=== PATIENT | female | born 1975 | race Caucasian/White ===

== ENCOUNTER 2022-09-13 05:02 | Emergency (ER) | payer OTHER ==
--- OUTSIDE RECORDS SUMMARY | 2022-09-13 05:09 | XMS REPORT | Continuity of Care Document ---
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 [facility] 2017-01-16 2017-01-17 Emergency [facility], [facility] [id number] [place] 00:00:00 00:00:00 [place] [address] 2016-07-02 2016-07-02 Emergency [place] [id number] [place] 00:00:00 00:00:[address] 2015-12-23 2015-12-23 Emergency [place] [id number] [place] 00:00:00 00:00:[address] 2015-12-22 2015-12-22 Emergency [place] [id number] [place] 00:00:00 00:00:[address] 2015-12-18 2015-12-19 Emergency [facility], [place] [id number] [place] 00:00:00 00:00:00 CAMARAN [address] Results Test Description Test Time Test Comments Results Result Comments Source GLUBED 2022-05-16 20:53:00 Test Item Value Reference Range Interpretation Comme nts GLUBED (test code = GLUBED) 163 mg/dL 70-105 H Intravenous administration of N-acetylcystein e which resultsin blood concentrations >5 mg/dL will cause overestimationo f blood glucose results. Do not use duri ng intravenousinfusion of N'acetylcyst eine. Lipid 1996 panel - Serum or [id number] 09:06:00 Test Item Value Reference Range Interpretation Comments cholesterol, total 180 mg/dL <200 (test code = cholesterol, total) HDL cholesterol (test 90 mg/dL See_Comment [Auto mated code = HDL message] The sy stem cholesterol) which generated this result transmitted reference range : > or = 50. The reference range was not used to interpret this result as normal/abnormal . triglycerides (test 63 mg/dL <150 code = triglycerides) Cholesterol in LDL 76 mg/dL [Mass/volume] in Serum (calc) or Plasma (test code = 2089-1) chol/HDLC ratio (test 2.0 (calc) <5.0 code = chol/HDLC ratio) non HDL cholesterol 90 mg/dL <130 (test code = non HDL (calc) cholesterol) [facility] - [facility] or Plasma 2021-08-01 09:06:00 Test Item Value Reference Range Interpretation Comments glucose (test code 108 mg/dL 65-99 H = glucose) urea nitrogen (BUN) 12 mg/dL 7-25 (test code = urea nitrogen (BUN)) creatinine (test 0.65 mg/dL 0.50-1.10 code = creatinine) eGFR non-afr. 106 mL/min/1.73m2 See_Comment [Automat ed dutch (test code message] The = eGFR non-afr. system which dutch) generated this result transmit to reference range : > or = 60. The reference range was not used to interpret this result as normal/abnormal . eGFR 123 mL/min/1.73m2 See_Comment [Automate d dutch (test code message] The = eGFR system which dutch) generated this result transmit to reference range : > or = 60. The reference range was not used to interpret this result as normal/abnormal . BUN/creatinine not applicable 6-22 ratio (test code = BUN/creatinine ratio) sodium (test code = 137 mmol/L 135-146 sodium) potassium (test 4.2 mmol/L 3.5-5.3 code = potassium) chloride (test code 104 mmol/L 98-110 = chloride) carbon dioxide 20 mmol/L 20-32 (test code = carbon dioxide) calcium (test code 9.8 mg/dL 8.6-10.2 = calcium) protein, total 7.3 g/dL 6.1-8.1 (test code = protein, total) albumin (test code 4.5 g/dL 3.6-5.1 = albumin) globulin (test code 2.8 g/dL (calc) 1.9-3.7 = globulin) albumin/globulin 1.6 (calc) 1.0-2.5 ratio (test code = albumin/globulin ratio) bilirubin, total 0.3 mg/dL 0.2-1.2 (test code = bilirubin, total) alkaline 78 U/L 31-125 phosphatase (test code = alkaline phosphatase) AST (test code = 13 U/L 10-35 AST) ALT (test code = 12 U/L 6-29 ALT) [facility] - [id number] 09:06:00 Test Item Value Reference Range Interpretation Comments hemoglobin (test code = 13.5 g/dL 11.7-15.5 hemoglobin) hematocrit (test code = 40.5 % 35.0-45.0 hematocrit) MCV (test code = MCV) 93.3 fL 80.0-100.0 MCH (test code = MCH) 31.1 pg 27.0-33.0 MCHC (test code = MCHC) 33.3 g/dL 32.0-36.0 RDW (test code = RDW) 11.9 % 11.0-15.0 platelet count (test code = 303 thousand/uL 140-400 platelet count) MPV (test code = MPV) 10.3 fL 7.5-12.5 absolute neutrophils (test 02501 cells/uL 6142-7332 H code = absolute neutrophils) absolute lymphocytes (test 735 cells/uL 850-3900 L code = absolute lymphocytes) absolute monocytes (test 1294 cells/uL 200-950 H code = absolute monocytes) absolute eosinophils (test 0 cells/uL 15-500 L code = absolute eosinophils) absolute basophils (test 59 cells/uL 0-200 code = absolute basophils) neutrophils (test code = 92.9 % neutrophils) lymphocytes (test code = 2.5 % lymphocytes) monocytes (test code = 4.4 % monocytes) eosinophils (test code = 0.0 % eosinophils) basophils (test code = 0.2 % basophils) white blood cell count (test 29.4 thousand/uL 3.8-10.8 H code = white blood cell count) red blood cell count (test 4.34 million/uL 3.80-5.10 code = red blood cell count) [facility]Un[facility]/volume] in Serum or [id number] 09:06:00 Test Item Value Reference Range Interpretation Comments TSH (test code = TSH) 0.93 mIU/L [facility] Hospital[facility]xgenzmd95-Asluswduaalwfn D3+25-Hydroxyvitamin D2 [Mass/volume] in Serum or [id number] 09:06:00 Test Item Value Reference Range Interpretation Comments vitamin D,25-oh,total,ia (test code 105 NG/mL 30-100 H = vitamin D,25-oh,total,ia) comment (test code = comment) [facility]/Hemoglobin.total in [id number] 09:06:00 Test Item Value Reference Range Interpretation Comments Hemoglobin 5.2 % of total HGB <5.7 A1c/Hemoglobin.total in Blood (test code = 4548-4) [facility] [id number] 10:03:00 Test Item Value Reference Range Interpretation Comments SURGICAL SPECIMENS (test code = SURG) RUN DATE: 09/16/20 [facility] *LIVE* PAGE 1 RUN TIME: 1003 Specimen Inquiry RUN USER: INTERFACE PATIENT: [address]LE[address] STRE[address] LOC: NC.SRG U #: [id number] AGE/SX: 44/F ROOM: RE09/15/20[facility] DR: Sudha Acosta MD : [id number] BED: DIS: STATUS: MAXIMO CONNOR TLOC: SPEC #: [id number] RECD: 09/15/20-478 STATUS: CHUCK FRANKLIN #: [id number] ALEN: 09/15/20-[address]: Sudha Acosta MD ENTERED: 09/15/20-1141 SP TYPE: SURG OTHR DR: DOES_NOT KNOW No Primary Care PhysicianORDERED: PATHGM4/3 TISSUES: A. COLON, NOS - ASCENDING COLON POLYP CS B. COLON, NOS - ASCENDING COLON POLYP BX C. COLON, NOS - SIGMOID COLON POLYP CS FINAL MICROSCOPIC DIAGNOSIS A. COLON, ASCENDING, COLD SNARE: - TUBULAR ADENOMA (1) B. COLON, ASCENDING, BIOPSY: - TUBULAR ADENOMA (1) C. COLON, SIGMOID, COLD SNARE: - TUBULAR ADENOMA (1) CPT: 36833 x3 GROSS DESCRIPTION Clinical history: Diverticulitis Three specimens are received in formalin each labeled with the patient's name, Jad, and medical record number. A. Specimen labeled "ascending colon polyp cold snare" and consists of a 0.1 cm in greatest dimension olsen-white mucosal biopsy fragment which is filtered in a histobag and entirely submitted in cassette A. B. Specimen labeled "ascending colon polyp biopsy" and consists of two olsen-pink mucosal biopsy fragments measuring 0.2 and 0.3 cm in greatest dimension. The specimen is filtered in a histobag and entirely submitted in cassette B. C. Specimen labeled "sigmoid colon polyp cold snare" and consists of a 0.4 cm in greatest dimension olsen mucosal biopsy fragment which is filtered in a histobag and entirely submitted in cassette C. Signed SIGNATURE ON FILE Fritz Silveira 09/16/20 1003 END OF REPORT DRUGS OF ABUSE SCREEN [id number] 08:52:00 Test Item Value Reference Range Interpretation Comments UR COCAINE (test code = COCAU) POSITIVE NEGATIVE A UR METHAMPHETAMINE (test code = NEGATIVE NEGATIVE METHAMPHU) UR CANABINOIDS (test code = CANU) POSITIVE NEGATIVE A UR AMPHETAMINE (test code = AMPHU) NEGATIVE NEGATIVE UR BARBITURATE (test code = BARBQLU) NEGATIVE NEGATIVE UR BENZODIAZEPINE (test code = NEGATIVE NEGATIVE BENZU) UR OPIATES QUAL (test code = Negative NEGATIVE OPIAQLU) UR TRICYCLICS (test code = TRICYCU) Negative NEGATIVE UR PHENCYCLIDINE (PCP) (test code = Negative NEGATIVE PHENCU) UR HCG [id number] 07:00:00 Test Item Value Reference Range Interpretation Comments UR HCG QUAL (test code = HCGQLU) NEGATIVE NEGATIVE Novel Coronavirus 14:51:00 Test Item Value Reference Range Interpretation Comments Novel Coronavirus Not Detected Not Detected Negative r esults do not 2019 nCoV (test preclude 201 9-nCoV code = COVID19) infection an dshould not be used as the sole basis for treat ment or otherpatient ma nagement decisions. Nega tive results must be combined with clinical observations, p atient history, andepidemiologi miguel information.Ashley ting was performed using the Aptima SARS-CoV -2 assay.This nucl eic acid amplification t est was developed and itsperformance characteristics determined by [facility]. Nucleic acid amplification t ests include PCRand TMA. This test has not be en FDA cleared or appr geena.This test has been a uthorized by FDA under an Emergency UseAuthorizatio n (EUA). This test is on ly authorized fort he duration of maryanne e the declaration candelaria t circumstancesex ist justifying the authorization o f the emergency use o fin vitro diagnostic test s for detection of SA RS-CoV-2 virusand/or bravo gnosis of COVID-19 infect ion under futmroh583(b)(1 ) of the Act, 21 U.S.C. 360bbb-3(b) (1) , unless theauthorizatio n is terminated or r evoked sooner.When bravo gnostic testing is nega tive, the possibility of afalse negative result should be considered i n the contextof a pat ient's recent exposure s and the presence ofclin ical signs and sympt oms consistent with COVID-19. Anind ividual without symptom s of COVID-19 and wh o is notshedding JACKY S-CoV-2 virus would exp ect to have a negative (not detected) resul t in this assay.Performed At: [facility] [place] [address] [place], [place] [id number] alexys Escobar MD Ph:[phone] Novel Coronavirus [id number] 13:11:00 Test Item Value Reference Range Interpretation Comments Novel Coronavirus Not Detected Not Detected Negative r esults do not 2019 nCoV (test preclude 201 9-nCoV code = COVID19) infection an dshould not be used as the sole basis for treat ment or otherpatient ma nagement decisions. Nega tive results must be combined with clinical observations, p atient history, andepidemiologi miguel information.Ashley ting was performed using the Aptima SARS-CoV -2 assay.This nucl eic acid amplification t est was developed and itsperformance characteristics determined by [facility]. Nucleic acid amplification t ests include PCRand TMA. This test has not be en FDA cleared or appr geena.This test has been a uthorized by FDA under an Emergency UseAuthorizatio n (EUA). This test is on ly authorized fort he duration of maryanen e the declaration candelaria t circumstancesex ist justifying the authorization o f the emergency use o fin vitro diagnostic test s for detection of SA RS-CoV-2 virusand/or bravo gnosis of COVID-19 infect ion under pweppvc954(b)(1 ) of the Act, 21 U.S.C. 360bbb-3(b) (1) , unless theauthorizatio n is terminated or r evoked sooner.When bravo gnostic testing is nega tive, the possibility of afalse negative result should be considered i n the contextof a pat ient's recent exposure s and the presence ofclin ical signs and sympt oms consistent with COVID-19. Anind ividual without symptom s of COVID-19 and wh o is notshedding JACKY S-CoV-2 virus would exp ect to have a negative (not detected) resul t in this assay.Performed At: [facility] [place] [address] [place], [place] [id number] alexys Escobar MD Ph:[phone] BASIC METABOLIC [id number] 19:56:00 Test Item Value Reference Range Interpretation Comments SODIUM (test code 138 mmol/L 135-145 N = NA) POTASSIUM (test 3.7 mmol/L 3.5-5.1 N code = K) CHLORIDE (test 102 mmol/L 98-107 N code = CL) CARBON DIOXIDE 30 mmol/L 21-32 N (test code = CO2) ANION GAP (test 9.7 2.0-16.0 N code = GAP) GLUCOSE (test code 139 mg/dL 65-99 H = GLU) BLOOD UREA 10 mg/dL 4-23 N NITROGEN (test code = BUN) GLOMERULAR >=60 max >60 The estimated FILTRATION RATE estimate ml/min glomerula r (test code = GFR) filtration rate is computed usingpatient ra ce, age (>18), sex, and serum creatinin e. If anyof the neede d data elements a re missing the Laboratory rohan ot compute an estimation of t he glomerular filtration rate . CREATININE (test 0.7 mg/dL 0.6-1.5 N code = CREAT) BUN/CREATININE 14.3 12.0-20.0 N RATIO (test code = BUN/CREA) CALCIUM (test code 9.1 mg/dL 8.5-10.1 N = CA) CBC W/AUTO [id number] 19:39:00 Test Item Value Reference Range Interpretation Comments WHITE BLOOD CELL (test code = 10.9 10 3/uL 4.5-11.0 N WBC) RED BLOOD CELL (test code = 4.69 10 6/uL 3.50-5.50 N RBC) HEMOGLOBIN (test code = HGB) 13.2 g/dL 12.0-16.0 N HEMATOCRIT (test code = HCT) 42.7 % 37.0-55.0 N MEAN CELL VOLUME (test code = 91 fL 81-102 N MCV) MEAN CELL HGB (test code = 28.1 pg 26.0-34.0 N MCH) MEAN CELL HGB CONCENTRATION 30.9 g/dL 31.0-37.0 L (test code = MCHC) RED CELL DISTRIBUTION WIDTH 12.1 % 11.6-14.4 N (test code = RDW) PLATELET COUNT (test code = 554 10 3/uL 150-400 H PLT) MEAN PLATELET VOLUME (test 9.2 fL 9.0-12.6 N code = MPV) NEUTROPHIL % (test code = NT%) 73.2 % 33.0-76.0 N IMMATURE GRANULOCYTE % (test 1.0 % 0.0-1.0 N code = IG%) LYMPHOCYTE % (test code = LY%) 19.6 % 14.0-56.4 N MONOCYTE % (test code = MO%) 4.3 % 0.0-12.9 N EOSINOPHIL % (test code = EO%) 1.4 % 0.0-7.0 N BASOPHIL % (test code = BA%) 0.5 % 0-2.0 N NUCLEATED RBC % (test code = 0.0 % 0-0.2 N NRBC%) NEUTROPHIL # (test code = NT#) 7.99 10 3/uL 1.5-7.0 H IMMATURE GRANULOCYTE # (test 0.110 x10 3/uL 0.000-0.100 H code = IG#) LYMPHOCYTE # (test code = LY#) 2.14 10 3/uL 1.50-4.00 N MONOCYTE # (test code = MO#) 0.47 10 3/uL 0.20-0.80 N EOSINOPHIL # (test code = EO#) 0.15 10 3/uL 0.0-0.5 N BASOPHIL # (test code = BA#) 0.06 10 3/uL 0.0-0.1 N COMPREHENSIVE METABOLIC [id number] 07:37:00 Test Item Value Reference Range Interpretation Comments SODIUM (test code 138 mmol/L 135-145 N = NA) POTASSIUM (test 4.5 mmol/L 3.5-5.1 N code = K) CHLORIDE (test 108 mmol/L 98-107 H code = CL) CARBON DIOXIDE 23 mmol/L 21-32 N (test code = CO2) ANION GAP (test 11.5 2.0-16.0 N code = GAP) GLUCOSE (test 99 mg/dL 65-99 N code = GLU) BLOOD UREA 15 mg/dL 4-23 NITROGEN (test code = BUN) GLOMERULAR >=60 max >60 The estimated g lomerular FILTRATION RATE estimate filtration r ate is (test code = GFR) ml/min computed u singpatient race, age (>18) , sex, and serum creat inine. If anyof the neede d data elements are mi ssing the Laboratory rohan ot compute an roxanne mation of the glomerular filtration rate . CREATININE (test 0.8 mg/dL 0.6-1.5 N code = CREAT) BUN/CREATININE 18.8 12.0-20.0 N RATIO (test code = BUN/CREA) TOTAL PROTEIN 6.4 g/dL 6.4-8.2 N (test code = PROT) ALBUMIN (test 2.7 g/dL 3.4-5.0 L code = ALB) CALCIUM (test 8.5 mg/dL 8.5-10.1 N code = CA) BILIRUBIN TOTAL 0.3 mg/dL 0.2-1.2 N Use of this assay is not (test code = recommended for patients BILT) undergoingtreat ment with Eltrombopag due to the potential for falselyelevated results. SGOT/AST (test 8 U/L 15-37 L code = AST) SGPT/ALT (test 11 U/L 6-50 N code = ALT) ALKALINE 76 U/L 45-117 N PHOSPHATASE (test code = ALKP) CBC W/AUTO [id number] 06:29:00 Test Item Value Reference Range Interpretation Comments WHITE BLOOD CELL (test code = 9.6 10 3/uL 4.5-11.0 N WBC) RED BLOOD CELL (test code = 3.67 10 6/uL 3.50-5.50 N RBC) HEMOGLOBIN (test code = HGB) 11.0 g/dL 12.0-16.0 L HEMATOCRIT (test code = HCT) 35.6 % 37.0-55.0 L MEAN CELL VOLUME (test code = 97 fL 81-102 N MCV) MEAN CELL HGB (test code = 30.0 pg 26.0-34.0 N MCH) MEAN CELL HGB CONCENTRATION 30.9 g/dL 31.0-37.0 L (test code = MCHC) RED CELL DISTRIBUTION WIDTH 12.0 % 11.6-14.4 N (test code = RDW) PLATELET COUNT (test code = 406 10 3/uL 150-400 H PLT) MEAN PLATELET VOLUME (test 9.8 fL 9.0-12.6 N code = MPV) NEUTROPHIL % (test code = NT%) 65.8 % 33.0-76.0 N IMMATURE GRANULOCYTE % (test 0.5 % 0.0-1.0 N code = IG%) LYMPHOCYTE % (test code = LY%) 24.1 % 14.0-56.4 N MONOCYTE % (test code = MO%) 5.7 % 0.0-12.9 N EOSINOPHIL % (test code = EO%) 3.5 % 0.0-7.0 N BASOPHIL % (test code = BA%) 0.4 % 0-2.0 N NUCLEATED RBC % (test code = 0.0 % 0-0.2 N NRBC%) NEUTROPHIL # (test code = NT#) 6.29 10 3/uL 1.5-7.0 N IMMATURE GRANULOCYTE # (test 0.050 x10 3/uL 0.000-0.100 N code = IG#) LYMPHOCYTE # (test code = LY#) 2.31 10 3/uL 1.50-4.00 N MONOCYTE # (test code = MO#) 0.55 10 3/uL 0.20-0.80 N EOSINOPHIL # (test code = EO#) 0.34 10 3/uL 0.0-0.5 N BASOPHIL # (test code = BA#) 0.04 10 3/uL 0.0-0.1 N - CT ABD PELVIS W WO [id number] 08:30:00Patient Name: ALETHEA STREET Unit No: [id number] EXAMS: CPT CODE: [id number] CT ABD PELVIS W [place] CONT [address]609 CLINICAL HISTORY: DIVERTICULOSIS TECHNIQUE: Axial images of the abdomen and pelvis were obtained from diaphragm to the pubic symphysis without and with intravenous contrast. No oral contrast is administered. Approximately 100 mL of intravenous contrast was administered. Sagittal and coronal images were obtained. Location: A1 CT DLP dose: 751 mGy-cm. Iterative dose reduction technique was utilized. Comparison study: Comparison is made with prior study of 06/13/2020 FINDINGS: The images of thelung bases demonstrate no masses, effusions or infiltrates. Heart size is normal. There is no pericardial effusion. The liver is homogeneous, free of focal masses and dilated intrahepatic ducts. The gallbladder is unremarkable. The spleen is normal in size and contour. The pancreas is morphologically normal. No mass, pancreatic duct dilatation or peripancreatic edema is visible. The adrenal glands are normal in size and contour. Both kidneys are normal in size. No hydronephrosis or enhancing renal mass. No urothelial thickening is seen, calyceal system appears sharp. Neither cystic nor solid renal masses are visible. No hydronephrosis is seen. No renal calculi or perinephric stranding. The urinary bladder is unremarkable. Stomach and duodenum appear unremarkable. The visualized small bowel is unremarkable without evidence of bowel thickening or obstruction. The The appendix is unremarkable. There is no pericecal inflammation. There is significant interval improvement of the inflammatory processalong the sigmoid. Previously described small intramural abscess in the left lower quadrant now measures 2.1 x 2.5 cm image 63, previously measured 4.7 x 2.9 cm. An adjacent tiny interloop abscess (image 59) within the mesentery previously measured 1.5 cm in diameter now measures 9 to 10 mm in diameter. The uterus is unremarkable. Small left ovarian cyst measuring 1.3 cm is unchanged. No retroperitoneal lymphadenopathy is present. The aorta is of normal caliber. The IVC is patent. The portal vein is Name: ALETHE[address] STREET [facility] Phys: Carol Welch [id number] : 1975 Age: 44 Sex: [place] [id number] Loc: NC.6307 1 Exam Date: 06/20/2020 Status: ADM IN PH: FAX: PAGE 1 Signed Report (CONTINUED) Patient Name: ALETHEA STREET Unit No: [id number] EXAMS: CPT CODE: [id number] CT ABD PELVIS W WO CONT [id number] (Continued) patent. No evidence of ascites. Abdominal wall is intact. No significant bone lesions. IMPRESSION: 1. Interval improvement in the complicated sigmoid diverticulitis noted. Overall inflammatory process around the sigmoid is diminished. The intramural abscess now measures 2.5 x 2.1 cm, previously measured 4.7 x 2.9 cm. Tiny interloop/mesenteric abscess now measures 9 to 10 mm in diameter, previously measured 15 mm in diameter. 2. No new abscess or fluid collections have developed. at 0830 Reported and signed by: Antoni Escobar M.D. CC: Self Referred; Carol Aguilar MD; Josiah Ervin MD Technologist: Ana Laura Tess CTDI: 8.44 DLP: 750.8 Trscr Dt/Tm: 06/20/2020 (829) by:[email or web address] Electronic Signature Date/Time: 06/20/2020 (829)Orig Print D/T: S: 06/20/2020 (832) [facility] [address] : 1975 Age: 44 [place]: [place] [address] Loc: NC.6307 1 Exam Date: 06/20/2020 Status: ADM IN PH: FAX: PAGE 2 Signed ReportBASIC METABOLIC [id number] 06:07:00 Test Item Value Reference Range Interpretation Comments SODIUM (test code 142 mmol/L 135-145 N = NA) POTASSIUM (test 4.8 mmol/L 3.5-5.1 N code = K) CHLORIDE (test 110 mmol/L 98-107 H code = CL) CARBON DIOXIDE 28 mmol/L 21-32 N (test code = CO2) ANION GAP (test 8.8 2.0-16.0 N code = GAP) GLUCOSE (test code 86 mg/dL 65-99 N = GLU) BLOOD UREA 6 mg/dL 4-23 N NITROGEN (test code = BUN) GLOMERULAR >=60 max >60 The estimated FILTRATION RATE estimate ml/min glomerula r (test code = GFR) filtration rate is computed usingpatient ra ce, age (>18), sex, and serum creatinin e. If anyof the neede d data elements a re missing the Laboratory rohan ot compute an estimation of t he glomerular filtration rate . CREATININE (test 0.7 mg/dL 0.6-1.5 N code = CREAT) BUN/CREATININE 8.6 12.0-20.0 L RATIO (test code = BUN/CREA) CALCIUM (test code 8.5 mg/dL 8.5-10.1 N = CA) CBC W/AUTO [id number] 05:33:00 Test Item Value Reference Range Interpretation Comments WHITE BLOOD CELL (test code = 16.6 10 3/uL 4.5-11.0 H WBC) RED BLOOD CELL (test code = 3.36 10 6/uL 3.50-5.50 L RBC) HEMOGLOBIN (test code = HGB) 10.6 g/dL 12.0-16.0 L HEMATOCRIT (test code = HCT) 32.2 % 37.0-55.0 L MEAN CELL VOLUME (test code = 96 fL 81-102 N MCV) MEAN CELL HGB (test code = 31.5 pg 26.0-34.0 N MCH) MEAN CELL HGB CONCENTRATION 32.9 g/dL 31.0-37.0 N (test code = MCHC) RED CELL DISTRIBUTION WIDTH 12.3 % 11.6-14.4 N (test code = RDW) PLATELET COUNT (test code = 350 10 3/uL 150-400 N PLT) MEAN PLATELET VOLUME (test 9.8 fL 9.0-12.6 N code = MPV) NEUTROPHIL % (test code = NT%) 75.9 % 33.0-76.0 N IMMATURE GRANULOCYTE % (test 0.5 % 0.0-1.0 N code = IG%) LYMPHOCYTE % (test code = LY%) 17.0 % 14.0-56.4 N MONOCYTE % (test code = MO%) 4.4 % 0.0-12.9 N EOSINOPHIL % (test code = EO%) 2.0 % 0.0-7.0 N BASOPHIL % (test code = BA%) 0.2 % 0-2.0 N NUCLEATED RBC % (test code = 0.0 % 0-0.2 N NRBC%) NEUTROPHIL # (test code = NT#) 12.61 10 3/uL 1.5-7.0 H IMMATURE GRANULOCYTE # (test 0.080 x10 3/uL 0.000-0.100 N code = IG#) LYMPHOCYTE # (test code = LY#) 2.82 10 3/uL 1.50-4.00 N MONOCYTE # (test code = MO#) 0.73 10 3/uL 0.20-0.80 N EOSINOPHIL # (test code = EO#) 0.33 10 3/uL 0.0-0.5 N BASOPHIL # (test code = BA#) 0.03 10 3/uL 0.0-0.1 N [id number] 13:19:00 Test Item Value Reference Range Interpretation Comments GLUBED (test 78 mg/dL 65-99 N Intravenous adm inistration of code = GLUBED) N-acetylcyste ine which resultsin blood concentrations >5 mg/dL will cause overestim ationof blood glucose results . Do not use during intraven ousinfusion of N'acetylcystein e. [id number] 08:10:00 Test Item Value Reference Range Interpretation Comments GLUBED (test 84 mg/dL 65-99 N Intravenous adm inistration of code = GLUBED) N-acetylcyste ine which resultsin blood concentrations >5 mg/dL will cause overestim ationof blood glucose results . Do not use during intraven ousinfusion of N'acetylcystein e. HGBA1C - GLYCOSYLATED [id number] 05:46:00 Test Item Value Reference Range Interpretation Comments GLYCOSYLATED HEMOGLOBIN (HA1C) (test 5.6 4.5-5.9 N code = GLYHGB) COMPREHENSIVE METABOLIC [id number] 05:01:00 Test Item Value Reference Range Interpretation Comments SODIUM (test code 141 mmol/L 135-145 N = NA) POTASSIUM (test 4.0 mmol/L 3.5-5.1 N code = K) CHLORIDE (test 107 mmol/L 98-107 N code = CL) CARBON DIOXIDE 30 mmol/L 21-32 N (test code = CO2) ANION GAP (test 8.0 2.0-16.0 code = GAP) GLUCOSE (test 85 mg/dL 65-99 N code = GLU) BLOOD UREA 12 mg/dL 4-23 N NITROGEN (test code = BUN) GLOMERULAR >=60 max >60 The estimated g lomerular FILTRATION RATE estimate filtration r ate is (test code = GFR) ml/min computed u singpatient race, age (>18) , sex, and serum creat inine. If anyof the neede d data elements are mi ssing the Laboratory rohan ot compute an roxanne mation of the glomerular filtration rate . CREATININE (test 0.8 mg/dL 0.6-1.5 N code = CREAT) BUN/CREATININE 15.0 12.0-20.0 N RATIO (test code = BUN/CREA) TOTAL PROTEIN 6.2 g/dL 6.4-8.2 L (test code = PROT) ALBUMIN (test 2.7 g/dL 3.4-5.0 L code = ALB) CALCIUM (test 8.5 mg/dL 8.5-10.1 N code = CA) BILIRUBIN TOTAL 0.5 mg/dL 0.2-1.2 N Use of this assay is not (test code = recommended for patients BILT) undergoingtreat ment with Eltrombopag due to the potential for falselyelevated results. SGOT/AST (test 9 U/L 15-37 L code = AST) SGPT/ALT (test 13 U/L 6-50 N code = ALT) ALKALINE 80 U/L 45-117 N PHOSPHATASE (test code = ALKP) [id number] 05:01:00 Test Item Value Reference Range Interpretation Comments MAGNESIUM (test code = MAG) 2.2 mg/dL 1.8-2.4 N CBC W/AUTO [id number] 04:53:00 Test Item Value Reference Range Interpretation Comments WHITE BLOOD CELL (test code = 11.6 10 3/uL 4.5-11.0 H WBC) RED BLOOD CELL (test code = 3.39 10 6/uL 3.50-5.50 L RBC) HEMOGLOBIN (test code = HGB) 10.4 g/dL 12.0-16.0 L HEMATOCRIT (test code = HCT) 32.0 % 37.0-55.0 L MEAN CELL VOLUME (test code = 94 fL 81-102 N MCV) MEAN CELL HGB (test code = 30.7 pg 26.0-34.0 N MCH) MEAN CELL HGB CONCENTRATION 32.5 g/dL 31.0-37.0 N (test code = MCHC) RED CELL DISTRIBUTION WIDTH 12.0 % 11.6-14.4 N (test code = RDW) PLATELET COUNT (test code = 372 10 3/uL 150-400 N PLT) MEAN PLATELET VOLUME (test 10.1 fL 9.0-12.6 N code = MPV) NEUTROPHIL % (test code = NT%) 61.3 % 33.0-76.0 N IMMATURE GRANULOCYTE % (test 0.4 % 0.0-1.0 N code = IG%) LYMPHOCYTE % (test code = LY%) 28.0 % 14.0-56.4 N MONOCYTE % (test code = MO%) 5.3 % 0.0-12.9 N EOSINOPHIL % (test code = EO%) 4.6 % 0.0-7.0 N BASOPHIL % (test code = BA%) 0.4 % 0-2.0 N NUCLEATED RBC % (test code = 0.0 % 0-0.2 N NRBC%) NEUTROPHIL # (test code = NT#) 7.11 10 3/uL 1.5-7.0 H IMMATURE GRANULOCYTE # (test 0.050 x10 3/uL 0.000-0.100 N code = IG#) LYMPHOCYTE # (test code = LY#) 3.25 10 3/uL 1.50-4.00 N MONOCYTE # (test code = MO#) 0.62 10 3/uL 0.20-0.80 N EOSINOPHIL # (test code = EO#) 0.54 10 3/uL 0.0-0.5 H BASOPHIL # (test code = BA#) 0.05 10 3/uL 0.0-0.1 N Coronavirus 2018 nCoV [id number] 17:57:00 Test Item Value Reference Range Interpretation Comments Coronavirus 2018 Negative Negative This test h ad not been nCoV Bedside (test FDA clear ed or approved; code = [id number]) This te sthas been authorized by F DA under an EUA for use byauthorized la boratories only for the de tection of nucleicacid fro m SARS-CoV-2, not for any other viruses orpathogens; an d this test is only au thorized for the duratio nof the declaration candelaria t circumstances e xist justifying theauthorizatio n of emergency use o f in-vitro diagnostic test sfor detection and/o r diagnosis of CO VID-19 under Rluznen53 4(b)(1) of the Act, 21 U.S .C. 360bbb-3(b)(1), unless theauthorizatio n is terminated or r evoked sooner. Is patient requiring admission or transfer? YIndication for rapid COVID-9 testing: Mod Clinical SuspicionLIPID PROFILE (CORONARY RISK)2020-06-18 17:04:00 Test Item Value Reference Range Interpretation Comments TRIGLYCERIDES (test code = TRIG) 227 mg/dL 0-149 H CHOLESTEROL (test code = CHOL) 165 mg/dL 0-200 N CHOLESTEROL/HDL RATIO (test code = 4 1-6 N CHOLHDL) HDL CHOLESTEROL (test code = HDL) 38 mg/dL 40-60 L LIPOPROTEIN LDL (test code = LDLC) 95 mg/dL 0-100 N LACTIC [id number] 16:27:00 Test Item Value Reference Range Interpretation Comments LACTIC ACID (test code = LACT) 1.3 mmol/L 0.4-2.0 N PROTHROMBIN [id number] 16:24:00 Test Item Value Reference Range Interpretation Comments PROTHROMBIN TIME 11.7 SECONDS 9.4-12.5 N PATIENT (test code = PTP) INTERNATIONAL 1.1 RATIO 0.8-1.1 N THE INR IS USE FUL ONLY NORMAL RATIO (test FOR MONIT ORING code = INR) ANTICOAGULANT THERAPY.IT MAY BE UNRELIABLE IN T HE INITIAL PHASE O F ANTICOAGULATION AND IN UNSTABLE PATIEN TS. 2.0-3.0 is the recommended INR for the following:Preve ntion of venous thrombol ism in high-risk patients;treatm ent of venous thrombos is and pulmonary embol ism aftera course o f heparin; preven tion of systemic emboli sm in avariety of con dition, including atria l fibrillation andprosthetic t issue heart valves.2. 5-3.5 is the recommended INR for the following:Prost hetic mechanical hear t values and/or recurren t systemicemboliz ation. THROMBOPLASTIN TIME [id number] 16:24:00 Test Item Value Reference Range Interpretation Comments THROMBOPLASTIN TIME PARTIAL 29.5 SECONDS 25.1-36.5 N (test code = PTT) BASIC METABOLIC [id number] 15:37:00 Test Item Value Reference Range Interpretation Comments SODIUM (test code 138 mmol/L 135-145 N = NA) POTASSIUM (test 4.1 mmol/L 3.5-5.1 N code = K) CHLORIDE (test 105 mmol/L 98-107 N code = CL) CARBON DIOXIDE 26 mmol/L 21-32 N (test code = CO2) ANION GAP (test 11.1 2.0-16.0 N code = GAP) GLUCOSE (test code 89 mg/dL 65-99 N = GLU) BLOOD UREA 14 mg/dL 4-23 N NITROGEN (test code = BUN) GLOMERULAR >=60 max >60 The estimated FILTRATION RATE estimate ml/min glomerula r (test code = GFR) filtration rate is computed usingpatient ra ce, age (>18), sex, and serum creatinin e. If anyof the neede d data elements a re missing the Laboratory rohan ot compute an estimation of t he glomerular filtration rate . CREATININE (test 0.7 mg/dL 0.6-1.5 N code = CREAT) BUN/CREATININE 20.0 12.0-20.0 N RATIO (test code = BUN/CREA) CALCIUM (test code 8.9 mg/dL 8.5-10.1 N = CA) DATE OF LAST MENSTRUAL PERIOD: 05/29/20LIVER FUNCTION [id number] 15:37:00 Test Item Value Reference Range Interpretation Comments TOTAL PROTEIN 7.9 g/dL 6.4-8.2 N (test code = PROT) ALBUMIN (test code 3.2 g/dL 3.4-5.0 L = ALB) GLOBULIN (test 4.7 g/dL 2.3-3.5 H code = GLOB) BILIRUBIN TOTAL 0.2 mg/dL 0.2-1.2 N Use of this assay is not (test code = BILT) recommend ed for patients undergoingtreat ment with Eltrombopag due to the potential for falselyelevated results. BILIRUBIN DIRECT < 0.1 mg/dL 0.0-0.3 N (test code = BILD) BILIRUBIN INDIRECT 0.1 mg/dL 0.0-0.8 N (test code = BILIND) SGOT/AST (test 11 U/L 15-37 L code = AST) SGPT/ALT (test 16 U/L 6-50 N code = ALT) ALKALINE 96 U/L 45-117 N PHOSPHATASE (test code = ALKP) DATE OF LAST MENSTRUAL PERIOD: 05/29/[id number] 15:37:00 Test Item Value Reference Range Interpretation Comments LIPASE (test code = LIP) 127 U/L 73-393 N DATE OF LAST MENSTRUAL PERIOD: 05/29/20HCG SERUM [id number] 15:37:00 Test Item Value Reference Range Interpretation Comments HCG SERUM QUAL (test code = HCGQL) NEGATIVE NEGATIVE DATE OF LAST MENSTRUAL PERIOD: 05/29/20BASIC METABOLIC [id number] 15:31:00 Test Item Value Reference Range Interpretation Comments SODIUM (test code = NA) mmol/L 135-145 POTASSIUM (test code = K) mmol/L 3.5-5.1 CHLORIDE (test code = CL) mmol/L 98-107 CARBON DIOXIDE (test code = CO2) mmol/L 21-32 ANION GAP (test code = GAP) 2.0-16.0 GLUCOSE (test code = GLU) mg/dL 65-99 BLOOD UREA NITROGEN (test code = BUN) mg/dL 4-23 GLOMERULAR FILTRATION RATE (test code ml/min >60 = GFR) CREATININE (test code = CREAT) mg/dL 0.6-1.5 BUN/CREATININE RATIO (test code = 12.0-20.0 BUN/CREA) CALCIUM (test code = CA) mg/dL 8.5-10.1 DATE OF LAST MENSTRUAL PERIOD: 05/29/20LIVER FUNCTION [id number] 15:31:00 Test Item Value Reference Range Interpretation Comments TOTAL PROTEIN (test code = PROT) g/dL 6.4-8.2 ALBUMIN (test code = ALB) g/dL 3.4-5.0 GLOBULIN (test code = GLOB) g/dL 2.3-3.5 BILIRUBIN TOTAL (test code = BILT) mg/dL 0.2-1.2 BILIRUBIN DIRECT (test code = BILD) mg/dL 0.0-0.3 BILIRUBIN INDIRECT (test code = mg/dL 0.0-0.8 BILIND) SGOT/AST (test code = AST) U/L 15-37 SGPT/ALT (test code = ALT) U/L 6-50 ALKALINE PHOSPHATASE (test code = U/L 45-117 ALKP) DATE OF LAST MENSTRUAL PERIOD: 05/29/[id number] 15:31:00 Test Item Value Reference Range Interpretation Comments LIPASE (test code = LIP) U/L 73-393 DATE OF LAST MENSTRUAL PERIOD: 05/29/20HCG SERUM [id number] 15:31:00 Test Item Value Reference Range Interpretation Comments HCG SERUM QUAL (test code = HCGQL) NEGATIVE NEGATIVE DATE OF LAST MENSTRUAL PERIOD: 05/29/20UA RFLX MICR CULT IF [id number] 15:25:00 Test Item Value Reference Range Interpretation Comments UA COLOR (test code = COLU) STRAW YELLOW UA APPEARANCE (test code = CLEAR CLEAR APPU) UA GLUCOSE DIPSTICK (test NEGATIVE NEGATIVE code = DGLUU) UA BILIRUBIN DIPSTICK (test NEGATIVE NEGATIVE code = BILU) UA KETONE DIPSTICK (test code NEGATIVE NEGATIVE = KETU) UA SPECIFIC GRAVITY (test 1.003 1.005-1.025 L code = SGU) UA BLOOD DIPSTICK (test code NEGATIVE NEGATIVE = NESHA) UA PH DIPSTICK (test code = 6.0 5.0-8.0 CHRISTINE) UA PROTEIN DIPSTICK (test NEGATIVE NEGATIVE code = PROU) UA UROBILINOGEN DIPSTICK NEGATIVE EU/dL 0.1-0.2 (test code = URO) UA NITRITE DIPSTICK (test NEGATIVE NEGATIVE code = JOSE) UA LEUKOCYTE ESTERASE NEGATIVE NEGATIVE DIPSTICK (test code = LEUU) UA MICROSCOPIC NEEDED? (test NO NO code = UAMICRO) UA WBC (test code = WBCU) 3-5 /hpf 0-3 A UA RBC (test code = RBCU) 0-2 /hpf 0-3 UA BACTERIA (test code = RARE /HPF NEGATIVE BACU) UA SQUAMOUS CELLS (test code RARE /HPF FEW = SQU) UA MUCUS (test code = MUCU) OCCASIONAL /lpf Indication for culture: Suprapubic PainCBC W/AUTO [id number] 15:19:00 Test Item Value Reference Range Interpretation Comments WHITE BLOOD CELL (test code = 12.9 10 3/uL 4.5-11.0 H WBC) RED BLOOD CELL (test code = 3.59 10 6/uL 3.50-5.50 N RBC) HEMOGLOBIN (test code = HGB) 10.9 g/dL 12.0-16.0 L HEMATOCRIT (test code = HCT) 33.5 % 37.0-55.0 L MEAN CELL VOLUME (test code = 93 fL 81-102 N MCV) MEAN CELL HGB (test code = 30.4 pg 26.0-34.0 N MCH) MEAN CELL HGB CONCENTRATION 32.5 g/dL 31.0-37.0 N (test code = MCHC) RED CELL DISTRIBUTION WIDTH 11.9 % 11.6-14.4 N (test code = RDW) PLATELET COUNT (test code = 415 10 3/uL 150-400 H PLT) MEAN PLATELET VOLUME (test 10.2 fL 9.0-12.6 N code = MPV) NEUTROPHIL % (test code = NT%) 69.2 % 33.0-76.0 N IMMATURE GRANULOCYTE % (test 0.4 % 0.0-1.0 N code = IG%) LYMPHOCYTE % (test code = LY%) 23.0 % 14.0-56.4 N MONOCYTE % (test code = MO%) 4.0 % 0.0-12.9 N EOSINOPHIL % (test code = EO%) 2.9 % 0.0-7.0 N BASOPHIL % (test code = BA%) 0.5 % 0-2.0 N NUCLEATED RBC % (test code = 0.0 % 0-0.2 N NRBC%) NEUTROPHIL # (test code = NT#) 8.94 10 3/uL 1.5-7.0 H IMMATURE GRANULOCYTE # (test 0.050 x10 3/uL 0.000-0.100 N code = IG#) LYMPHOCYTE # (test code = LY#) 2.97 10 3/uL 1.50-4.00 N MONOCYTE # (test code = MO#) 0.51 10 3/uL 0.20-0.80 N EOSINOPHIL # (test code = EO#) 0.37 10 3/uL 0.0-0.5 N BASOPHIL # (test code = BA#) 0.06 10 3/uL 0.0-0.1 N - CT ABD PELVIS [id number] 10:25:00Patient Name: ALETHEA STREET Unit No: [id number] EXAMS: CPT CODE: [id number] CT ABD PELVIS W/CONT [id number] EXAM: CT ABDOMEN AND PELVIS WITH CONTRAST INDICATION: DIVERTICULITIS LOCATION: A1 COMPARISON: CT abdomen and pelvis dated 05/10/2020 TECHNIQUE: CT of the abdomen and pelvis was performed with 90 mLIsovue-300 intravenous contrast. Patient's GFR is greater than 60 with a creatinine of 0.8. All CT scans are performed using radiation dose reduction technique. Technical factors are evaluated and adjusted to insure appropriate moderation of exposure. Automated dose management technology is applied toadjust the radiation dose to minimize exposure while achieving a diagnostic quality image. FINDINGS:Thoracic: Included images of the lower chest demonstrate no abnormalities. Hepatobiliary: The liver is enlarged with the right hepatic lobe measuring 19.4 cm in craniocaudal dimension. There is diffusehypoattenuation of the hepatic parenchyma indicative of hepatic steatosis. No focal hepatic lesion is seen. No intrahepatic or extrahepatic biliary dilatation is seen. The main portal vein is patent. Gallbladder: The gallbladder is normal. Pancreas: Unremarkable. Spleen: Unremarkable. Adrenals: Unremarkable. Kidneys/ureters: There is no evidence of renal calculus. There is urothelial enhancement andmild dilatation of both ureters. No overt hydronephrosis is seen at the kidneys. No solid renal lesion is identified. Bladder/Reproductive system: Urinary bladder is decompressed limiting evaluation, however there appears to be mild urothelial enhancement and wall thickening noted of the urinary bladder. The left ovary is adjacent to the inflamed segment of sigmoid colon, abutting one of the pericolonic fluid collections.. There is a cystic area at the left ovary which may represent a dominant follicle measuring 1.3 cm. Gastrointestinal: There is acute diverticulitis noted of the sigmoid colon. There is a large irregularly-shaped pericolonic fluid collection containing air noted measuring approximately 4.7 x 2.9 x 4.6 cm (series 3, image 61 and series 4, image 56). There is a Name: ALETHEA STREETH [facility] Phys: [place] [address] : 1975 Age: 44 [place]: [place] [id number] Loc: AL.CTSII Exam Date: 06/13/2020 Status: REG CLI PH: FAX: PAGE 1 Signed Report (CONTINUED) Patient Name: ALETHEA STREET Unit No: [id number] EXAMS: CPT CODE: [id number] CT ABD PELVIS W/CONT [id number] (Continued) another fluid collection which may be contiguous with the larger collection measuring approximately 3.9 x 1.2 x 1.5 cm (series 4, image 43 and series 3, image 57) which extends into the central mesentery. The appendix is normal. No bowel obstruction is seen. Vascular: Atherosclerotic calcifications are seen within the aorta and branch vessels. Lymphatics: No enlarged lymph nodes by CT size criteria. Bones/Soft Tissues: No acute osseous findings. No ventral hernias. Peritoneum/Other: Pericolonic fluid collections are noted at the inflamed loop of sigmoid colon as described above. Minimal amount of free fluid is seen in the pelvis. IMPRESSION: 1. Acute sigmoid diverticulitis with pericolonic fluid collections concerning for abscesses measuringup to 4.7 cm. 2. Urothelial enhancement of the ureters and urinary bladder with mild dilatation of both ureters. This may reflect urinary tract infection. Recommend correlation with urinalysis. 3. Hepatomegaly with fatty infiltration. at 1025 Reported and signed by: Melody Cooper M.D. CC: Sudha Acosta MD Technologist: Richelle Han CTDI: 10.12 DLP: 480 Trscr Dt/Tm: 06/13/2020 (1025) by:[email or web address] Electronic Signature Date/Time: 06/13/2020 (1025)Orig Print D/T: S: 06/13/2020 (1028) [facility] [place] [address] : 1975 Age: 44 [place]: [place] [id number] Loc: AL.CTSII Exam Date: 06/13/2020 Status: REG CLI PH: FAX: PAGE 2 Signed ReportAB HEPATITIS A [id number] 20:14:00 Test Item Value Reference Range Interpretation Comments AB HEPATITIS A IGM (test code = Non-Reactive NONREACTIVE HAVMAB) AG HEPATITIS B [id number] 20:14:00 Test Item Value Reference Range Interpretation Comments AG HEPATITIS B SURFACE (test Non-Reactive NONREACTIVE code = HBSAG) AB HEPATITIS B CORE [id number] 20:14:00 Test Item Value Reference Range Interpretation Comments AB HEPATITIS B CORE IGM (test Non-Reactive NONREACTIVE code = HBCMAB) AB HEPATITIS [id number] 20:14:00 Test Item Value Reference Range Interpretation Comments AB HEPATITIS C (test code = Non-Reactive NONREACTIVE HCVAB) HIV 1 2 COMBO AG/AB [id number] 20:14:00 Test Item Value Reference Range Interpretation Comments HIV 1 2 COMBO Non-Reactive NONREACTIVE [facility] HIV Ag/Ab AG/AB SCREEN Combo (CHIV) as say is (test code = anin-vitro diag nostic [id number]) immunoassay for the simultaneousqua litative detection of hu man immunodeficienc y virus [id number] and antibodies to human immunodef iciency virusestype 1 ( including group "O") and type 2. COMPREHENSIVE METABOLIC [id number] 19:23:00 Test Item Value Reference Range Interpretation Comments SODIUM (test code 139 mmol/L 135-145 N = NA) POTASSIUM (test 4.1 mmol/L 3.5-5.1 code = K) CHLORIDE (test 101 mmol/L 98-107 N code = CL) CARBON DIOXIDE 34 mmol/L 21-32 H (test code = CO2) ANION GAP (test 8.1 2.0-16.0 N code = GAP) GLUCOSE (test 77 mg/dL 65-99 N code = GLU) BLOOD UREA 15 mg/dL 4-23 NITROGEN (test code = BUN) GLOMERULAR >=60 max >60 The estimated g lomerular FILTRATION RATE estimate filtration r ate is (test code = GFR) ml/min computed u singpatient race, age (>18) , sex, and serum creat inine. If anyof the neede d data elements are mi ssing the Laboratory rohan ot compute an roxanne mation of the glomerular filtration rate . CREATININE (test 0.8 mg/dL 0.6-1.5 N code = CREAT) BUN/CREATININE 18.8 12.0-20.0 N RATIO (test code = BUN/CREA) TOTAL PROTEIN 7.5 g/dL 6.4-8.2 N (test code = PROT) ALBUMIN (test 3.5 g/dL 3.4-5.0 N code = ALB) CALCIUM (test 9.6 mg/dL 8.5-10.1 N code = CA) BILIRUBIN TOTAL 0.3 mg/dL 0.2-1.2 N Use of this assay is not (test code = recommended for patients BILT) undergoingtreat ment with Eltrombopag due to the potential for falselyelevated results. SGOT/AST (test 20 U/L 15-37 N code = AST) SGPT/ALT (test 21 U/L 6-50 N code = ALT) ALKALINE 91 U/L 45-117 N PHOSPHATASE (test code = ALKP) PROTHROMBIN [id number] 19:12:00 Test Item Value Reference Range Interpretation Comments PROTHROMBIN TIME 11.7 SECONDS 9.4-12.5 N PATIENT (test code = PTP) INTERNATIONAL 1.1 RATIO 0.8-1.1 N THE INR IS USE FUL ONLY NORMAL RATIO (test FOR MONIT ORING code = INR) ANTICOAGULANT THERAPY.IT MAY BE UNRELIABLE IN T HE INITIAL PHASE O F ANTICOAGULATION AND IN UNSTABLE PATIEN TS. 2.0-3.0 is the recommended INR for the following:Preve ntion of venous thrombol ism in high-risk patients;treatm ent of venous thrombos is and pulmonary embol ism aftera course o f heparin; preven tion of systemic emboli sm in avariety of con dition, including atria l fibrillation andprosthetic t issue heart valves.2. 5-3.5 is the recommended INR for the following:Prost hetic mechanical hear t values and/or recurren t systemicemboliz ation. THROMBOPLASTIN TIME [id number] 19:12:00 Test Item Value Reference Range Interpretation Comments THROMBOPLASTIN TIME PARTIAL 33.4 SECONDS 25.1-36.5 N (test code = PTT) CBC W/AUTO [id number] 19:00:00 Test Item Value Reference Range Interpretation Comments WHITE BLOOD CELL (test code = 13.2 10 3/uL 4.5-11.0 H WBC) RED BLOOD CELL (test code = 3.90 10 6/uL 3.50-5.50 N RBC) HEMOGLOBIN (test code = HGB) 12.1 g/dL 12.0-16.0 N HEMATOCRIT (test code = HCT) 38.5 % 37.0-55.0 N MEAN CELL VOLUME (test code = 99 fL 81-102 N MCV) MEAN CELL HGB (test code = 31.0 pg 26.0-34.0 N MCH) MEAN CELL HGB CONCENTRATION 31.4 g/dL 31.0-37.0 N (test code = MCHC) RED CELL DISTRIBUTION WIDTH 12.0 % 11.5-14.5 N (test code = RDW) PLATELET COUNT (test code = 476 10 3/uL 150-400 H PLT) MEAN PLATELET VOLUME (test 10.3 fL 9.0-12.6 N code = MPV) NEUTROPHIL % (test code = NT%) 71.9 % 33.0-76.0 N IMMATURE GRANULOCYTE % (test 0.5 % 0.0-1.0 N code = IG%) LYMPHOCYTE % (test code = LY%) 17.8 % 14.0-56.4 N MONOCYTE % (test code = MO%) 7.3 % 0.0-12.9 N EOSINOPHIL % (test code = EO%) 2.3 % 0.0-7.0 N BASOPHIL % (test code = BA%) 0.2 % 0-2.0 N NUCLEATED RBC % (test code = 0.0 % 0-0.2 N NRBC%) NEUTROPHIL # (test code = NT#) 9.46 10 3/uL 1.5-7.0 H IMMATURE GRANULOCYTE # (test 0.070 x10 3/uL 0.000-0.100 N code = IG#) LYMPHOCYTE # (test code = LY#) 2.34 10 3/uL 1.50-4.00 N MONOCYTE # (test code = MO#) 0.96 10 3/uL 0.20-0.80 H EOSINOPHIL # (test code = EO#) 0.30 10 3/uL 0.0-0.5 N BASOPHIL # (test code = BA#) 0.03 10 3/uL 0.0-0.1 N [id number] 12:11:00 Test Item Value Reference Range Interpretation Comments GLUBED (test code = GLUBED) 87 mg/dL 65-99 N [id number] 08:28:00 Test Item Value Reference Range Interpretation Comments GLUBED (test code = GLUBED) 173 mg/dL 65-99 H BASIC METABOLIC [id number] 07:21:00 Test Item Value Reference Range Interpretation Comments SODIUM (test code 139 mmol/L 135-145 N = NA) POTASSIUM (test 3.2 mmol/L 3.5-5.1 L code = K) CHLORIDE (test 107 mmol/L 98-107 N code = CL) CARBON DIOXIDE 21 mmol/L 21-32 N (test code = CO2) ANION GAP (test 14.2 2.0-16.0 N code = GAP) GLUCOSE (test code 164 mg/dL 65-99 H = GLU) BLOOD UREA 8 mg/dL 4-23 N NITROGEN (test code = BUN) GLOMERULAR >=60 max >60 The estimated FILTRATION RATE estimate ml/min glomerula r (test code = GFR) filtration rate is computed usingpatient ra ce, age (>18), sex, and serum creatinin e. If anyof the neede d data elements a re missing the Laboratory rohan ot compute an estimation of t he glomerular filtration rate . CREATININE (test 0.6 mg/dL 0.6-1.5 N code = CREAT) BUN/CREATININE 13.3 12.0-20.0 N RATIO (test code = BUN/CREA) CALCIUM (test code 8.3 mg/dL 8.5-10.1 L = CA) CBC W/O [id number] 07:19:00 Test Item Value Reference Range Interpretation Comments WHITE BLOOD CELL (test code = 10.8 10 3/uL 4.5-11.0 N WBC) RED BLOOD CELL (test code = RBC) 3.58 10 6/uL 3.50-5.50 N HEMOGLOBIN (test code = HGB) 11.4 g/dL 12.0-16.0 L HEMATOCRIT (test code = HCT) 34.1 % 37.0-55.0 L MEAN CELL VOLUME (test code = 95 fL 81-102 MCV) MEAN CELL HGB (test code = MCH) 31.8 pg 26.0-34.0 N MEAN CELL HGB CONCENTRATION 33.4 g/dL 31.0-37.0 N (test code = MCHC) RED CELL DISTRIBUTION WIDTH 11.6 % 11.5-14.5 N (test code = RDW) PLATELET COUNT (test code = PLT) 241 10 3/uL 150-400 N [id number] 21:12:00 Test Item Value Reference Range Interpretation Comments GLUBED (test code = GLUBED) 111 mg/dL 65-99 H [id number] 16:51:00 Test Item Value Reference Range Interpretation Comments GLUBED (test code = GLUBED) 112 mg/dL 65-99 H [id number] 12:32:00 Test Item Value Reference Range Interpretation Comments GLUBED (test code = GLUBED) 130 mg/dL 65-99 H CBC W/O [id number] 06:36:00 Test Item Value Reference Range Interpretation Comments WHITE BLOOD CELL (test code = 12.5 10 3/uL 4.5-11.0 H WBC) RED BLOOD CELL (test code = RBC) 3.91 10 6/uL 3.50-5.50 N HEMOGLOBIN (test code = HGB) 13.2 g/dL 12.0-16.0 N HEMATOCRIT (test code = HCT) 38.2 % 37.0-55.0 N MEAN CELL VOLUME (test code = 98 fL 81-102 N MCV) MEAN CELL HGB (test code = MCH) 33.8 pg 26.0-34.0 N MEAN CELL HGB CONCENTRATION 34.6 g/dL 31.0-37.0 N (test code = MCHC) RED CELL DISTRIBUTION WIDTH 12.0 % 11.5-14.5 N (test code = RDW) PLATELET COUNT (test code = PLT) 182 10 3/uL 150-400 N BASIC METABOLIC [id number] 06:10:00 Test Item Value Reference Range Interpretation Comments SODIUM (test code 139 mmol/L 135-145 N = NA) POTASSIUM (test 3.5 mmol/L 3.5-5.1 N code = K) CHLORIDE (test 109 mmol/L 98-107 H code = CL) CARBON DIOXIDE 20 mmol/L 21-32 L (test code = CO2) ANION GAP (test 13.5 2.0-16.0 N code = GAP) GLUCOSE (test code 124 mg/dL 65-99 H = GLU) BLOOD UREA 13 mg/dL 4-23 N NITROGEN (test code = BUN) GLOMERULAR >=60 max >60 The estimated FILTRATION RATE estimate ml/min glomerula r (test code = GFR) filtration rate is computed usingpatient ra ce, age (>18), sex, and serum creatinin e. If anyof the neede d data elements a re missing the Laboratory rohan ot compute an estimation of t he glomerular filtration rate . CREATININE (test 0.8 mg/dL 0.6-1.5 N code = CREAT) BUN/CREATININE 16.3 12.0-20.0 N RATIO (test code = BUN/CREA) CALCIUM (test code 8.5 mg/dL 8.5-10.1 N = CA) [id number] 05:25:00 Test Item Value Reference Range Interpretation Comments GLUBED (test code = GLUBED) 130 mg/dL 65-99 H [id number] 23:38:00 Test Item Value Reference Range Interpretation Comments GLUBED (test code = GLUBED) 125 mg/dL 65-99 H CBC W/AUTO [id number] 19:13:00 Test Item Value Reference Range Interpretation Comments WHITE BLOOD CELL (test code = 15.1 10 3/uL 4.5-11.0 H WBC) RED BLOOD CELL (test code = 3.98 10 6/uL 3.50-5.50 N RBC) HEMOGLOBIN (test code = HGB) 12.7 g/dL 12.0-16.0 N HEMATOCRIT (test code = HCT) 39.3 % 37.0-55.0 N MEAN CELL VOLUME (test code = 99 fL 81-102 MCV) MEAN CELL HGB (test code = 31.9 pg 26.0-34.0 N MCH) MEAN CELL HGB CONCENTRATION 32.3 g/dL 31.0-37.0 N (test code = MCHC) RED CELL DISTRIBUTION WIDTH 11.4 % 11.5-14.5 L (test code = RDW) PLATELET COUNT (test code = 174 10 3/uL 150-400 N PLT) MEAN PLATELET VOLUME (test 10.2 fL 9.0-12.6 N code = MPV) NEUTROPHIL % (test code = NT%) 86.8 % 33.0-76.0 H IMMATURE GRANULOCYTE % (test 0.6 % 0.0-1.0 N code = IG%) LYMPHOCYTE % (test code = LY%) 3.3 % 14.0-56.4 L MONOCYTE % (test code = MO%) 7.3 % 0.0-12.9 N EOSINOPHIL % (test code = EO%) 1.7 % 0.0-7.0 N BASOPHIL % (test code = BA%) 0.3 % 0-2.0 N NUCLEATED RBC % (test code = 0.0 % 0-0.2 N NRBC%) NEUTROPHIL # (test code = NT#) 13.07 10 3/uL 1.5-7.0 H IMMATURE GRANULOCYTE # (test 0.090 x10 3/uL 0.000-0.100 N code = IG#) LYMPHOCYTE # (test code = LY#) 0.50 10 3/uL 1.50-4.00 L MONOCYTE # (test code = MO#) 1.10 10 3/uL 0.20-0.80 H EOSINOPHIL # (test code = EO#) 0.26 10 3/uL 0.0-0.5 N BASOPHIL # (test code = BA#) 0.05 10 3/uL 0.0-0.1 N [id number] 17:45:00 Test Item Value Reference Range Interpretation Comments GLUBED (test code = GLUBED) 112 mg/dL 65-99 H PROTHROMBIN [id number] 15:06:00 Test Item Value Reference Range Interpretation Comments PROTHROMBIN TIME 12.5 SECONDS 9.4-12.5 N PATIENT (test code = PTP) INTERNATIONAL 1.1 RATIO 0.8-1.1 N THE INR IS USE FUL ONLY NORMAL RATIO (test FOR MONIT ORING code = INR) ANTICOAGULANT THERAPY.IT MAY BE UNRELIABLE IN T HE INITIAL PHASE O F ANTICOAGULATION AND IN UNSTABLE PATIEN TS. 2.0-3.0 is the recommended INR for the following:Preve ntion of venous thrombol ism in high-risk patients;treatm ent of venous thrombos is and pulmonary embol ism aftera course o f heparin; preven tion of systemic emboli sm in avariety of con dition, including atria l fibrillation andprosthetic t issue heart valves.2. 5-3.5 is the recommended INR for the following:Prost hetic mechanical hear t values and/or recurren t systemicemboliz ation. THROMBOPLASTIN TIME [id number] 15:06:00 Test Item Value Reference Range Interpretation Comments THROMBOPLASTIN TIME PARTIAL 29.8 SECONDS 25.1-36.5 N (test code = PTT) [id number] 11:28:00 Test Item Value Reference Range Interpretation Comments GLUBED (test code = GLUBED) 143 mg/dL 65-99 H LACTIC [id number] 09:32:00 Test Item Value Reference Range Interpretation Comments LACTIC ACID (test code = LACT) 0.9 mmol/L 0.4-2.0 N BASIC METABOLIC [id number] 06:08:00 Test Item Value Reference Range Interpretation Comments SODIUM (test code = 138 mmol/L 135-145 N NA) POTASSIUM (test code 3.3 mmol/L 3.5-5.1 L = K) CHLORIDE (test code = 109 mmol/L 98-107 H CL) CARBON DIOXIDE (test 20 mmol/L 21-32 L code = CO2) ANION GAP (test code 12.3 2.0-16.0 N = GAP) GLUCOSE (test code = 156 mg/dL 65-99 H GLU) BLOOD UREA NITROGEN 20 mg/dL 4-23 N (test code = BUN) GLOMERULAR FILTRATION 57 ml/min >60 L The es timated RATE (test code = glomerular filtration GFR) rate is compute d usingpatient ra ce, age (>18), sex, and serum creatinine. If anyof the needed data elements are mi ssing the Laboratory cannot compute an roxanne mation of the glomerul ar filtration rate . CREATININE (test code 1.1 mg/dL 0.6-1.5 N = CREAT) BUN/CREATININE RATIO 18.2 12.0-20.0 N (test code = BUN/CREA) CALCIUM (test code = 8.0 mg/dL 8.5-10.1 L CA) [id number] 05:53:00 Test Item Value Reference Range Interpretation Comments GLUBED (test code = GLUBED) 148 mg/dL 65-99 H CBC W/O [id number] 05:26:00 Test Item Value Reference Range Interpretation Comments WHITE BLOOD CELL (test code = 16.0 10 3/uL 4.5-11.0 H WBC) RED BLOOD CELL (test code = RBC) 4.08 10 6/uL 3.50-5.50 N HEMOGLOBIN (test code = HGB) 13.1 g/dL 12.0-16.0 N HEMATOCRIT (test code = HCT) 39.0 % 37.0-55.0 N MEAN CELL VOLUME (test code = 96 fL 81-102 N MCV) MEAN CELL HGB (test code = MCH) 32.1 pg 26.0-34.0 N MEAN CELL HGB CONCENTRATION 33.6 g/dL 31.0-37.0 N (test code = MCHC) RED CELL DISTRIBUTION WIDTH 11.5 % 11.5-14.5 N (test code = RDW) PLATELET COUNT (test code = PLT) 163 10 3/uL 150-400 N [id number] 23:51:00 Test Item Value Reference Range Interpretation Comments GLUBED (test code = GLUBED) 127 mg/dL 65-99 H [id number] 18:23:00 Test Item Value Reference Range Interpretation Comments GLUBED (test code = GLUBED) 166 mg/dL 65-99 H - CT ABD PELVIS W WO [id number] 15:37:00Patient Name: ALETHEA STREET Unit No: [id number] EXAMS: CPT CODE: [id number] CT ABD PELVIS W WO CONT [id number] EXAM: - CT ABD PELVIS W WO CONT LOCATION: H57 HISTORY: 44 years-year old Female with Diverticulitis TECHNIQUE: Noncontrast CT of the abdomen and pelvis was performed. Then IV contrast was given, oral contrast was given. Portal venous phase - abdomen. No delayed phase images were obtained.. Reconstructions - coronal and sagittal planes. Automated exposure reduction (Auto mA/Smart mA) was utilized in compliance with ACR [employer]. COMPARISON: 05/08/2020 FINDINGS: Hepatobiliary: The liver is normal without focal lesion. The gallbladder is normal. No biliary dilation. Pancreas: Normal. Spleen: Normal. Adrenals: Normal. Genitourinary: The kidneys are normal. No hydronephrosis. The bladder is i ncompletely distended, limiting evaluation. The uterus is unremarkable. No adnexal lesions are seen.Gastrointestinal: There is redemonstration of perforated sigmoid diverticulitis. A large amount of free air tracks abnormally into the retroperitoneum. A few foci of intraperitoneal free air or no obscured, suggesting along the anterior inferior margin of the liver (series 4, image 29). There is development of diffuse small bowel dilatation with no transition point seen. There appears to be organization of a few small air-fluid collections in the bilateral pelvis, concerning for abscess formation, largest measuring 3.2 x 1.9 cm. The appendix is normal. Lymphatics: No enlarged lymph nodes by CT sizecriteria. Vascular: The aorta is normal in appearance. No evidence of aneurysm or dissection. Bones/Soft Tissues: No acute osseous findings. No ventral hernias. Peritoneum/Other: No free air. No free fluid. Thoracic: Included images of the lower chest demonstrate no abnormalities. Remote right rib fractures. [facility] [address] [address] [facility] : 1975 Age: 44 Sex: [place] [phone] Loc: NC.4302 1 Exam Date: 05/10/2020 Status: ADM IN PH: FAX: PAGE 1 Signed Report (CONTINUED) Patient Name: ALETHEA STREET Unit No: [id number] EXAMS: CPT CODE: [id number] CT ABD PELVIS W WO CONT [id number] (Continued) IMPRESSION: 1. Redemonstration of perforated sigmoid diverticulitis with abnormal development of severe pneu moretroperitoneum. There is interval development of a few foci of intraperitoneal free air. 2. Organization of a few small fluid collections in the bilateral pelvis suggestive of developing abscesses, largest measuring 3.2 x 1.9 cm.. 3. Development of diffuse small bowel dilatation with no transition p oint, likely representing reactive ileus with obstruction remains in the differential. at 1537 Reported and signed by: Fritz Paiz MD CC: Self Referred; Carol Aguilar MD; Balta Bey Jr, MD Technologist: Andrés Wolfe CTDI: 8.81 DLP: 881.9 Trscr Dt/Tm: 05/10/2020 (1537) by:[email or web address] Electronic Signature Date/Time:05/10/2020 (1537)Orig Print D/T: S: 05/10/2020 (1540) [facility] [address] [address] [facility] : 1975 Age: 44 Sex: [place] [phone] Loc: NC.4302 1 Exam Date: 05/10/2020 Status: ADM IN PH: FAX: PAGE 2 Signed [id number] 11:35:00 Test Item Value Reference Range Interpretation Comments GLUBED (test code = GLUBED) 180 mg/dL 65-99 H BASIC METABOLIC [id number] 08:33:00 Test Item Value Reference Range Interpretation Comments SODIUM (test code 138 mmol/L 135-145 N = NA) POTASSIUM (test 2.9 mmol/L 3.5-5.1 LL Critical [place] ue code = K) reported toFirs t Name:FRANCI Escobar ast Name:RIKA ISBELL BACK [employer] EVE Emma NCLAB.JG, on 05/10/20, @ 083 2. CHLORIDE (test 103 mmol/L 98-107 N code = CL) CARBON DIOXIDE 23 mmol/L 21-32 N (test code = CO2) ANION GAP (test 14.9 2.0-16.0 N code = GAP) GLUCOSE (test code 143 mg/dL 65-99 H = GLU) BLOOD UREA 15 mg/dL 4-23 N NITROGEN (test code = BUN) GLOMERULAR >=60 max >60 The estimated FILTRATION RATE estimate ml/min glomerula r (test code = GFR) filtration rate is computed usingpatient ra ce, age (>18), sex, and serum creatinin e. If anyof the neede d data elements a re missing the Laboratory rohan ot compute an estimation of t he glomerular filtration rate . CREATININE (test 0.9 mg/dL 0.6-1.5 N code = CREAT) BUN/CREATININE 16.7 12.0-20.0 N RATIO (test code = BUN/CREA) CALCIUM (test code 8.1 mg/dL 8.5-10.1 L = CA) CBC W/O [id number] 07:37:00 Test Item Value Reference Range Interpretation Comments WHITE BLOOD CELL (test code = 17.6 10 3/uL 4.5-11.0 H WBC) RED BLOOD CELL (test code = RBC) 4.40 10 6/uL 3.50-5.50 N HEMOGLOBIN (test code = HGB) 14.4 g/dL 12.0-16.0 N HEMATOCRIT (test code = HCT) 42.4 % 37.0-55.0 N MEAN CELL VOLUME (test code = 96 fL 81-102 N MCV) MEAN CELL HGB (test code = MCH) 32.7 pg 26.0-34.0 N MEAN CELL HGB CONCENTRATION 34.0 g/dL 31.0-37.0 N (test code = MCHC) RED CELL DISTRIBUTION WIDTH 11.5 % 11.5-14.5 N (test code = RDW) PLATELET COUNT (test code = PLT) 174 10 3/uL 150-400 N [id number] 06:37:00 Test Item Value Reference Range Interpretation Comments GLUBED (test code = GLUBED) 158 mg/dL 65-99 H [id number] 00:18:00 Test Item Value Reference Range Interpretation Comments GLUBED (test code = GLUBED) 157 mg/dL 65-99 H [id number] 20:49:00 Test Item Value Reference Range Interpretation Comments GLUBED (test code = GLUBED) 121 mg/dL 65-99 H [id number] 18:02:00 Test Item Value Reference Range Interpretation Comments GLUBED (test code = GLUBED) 125 mg/dL 65-99 H [id number] 12:01:00 Test Item Value Reference Range Interpretation Comments GLUBED (test code = GLUBED) 146 mg/dL 65-99 H [id number] 08:06:00 Test Item Value Reference Range Interpretation Comments GLUBED (test code = GLUBED) 188 mg/dL 65-99 H [id number] 06:18:00 Test Item Value Reference Range Interpretation Comments GLUBED (test code = GLUBED) 166 mg/dL 65-99 H COMPREHENSIVE METABOLIC [id number] 06:13:00 Test Item Value Reference Range Interpretation Comments SODIUM (test code 140 mmol/L 135-145 N = NA) POTASSIUM (test 3.3 mmol/L 3.5-5.1 L code = K) CHLORIDE (test 102 mmol/L 98-107 N code = CL) CARBON DIOXIDE 26 mmol/L 21-32 N (test code = CO2) ANION GAP (test 15.3 2.0-16.0 code = GAP) GLUCOSE (test 132 mg/dL 65-99 H code = GLU) BLOOD UREA 12 mg/dL 4-23 N NITROGEN (test code = BUN) GLOMERULAR >=60 max >60 The estimated g lomerular FILTRATION RATE estimate filtration r ate is (test code = GFR) ml/min computed u singpatient race, age (>18) , sex, and serum creat inine. If anyof the neede d data elements are mi ssing the Laboratory rohan ot compute an roxanne mation of the glomerular filtration rate . CREATININE (test 1.0 mg/dL 0.6-1.5 N code = CREAT) BUN/CREATININE 12.0 12.0-20.0 N RATIO (test code = BUN/CREA) TOTAL PROTEIN 6.5 g/dL 6.4-8.2 N (test code = PROT) ALBUMIN (test 3.3 g/dL 3.4-5.0 L code = ALB) CALCIUM (test 8.1 mg/dL 8.5-10.1 L code = CA) BILIRUBIN TOTAL 1.2 mg/dL 0.2-1.2 N Use of this assay is not (test code = recommended for patients BILT) undergoingtreat ment with Eltrombopag due to the potential for falselyelevated results. SGOT/AST (test 45 U/L 15-37 H code = AST) SGPT/ALT (test 71 U/L 6-50 H code = ALT) ALKALINE 100 U/L 45-117 N PHOSPHATASE (test code = ALKP) [id number] 06:13:00 Test Item Value Reference Range Interpretation Comments MAGNESIUM (test code = MAG) 1.0 mg/dL 1.8-2.4 L HGBA1C - GLYCOSYLATED [id number] 06:08:00 Test Item Value Reference Range Interpretation Comments GLYCOSYLATED HEMOGLOBIN (HA1C) (test 5.4 4.5-5.9 N code = GLYHGB) CBC W/AUTO [id number] 05:56:00 Test Item Value Reference Range Interpretation Comments WHITE BLOOD CELL (test code = 14.6 10 3/uL 4.5-11.0 H WBC) RED BLOOD CELL (test code = 4.32 10 6/uL 3.50-5.50 N RBC) HEMOGLOBIN (test code = HGB) 14.2 g/dL 12.0-16.0 N HEMATOCRIT (test code = HCT) 42.1 % 37.0-55.0 N MEAN CELL VOLUME (test code = 98 fL 81-102 N MCV) MEAN CELL HGB (test code = 32.9 pg 26.0-34.0 N MCH) MEAN CELL HGB CONCENTRATION 33.7 g/dL 31.0-37.0 N (test code = MCHC) RED CELL DISTRIBUTION WIDTH 11.5 % 11.5-14.5 N (test code = RDW) PLATELET COUNT (test code = 193 10 3/uL 150-400 N PLT) MEAN PLATELET VOLUME (test 9.5 fL 9.0-12.6 N code = MPV) NEUTROPHIL % (test code = NT%) 90.2 % 33.0-76.0 H IMMATURE GRANULOCYTE % (test 0.5 % 0.0-1.0 N code = IG%) LYMPHOCYTE % (test code = LY%) 4.3 % 14.0-56.4 L MONOCYTE % (test code = MO%) 4.3 % 0.0-12.9 N EOSINOPHIL % (test code = EO%) 0.4 % 0.0-7.0 N BASOPHIL % (test code = BA%) 0.3 % 0-2.0 N NUCLEATED RBC % (test code = 0.0 % 0-0.2 N NRBC%) NEUTROPHIL # (test code = NT#) 13.18 10 3/uL 1.5-7.0 H IMMATURE GRANULOCYTE # (test 0.070 x10 3/uL 0.000-0.100 N code = IG#) LYMPHOCYTE # (test code = LY#) 0.63 10 3/uL 1.50-4.00 L MONOCYTE # (test code = MO#) 0.63 10 3/uL 0.20-0.80 N EOSINOPHIL # (test code = EO#) 0.06 10 3/uL 0.0-0.5 N BASOPHIL # (test code = BA#) 0.04 10 3/uL 0.0-0.1 N [id number] 23:58:00 Test Item Value Reference Range Interpretation Comments GLUBED (test code = GLUBED) 249 mg/dL 65-99 H [id number] 20:11:00 Test Item Value Reference Range Interpretation Comments GLUBED (test code = GLUBED) 134 mg/dL 65-99 H [id number] 17:53:00 Test Item Value Reference Range Interpretation Comments GLUBED (test code = GLUBED) 181 mg/dL 65-99 H LIPID PROFILE (CORONARY RISK)2020-05-08 14:10:00 Test Item Value Reference Range Interpretation Comments TRIGLYCERIDES (test code = TRIG) 39 mg/dL 0-149 N CHOLESTEROL (test code = CHOL) 111 mg/dL 0-200 N CHOLESTEROL/HDL RATIO (test code = 2 1-6 N CHOLHDL) HDL CHOLESTEROL (test code = HDL) 51 mg/dL 40-60 N LIPOPROTEIN LDL (test code = LDLC) 52 mg/dL 0-100 N LACTIC [id number] 13:51:00 Test Item Value Reference Range Interpretation Comments LACTIC ACID (test code = LACT) 1.9 mmol/L 0.4-2.0 N Coronavirus 2019 nCoV [id number] 13:43:00 Test Item Value Reference Range Interpretation Comments Coronavirus 2019 Negative Negative This test h ad not been nCoV Bedside (test FDA clear ed or approved; code = [id number]) This te sthas been authorized by F SUSANA under an EUA for use byauthorized la boratories only for the de tection of nucleicacid fro m SARS-CoV-2, not for any other viruses orpathogens; an d this test is only au thorized for the duratio nof the declaration candelaria t circumstances e xist justifying theauthorizatio n of emergency use o f in-vitro diagnostic test sfor detection and/o r diagnosis of CO VID-19 under [id number] 4(b)(1) of the Act, 21 U.S .C. 360bbb-3(b)(1), unless theauthorizatio n is terminated or r evoked sooner. Is patient requiring admission or transfer? YIndication for rapid COVID-9 testing: Mod Clinical SuspicionUA RFLX MICR CULT IF [id number] 12:47:00 Test Item Value Reference Range Interpretation Comments UA COLOR (test code = COLU) STRAW YELLOW UA APPEARANCE (test code = CLEAR CLEAR APPU) UA GLUCOSE DIPSTICK (test NEGATIVE NEGATIVE code = DGLUU) UA BILIRUBIN DIPSTICK (test NEGATIVE NEGATIVE code = BILU) UA KETONE DIPSTICK (test code NEGATIVE NEGATIVE = KETU) UA SPECIFIC GRAVITY (test 1.025 1.005-1.025 N code = SGU) UA BLOOD DIPSTICK (test code NEGATIVE NEGATIVE = NESHA) UA PH DIPSTICK (test code = 6.0 5.0-8.0 CHRISTINE) UA PROTEIN DIPSTICK (test NEGATIVE NEGATIVE code = PROU) UA UROBILINOGEN DIPSTICK NEGATIVE EU/dL 0.1-0.2 (test code = URO) UA NITRITE DIPSTICK (test NEGATIVE NEGATIVE code = JOSE) UA LEUKOCYTE ESTERASE NEGATIVE NEGATIVE DIPSTICK (test code = LEUU) UA MICROSCOPIC NEEDED? (test NO NO code = UAMICRO) UA WBC (test code = WBCU) 0-2 /hpf 0-3 UA RBC (test code = RBCU) NONE SEEN /hpf 0-3 UA BACTERIA (test code = RARE /HPF NEGATIVE BACU) UA SQUAMOUS CELLS (test code RARE /HPF FEW = SQU) UA HYALINE CAST (test code = 2-5 /lpf NONE SEEN HYALU) UA MUCUS (test code = MUCU) OCCASIONAL /lpf Indication for culture: Dysuria/Frequency- CT ABD PELVIS [id number] 12:46:00Patient Name: ALETHEA STREET Unit No: [id number] EXAMS: CPT CODE: [id number] CT ABD PELVIS [id number] EXAM: - CT ABD PELVIS W/CONT Location: A1 INDICATION: abd pain COMPARISON: None Technique: Axial images of the abdomen, and pelvis were obtained after the administration of 95 mL Isovue 300 intrav enous contrast. Coronal and sagittal reformatted images were created. One or more of the following dose reduction techniques were used: Automated exposure control, adjustment of the mA and/or kV according to patient size, and/or utilization of iterative reconstruction technique. GFR: Greater than 60 , Creatinine: 0.6 mg/dL DLP: 488 mGy-cm. FINDINGS: Abdomen Lower thorax: No visualized abnormality.. Hepatobiliary: Mild fatty infiltration of liver. No discrete intrahepatic lesions. Small perihepatic ascites is noted.. No biliary ductal dilatation. Gallbladder: No visualized abnormality.. Spleen: No v isualized abnormality.. Pancreas: No visualized abnormality.. Adrenals: No visualized abnormality.. Kidneys: No visualized abnormality.. Bowel: Diverticula are present within the descending and sigmoidcolon with abnormal mural thickening of the sigmoid colon suggesting acute diverticulitis. There islarge amount of free air within the sigmoid mesocolon and further air dissecting into the retroperitoneum which is atypical. There is no bowel obstruction. Normal caliber appendix is seen in the right lower quadrant. Small bowel loops are normal in caliber. The stomach and gastroesophageal junction are within normal limits Vessels: Minimal calcified plaque within the abdominal aorta. No aneurysmal dilatation.. Lymph nodes: No lymphadenopathy. Peritoneum/retroperitoneum: As mentioned above, there is air within Name: ALETHEA STREET [facility] [place] Phys: [place] [address] : 1975 Age: 44 Sex: [place] [phone] Loc: AL.ERS Exam Date: 05/08/2020 Status: REG ER PH: FAX: PAGE 1 Signed Report (CONTINUED) Patient Name: ALETHEA STREET No: [id number] EXAMS: CPT CODE: [id number] CT ABD PELVIS W/CONT 95065 (Continued) the sigmoid mesocolon as well as tracking into the retroperitoneum adjacent to the aorta, right posterior pararenalfascia and superiorly to the mediastinum. There is further small free fluid within the left paracolic gutter and tracking into the pelvis. No abscess is seen. FINDINGS: Pelvis Pelvic organs/bladder: The uterus and adnexa are within normal limits. There is small layering free pelvic fluid. Urinary bladder distends normally. There is no bladder wall thickening. Lymph nodes: No pelvic or inguinal adenopathy. Bones/soft tissues: No acute fracture or dislocation. No osteolytic or osteosclerotic lesions.IMPRESSION: 1. Findings suggesting acute sigmoid colon diverticulitis with abnormal mural thickening and surrounding infiltration. There is further air within the sigmoid mesocolon and tracking into the retroperitoneum which is atypical. There is small fluid in the left paracolic gutter and tracking into the pelvis. No organized abscess is otherwise seen. 2. Fatty infiltration of the liver. 3. Small perihepatic ascites. at 1246 Reported and signed by: Ivan Jose MD CC: Scarlet Yancey NP Technologist: Ana Laura Pulido CTDI: 8.64 DLP: 488.5Trscr Dt/Tm: 05/08/2020 (1246) by:[email or web address] Electronic Signature Date/Time: 05/08/2020 (3214)Orig Print D/T: S: 05/08/2020 (3200) Name: ALETHEA STREET [facility] [place] Phys: Scarlet Bernal [employer] [address] : 1975 Age: 44 Sex: [place] [id number] Loc: [place] Exam Date: 05/08/2020 Status: REG ER PH: FAX: PAGE 2 Signed ReportBASIC METABOLIC [id number] 11:08:00 Test Item Value Reference Range Interpretation Comments SODIUM (test code 142 mmol/L 135-145 N = NA) POTASSIUM (test 3.4 mmol/L 3.5-5.1 L code = K) CHLORIDE (test 110 mmol/L 98-107 H code = CL) CARBON DIOXIDE 27 mmol/L 21-32 N (test code = CO2) ANION GAP (test 8.4 2.0-16.0 N code = GAP) GLUCOSE (test code 144 mg/dL 65-99 H = GLU) BLOOD UREA 12 mg/dL 4-23 N NITROGEN (test code = BUN) GLOMERULAR >=60 max >60 The estimated FILTRATION RATE estimate ml/min glomerula r (test code = GFR) filtration rate is computed usingpatient ra ce, age (>18), sex, and serum creatinin e. If anyof the neede d data elements a re missing the Laboratory rohan ot compute an estimation of t he glomerular filtration rate . CREATININE (test 0.6 mg/dL 0.6-1.5 N code = CREAT) BUN/CREATININE 20.0 12.0-20.0 N RATIO (test code = BUN/CREA) CALCIUM (test code 8.7 mg/dL 8.5-10.1 N = CA) DATE OF LAST MENSTRUAL PERIOD: 05/07/20LIVER FUNCTION [id number] 11:08:00 Test Item Value Reference Range Interpretation Comments TOTAL PROTEIN 6.9 g/dL 6.4-8.2 N (test code = PROT) ALBUMIN (test code 3.6 g/dL 3.4-5.0 N = ALB) GLOBULIN (test 3.3 g/dL 2.3-3.5 N code = GLOB) BILIRUBIN TOTAL 0.3 mg/dL 0.2-1.2 N Use of this assay is not (test code = BILT) recommend ed for patients undergoingtreat ment with Eltrombopag due to the potential for falselyelevated results. BILIRUBIN DIRECT 0.1 mg/dL 0.0-0.3 N (test code = BILD) BILIRUBIN INDIRECT 0.2 mg/dL 0.0-0.8 N (test code = BILIND) SGOT/AST (test 81 U/L 15-37 H code = AST) SGPT/ALT (test 94 U/L 6-50 H code = ALT) ALKALINE 111 U/L 45-117 N PHOSPHATASE (test code = ALKP) DATE OF LAST MENSTRUAL PERIOD: 05/07/[id number] 11:08:00 Test Item Value Reference Range Interpretation Comments LIPASE (test code = LIP) 122 U/L 73-393 N DATE OF LAST MENSTRUAL PERIOD: 05/07/20HCG SERUM [id number] 11:08:00 Test Item Value Reference Range Interpretation Comments HCG SERUM QUAL (test code = HCGQL) NEGATIVE NEGATIVE DATE OF LAST MENSTRUAL PERIOD: 05/07/20BASIC METABOLIC [id number] 10:58:00 Test Item Value Reference Range Interpretation Comments SODIUM (test code = NA) mmol/L 135-145 POTASSIUM (test code = K) mmol/L 3.5-5.1 CHLORIDE (test code = CL) mmol/L 98-107 CARBON DIOXIDE (test code = CO2) mmol/L 21-32 ANION GAP (test code = GAP) 2.0-16.0 GLUCOSE (test code = GLU) mg/dL 65-99 BLOOD UREA NITROGEN (test code = BUN) mg/dL 4-23 GLOMERULAR FILTRATION RATE (test code ml/min >60 = GFR) CREATININE (test code = CREAT) mg/dL 0.6-1.5 BUN/CREATININE RATIO (test code = 12.0-20.0 BUN/CREA) CALCIUM (test code = CA) mg/dL 8.5-10.1 DATE OF LAST MENSTRUAL PERIOD: 05/07/20LIVER FUNCTION [id number] 10:58:00 Test Item Value Reference Range Interpretation Comments TOTAL PROTEIN (test code = PROT) g/dL 6.4-8.2 ALBUMIN (test code = ALB) g/dL 3.4-5.0 GLOBULIN (test code = GLOB) g/dL 2.3-3.5 BILIRUBIN TOTAL (test code = BILT) mg/dL 0.2-1.2 BILIRUBIN DIRECT (test code = BILD) mg/dL 0.0-0.3 BILIRUBIN INDIRECT (test code = mg/dL 0.0-0.8 BILIND) SGOT/AST (test code = AST) U/L 15-37 SGPT/ALT (test code = ALT) U/L 6-50 ALKALINE PHOSPHATASE (test code = U/L 45-117 ALKP) DATE OF LAST MENSTRUAL PERIOD: 05/07/[id number] 10:58:00 Test Item Value Reference Range Interpretation Comments LIPASE (test code = LIP) U/L 73-393 DATE OF LAST MENSTRUAL PERIOD: 05/07/20HCG SERUM [id number] 10:58:00 Test Item Value Reference Range Interpretation Comments HCG SERUM QUAL (test code = HCGQL) NEGATIVE NEGATIVE DATE OF LAST MENSTRUAL PERIOD: 05/07/20CBC W/AUTO [id number] 10:50:00 Test Item Value Reference Range Interpretation Comments WHITE BLOOD CELL (test code = 14.0 10 3/uL 4.5-11.0 H WBC) RED BLOOD CELL (test code = 4.32 10 6/uL 3.50-5.50 N RBC) HEMOGLOBIN (test code = HGB) 14.1 g/dL 12.0-16.0 N HEMATOCRIT (test code = HCT) 41.7 % 37.0-55.0 N MEAN CELL VOLUME (test code = 97 fL 81-102 N MCV) MEAN CELL HGB (test code = 32.6 pg 26.0-34.0 N MCH) MEAN CELL HGB CONCENTRATION 33.8 g/dL 31.0-37.0 N (test code = MCHC) RED CELL DISTRIBUTION WIDTH 11.6 % 11.5-14.5 N (test code = RDW) PLATELET COUNT (test code = 231 10 3/uL 150-400 N PLT) MEAN PLATELET VOLUME (test 9.1 fL 9.0-12.6 N code = MPV) NEUTROPHIL % (test code = NT%) 89.9 % 33.0-76.0 H IMMATURE GRANULOCYTE % (test 0.6 % 0.0-1.0 N code = IG%) LYMPHOCYTE % (test code = LY%) 4.6 % 14.0-56.4 L MONOCYTE % (test code = MO%) 4.1 % 0.0-12.9 N EOSINOPHIL % (test code = EO%) 0.5 % 0.0-7.0 N BASOPHIL % (test code = BA%) 0.3 % 0-2.0 N NUCLEATED RBC % (test code = 0.0 % 0-0.2 N NRBC%) NEUTROPHIL # (test code = NT#) 12.60 10 3/uL 1.5-7.0 H IMMATURE GRANULOCYTE # (test 0.090 x10 3/uL 0.000-0.100 N code = IG#) LYMPHOCYTE # (test code = LY#) 0.65 10 3/uL 1.50-4.00 L MONOCYTE # (test code = MO#) 0.58 10 3/uL 0.20-0.80 N EOSINOPHIL # (test code = EO#) 0.07 10 3/uL 0.0-0.5 N BASOPHIL # (test code = BA#) 0.04 10 3/uL 0.0-0.1 N HCG [id number] 23:03:00 Test Item Value Reference Range Interpretation Comments HCG SERUM (test < 1 mIU/mL 0-3 N Gestational Age hCG code = HCG) (mIU/mL)0-1 wee ks 5-501-2 weeks 5 0-5002-3 weeks 100-5,000 3-4 weeks 500-10,0004-5 w eeks 1,000-50,0005-6 weeks 10,000-100,0006 -8 weeks 15,000-200,0002 -3 months 10,000-100,000 WHEN BORDERLINE RESU LTS ARE ENCOUNTERED, SEEMA KELLY SAMPLESSHOULD B E REDRAWN 48 HOURS LATER. DATE OF LAST MENSTRUAL PERIOD: 09/21/18BASIC METABOLIC [id number] 22:51:00 Test Item Value Reference Range Interpretation Comments SODIUM (test code 140 mmol/L 135-145 N = NA) POTASSIUM (test 3.6 mmol/L 3.5-5.1 N code = K) CHLORIDE (test 107 mmol/L 98-107 N code = CL) CARBON DIOXIDE 31 mmol/L 21-32 N (test code = CO2) ANION GAP (test 5.6 2.0-16.0 N code = GAP) GLUCOSE (test code 113 mg/dL 65-99 H = GLU) BLOOD UREA 11 mg/dL 4-23 N NITROGEN (test code = BUN) GLOMERULAR >=60 max 60-115 N The estimated FILTRATION RATE estimate ml/min glomerula r (test code = GFR) filtration rate is computed usingpatient ra ce, age (>18), sex, and serum creatinin e. If anyof the neede d data elements a re missing the Laboratory rohan ot compute an estimation of t he glomerular filtration rate . CREATININE (test 0.7 mg/dL 0.6-1.5 N code = CREAT) BUN/CREATININE 15.7 12.0-20.0 N RATIO (test code = BUN/CREA) CALCIUM (test code 8.9 mg/dL 8.5-10.1 N = CA) CBC W/AUTO [id number] 22:26:00 Test Item Value Reference Range Interpretation Comments WHITE BLOOD CELL (test code = 7.9 10 3/uL 4.5-11.0 N WBC) RED BLOOD CELL (test code = 4.34 10 6/uL 3.50-5.50 N RBC) HEMOGLOBIN (test code = HGB) 14.2 g/dL 12.0-16.0 N HEMATOCRIT (test code = HCT) 41.4 % 37.0-55.0 N MEAN CELL VOLUME (test code = 95 fL 81-102 N MCV) MEAN CELL HGB (test code = 32.7 pg 26.0-34.0 N MCH) MEAN CELL HGB CONCENTRATION 34.3 % 31.0-37.0 N (test code = MCHC) RED CELL DISTRIBUTION WIDTH 11.2 % 11.5-14.5 L (test code = RDW) PLATELET COUNT (test code = 283 10 3/uL 150-400 N PLT) MEAN PLATELET VOLUME (test 9.3 fl 9.0-12.6 N code = MPV) NEUTROPHIL % (test code = NT%) 70.4 % 33.0-76.0 N IMMATURE GRANULOCYTE % (test 0.6 % 0.0-1.0 N code = IG%) LYMPHOCYTE % (test code = LY%) 18.6 % 14.0-56.4 N MONOCYTE % (test code = MO%) 6.1 % 0.0-12.9 N EOSINOPHIL % (test code = EO%) 3.8 % 0.0-7.0 N BASOPHIL % (test code = BA%) 0.5 % 0-2.0 N NUCLEATED RBC % (test code = 0.0 % 0-0.2 N NRBC%) NEUTROPHIL # (test code = NT#) 5.58 10 3/uL 1.5-7.0 N IMMATURE GRANULOCYTE # (test 0.050 x10 3/uL 0.000-0.100 N code = IG#) LYMPHOCYTE # (test code = LY#) 1.47 10 3/uL 1.50-4.00 L MONOCYTE # (test code = MO#) 0.48 10 3/uL 0.20-0.80 N EOSINOPHIL # (test code = EO#) 0.30 10 3/uL 0.0-0.5 N BASOPHIL # (test code = BA#) 0.04 10 3/uL 0.0-0.1 N - US TRANSVAGINAL NON [id number] 20:10:00 [facility] 1975 Sex: FPatient Name: ALETHEA STREET Unit No: [id number] EXAMS: CPT: [id number] [place] [id number] Pelvic sonogram, 01/22/2019. Clinical: Pain. Comment: The uterus measures 7.5 x 4.7 x 5.6 cm. The endometrium measures 0.8 cm in thickness. The right ovary measures 2.3 x 1.3 x 2.7 cm. There is a probable hemorrhagic cyst measuring 1.6 x 1.3 x 1.8 cm. The left ovary measures 2.8 x 1.6 x 2.0 cm. There are multiple cysts, the largest measuring 1.1 x 1.0 x 0.9 cm. There is no evidence to suggest torsion. IMPRESSION: Bilateral ovarian cystic masses. at 2009 Reported and signed by: Jr Chin MD CC: Artie Oneill Jr, MD Technologist: TUAN PATEL Probe: [id number] Trscr Dt/Tm: 01/22/2019 (2009) by:[email or web address] Orig Print D/T: S: 01/22/2019 (2012) BATCH NO: N/A Name: ALE[address] [facility] Emergency Dept Phys: [place] [id number] [facility] 1975 Age: 43 Sex: [place] [address] Loc: UNK Exam Date: 01/22/2019 Status: [facility] PH: [phone] FAX: PAGE 1 Signed Report- US PELVIC COMPLETE 2019-01-22 20:10:00 [facility] [address] : 1975 Sex: FPatient Name: ALETHEA STREET Unit No: [id number] EXAMS: CPT: [id number] US PELVIC COMPLETE [id number] Pelvic sonogram, 01/22/2019. Clinical: Pain. Comment: The uterus measures 7.5 x 4.7 x 5.6 cm. The endometrium measures 0.8 cm in thickness. The right ovary measures 2.3 x 1.3 x 2.7 cm. There is a probable hemorrhagic cyst measuring 1.6 x 1.3 x 1.8 cm. The left ovary measures 2.8 x 1.6 x 2.0 cm. There are multiple cysts, the largest measuring 1.1 x 1.0 x 0.9 cm. There is no evidence to suggest torsion. IMPRESSION: Bilateral ovarian cystic masses. at 2009 Reported and signed by: Jr Chin MD CC: Geraldo Renae Technologist: TUAN PATEL Probe: Trscr Dt/Tm: 01/22/2019 (2009) by:[email or web address] Orig Print D/T: S: 01/22/2019 (2012) BATCH NO: N/A Name: [address] [facility] Emergency Dept Phys: Geraldo Hester PA-C [id number] [facility] : 1975 Age: 43 Sex: [place] [address] Loc: [facility] Exam Date: 01/22/2019 Status: [facility] PH: [phone] FAX: PAGE 1 Signed Report- CT ABD PELVIS [id number] 18:31:00[facility] [address] : 1975 Sex: FPatient Name: ALETHEA STREET Unit No: [id number] EXAMS: CPT: [id number] CT ABD PELVIS W/CONT [address]1597 CT ABDOMEN WITH CONTRAST: CT PELVIS WITH CONTRAST: HISTORY: Abdominal pain COMPARISON: None available. CONTRAST: Isovue-300, 100mL, IV.; No gastrointestinal contrast. FINDINGS: The liver, spleen, pancreas, adrenal glands and kidneys appear normal. The gallbladder is normal in appearance and there is no evidence ofbiliary dilatation. No lymphadenopathy, mass or fluid collection is seen. The SMV, portal vein and splenic veins are widely patent. The SMA, celiac axis and JASBIR are also widely patent. The abdominal aorta is normal in caliber. No bowel dilatation or wall thickening is present. No inflammatory process is noted in the abdomen or pelvis. The appendix is normal in appearance. No free intraperitoneal air is seen. The lung bases are clear. No hernias are noted. The urinary bladder, uterus and adnexa appear normal. The uterus is retroverted. IMPRESSION: Normal CT of the abdomen and pelvis. DLP: 368.58 mGy*cm CT radiation dose optimization is achieved for this examination by the use of a CT protocol in accordance with ACR practice guidelines and adherence to meat molder's recommendations. at 1831 Reported and signed by: Westley Hernandez MD CC:Geraldo Renae Technologist: DARREN GARCIA CTDI: 6.96 DLP: 368.58 Trscr Dt/Tm: 01/22/2019 (183) by:[email or web address] Orig Print D/T: S: 01/22/2019 (1833) BATCH NO: N/A Name: [facility] Emergency Dept Phys: Geraldo Hester PA-C [id number] [facility] : 1975 Age: 43 Sex: [place] [address] Loc: [facility] Exam Date: 01/22/2019 Status: [facility] PH: [phone] FAX: PAGE1 Signed ReportCT, [id number] 23:06:00Reason for exam:->ABDOMINAL PAINIs the patient ?->NoWhat is the patient's sedation requirement?- >No SedationFINAL REPORT CT OF THE ABDOMEN AND PELVIS CLINICAL HISTORY: Abdominal pain TECHNIQUE: CT of the abdomen and pelvis is performed with intravenous contrast administration. This exam was performed according to our departmental dose-optimization program which includes automated exposure control, adjustment of the mA and/or kV according to patient size and/or use of iterative reconstruction technique. COMPARISON FILM: CT of the abdomen and pelvis from 05/14/2013 DISCUSSION: LOWER THORAX: Unremarkable. HEPATOBILIARY: Diffuse hepatic steatosis. Main portal vein is patent. Gallbladder is unremarkable. No definite focal liver lesion. The liver is enlarged.PANCREAS: No pancreatic ductal dilation. No pancreatic lesion. SPLEEN: No splenomegaly. ADRENALS: No nodule. KIDNEYS/URETERS: No hydronephrosis or hydroureter. No solid lesion.PELVIC ORGANS/BLADDER: Unremarkable. GI TRACT: No bowel wall thickening or distention. Normal appendix. PERITONEUM/RETROPERITONEUM: No free fluid or free air.LYMPH NODES: No upper abdominal, retroperitoneal, mesenteric, or pelvic lymphadenopathy.VESSELS: Abdom inal aorta normal in caliber. BONES AND SOFT TISSUES: No destructive osseous lesion. Healed right-sided rib fractures. IMPRESSION: Diffuse hepatic steatosis and hepatomegaly. No acute CT findings in the abdomen or pelvis. Signed: Dominick Whitehead Spaseebo Verified Date/Time: 07/21/2017 23:06:24 Reading Location: [address] Consult Reading Room U/S, ABDOMINAL, [id number] 21:33:00Abdomen limited area? Add comment if clarification is needed.->Gall BladderReason for exam:->ABDOMINAL PAINFINAL REPORT History: Acute abdominal pain Abdominal ultrasound dated 07/21/2017 Comparison: None Comment: Real-time transabdominal ultrasound of the right upper quadrant abdomen was performed. Liver: 20.8 cm , enlarged. Elevated echogenicity. No focal lesions. Gallbladder: No gallstones. No gallbladder wall thickening. No perocholecystic fluid.. No sonographic Cohen's sign. Biliary tree: No intrahepatic ductal dilatation. CBD: 5 mm. MPV: 8 mm Pancreas: Partially obscured by bowel gas but unremarkable where visualized. Right kidney: 10.3 x 5.1 x 6.3 cm. Normal echogenicity. Noascites is present in the abdomen. The IVC and hepatic veins, as well as the aorta are not well seen. Impression: Hepatomegaly with elevated hepatic parenchymal echogenicity suggesting underlying steatosis. Signed: Joe Driscoll WestcreteepGoombal Verified Date/Time: 07/21/2017 21:33:04 Reading Location: [address] Reading Room COMPREHENSIVE METABOLIC [id number] 18:41:00 Test Item Value Reference Range Interpretation Comments TOTAL PROTEIN 8.6 gm/dL 6.0-8.5 H (BEAKER) (test code = 770) ALBUMIN (BEAKER) 4.7 g/dL 3.5-5.0 (test code = 1145) ALKALINE PHOSPHATASE 122 U/L 30-115 H (BEAKER) (test code = 346) BILIRUBIN TOTAL 0.7 mg/dL 0.1-1.2 (BEAKER) (test code = 377) SODIUM (BEAKER) (test 140 meq/L 135-148 code = 381) POTASSIUM (BEAKER) 3.5 meq/L 3.6-5.5 L (test code = 379) CHLORIDE (BEAKER) 100 meq/L 98-106 (test code = 382) CO2 (BEAKER) (test 27 meq/L 20-29 code = 355) BLOOD UREA NITROGEN 10 mg/dL 10-26 (BEAKER) (test code = 354) CREATININE (BEAKER) 0.76 mg/dL 0.50-1.20 (test code = 358) GLUCOSE RANDOM 126 mg/dL 70-110 H (BEAKER) (test code = 652) CALCIUM (BEAKER) 10.2 mg/dL 8.5-10.5 (test code = 697) AST (SGOT) (BEAKER) 148 U/L 5-40 H (test code = 353) ALT (SGPT) (BEAKER) 95 U/L 5-50 H (test code = 347) EGFR (BEAKER) (test 83 mL/min/1.73 ESTIMA TO GFR IS code = 1092) sq m NOT ACCURATE CREATININE CLEARANCE IN PREDICTING GLOMERULAR FILTRATION RATE . ESTIMATED GFR I S NOT APPLICABLE FOR DIALYSIS PATIEN TS. [id number] 18:39:00 Test Item Value Reference Range Interpretation Comments LIPASE (BEAKER) (test code = 749) 42 U/L 6-51 URINALYSIS W/ [id number] 18:29:00 Test Item Value Reference Range Interpretation Comments COLOR (BEAKER) (test code = 470) Yellow CLARITY (BEAKER) (test code = 469) Clear SPECIFIC GRAVITY UA (BEAKER) (test 1.015 1.001-1.035 code = 468) PH UA (BEAKER) (test code = 467) 6.0 5.0-8.0 PROTEIN UA (BEAKER) (test code = Negative Negative 464) GLUCOSE UA (BEAKER) (test code = Negative Negative 365) KETONES UA (BEAKER) (test code = Trace Negative A 371) BILIRUBIN UA (BEAKER) (test code = Negative Negative 462) BLOOD UA (BEAKER) (test code = 461) Negative Negative NITRITE UA (BEAKER) (test code = Negative Negative 465) LEUKOCYTE ESTERASE UA (BEAKER) Negative Negative (test code = 466) UROBILINOGEN UA (BEAKER) (test code 1.0 mg/dL 0.2-1.0 = 463) BACTERIA (BEAKER) (test code = 517) None Seen RBC UA-MANUAL (BEAKER) (test code = <5 /HPF 1659) WBC UA-MANUAL (BEAKER) (test code = <5 /HPF 1661) SQUAMOUS EPITHELIAL MANUAL (BEAKER) <5 /HPF (test code = 1663) SOURCE(BEAKER) (test code = 2795) CBC W/PLT COUNT & AUTO [id number] 18:21:00 Test Item Value Reference Range Interpretation Comments WHITE BLOOD CELL COUNT (BEAKER) 10.9 K/ L 4.0-10.0 H (test code = 775) RED BLOOD CELL COUNT (BEAKER) 4.59 M/ L 4.00-5.00 (test code = 761) HEMOGLOBIN (BEAKER) (test code = 16.4 GM/DL 12.0-15.0 H 410) HEMATOCRIT (BEAKER) (test code = 44.5 % 36.0-45.0 411) MEAN CORPUSCULAR VOLUME (BEAKER) 96.9 fL 82.0-99.0 (test code = 753) MEAN CORPUSCULAR HEMOGLOBIN 35.7 pg 27.0-33.0 H (BEAKER) (test code = 751) MEAN CORPUSCULAR HEMOGLOBIN CONC 36.9 GM/DL 32.0-36.0 H (BEAKER) (test code = 752) RED CELL DISTRIBUTION WIDTH 12.3 % 10.3-14.2 (BEAKER) (test code = 412) PLATELET COUNT (BEAKER) (test 265 K/CU MM 150-430 code = 756) MEAN PLATELET VOLUME (BEAKER) 9.1 fL 6.5-10.5 (test code = 754) NUCLEATED RED BLOOD CELLS 0 /100 WBC 0-0 (BEAKER) (test code = 413) NEUTROPHILS RELATIVE PERCENT 67 % (BEAKER) (test code = 429) LYMPHOCYTES RELATIVE PERCENT 22 % (BEAKER) (test code = 430) MONOCYTES RELATIVE PERCENT 7 % (BEAKER) (test code = 431) EOSINOPHILS RELATIVE PERCENT 3 % (BEAKER) (test code = 432) BASOPHILS RELATIVE PERCENT 1 % (BEAKER) (test code = 437) NEUTROPHILS ABSOLUTE COUNT 7.37 K/ L 1.80-8.00 (BEAKER) (test code = 670) LYMPHOCYTES ABSOLUTE COUNT 2.43 K/ L 1.48-4.50 (BEAKER) (test code = 414) MONOCYTES ABSOLUTE COUNT (BEAKER) 0.75 K/ L 0.00-1.30 (test code = 415) EOSINOPHILS ABSOLUTE COUNT 0.28 K/ L 0.00-0.50 (BEAKER) (test code = 416) BASOPHILS ABSOLUTE COUNT (BEAKER) 0.09 K/ L 0.00-0.20 (test code = 417) SCREEN, [id number] 18:18:00 Test Item Value Reference Range Interpretation Comments TEST URINE (BEAKER) (test Negative code = 583)
[2022-09-13] MEDS ORDERED: MORPHINE 4 MG/ML SYR ONE ×2 (05:33→08:49)
[2022-09-13] MEDS ORDERED: ONDANSETRON 4 MG/2 ML VIAL ONE (05:33)
[2022-09-13] MEDS ORDERED: NA CHLORIDE 0.9% 500 ML ONE (05:34)
[2022-09-13 05:49] LABS: Absolute Lymphocytes (CBC) 1.4 K/uL (0.7-4.9); Hematocrit 35.8 % (36.0-45.0); Lymphocytes % 8.5 % (15.3-44.8); MCV 92.7 fL (80-100); MPV 7.3 fL (7.6-11.3); RBC Red Blood Cell Count 3.86 M/uL (3.86-4.86)
[2022-09-13 05:54] LABS: Protime INR 0.98
[2022-09-13 06:00] LABS: Potassium 3.4 mmol/L (3.5-5.1)
--- NOTE | 2022-09-13 07:09 | EDPHYS ---
Physician Documentation [facility] Name: Monse Comer Age: 46 yrs Sex: Female : 1975 Arrival Date: 09/13/2022 Time: 05:08 Bed 4 Private MD: ED Physician Prosper Hsieh HPI: 09/13 06:49 This 46 yrs old Female presents to ER via Ambulatory with complaints of Fever, Leg Pain.rn 06:50 The patient reports fever, not measured (subjective). Onset: The symptoms/episode rn began/occurred at an unknown time. Modifying factors: there are no obvious modifying factors. Associated signs and symptoms: Pertinent negatives: headache, hemoptysis, skin rash, shortness of breath. Severity of symptoms: At their worst the symptoms were moderate in the emergency department the symptoms are unchanged. The patient has experienced a previous episode. The patient has been recently seen by a physician:. Pt reports had lower back surgery 2-3 weeks ago at [facility]. Had complication of pseudomeningocele, now comes in tonight for increased pain and swelling at lower back, subjective fever, and difficulty urinating unless standing. Also reports tingling to both legs. No weakness. . Historical: - Allergies: 05:22 BuSpar; kl - Home Meds: 05:22 Norvasc 5 mg Oral tab 1 tab once daily [Active]; Lyrica Oral [Active]; kl - PMHx: 05:22 Hypertensive disorder; NEUROPATHY; kl - PSHx: 05:22 BACK SURGERY X 2; kl - Immunization history:: Adult Immunizations not up to date. - Social history:: Smoking status: Patient reports the use of cigarette tobacco products, smokes one pack cigarettes per day. - Family history:: not pertinent. - Hospitalizations: : Patient was recently seen at. 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 Exam: 06:50 Constitutional: This is a well developed, well nourished patient who is awake, alert, rn appears uncomfortable, ambulatory but cannot put pressure on low back Head/Face: Normocephalic, atraumatic. Cardiovascular: Regular rate and rhythm. No pulse deficits. Respiratory: No increased work of breathing, no retractions or nasal flaring. Abdomen/GI: soft, non-tender Back: No spinal tenderness. No costovertebral tenderness. Full range of motion. Skin: Warm, dry. + lower back at midline with focal irregular swelling, red/warm/blanching and tender. MS/ Extremity: Pulses equal, no cyanosis. Neurovascular intact. Full, normal range of motion. Equal circumference. Neuro: Awake and alert, GCS 15, oriented to person, place, time, and situation. Cranial nerves II-XII grossly intact. Motor strength 5/5 in all extremities. Sensory grossly intact. Cerebellar exam normal. Normal gait. Vital Signs: 05:20 BP 152 / 109; Pulse 93; Resp 20; Temp 98.5(O); Pulse Ox 99% on R/A; Weight 49.9 kg (R); kl Height 5 ft. 4 in. (162.56 cm); Pain 10/10; 05:26 BP 124 / 84; Pulse 89; Resp 17; Pulse Ox 99% on R/A; kd3 06:20 BP 157 / 97; Pulse 84; Resp 18; Temp 98; Pulse Ox 96% ; Pain 7/10; pf1 08:00 BP 128 / 76; Pulse 87; Resp 18; Pulse Ox 100% on R/A; ph 09:30 BP 154 / 92; Pulse 93; Resp 18; Temp 97.8; Pulse Ox 100% on R/A; ph 11:00 BP 134 / 89; Pulse 81; Resp 18; Temp 98.0; Pulse Ox 99% on R/A; ph 05:20 Body Mass Index 18.88 (49.90 kg, 162.56 cm) kl MDM: 05:09 Patient medically screened. rn 06:56 ED course: Just discussed findings of CT with patient, possible pseudomeningocele vs rn infected seroma or infected pseudomeningocele. 17k WBC with increased pain. Blood cultures obtained. Will cover with IV abx and attempt transfer. Pt states her surgeon is a Dr. Hernandez at [facility]. . 07:06 Differential diagnosis: bacterial infection, infected pseudomeningocele, abscess. Data rn reviewed: vital signs, nurses notes, lab test result(s), radiologic studies, CT scan, and as a result, I will admit patient. Counseling: I had a detailed discussion with the patient and/or guardian regarding: the historical points, exam findings, and any diagnostic results supporting the discharge/admit diagnosis, lab results, radiology results, the need to transfer to another facility. Response to treatment: the patient's symptoms have mildly improved after treatment, and as a result, I will admit patient. Admission orders: after a detailed discussion of the patient's condition and case, the admit orders are written by me. 09/13 05:20 Order name: CBC with Diff; Complete Time: 06:50 rn 09/13 05:20 Order name: Basic Metabolic Panel; Complete Time: 06:50 rn 09/13 05:20 Order name: Protime (+inr); Complete Time: 06:50 rn 09/13 05:20 Order name: Ptt, Activated; Complete Time: 06:50 rn 09/13 06:03 Order name: CREATININE WHOLE BLOOD; Complete Time: 06:50 EDMS 09/13 06:50 Order name: Blood Culture Adult (2) rn 09/13 05:20 Order name: CT Abd/Pelvis - IV Contrast Only rn 09/13 05:20 Order name: Extrem Venous W Compression Matthew US rn 09/13 05:20 Order name: IV Start; Complete Time: 05:27 rn Administered Medications: 05:40 Drug: morphine 4 mg Route: IVP; Infused Over: 4 mins; Site: right antecubital; pf1 06:20 Follow up: Response: Pain is decreased; RASS: Alert and Calm (0) pf1 05:40 Drug: Zofran (Ondansetron) 4 mg Route: IVP; Site: right antecubital; pf1 06:16 Follow up: Response: No adverse reaction; Marked relief of symptoms pf1 05:40 Drug: NS 0.9% 500 ml Route: IV; Rate: bolus; Site: right antecubital; pf1 06:16 Follow up: IV Status: Completed infusion; IV Intake: 500ml pf1 08:16 Drug: Cefepime 1 grams Route: IVPB; Rate: 200 ml/hr; Infused Over: 30 mins; Site: right ph antecubital; 08:50 Follow up: Response: No adverse reaction; IV Status: Completed infusion ph 08:54 Follow up: IV Status: Completed infusion ap3 08:54 Drug: morphine 4 mg Route: IVP; Infused Over: 4 mins; Site: right antecubital; ap3 09:15 Follow up: Response: No adverse reaction; Pain is unchanged, physician notified; RASS: ph Restless (+1) 09:23 Drug: vancoMYCIN 1 grams Route: IVPB; Infused Over: 2 hrs; Site: right antecubital; ph 10:00 Follow up: Response: No adverse reaction; IV Status: Infusion continued upon transfer ph 09:44 Drug: Dilaudid (HYDROmorphone) 0.5 mg Route: IVP; Site: right antecubital; ph 09:59 Follow up: Response: No adverse reaction; Pain is decreased; RASS: Drowsy (-1) ph Disposition Summary: 09/13/22 07:08 Transfer Ordered Transfer Location: Other Acute Care Facility rn Reason: Higher level of care rn Condition: Stable rn Problem: new rn Symptoms: have worsened rn Accepting Physician: Dr. Hernandez(09/13/22 11:23) ph Diagnosis - Infected Pseudomeningocele rn Forms: - Medication Reconciliation Form rn - SBAR form rn Signatures: Dispatcher [employer] Marisabel Buitrago RN RN Prosper Post MD MD rn Hall, Patricia, RN RN ph Maricel Frost RN RN ap3 Emiliano Gibson DO DO 3 Mariah smith RN RN pf1 Corrections: (The following items were deleted from the chart) 11:23 07:08 Dr. Hernandez rn ph
--- NOTE | 2022-09-13 07:09 | ER ---
Nurse's Notes [facility] Name: Monse Comer Age: 46 yrs Sex: Female : 1975 Arrival Date: 09/13/2022 Time: 05:08 Bed 4 Private MD: Diagnosis: Infected Pseudomeningocele Presentation: 09/13 05:20 Chief complaint: Patient states: BACK PAIN BILATERAL LEG PAIN AND NUMBNESS CONSTIPATION kl S/P BACK SURGERY. Coronavirus screen: Vaccine status: Patient reports receiving the 2nd dose of the covid vaccine. Ebola Screen: Patient negative for fever greater than or equal to 101.5 degrees Fahrenheit, and additional compatible Ebola Virus Disease symptoms. Initial Sepsis Screen: Does the patient have a suspected source of infection? No. Patient's initial sepsis screen is negative. Risk Assessment: Do you want to hurt yourself or someone else? Patient reports no desire to harm self or others. 05:20 Method Of Arrival: Ambulatory 05:20 Acuity: JERRY 3 kl 05:27 Initial Sepsis Screen: Does the patient meet any 2 criteria? No. Patient's initial kd3 sepsis screen is negative. Onset of symptoms was 2021. Triage Assessment: 05:24 General: Appears distressed, uncomfortable, well groomed, well developed, Behavior is kl anxious. Pain: Complains of pain in lumbar area and left leg and right leg and buttocks and back and left low back. EENT: No deficits noted. Neuro: No deficits noted. Cardiovascular: No deficits noted. Respiratory: No deficits noted. GI: No deficits noted. : No deficits noted. Derm: SWELLING AND INCISION TO LUMBAR AREA. Historical: - Allergies: 05:22 BuSpar; kl - Home Meds: 05:22 Norvasc 5 mg Oral tab 1 tab once daily [Active]; Lyrica Oral [Active]; kl - PMHx: 05:22 Hypertensive disorder; NEUROPATHY; kl - PSHx: 05:22 BACK SURGERY X 2; kl - Immunization history:: Adult Immunizations not up to date. - Social history:: Smoking status: Patient reports the use of cigarette tobacco products, smokes one pack cigarettes per day. - Family history:: not pertinent. - Hospitalizations: : Patient was recently seen at. Screenin:23 [facility] ED Fall Risk Assessment (Adult) History of falling in the last 3 months, kd3 including since admission No falls in past 3 months (0 pts) Confusion or Disorientation No (0 pts) Intoxicated or Sedated No (0 pts) Impaired Gait No (0 pts) Mobility Assist Device Used No (0 pt) Altered Elimination No (0 pt) Score/Fall Risk Level 0 - 2 = Low Risk. Humpty Dumpty Scale Fall Assessment Tool (age< 18yrs) Age 13 years and above (1 pt) Gender Female (1 pt) Diagnosis Neurological diagnosis (4 pts) Cognitive Impairments Oriented to own ability (1 pt) Environmental Factors Patient placed in bed (2 pts) Response to Surgery/Sedation/Anesthesia More than 48 hours/None (1 pt) Medication Usage Other medications/ None (1 pt) Fall Risk Score/ Level High Fall Risk: >/= 12 points [place] to surroundings. Abuse screen: Denies threats or abuse. Denies injuries from another. Nutritional screening: No deficits noted. Tuberculosis screening: No symptoms or risk factors identified. Fall Risk No fall in past 12 months (0 pts). No secondary diagnosis (0 pts). IV access (20 points). Ambulatory Aid- None/Bed Rest/Nurse Assist (0 pts). Gait- Normal/Bed Rest/Wheelchair (0 pts) Mental Status- Oriented to own ability (0 pts). Total Spangler Fall Scale indicates No Risk (0-24 pts). Assessment: 05:22 General: Appears uncomfortable, Behavior is calm, cooperative. Pain: Complains of pain kd3 in low back area, left low back, buttocks, right leg and left leg. Neuro: Level of Consciousness is awake, alert, obeys commands, Oriented to person, place, time, situation. Cardiovascular: Patient's skin is warm and dry. Respiratory: Airway is patent Trachea midline Respiratory effort is even, unlabored, Respiratory pattern is regular, symmetrical. Musculoskeletal: Swelling present in lumbar area surgical site. 09:30 Reassessment: Pt up at bedside pacing, noted to be crying, states, " That last morphine ph did not help at all." Assisted pt to restroom, pt rates pain 10/10, ERP notified of pain level, see MAR for orders. 09:58 Reassessment: report called to BOBBY Harrison at surgical center in [facility], awaiting EMS ph for transport, transfer form signed by pt, states that her pain has improved, resting comfortably in bed at this time. 11:21 Reassessment: Patient appears in no apparent distress at this time. Patient and/or ph family updated on plan of care and expected duration. Pain level reassessed. Patient is alert, oriented x 3, equal unlabored respirations, skin warm/dry/pink. EMS at bedside, report given to EMT, pt transferred to [facility]. Vital Signs: 05:20 BP 152 / 109; Pulse 93; Resp 20; Temp 98.5(O); Pulse Ox 99% on R/A; Weight 49.9 kg (R); kl Height 5 ft. 4 in. (162.56 cm); Pain 10/10; 05:26 BP 124 / 84; Pulse 89; Resp 17; Pulse Ox 99% on R/A; kd3 06:20 BP 157 / 97; Pulse 84; Resp 18; Temp 98; Pulse Ox 96% ; Pain 7/10; pf1 08:00 BP 128 / 76; Pulse 87; Resp 18; Pulse Ox 100% on R/A; ph 09:30 BP 154 / 92; Pulse 93; Resp 18; Temp 97.8; Pulse Ox 100% on R/A; ph 11:00 BP 134 / 89; Pulse 81; Resp 18; Temp 98.0; Pulse Ox 99% on R/A; ph 05:20 Body Mass Index 18.88 (49.90 kg, 162.56 cm) ED Course: 05:08 Patient arrived in ED. bp1 05:09 Prosper Hsieh MD is Attending Physician. rn 05:22 Carly Brink RN is Primary Nurse. kd3 05:22 Triage completed. kl 05:23 Patient has correct armband on for positive identification. Placed in gown. Bed in low kd3 position. Warm blanket given. 05:23 Inserted saline lock: 20 gauge in right antecubital area, using aseptic technique. kd3 Blood collected. 05:27 Arm band placed on right wrist. kd3 06:00 Extrem Venous W Compression Matthew US In Process Unspecified. EDMS 06:22 CT Abd/Pelvis - IV Contrast Only In Process Unspecified. EDMS 07:09 Blood Culture Adult (2) Sent. pf1 07:34 initiated transfer to [facility] in [place]. bd 09:58 No provider procedures requiring assistance completed. Patient transferred, IV remains ph in place. Administered Medications: 05:40 Drug: morphine 4 mg Route: IVP; Infused Over: 4 mins; Site: right antecubital; pf1 06:20 Follow up: Response: Pain is decreased; RASS: Alert and Calm (0) pf1 05:40 Drug: Zofran (Ondansetron) 4 mg Route: IVP; Site: right antecubital; pf1 06:16 Follow up: Response: No adverse reaction; Marked relief of symptoms pf1 05:40 Drug: NS 0.9% 500 ml Route: IV; Rate: bolus; Site: right antecubital; pf1 06:16 Follow up: IV Status: Completed infusion; IV Intake: 500ml pf1 08:16 Drug: Cefepime 1 grams Route: IVPB; Rate: 200 ml/hr; Infused Over: 30 mins; Site: right ph antecubital; 08:50 Follow up: Response: No adverse reaction; IV Status: Completed infusion ph 08:54 Follow up: IV Status: Completed infusion ap3 08:54 Drug: morphine 4 mg Route: IVP; Infused Over: 4 mins; Site: right antecubital; ap3 09:15 Follow up: Response: No adverse reaction; Pain is unchanged, physician notified; RASS: ph Restless (+1) 09:23 Drug: vancoMYCIN 1 grams Route: IVPB; Infused Over: 2 hrs; Site: right antecubital; ph 10:00 Follow up: Response: No adverse reaction; IV Status: Infusion continued upon transfer ph 09:44 Drug: Dilaudid (HYDROmorphone) 0.5 mg Route: IVP; Site: right antecubital; ph 09:59 Follow up: Response: No adverse reaction; Pain is decreased; RASS: Drowsy (-1) ph Medication: 05:26 VIS not applicable for this client. kd3 Intake: 06:16 IV: 500ml; Total: 500ml. pf1 Outcome: 07:08 ER care complete, transfer ordered by rn 11:22 [facility] to other acute care facility: Surgical center. Transfer ph form completed. X-rays sent w/ patient. 11:22 Condition: good 11:22 Instructed on the need for transfer. 11:23 Patient left the ED. ph Signatures: Dispatcher [employer] EDKatherine Otero bd Kennedy, Marisabel, RN RN Prosper Post MD MD rn Hall, Patricia, RN RN ph Prokisch, Amanda, BOBBY RN ap3 Daisy Andersen Kyli RN RN kd3 Mariah smith RN RN pf1 Corrections: (The following items were deleted from the chart) 09:59 09:58 Reassessment: report called to BOBBY Harrison at surgical center in [facility], awaiting ph EMS for transport ph
[2022-09-13] MEDS ORDERED: VANCOMYCIN 1 GM/VIAL ONE (07:50)
[2022-09-13] MEDS ORDERED: CEFEPIME 1 GM/VIAL ONE (07:50)
[2022-09-13] MEDS ORDERED: NA CHLORIDE 0.9% 250 ML ONE (07:50)
[2022-09-13] MEDS ORDERED: NA CHLORIDE 0.9% 100 ML IV ONE (07:50)
[2022-09-13] MEDS ORDERED: HYDROMORPHONE HCL 0.5 MG/0.5 ML INJ ONE (09:40)
[2022-09-13 11:38] VITALS: BP 134/89; TEMP 98; O2SAT 99
--- NOTE | 2022-09-13 14:55 | RAD REPORT ---
EXAM DESCRIPTION: CT - Abdomen Pelvis W Contrast - 09/13/2022 6:56 am CLINICAL HISTORY: 46 years Female abd pain, back pain, recent lumbar/sacral surgery with swelling po sterior TECHNIQUE: Axial CT imaging of the abdomen and pelvis was performed following the administration of intravenous contrast.. Oral contrast was not administered. Sagittal and coronal reconstructed image s were then performed. The CT study is performed according to ALARA (as low as reasonably achievabl e) or ALARA/IMAGE GENTLY, with automatic adjustment of mA and/or kV according to patient size. Performed on: 09/13/2022 at 6:19 AM. COMPARISON: No prior studies were available for comparison. FINDINGS: Lung bases: The lung bases are clear. Liver: The liver is enlarged and measures 20.5 cm in craniocaudal dimension. No focal hepatic abnorma lities are identified. Liver attenuation is within normal limits. The hepatic and portal veins are pa tent. Spleen: The spleen is normal in size, configuration and attenuation. Gallbladder and bile duct: The gallbladder is well distended and unremarkable. There is no biliary ductal dilatation. Pancreas: The pancreas is grossly normal in size and configuration. Adrenal Glands: The adrenal glands are normal in size and configuration. Kidneys: The kidneys are normal in size and configuration. There is no evidence of hydronephrosis. Th ere is no evidence of nephrolithiasis. No definite solid or cystic renal mass lesions are identified. Stomach: The stomach is grossly normal. There is no definite hiatal hernia. Bowel: The bowel gas pattern is non specific and non obstructive. Appendix: The appendix is normal. Free air: There is no evidence of free air. Free fluid: There is no evidence of free fluid. Vasculature: The aorta is normal in caliber and contour. The inferior vena cava is grossly unremarkab le. Lymphadenopathy: No pathologic lymphadenopathy is identified. Bladder: The bladder is well distended and smooth in contour. Reproductive: The uterus is grossly within normal limits. Bones: There are postsurgical changes of the lumbar spine at the L4-L5 and L5-S1 level consistent wit h a laminectomy defect. There is a sharply marginated homogeneous thin-walled fluid collection within the paraspinal soft tissues posterior to the lower lumbar spine at the L4-L5 level which measures ap proximately 4.2 x 4.9 cm in cross-sectional diameter by approximately 6.9 cm in cranial caudal dimens ion. This communicates with the spinal canal. Additionally there is a sharply marginated thin-walled fluid collection within the dorsal subcutaneous soft tissues along the lower back extending from L3 t hrough S1 measuring approximately 2.4 x 5.4 cm in cross-sectional diameter by approximately 7.5 cm in craniocaudal dimension. This communicates with the paraspinal fluid collection. No definite air is i dentified within these fluid collections. These fluid collections measure approximately 7-8 Hounsfiel d units and may represent a pseudomeningocele. A postoperative seroma or potentially abscess cannot b e entirely excluded. There is mass effect on the dorsal aspect of the thecal sac at the L4-L5 and L5- S1 level. There is mild infiltration of the subcutaneous fat surrounding the superficial subcutaneous fluid collection. Soft tissues: See above. IMPRESSION: 1. There are postsurgical changes of the lumbar spine at L4-L5 and L5-S1 consistent wi th a laminectomy defect. 2. There is a sharply marginated homogeneous thin-walled fluid collection within the paraspinal sof t tissues posterior to the lower lumbar spine at the L4-L5 level which communicates with the spinal c anal. Additionally, there is a sharply marginated thin-walled fluid collection within the dorsal subc utaneous soft tissues along the lower back extending from L3 through S1. These fluid collections comm unicate and measure approximately 7-8 Hounsfield units and may represent a pseudomeningocele. A posto perative seroma or potentially abscess cannot be entirely excluded. There is mass effect on the dorsa l aspect of the thecal sac at the L4-L5 and L5-S1 levels. No prior studies were available for compari son. 3. Hepatomegaly. 4. No evidence of acute intra-abdominal or intrapelvic pathology. These critical findings were discussed with Dr. Prosper Hsieh on 09/13/2022 at 6:40 AM central time. Electronically signed by: Keiko Vogt DO 09/13/2022 6:50 AM BANKING SERVICES ADVISOR Due to temporary technical issues with the PACS/Fluency reporting system, reports are being signed by the in house radiologists without review as a courtesy to insure prompt reporting. The interpreting radiologist is fully responsible for the content of the report.
--- NOTE | 2022-09-13 15:07 | RAD REPORT ---
EXAM DESCRIPTION: US - Extrem Venous W Compress Matthew - 09/13/2022 5:58 am CLINICAL HISTORY: 46 years Female PAIN COMPARISON: None TECHNIQUE: Spectral analysis and color/grayscale sonographic images of both legs were obtained utili zing a high-frequency linear array transducer supplemented with color Doppler, compression and augmen tation techniques. FINDINGS: Right leg veins: Common femoral: normal Greater saphenous: normal Superficial femoral: normal Popliteal: normal Calf Veins: normal Left leg veins: Common femoral: normal Greater saphenous: normal Superficial femoral: normal Popliteal: normal Calf Veins: normal IMPRESSION: 1. No sonographic evidence for lower extremity deep venous thrombosis in either leg. Electronically signed by: Usman Hernandez MD 09/13/2022 6:16 AM WASTE WATER OPERATOR Due to temporary technical issues with the PACS/Fluency reporting system, reports are being signed by the in house radiologists without review as a courtesy to insure prompt reporting. The interpreting radiologist is fully responsible for the content of the report.
== END 2022-09-13 11:23 ==
LOC: ER 05:02
DX: G96.198 Other disorders of meninges, not elsewhere classified (principal); I10 Essential (primary) hypertension; F17.210 Nicotine dependence, cigarettes, uncomplicated
CPT/HCPCS: 87040 ×2; 85025; 80048; 36415; 85610; 82565; 85730; 74177; 93970; Q9967; J3370; J1170; J7050; J7040; J2405; J0692; 96361; 96365; 96367; 96375; 99285

== ENCOUNTER 2023-01-29 16:31 | Emergency (ER) | payer OTHER ==
--- OUTSIDE RECORDS SUMMARY | 2023-01-29 16:37 | XMS REPORT | Continuity of Care Document ---
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 11:59:28 [facility] 2019-01-15 2019-01-15 Outpatient [facility] [id number] [place] 00:00:00 00:00:00 [facility] 2019-01-02 2019-01-02 Outpatient [facility] [id number] [place] 00:00:00 00:00:00 [facility] 2019-01-01 2019-01-01 Outpatient [facility] [id number] [place] 00:00:00 00:00:00 [facility] 2018-12-26 2018-12-26 Outpatient [facility] [id number] [place] 10:45:23 10:45:23 [facility] 2018-12-26 2018-12-26 Outpatient [facility] [id number] [place] 09:00:45 09:00:45 [facility] 2018-12-18 2018-12-18 Outpatient [facility] [id number] [place] 00:00:00 00:00:00 [facility] 2018-12-11 2018-12-11 Outpatient [facility] [id number] [place] 00:00:00 00:00:00 [facility] 2018-12-06 2018-12-06 Outpatient [facility] [id number] [place] 00:00:00 00:00:00 [facility] 2018-12-06 2018-12-06 Outpatient [facility] [id number] [place] 00:00:00 00:00:00 [facility] 2018-12-01 2018-12-01 Outpatient [facility] [id number] [place] 07:17:28 07:17:28 [facility] 2018-11-24 2018-11-24 Outpatient [facility] [id number] [place] 09:47:34 09:47:34 Health 2018-11-24 2018-11-24 Outpatient [facility] [id number] [place] 00:00:00 00:00:00 [facility] 2018-11-22 2018-11-22 Outpatient [facility] [id number] [place] 00:00:00 00:00:00 [facility] 2018-11-21 2018-11-21 Outpatient [facility] [id number] [place] 00:00:00 00:00:00 [facility] 2018-11-13 2018-11-13 Outpatient [facility] [id number] [place] 08:56:41 08:56:41 [facility] 2018-11-13 2018-11-13 Outpatient [facility] [id number] [place] 00:00:00 00:00:00 [facility] 2018-11-06 2018-11-06 Outpatient [facility] [id number] [place] 00:00:00 00:00:00 [facility] 2018-10-20 2018-10-20 Outpatient [facility] [id number] [place] 08:20:41 08:20:41 [facility] 2018-10-16 2018-10-16 Outpatient [facility] [id number] [place] 11:24:41 11:24:41 [facility] 2018-09-12 2018-09-12 Outpatient [facility] [id number] [place] 09:18:36 09:18:36 [facility] 2018-09-05 2018-09-05 Outpatient [facility] [id number] [place] 00:00:00 00:00:00 [facility] 2018-09-04 2018-09-04 Outpatient [facility] [id number] [place] 00:00:00 00:00:00 [facility] 2018-08-30 2018-08-30 Outpatient [facility] [id number] [place] 16:37:11 16:37:11 [facility] 2018-08-30 2018-08-30 Outpatient [facility] [id number] [place] 15:31:56 15:31:56 [facility] 2018-08-02 2018-08-02 Outpatient [facility] [id number] [place] 00:00:00 00:00:00 [facility] 2018-08-01 2018-08-01 Outpatient [facility] [id number] [place] 14:11:01 14:11:01 [facility] 2018-07-31 2018-07-31 Outpatient [facility] [id number] [place] 13:49:01 13:49:01 [facility] 2018-07-31 2018-07-31 Outpatient [facility] [id number] [place] 11:05:47 11:05:47 [facility] 2018-07-18 2018-07-18 Outpatient [facility] [id number] [place] 00:00:00 00:00:00 [facility] 2018-07-13 2018-07-13 Outpatient [facility] [id number] [place] 00:00:00 00:00:00 [facility] 2018-07-12 2018-07-12 Outpatient [facility] [id number] [place] 10:34:47 10:34:47 [facility] 2018-07-07 2018-07-07 Outpatient [facility] [id number] [place] 00:00:00 00:00:00 [facility] 2018-07-04 2018-07-04 Outpatient [facility] [id number] [place] 08:47:36 08:47:36 [facility] 2018-06-30 2018-06-30 Outpatient [facility] [id number] [place] 00:00:00 00:00:00 [facility] 2018-06-30 2018-06-30 Outpatient [facility] [id number] [place] 00:00:00 00:00:00 [facility] 2018-06-30 2018-06-30 Outpatient [facility] [id number] [place] 00:00:00 00:00:00 [facility] 2018-06-29 2018-06-29 Outpatient [facility] [id number] [place] 00:00:00 00:00:00 [facility] 2018-06-27 2018-06-27 Outpatient [facility] [id number] [place] 00:00:00 00:00:00 [facility] 2018-06-26 2018-06-26 Outpatient [facility] [id number] [place] 00:00:00 00:00:00 [facility] 2018-06-22 2018-06-22 Outpatient [facility] [id number] [place] 00:00:00 00:00:00 [facility] 2018-06-20 2018-06-20 Outpatient [facility] [id number] [place] 00:00:00 00:00:00 [facility] 2018-06-20 2018-06-20 Outpatient [facility] [id number] [place] 00:00:00 00:00:00 [facility] 2018-06-14 2018-06-14 Outpatient [facility] [id number] [place] 09:51:58 09:51:58 [facility] 2018-06-14 2018-06-14 Outpatient [facility] [id number] [place] 09:12:21 09:12:21 [facility] 2018-06-02 2018-06-02 Outpatient [facility] [id number] [place] 00:00:00 00:00:00 [facility] 2018-05-31 2018-05-31 Outpatient [facility] [id number] [place] 10:22:37 10:22:37 [facility] 2018-05-30 2018-05-30 Outpatient [facility] [id number] [place] 00:00:00 00:00:00 [facility] 2018-05-25 2018-05-25 Outpatient [facility] [id number] [place] 08:51:23 08:51:23 [facility] 2018-05-19 2018-05-19 Outpatient [facility] [id number] [place] 00:00:00 00:00:00 [facility] 2018-05-16 2018-05-16 Outpatient [facility] [id number] [place] 00:00:00 00:00:00 [facility] 2018-05-11 2018-05-11 Outpatient [facility] [id number] [place] 09:47:57 09:47:57 [facility] 2017-01-16 2017-01-17 Emergency CEDRICK, [place] [id number] [place] 00:00:00 00:00:00 EDWARD [address] 2016-07-02 2016-07-02 Emergency [place] [id number] [place] 00:00:00 00:00:[address] 2015-12-23 2015-12-23 Emergency [place] [address] [id number] [place] 00:00:00 00:00:[address] 2015-12-22 2015-12-22 Emergency [place] [address] [id number] [place] 00:00:00 00:00:[address] 2015-12-18 2015-12-19 Emergency AMERICO, [place] [address] [id number] [place] 00:00:00 00:00:00 CAMARAN [address] Results Test Description Test Time Test Comments Results Result Comments Source CBC W/AUTO DIFF 2023-01-01 09:04:00 Test Item Value Reference Range Interpretation Comme nts WHITE BLOOD CELL (test code = 9.2 x10 3/u 4.8-10.8 N WBC) RED BLOOD CELL (test code = 4.87 x10 6/uL 4.20-5.40 N RBC) HEMOGLOBIN (test code = HGB) 15.5 g/dL 12.0-16.0 N HEMATOCRIT (test code = HCT) 44.6 % 34.0-47.0 N MEAN CELL VOLUME (test code = 92 fL 80-99 N MCV) MEAN CELL HGB (test code = 31.8 pg 27.0-31.0 H MCH) MEAN CELL HGB CONCENTRATION 34.8 g/dL 33.0-37.0 N (test code = MCHC) RED CELL DISTRIBUTION WIDTH 11.9 % 11.5-14.5 N (test code = RDW) PLATELET COUNT (test code = 285 x10 3/uL 130-400 N PLT) MEAN PLATELET VOLUME (test 10.4 fL 9.4-12.4 N code = MPV) NEUTROPHIL % (test code = NT%) 55.4 % 37.0-80.0 N LYMPHOCYTE % (test code = LY%) 29.5 % 10.0-50.0 N MIXED % (test code = MX%) 15.1 % 0.0-11.0 H Th e Mixed Cell percent and Mixed Cell abso lute numberinclude m onocytes, eosinophils and basophils. NEUTROPHIL # (test code = NT#) 5.1 x10 3/uL 2.0-6.9 N LYMPHOCYTE # (test code = LY#) 2.7 x10 3/uL 0.9-4.1 N MIXED # (test code = MX#) 1.4 10e3/mm3 0.2-1.1 H URINALYSIS DIPSTICK [id number] 19:26:00 Test Item Value Reference Range Interpretation Comments UA COLOR (test code Yellow YELLOW = COLU) UA APPEARANCE (test Clear CLEAR code = APPU) UA GLUCOSE DIPSTICK NEGATIVE MG/AL NEGATIVE (test code = DGLUU) UA BILIRUBIN NEGATIVE NEGATIVE DIPSTICK (test code = BILU) UA KETONE DIPSTICK NEGATIVE MG/DL NEGATIVE (test code = KETU) UA SPECIFIC GRAVITY <=1.005 1.000-1.030 (test code = SGU) UA BLOOD DIPSTICK Trace-intact NEGATIVE (test code = NESHA) UA PH DIPSTICK (test 5.0 4.5-8.5 code = CHRISTINE) UA PROTEIN DIPSTICK NEGATIVE NEGATIVE (test code = PROU) UA UROBILINOGEN 0.2 EU/dL See_Comment [Automated DIPSTICK (test code message] The system = URO) which generated this result transmitted reference range : <=1.0. The reference range was not used to interpret this result as normal/abnormal . UA NITRITE DIPSTICK NEGATIVE NEGATIVE (test code = JOSE) UA LEUKOCYTE NEGATIVE NEGATIVE ESTERASE DIPSTICK (test code = LEUU) UA MICROSCOPIC YES NEEDED? (test code = UAMICRO) UA [id number] 19:26:00 Test Item Value Reference Range Interpretation Comments UA WBC (test code = WBCU) 0-3 /HPF 0-3 UA RBC (test code = RBCU) 0-3 /HPF 0-3 UA BACTERIA (test code = BACU) NONE SEEN /HPF NONE SEEN UA SQUAMOUS CELLS (test code = RARE /HPF NONE-FEW SQU) UA MUCUS (test code = MUCU) RARE /LPF NONE-FEW DRUGS OF ABUSE SCREEN [id number] 18:32:00 Test Item Value Reference Range Interpretation Comments UR COCAINE (test code = COCAU) Neg NEGATIVE UR METHAMPHETAMINE (test code = Neg NEGATIVE METHAMPHU) UR CANABINOIDS (test code = CANU) Pos NEGATIVE UR AMPHETAMINE (test code = AMPHU) Neg NEGATIVE UR BARBITURATE (test code = BARBQLU) Neg NEGATIVE UR BENZODIAZEPINE (test code = BENZU) Neg NEGATIVE METHADONE (test code = METHDU) Neg NEGATIVE UR OPIATES QUAL (test code = OPIAQLU) Neg NEGATIVE UR TRICYCLICS (test code = TRICYCU) Neg NEGATIVE COMPREHENSIVE METABOLIC [id number] 18:31:00 Test Item Value Reference Range Interpretation Comments SODIUM POC (test 139 mmol/L 138-146 N code = NAP) POTASSIUM POC (test 3.6 mmol/L 3.5-4.9 N code = KP) CHLORIDE POC (test 105 mmol/L 98-109 N code = CLP) CO2 POC (test code = 27 mmol/L 24-29 N CO2P) GLUCOSE POC (test 111 MG/DL 74-106 H code = GLUP) BUN POC (test code = 15 mg/dL 8-26 N BUNP) CREATININE POC (test 0.7 mg/dL 0.6-1.3 N code = CREATP) GLOMERULAR 107 >60 The Glomerular FILTRATION RATE POC Filtrati on Rate is a (test code = GFRP) calculate d parameterbased on serum Creatinine, pat ient age and sex. GFR va luesless than 60 mL/min/ 1.73 square meters a re indicative ofCh ronic Kidney Disease. Values less than 15 mL/min/1.73squa re meters indicate Kidney failure. The calculation for GFR is based on the CK D-EPI (2020) calculat ion. This formulais race indifferent and is the recommended for rin for GFRby the Natio nal Kidney Foundati on for Adults.The GFR will not calculate if th e sex is unknown or if thepatient's ag e is <18 years. TOTAL PROTEIN (test 7.6 g/dL 6.4-8.1 N code = PROT) ALBUMIN (test code = 3.8 g/dL 3.3-5.5 N ALB) CALCIUM (test code = 9.7 mg/dL 8.8-10.5 N CA) BILIRUBIN TOTAL 0.6 mg/dL 0.2-1.6 N (test code = BILT) SGOT/AST (test code 69 IU/L 11-38 H = AST) SGPT/ALT (test code 56 IU/L 10-47 H = ALT) ALKALINE PHOSPHATASE 123 IU/L 42-141 N (test code = ALKP) HCG [id number] 18:06:00 Test Item Value Reference Range Interpretation Comments HCG POC (test NEGATIVE IU/L code = HCGPOC) Re sults of 5.0-25.0 IU/L a re indeterminate a nd do not ruleout pregnan cy. Because HCG daniel ues double approxim ately every48 hours i n a normal pregnanc y, patients with l ow levels ofHCG should be resampled and r etested after 48 hours toconfirm . PAP TEST, THINPREP, [id number] 08:51:56 Test Item Value Reference Range Interpretation Comments SOURCE: (test code = Cervical/End 800) ocervical SLIDES: (test code = 1 8011) LMP: (test code = 11/15/2021 8021) SPECIMEN ADEQUACY: (NOTE) Satisfac tory for (test code = 50466) evaluati on. Endocervical cells/transform ation zone component present. INTERPRETATION: (test ASCUS/EPITH. A ------ code = 06632) ABNORMALITY; -------- SEE BELOW ------- ---- EPITHE LIAL CELL ABNORMALIT Y Atypical squamo us cells of undete rmined significance (ASC-US)------- ------- ------- ------- SAFETY COUNCIL DIRECTOR: Vicente (test code = 8101) CANDE Tinajero(A [facility]) IAC PATHOLOGIST James Paiz INTERPRETATION BY: (test code = 8122) LOCATION: (test code (NOTE) Specime ns processed at = [address]) [facility], [address] [place] [address], Phone: , CLIA: [id number] interpreted at [facility], [address] [place],Pathology Department Low r [facility] [place] Set on [facility] [[email or web address]], [place] [address], Phone: , CLIA: [id number] CPT: (test code = (NOTE) 93776, 881 41 UNLESS 8140) OTHERWISE INDIC ATED, COMPUTER AIDED AND CYTOTECHNOLOGIS T SCREENING PERFO RMED. The Pap test is a screening test with an inherent, but l ow probability of error. Your patient sh ould be reminded to con sult you immediately if she experiences any suspicious sign s or symptoms, regar dless of her Pap test result. An alte rnate report format containing imag es or consolidated pr ior Pap history is avai labjohn as applicable. HPV HIGH RISK WITH GENOTYPE, [id number] 19:58:58 Test Item Value Reference Range Interpretation Comments HPV HIGH RISK INTERP POSITIVE NEGATIVE A (test code = 85652) HPV 16 (test code = NEGATIVE 71100) HPV 18 (test code = NEGATIVE 71826) HPV, HR, OTHER POSITIVE A Testing meth odology is GENOTYPES (test code real-ti me PCR utilizing = 05818) hydrolysis prob es with the Doc[employer] 4800 system. The subhash t individually de tects genotypes 16 an d 18, as well as the ot er 12 high risk types (31,33,35,39,45 ,51,52,56 ,58,59,66,68). The expected result is negative. A neg ative result does not rule out the presence of HPV not included in the genotype set, a low leve l of infection or sp ecimen sampling error. [facility] has important p athology staff changes e ffective 12/01/2022. New pathology staff will provide uninter rupted, excellent patie nt care and clinical consultation. S ee URL: [email or web address]. UNLESS OTHERWISE INDICATED, ALL TESTING PERFORMED AT [facility] PATHOLOGY [employer]. [address] [place] [address] CLIA : [id number], CAP : [id number] SJOGREN'S SS-A AND SS-B [id number] 06:14:16 Test Item Value Reference Range Interpretation Comments SJOGREN'S SS-A ANTIBODY (test code = 0.5 AI <1.0 67046) SJOGREN'S SS-B ANTIBODY (test code = <0.2 AI <1.0 08177) BECERRIL (Sm) [id number] 06:14:16 Test Item Value Reference Range Interpretation Comments BECERRIL (Sm) ANTIBODY (test code = <0.2 AI <1.0 54638) DNA DS ANTIBODY REFLEX [id number] 06:14:16 Test Item Value Reference Range Interpretation Comments dsDNA ANTIBODY (test <1.0 SEE BELOW NEGATI VE . . . . . . . . code = 41621) . . . . . . IU /ML <=4.9 INDETERMINATE. . . . . . . . . . . . IU/ML 5.0-9.0 POSITIVE . . . . . . . . . . . . . . IU/ML >=10.0 dsDNA ANTIBODY REFLEX (NOTE) NEGATIVE NOTE: REFLEX CRITERIA NOT (test code = 61479) MET FOR DNA DOUBLE STRANDED ANTIBO DY BY LUCITA METHOD. UNLESS OTHERWISE INDICATED, ALL TESTING PERFORMED [facility] PATHOLOGY [employer]. [address] [place] [address] VANESSA TREJO DIRECTOR: GIOVANNI HALEY M.D. CLIA NUMBER [id number] CAP ACCREDITATION N O. [id number] 20:53:00 Test Item Value Reference Range Interpretation Comments GLUBED (test 163 mg/dL 70-105 H Intravenous adm inistration code = GLUBED) of N-acetylcy steine which resultsin blood concentrations >5 mg/dL will cause overestim ationof blood glucose results . Do not use during intraven ousinfusion of N'acetylcyst eine. Lipid 1995 panel - Serum or [id number] 09:06:00 Test Item Value Reference Range Interpretation [...] (test code = non HDL (calc) cholesterol) [facility] - Serum or Plasma 2021-08-01 09:06:00 Test Item Value Reference Range Interpretation Comments glucose (test code 108 mg/dL 65-99 H = glucose) urea nitrogen (BUN) 12 mg/dL 7-25 (test code = urea nitrogen (BUN)) creatinine (test 0.65 mg/dL 0.50-1.10 code = creatinine) eGFR non-afr. 106 mL/min/1.73m2 See_Comment [Automat ed ugandan (test code message] The = eGFR non-afr. system which ugandan) generated this result transmit to reference range : > or = 60. The reference range was not used to interpret this result as normal/abnormal . eGFR 123 mL/min/1.73m2 See_Comment [Automate d ugandan (test code message] The = eGFR system which ugandan) generated this result transmit to reference range [...] (test code = 12 U/L 6-29 ALT) [facility] Auto Differential panel - [id number] 09:06:00 Test Item Value Reference Range Interpretation [...] MPV) 10.3 fL 7.5-12.5 absolute neutrophils (test 19171 cells/uL 8266-1749 H code = absolute neutrophils) absolute lymphocytes [...] 3.80-5.10 code = red blood cell count) [facility] [Units/volume] in Serum or [id number] 09:06:00 Test Item Value Reference Range Interpretation Comments TSH (test code = TSH) 0.93 mIU/L [facility] Center[facility]psielb47-Xcrniqemzfrrgj D3+25-Hydroxyvitamin D2 [Mass/volume] in Serum or [id number] 09:06:00 Test Item Value Reference Range Interpretation Comments vitamin D,25-oh,total,ia (test code 105 NG/mL 30-100 H = vitamin D,25-oh,total,ia) comment (test code = comment) [facility]/Hemoglobin.total in [id number] 09:06:00 Test Item Value Reference Range Interpretation Comments Hemoglobin 5.2 % of total HGB <5.7 A1c/Hemoglobin.total in Blood (test code = 4548-4) [facility] [id number] 10:03:00 Test Item Value Reference Range Interpretation Comments SURGICAL SPECIMENS (test code = SURG) RUN DATE: 09/16/20 [facility] *LIVE* PAGE 1 RUN TIME: 1003 Specimen Inquiry RUN USER: INTERFACE PATIENT: [address] LOC: [facility] [place] U #: [id number] AGE/SX: 44/F ROOM: RE09/15/20REG DR: Sudha Acosta MD : [id number] BED: DIS: STATUS: [facility] TLOC: SPEC #: [id number] RECD: 09/15/20 STATUS: CHUCK REQ #: [id number] ALEN: 09/15/20-[address]: Sudha Acosta MD ENTERED: 09/15/20 SP TYPE: SURG OTHR DR: DOES_NOT KNOW [...] COLD SNARE: - TUBULAR ADENOMA (1) CPT: 95890 x3 GROSS DESCRIPTION Clinical history: Diverticulitis Three specimens are received in formalin each labeled with the patient's name, Souleymane, and medical record number. A. Specimen labeled [...] in cassette C. Signed SIGNATURE ON FILE JordanaFritz 09/16/20 1003 END OF REPORT DRUGS OF ABUSE SCREEN [id number] 08:52:00 Test Item Value Reference Range Interpretation [...] code = Negative NEGATIVE PHENCU) UR HCG [id number] 07:00:00 Test Item Value Reference Range Interpretation [...] clinical observations, p atient history, andepidemiologi miguel information.Subhash ting was performed using the Aptima SARS-CoV -2 assay.This nucl eic acid amplification t est was developed and itsperformance characteristics determined by [facility]. Nucleic acid amplification t ests include PCRand TMA. This test has not be en FDA cleared or appr geena.This test has been a uthorized by FDA under an Emergency UseAuthorizatio n (EUA). This test is on ly authorized he duration of maryanne e the declaration candelaria t circumstancesex ist justifying the authorization o f the emergency use o fin vitro diagnostic test s for detection of SA RS-CoV-2 virusand/or bravo gnosis of COVID-19 infect ion under jpusqqz403(b)(1 ) of the Act, 21 U.S.C. 360bbb-3(b) [...] resul t in this assay.Performed At: [facility] [address] [id number] alexys Escobar MD Ph:[phone] Novel Coronavirus [id number] 13:11:00 Test Item Value Reference Range Interpretation Comments Novel Coronavirus Not Detected Not Detected Negative r esults do not 2019 nCoV (test preclude 201 9-nCoV code = COVID19) infection an dshould not be used as the sole basis for treat ment or otherpatient ma nagement decisions. Nega tive results must be combined with clinical observations, p atient history, andepidemiologi miguel information.Subhash ting was performed using the Aptima SARS-CoV -2 assay.This nucl eic acid amplification t est was developed and itsperformance characteristics determined by [facility]. Nucleic acid amplification t ests include [...] bravo gnosis of COVID-19 infect ion under bciudzk493(b)(1 ) of the Act, 21 U.S.C. 360bbb-3(b) [...] resul t in this assay.Performed At: [facility] [address] [id number] alexys Escobar MD Ph:[phone] BASIC METABOLIC [id number] 19:56:00 Test Item Value Reference Range Interpretation [...] mg/dL 8.5-10.1 N = CA) CBC W/AUTO [id number] 19:39:00 Test Item Value Reference Range Interpretation [...] 0.06 10 3/uL 0.0-0.1 N COMPREHENSIVE METABOLIC [id number] 07:37:00 Test Item Value Reference Range Interpretation [...] PHOSPHATASE (test code = ALKP) CBC W/AUTO [id number] 06:29:00 Test Item Value Reference Range Interpretation [...] N - CT ABD PELVIS W WO [id number] 08:30:00Patient Name: ALETHEA STREET Unit No: [id number] EXAMS: CPT CODE: [id number] CT ABD PELVIS W WO CONT 48705 CLINICAL HISTORY: DIVERTICULOSIS TECHNIQUE: Axial images of [...] in size and contour. The pancreas is morphologicallynormal. No mass, pancreatic duct dilatation or peripancreatic edema is visible. The adrenal glands are normal in size and contour. Both kidneys are normal in size. No hydronephrosis or enhancing renal mass. No urothelial thickening is seen, calyceal system appears sharp. Neither cystic nor solid renalmasses are visible. No hydronephrosis is seen. No renal calculi or perinephric stranding. The urinary bladder is unremarkable. Stomach and duodenum appear unremarkable. The visualized small bowel is unremarkable without evidence of bowel thickening or obstruction. The The appendix is unremarkable. There is no pericecal inflammation. There is significant interval improvement of the inflammatory process along the sigmoid. Previously described small intramural abscess [...] caliber. The IVC is patent. The portal veinis Name: ALETHEA STREET [facility] Phys: Carol Welch [address] : 1975 Age: 44 Sex: [place] [address] Loc: NC.6307 1 Exam Date: 06/20/2020 Status: ADM IN PH: FAX: PAGE 1 Signed Report (CONTINUED) Patient Name: ALETHEA STREET Unit No: [id number] EXAMS: CPT CODE: [id number] CT ABD PELVIS W WO CONT 78723 (Continued) patent. No evidence of ascites. Abdominal [...] MD; Josiah Ervin MD Technologist: Ana Laura Pulido CTDI: 8.44 DLP: 750.8 Trscr Dt/Tm: 06/20/2020 (829) by:[email or web address] Electronic Signature Date/Time: 06/20/2020 (829)Orig Print D/T: S: 06/20/2020 (832) Name: ALETHEA STRE[address] [facility] Phys: Carol Welch [address] : 1975 Age: 44 Sex: [place] [address] Loc: NC.6307 1 Exam Date: 06/20/2020 Status: ADM IN PH: FAX: PAGE 2 Signed ReportBASIC METABOLIC [id number] 06:07:00 Test Item Value Reference Range Interpretation [...] mg/dL 8.5-10.1 N = CA) CBC W/AUTO [id number] 05:33:00 Test Item Value Reference Range Interpretation [...] = BA#) 0.03 10 3/uL 0.0-0.1 N [id number] 13:19:00 Test Item Value Reference Range Interpretation Comments GLUBED (test 78 mg/dL 65-99 N Intravenous adm inistration of code = GLUBED) N-acetylcyste ine which resultsin blood concentrations >5 mg/dL will cause overestim ationof blood glucose results . Do not use during intraven ousinfusion of N'acetylcystein e. [id number] 08:10:00 Test Item Value Reference Range Interpretation Comments GLUBED (test 84 mg/dL 65-99 N Intravenous adm inistration of code = GLUBED) N-acetylcyste ine which resultsin blood concentrations >5 mg/dL will cause overestim ationof blood glucose results . Do not use during intraven ousinfusion of N'acetylcystein e. HGBA1C - GLYCOSYLATED [id number] 05:46:00 Test Item Value Reference Range Interpretation Comments GLYCOSYLATED HEMOGLOBIN (HA1C) (test 5.6 4.5-5.9 N code = GLYHGB) COMPREHENSIVE METABOLIC [id number] 05:01:00 Test Item Value Reference Range Interpretation [...] 45-117 N PHOSPHATASE (test code = ALKP) [id number] 05:01:00 Test Item Value Reference Range Interpretation Comments MAGNESIUM (test code = MAG) 2.2 mg/dL 1.8-2.4 N CBC W/AUTO [id number] 04:53:00 Test Item Value Reference Range Interpretation [...] BA#) 0.05 10 3/uL 0.0-0.1 N Coronavirus 2019 nCoV [id number] 17:57:00 Test Item Value Reference Range Interpretation Comments Coronavirus 2019 Negative Negative This test h ad not been nCoV Bedside (test FDA clear ed or approved; code = [id number]) This te sthas been authorized by F [...] and/o r diagnosis of CO VID-19 under Gnwptgz64 4(b)(1) of the Act, 21 U.S .C. [...] = LDLC) 95 mg/dL 0-100 N LACTIC [id number] 16:27:00 Test Item Value Reference Range Interpretation Comments LACTIC ACID (test code = LACT) 1.3 mmol/L 0.4-2.0 N PROTHROMBIN [id number] 16:24:00 Test Item Value Reference Range Interpretation [...] and/or recurren t systemicemboliz ation. THROMBOPLASTIN TIME [id number] 16:24:00 Test Item Value Reference Range Interpretation Comments THROMBOPLASTIN TIME PARTIAL 29.5 SECONDS 25.1-36.5 N (test code = PTT) BASIC METABOLIC [id number] 15:37:00 Test Item Value Reference Range Interpretation [...] DATE OF LAST MENSTRUAL PERIOD: 05/29/20LIVER FUNCTION [id number] 15:37:00 Test Item Value Reference Range Interpretation [...] = ALKP) DATE OF LAST MENSTRUAL PERIOD: 05/29/[id number] 15:37:00 Test Item Value Reference Range Interpretation Comments LIPASE (test code = LIP) 127 U/L 73-393 N DATE OF LAST MENSTRUAL PERIOD: 05/29/20HCG SERUM [id number] 15:37:00 Test Item Value Reference Range Interpretation Comments HCG SERUM QUAL (test code = HCGQL) NEGATIVE NEGATIVE DATE OF LAST MENSTRUAL PERIOD: 05/29/20BASIC METABOLIC [id number] 15:31:00 Test Item Value Reference Range Interpretation [...] DATE OF LAST MENSTRUAL PERIOD: 05/29/20LIVER FUNCTION [id number] 15:31:00 Test Item Value Reference Range Interpretation [...] 45-117 ALKP) DATE OF LAST MENSTRUAL PERIOD: 05/29/[id number] 15:31:00 Test Item Value Reference Range Interpretation Comments LIPASE (test code = LIP) U/L 73-393 DATE OF LAST MENSTRUAL PERIOD: 05/29/20HCG SERUM [id number] 15:31:00 Test Item Value Reference Range Interpretation Comments HCG SERUM QUAL (test code = HCGQL) NEGATIVE NEGATIVE DATE OF LAST MENSTRUAL PERIOD: 05/29/20UA RFLX MICR CULT IF [id number] 15:25:00 Test Item Value Reference Range Interpretation [...] /lpf Indication for culture: Suprapubic PainCBC W/AUTO [id number] 15:19:00 Test Item Value Reference Range Interpretation [...] 3/uL 0.0-0.1 N - CT ABD PELVIS [id number] 10:25:00Patient Name: ALETHEA STREET Unit No: [id number] EXAMS: CPT CODE: [id number] CT ABD PELVIS W/CONT 85098 EXAM: CT ABDOMEN AND PELVIS WITH CONTRAST INDICATION: DIVERTICULITIS LOCATION: A1 COMPARISON: CT abdomen and pelvis dated 05/10/2020 TECHNIQUE: CT of the abdomen and pelvis was performed with 90 mL Isovue-300 intravenous contrast. Patient's GFR is greater than 60 with a creatinine of 0.8. All CT scans are performed using radiation dose reduction technique. Technical factors are evaluated and adjusted to insure appropriate moderation of exposure. Automated dose management technology is applied to adjust the radiation dose to minimize exposure while achieving a diagnostic quality image. FINDINGS:Thoracic: Included images of the lower chest demonstrate no abnormalities. Hepatobiliary: The liver is enlarged with the right hepatic lobe measuring 19.4 cm in craniocaudal dimension. There is diffuse hypoattenuation of the hepatic parenchyma indicative of hepatic steatosis. No focal hepatic lesion is seen. No intrahepatic or extrahepatic biliary dilatation is seen. The main portal vein is patent. Gallbladder: The gallbladder is normal. Pancreas: Unremarkable. Spleen: Unremarkable. Adrenals: Unremarkable. Kidneys/ureters: There is no evidence of renal calculus. There is urothelial enhancement and mild dilatation of both ureters. No overt hydronephrosis [...] 4, image 56). There is a Name: [address] [facility] [place]: [place] [address] : 1975 Age: 44 Sex: [place] [address] [facility]: 06/13/2020 Status: REG CLI PH:FAX: PAGE 1 Signed Report (CONTINUED) Patient Name: ALETHEA STREET Unit No: [id number] EXAMS: CPTCODE: [id number] CT ABD PELVIS W/CONT 17098 (Continued) another fluid collection which may be [...] free fluid is seen in the pelvis. IMPRESSION:1. Acute sigmoid diverticulitis with pericolonic fluid collections concerning for abscesses measuring up to 4.7 cm. 2. Urothelial enhancement of the ureters and urinary bladder with mild dilatation of both ureters. This may reflect urinary tract infection. Recommend correlation with urinalysis. 3. Hepa tomegaly with fatty infiltration. at 1025 Reported and signed by: Melody Cooper M.D. CC: Sudha Acosta MD Technologist: Richelle Han CTDI: 10.12 DLP: 480 Trscr Dt/Tm: 06/13/2020 (1025) by:[email or web address] Electronic Signature Date/Time: 06/13/2020 (1025)Orig Print D/T: S: 06/13/2020 (1028) Name: ALETHEA ST[address] [facility] [place]: [place] [address] : 1975 Age: 44 Sex: [place] [address] [facility] Ex[facility] Date: 06/13/2020 Status: REG CLI PH: FAX: PAGE 2 Signed ReportAB HEPATITIS A [id number] 20:14:00 Test Item Value Reference Range Interpretation Comments AB HEPATITIS A IGM (test code = Non-Reactive NONREACTIVE HAVMAB) AG HEPATITIS B [id number] 20:14:00 Test Item Value Reference Range Interpretation Comments AG HEPATITIS B SURFACE (test Non-Reactive NONREACTIVE code = HBSAG) AB HEPATITIS B CORE [id number] 20:14:00 Test Item Value Reference Range Interpretation Comments AB HEPATITIS B CORE IGM (test Non-Reactive NONREACTIVE code = HBCMAB) AB HEPATITIS [id number] 20:14:00 Test Item Value Reference Range Interpretation Comments AB HEPATITIS C (test code = Non-Reactive NONREACTIVE HCVAB) HIV 1 2 COMBO AG/AB [id number] 20:14:00 Test Item Value Reference Range Interpretation Comments HIV 1 2 COMBO Non-Reactive NONREACTIVE [facility] HIV Ag/Ab AG/AB SCREEN Combo (CHIV) as say is (test code = anin-vitro diag nostic [id number]) immunoassay for the simultaneousqua litative detection of hu man immunodeficienc y virus r60smhnkzy and antibodies to human immunodef iciency virusestype 1 ( including group "O") and type 2. COMPREHENSIVE METABOLIC [id number] 19:23:00 Test Item Value Reference Range Interpretation [...] N PHOSPHATASE (test code = ALKP) PROTHROMBIN [id number] 19:12:00 Test Item Value Reference Range Interpretation [...] and/or recurren t systemicemboliz ation. THROMBOPLASTIN TIME [id number] 19:12:00 Test Item Value Reference Range Interpretation Comments THROMBOPLASTIN TIME PARTIAL 33.4 SECONDS 25.1-36.5 N (test code = PTT) CBC W/AUTO [id number] 19:00:00 Test Item Value Reference Range Interpretation [...] = BA#) 0.03 10 3/uL 0.0-0.1 N [id number] 12:11:00 Test Item Value Reference Range Interpretation Comments GLUBED (test code = GLUBED) 87 mg/dL 65-99 N [id number] 08:28:00 Test Item Value Reference Range Interpretation Comments GLUBED (test code = GLUBED) 173 mg/dL 65-99 H BASIC METABOLIC [id number] 07:21:00 Test Item Value Reference Range Interpretation [...] mg/dL 8.5-10.1 L = CA) CBC W/O [id number] 07:19:00 Test Item Value Reference Range Interpretation [...] = PLT) 241 10 3/uL 150-400 N [id number] 21:12:00 Test Item Value Reference Range Interpretation Comments GLUBED (test code = GLUBED) 111 mg/dL 65-99 H [id number] 16:51:00 Test Item Value Reference Range Interpretation Comments GLUBED (test code = GLUBED) 112 mg/dL 65-99 H [id number] 12:32:00 Test Item Value Reference Range Interpretation Comments GLUBED (test code = GLUBED) 130 mg/dL 65-99 H CBC W/O [id number] 06:36:00 Test Item Value Reference Range Interpretation [...] 182 10 3/uL 150-400 N BASIC METABOLIC [id number] 06:10:00 Test Item Value Reference Range Interpretation [...] code 8.5 mg/dL 8.5-10.1 N = CA) [id number] 05:25:00 Test Item Value Reference Range Interpretation Comments GLUBED (test code = GLUBED) 130 mg/dL 65-99 H [id number] 23:38:00 Test Item Value Reference Range Interpretation Comments GLUBED (test code = GLUBED) 125 mg/dL 65-99 H CBC W/AUTO [id number] 19:13:00 Test Item Value Reference Range Interpretation [...] = BA#) 0.05 10 3/uL 0.0-0.1 N [id number] 17:45:00 Test Item Value Reference Range Interpretation Comments GLUBED (test code = GLUBED) 112 mg/dL 65-99 H PROTHROMBIN [id number] 15:06:00 Test Item Value Reference Range Interpretation [...] and/or recurren t systemicemboliz ation. THROMBOPLASTIN TIME [id number] 15:06:00 Test Item Value Reference Range Interpretation Comments THROMBOPLASTIN TIME PARTIAL 29.8 SECONDS 25.1-36.5 N (test code = PTT) [id number] 11:28:00 Test Item Value Reference Range Interpretation Comments GLUBED (test code = GLUBED) 143 mg/dL 65-99 H LACTIC [id number] 09:32:00 Test Item Value Reference Range Interpretation Comments LACTIC ACID (test code = LACT) 0.9 mmol/L 0.4-2.0 N BASIC METABOLIC [id number] 06:08:00 Test Item Value Reference Range Interpretation [...] code = 8.0 mg/dL 8.5-10.1 L CA) [id number] 05:53:00 Test Item Value Reference Range Interpretation Comments GLUBED (test code = GLUBED) 148 mg/dL 65-99 H CBC W/O [id number] 05:26:00 Test Item Value Reference Range Interpretation [...] = PLT) 163 10 3/uL 150-400 N [id number] 23:51:00 Test Item Value Reference Range Interpretation Comments GLUBED (test code = GLUBED) 127 mg/dL 65-99 H [id number] 18:23:00 Test Item Value Reference Range Interpretation Comments GLUBED (test code = GLUBED) 166 mg/dL 65-99 H - CT ABD PELVIS W WO [id number] 15:37:00Patient Name: ALETHEA STREET Unit No: [id number] EXAMS: CPT CODE: [id number] CT ABD PELVIS W WO CONT 55758 EXAM: - CT ABD PELVIS W WO [...] are normal. No hydronephrosis. The bladder is incompletely distended, limiting evaluation. The uterus is unremarkable. No adnexal lesions are seen. Gastrointestinal: There is redemonstration of perforated sigmoid diverticulitis. [...] enlarged lymph nodes by CT size criteria. Vascular: The aorta is normal in appearance. No evidence of aneurysm or dissection. Bones/Soft Tissues: No acute osseous findings. No ventral hernias. Peritoneum/Other: No free air. No freefluid. Thoracic: Included images of the lower chest demonstrate no abnormalities. Remote right rib fractures. Name: ALETHEA ST[address]ET [facility] Phys: TAMMY Aguilar,Carol [facility] [address] : 1975 Age: 44 Sex: [place] [address] Loc: NC.4302 1 Exam Date: 05/10/2020 Status: ADM IN PH: FAX: PAGE 1 Signed Report (CONTINUED) Patient Name: ALETHEA STREET Unit No: [id number] EXAMS: CPT CODE: [id number] CT ABD PELVIS W WO CONT 83140 (Continued) IMPRESSION: 1. Redemonstration of perforated sigmoid diverticulitis with abnormal development of severe pneumoretroperitoneum. There is interval development of a few foci of intraperitoneal free air. 2. Org anization of a few small fluid collections in the bilateral pelvis suggestive of developing abscesses, largest measuring 3.2 x 1.9 cm.. 3. Development of diffuse small bowel dilatation with no transition point, likely representing reactive ileus with obstruction remains in the differential. at 1537 Reported and signed by: Fritz Paiz MD CC: Self Referred; Carol Aguilar MD; Balta Bey Jr, MD Technologist: Eugenie Pena; Andrés Bradley CTDI: 8.81 DLP: 881.9 Trscr Dt/Tm: 05/10/2020 (1537) by:[email or web address] Electronic Signature Date/Time: 05/10/2020 (153)Orig Print D/T: S: 05/10/2020 (8695) Name: ALETHEA ST[address]ET [facility] Phys: Carol Welch [address] : 1975 Age: 44 Sex: [place] [address] Loc: NC.4302 1 Exam Date: 05/10/2020 Status: ADM IN PH: FAX: PAGE 2 Signed [id number] 11:35:00 Test Item Value Reference Range Interpretation Comments GLUBED (test code = GLUBED) 180 mg/dL 65-99 H BASIC METABOLIC [id number] 08:33:00 Test Item Value Reference Range Interpretation Comments SODIUM (test code 138 mmol/L 135-145 N = NA) POTASSIUM (test 2.9 mmol/L 3.5-5.1 LL Critical Daniel ue code = K) reported toFirs t Name:FRANCI crwaley Name:RIKA ISBELL BACK AND EVE Carter NCLAB.TaliG, on 05/10/20, @ 083 2. CHLORIDE (test [...] mg/dL 8.5-10.1 L = CA) CBC W/O [id number] 07:37:00 Test Item Value Reference Range Interpretation [...] = PLT) 174 10 3/uL 150-400 N [id number] 06:37:00 Test Item Value Reference Range Interpretation Comments GLUBED (test code = GLUBED) 158 mg/dL 65-99 H [id number] 00:18:00 Test Item Value Reference Range Interpretation Comments GLUBED (test code = GLUBED) 157 mg/dL 65-99 H [id number] 20:49:00 Test Item Value Reference Range Interpretation Comments GLUBED (test code = GLUBED) 121 mg/dL 65-99 H [id number] 18:02:00 Test Item Value Reference Range Interpretation Comments GLUBED (test code = GLUBED) 125 mg/dL 65-99 H [id number] 12:01:00 Test Item Value Reference Range Interpretation Comments GLUBED (test code = GLUBED) 146 mg/dL 65-99 H [id number] 08:06:00 Test Item Value Reference Range Interpretation Comments GLUBED (test code = GLUBED) 188 mg/dL 65-99 H [id number] 06:18:00 Test Item Value Reference Range Interpretation Comments GLUBED (test code = GLUBED) 166 mg/dL 65-99 H COMPREHENSIVE METABOLIC [id number] 06:13:00 Test Item Value Reference Range Interpretation [...] 45-117 N PHOSPHATASE (test code = ALKP) [id number] 06:13:00 Test Item Value Reference Range Interpretation Comments MAGNESIUM (test code = MAG) 1.0 mg/dL 1.8-2.4 L HGBA1C - GLYCOSYLATED [id number] 06:08:00 Test Item Value Reference Range Interpretation Comments GLYCOSYLATED HEMOGLOBIN (HA1C) (test 5.4 4.5-5.9 N code = GLYHGB) CBC W/AUTO [id number] 05:56:00 Test Item Value Reference Range Interpretation [...] = BA#) 0.04 10 3/uL 0.0-0.1 N [id number] 23:58:00 Test Item Value Reference Range Interpretation Comments GLUBED (test code = GLUBED) 249 mg/dL 65-99 H [id number] 20:11:00 Test Item Value Reference Range Interpretation Comments GLUBED (test code = GLUBED) 134 mg/dL 65-99 H [id number] 17:53:00 Test Item Value Reference Range Interpretation [...] = LDLC) 52 mg/dL 0-100 N LACTIC [id number] 13:51:00 Test Item Value Reference Range Interpretation Comments LACTIC ACID (test code = LACT) 1.9 mmol/L 0.4-2.0 N Coronavirus 2018 nCoV [id number] 13:43:00 Test Item Value Reference Range Interpretation Comments Coronavirus 2019 Negative Negative This test h ad not been nCoV Bedside (test FDA clear ed or approved; code = [id number]) This te sthas been authorized by Amadeo MEZA under an EUA for use byauthorized la boratories only for the de tection of nucleicacid fro m SARS-CoV-2, not for any other viruses orpathogens; an d this test is only au thorized for the [facility] no[facility] the declaration candelaria t circumstances e xist justifying theauthorizatio n of emergency use o f in-vitro diagnostic test sfor detection and/o r diagnosis of CO VID-19 under Dwcjtgu70 4(b)(1) of the Act, 21 U.S .C. 360bbb-3(b)(1), unless theauthorizatio n is terminated or r evoked sooner. Is patient requiring admission or transfer? YIndication for rapid COVID-9 testing: Mod Clinical SuspicionUA RFLX MICR CULT IF [id number] 12:47:00 Test Item Value Reference Range Interpretation [...] Indication for culture: Dysuria/Frequency- CT ABD PELVIS [id number] 12:46:00Patient Name: ALETHEA STREET Unit No: [id number] EXAMS: CPT CODE: [id number] CT ABD PELVIS W/CONT 75186 EXAM: - CT ABD PELVIS W/CONT Location: A1 INDICATION: abd pain COMPARISON: None Technique: Axial images of the abdomen, and pelvis were obtained after the administration of 95 mL Isovue 300 intrave nous contrast. Coronal and sagittal reformatted images were created. One or more of the following dose reduction techniques were used: Automated exposure control, adjustment of the mA and/or kV according to patient size, and/or utilization of iterative reconstruction technique. GFR: Greater than 60 , C reatinine: 0.6 mg/dL DLP: 488 mGy-cm. FINDINGS: Abdomen Lower thorax: No visualized abnormality.. Hepatobiliary: Mild fatty infiltration of liver. No discrete intrahepatic lesions. Small perihepatic ascites is noted.. No biliary ductal dilatation. Gallbladder: No visualized abnormality.. Spleen: No vi sualized abnormality.. Pancreas: No visualized abnormality.. Adrenals: No [...] there is air within Name: ALETHEA ST[address] [facility] [place] Phys: Scarlet Bernal [employer] [address] : 1975 Age: 44 Sex: [place] [address] Loc: PR[facility] Exam Date: 05/08/2020 Status: REG ER PH: FAX: PAGE 1 Signed Report (CONTINUED) Patient Name: ALETHEA STREET No: [id number] EXAMS: CPT CODE: [id number] CT ABD PELVIS W/CONT 67827 (Continued) the sigmoid mesocolon as well as [...] fracture or dislocation. No osteolytic or osteosclerotic lesions. IMPRESSION: 1. Findings suggesting acute sigmoid colon diverticulitis with abnormal mural thickeningand surrounding infiltration. There is further air within [...] Technologist: Ana Laura Pulido CTDI: 8.64 DLP: 488.5 Trscr Dt/Tm: 05/08/2020 (1246) by:Jose [email or web address].[email or web address] Electronic Signature Date/Time: 05/08/2020 (1246)Orig Print D/T: S: 05/08/2020 (7711) [facility] [place]: [place] [address] : 1975 Age: 44 Sex: [place] [address] Loc: [facility] Exam Date: 05/08/2020 Status: REG ER PH: FAX: PAGE 2 Signed ReportBASIC METABOLIC PANEL 2020-05-08 11:08:00 Test Item Value Reference Range Interpretation [...] DATE OF LAST MENSTRUAL PERIOD: 05/07/20LIVER FUNCTION [id number] 11:08:00 Test Item Value Reference Range Interpretation [...] = ALKP) DATE OF LAST MENSTRUAL PERIOD: 05/07/[id number] 11:08:00 Test Item Value Reference Range Interpretation Comments LIPASE (test code = LIP) 122 U/L 73-393 N DATE OF LAST MENSTRUAL PERIOD: 05/07/20HCG SERUM [id number] 11:08:00 Test Item Value Reference Range Interpretation Comments HCG SERUM QUAL (test code = HCGQL) NEGATIVE NEGATIVE DATE OF LAST MENSTRUAL PERIOD: 05/07/20BASIC METABOLIC [id number] 10:58:00 Test Item Value Reference Range Interpretation [...] DATE OF LAST MENSTRUAL PERIOD: 05/07/20LIVER FUNCTION [id number] 10:58:00 Test Item Value Reference Range Interpretation [...] 45-117 ALKP) DATE OF LAST MENSTRUAL PERIOD: 05/07/[id number] 10:58:00 Test Item Value Reference Range Interpretation Comments LIPASE (test code = LIP) U/L 73-393 DATE OF LAST MENSTRUAL PERIOD: 05/07/20HCG SERUM [id number] 10:58:00 Test Item Value Reference Range Interpretation Comments HCG SERUM QUAL (test code = HCGQL) NEGATIVE NEGATIVE DATE OF LAST MENSTRUAL PERIOD: 05/07/20CBC W/AUTO [id number] 10:50:00 Test Item Value Reference Range Interpretation [...] BA#) 0.04 10 3/uL 0.0-0.1 N HCG [id number] 23:03:00 Test Item Value Reference Range Interpretation Comments HCG SERUM (test < 1 mIU/mL 0-3 N Gestational Age hCG code = HCG) (mIU/mL)0-1 wee ks 5-501-2 weeks 50-5002-3 weeks 100-5,0003-4 we eks 500-10,0004-5 weeks 1,000-50,0005-6 weeks 10,000-100,0006 -8 weeks 15,000-200,0002 -3 months 10,000-100,000 WHEN BORDERLINE RESU LTS ARE ENCOUNTERED, SEEMA KELLY SAMPLESSHOULD B E REDRAWN 48 HOURS LATER. DATE OF LAST MENSTRUAL PERIOD: 09/21/18BASIC METABOLIC [id number] 22:51:00 Test Item Value Reference Range Interpretation [...] mg/dL 8.5-10.1 N = CA) CBC W/AUTO [id number] 22:26:00 Test Item Value Reference Range Interpretation [...] 3/uL 0.0-0.1 N - US TRANSVAGINAL NON [id number] 20:10:00 [facility] 1975 Sex: FPatient Name: ALETHEA STREET Unit No: [id number] EXAMS: CPT: [id number] [place] [id number] Pelvic sonogram, 01/22/2019. Clinical: Pain. Comment: The [...] There is no evidence to suggest torsion. IMPRESSION:Bilateral ovarian cystic masses. at 2009 Reported and signed by: Jr Chin MD CC: Artie Oneill Jr, MD Technologist: TUAN PATEL Probe: [id number] Trscr Dt/Tm: 01/22/2019 (2009) by:[email or web address] Orig Print D/T: S: 01/22/2019 (2012) BATCH NO:N/A Name: ALETHEA ST[address] [facility] Emergency Dept Phys: [place] [id number] [facility] : 1975 Age: 43 Sex: [place] [id number] Loc: UNK Exam Date: 01/22/2019 Status: UNK PH: [phone] FAX: PAGE 1 Signed Report- US PELVIC [id number] 20:10:00[facility] : 1975 Sex: FPatient Name: ALETHEA STREET Unit No: [id number] EXAMS: CPT: [id number] US PELVIC COMPLETE [address]208 Pelvic sonogram,01/22/2019. Clinical: Pain. Comment: The uterus measures 7.5 x 4.7 x 5.6 cm. The endometrium measures0.8 cm in thickness. The right ovary measures [...] (2012) BATCH NO: N/A Name: ALE[address] [facility] Emergency Dept Phys: Geraldo Hester PA-C [id number] [facility] : 1975 Age: 43 Sex: [place] [id number] Loc: JESSICA Exam Date: 01/22/2019 Status: JESSICA PH: [phone] FAX: PAGE 1 Signed Report- CT ABD PELVIS [id number] 18:31:00[facility] : 1975 Sex: FPatient Name: ALETHEA STREET Unit No: [id number] EXAMS: CPT: [id number] CT ABD PELVIS W/CONT [address]63 CT ABDOMEN WITH CONTRAST: CT PELVIS WITH CONTRAST: HISTORY: Abdominal pain COMPARISON: None available. CONTRAST: Isovue-300, 100mL, IV.; No gastrointestinal contrast. FINDINGS: The liver, spleen, pancreas, adrenal glands and kidneys appear normal. The gallbladder is normal in appearance and there is no evidence of biliary dilatation. No lymphadenopathy, mass or fluid collection is seen. The SMV, portal vein and splenic veins are widely patent. The SMA, celiac axis and JASBIR are also widely patent. The abdominal aorta is normal in caliber. No bowel dilatation or wall thickening is present. No inflammatory process isnoted in the abdomen or pelvis. The appendix is normal in appearance. No free intraperitoneal air isseen. The lung bases are clear. No hernias are noted. The urinary bladder, uterus and adnexa appearnormal. The uterus is retroverted. IMPRESSION: Normal CT of the abdomen and pelvis. DLP: 368.58 mGy* cm CT radiation dose optimization is achieved for this examination by the use of a CT protocol in accordance with ACR practice guidelines and adherence to life science technician's recommendations. at 1831 Reported and signed by: Westley Hernandez MD CC:Geraldo Renae Technologist: DARREN GARCIA CTDI: 6.96 DLP: 368.58 Trscr Dt/Tm: 01/22/2019 (1830) by:[email or web address] Orig Print D/T: S: 01/22/2019 (183) BATCH NO: N/A Name: ALETHEA [address] EmergencyDept Phys: Geraldo Hester PA-C [id number] [facility] : 1975 Age: 43 Sex: F [facility],[id number] Loc: UNK Exam Date: 01/22/2019 Status: UNK PH: [phone] FAX: PAGE 1 Signed ReportCT, [id number] 23:06:00Reason for exam:->ABDOMINAL PAINIs the patient ?->NoWhat [...] in the abdomen or pelvis. Signed: Dominick Hernandezeport Verified Date/Time: 07/21/2017 23:06:24 Reading Location: [facility] B1 C013W Consult Reading Room U/S, ABDOMINAL, [id number] 21:33:00Abdomen limited area? Add comment if clarification [...] echogenicity suggesting underlying steatosis. Signed: Joe Driscoll MDReport Verified Date/Time: 07/21/2017 21:33:04 Reading Location: [address] Reading Room COMPREHENSIVE METABOLIC [id number] 18:41:00 Test Item Value Reference Range Interpretation [...] S NOT APPLICABLE FOR DIALYSIS PATIEN TS. [id number] 18:39:00 Test Item Value Reference Range Interpretation Comments LIPASE (BEAKER) (test code = 749) 42 U/L 6-51 URINALYSIS W/ [id number] 18:29:00 Test Item Value Reference Range Interpretation [...] code = 1663) SOURCE(BEAKER) (test code = 7575) CBC W/PLT COUNT & AUTO [id number] 18:21:00 Test Item Value Reference Range Interpretation [...] L 0.00-0.20 (test code = 417) SCREEN, [id number] 18:18:00 Test Item Value Reference Range Interpretation Comments TEST URINE (BEAKER) (test Negative code = 583)
[2023-01-29] MEDS ORDERED: BUPIVACAINE 0.5% PF 10 ML VIAL ONE (17:22)
[2023-01-29] MEDS ORDERED: HYDROCODONE/APAP 7.5/325 MG TAB ONE (17:22)
[2023-01-29] MEDS ORDERED: TETANUS & DIPHTHERIA TOX,ADULT 0.5 ML VIAL ONE (17:22)
[2023-01-29] MEDS ORDERED: LIDOCAINE 1% MPF 5 ML VIAL ONE (17:22)
--- NOTE | 2023-01-29 18:03 | ER ---
Nurse's Notes [facility] Name: Monse Comer Age: 47 yrs Sex: Female : 1975 Arrival Date: 01/29/2023 Time: 16:31 Bed Treatment Private MD: Diagnosis: Fish hook left hand Presentation: 01/29 16:35 Chief complaint: Fish hook in left ring finger x 1 hour. Coronavirus screen: At this hb time, the client does not indicate any symptoms associated with coronavirus-19. Ebola Screen: No symptoms or risks identified at this time. Initial Sepsis Screen: Does the patient meet any 2 criteria? No. Patient's initial sepsis screen is negative. Does the patient have a suspected source of infection? No. Patient's initial sepsis screen is negative. Risk Assessment: Do you want to hurt yourself or someone else? Patient reports no desire to harm self or others. Onset of symptoms was January 29, 2023. 16:35 Method Of Arrival: Ambulatory hb 16:35 Acuity: JERRY 4 hb Historical: - Allergies: 16:36 BuSpar; hb - Home Meds: 16:36 Lyrica Oral [Active]; Norvasc 5 mg Oral tab 1 tab once daily [Active]; hb - PMHx: 16:36 diabetes mellitus; Hypertensive disorder; neuropathy; hb - PSHx: 16:36 back surgery x 2; hb - Immunization history:: Last tetanus immunization: unknown. - Social history:: Smoking status: Patient reports the use of cigarette tobacco products, smokes one-half pack cigarettes per day. Screenin:20 [facility] ED Fall Risk Assessment (Adult) History of falling in the last 3 months, nj1 including since admission No falls in past 3 months (0 pts) Confusion or Disorientation No (0 pts) Intoxicated or Sedated No (0 pts) Impaired Gait No (0 pts) Mobility Assist Device Used No (0 pt) Altered Elimination No (0 pt) Score/Fall Risk Level 0 - 2 = Low Risk Oriented to surroundings, Maintained a safe environment, Hourly rounding (assess needs \T\ fall precautionary measures) done. 17:20 Abuse screen: Denies threats or abuse. Denies injuries from another. Nutritional nj1 screening: No deficits noted. Tuberculosis screening: No symptoms or risk factors identified. Assessment: 17:20 General: Appears in no apparent distress. uncomfortable, Behavior is calm, cooperative, nj1 appropriate for age. Pain: Complains of pain in left 4th digit, distal phalange Pain currently is 9 out of 10 on a pain scale. 17:20 Neuro: Level of Consciousness is awake, alert, obeys commands, Oriented to person, nj1 place, time, situation. Cardiovascular: Patient's skin is warm and dry. Respiratory: Airway is patent Respiratory effort is even, unlabored. Injury Description: Foreign body is located 4th digit, dital phalange. 18:20 Reassessment: Patient appears in no apparent distress at this time. Patient and/or nj1 family updated on plan of care and expected duration. Pain level reassessed. Patient is alert, oriented x 3, equal unlabored respirations, skin warm/dry/pink. Patient denies pain at this time. Patient states feeling better. Patient states symptoms have improved. Vital Signs: 16:35 BP 124 / 95; Pulse 104; Resp 18; Temp 98.5; Pulse Ox 100% on R/A; Weight 53.52 kg; hb Height 5 ft. 4 in. ; Pain 9/10; 16:35 Body Mass Index 20.25 (53.52 kg, 162.56 cm) hb 16:35 Pain Scale: Adult hb ED Course: 16:32 Patient arrived in ED. am2 16:36 Triage completed. hb 16:37 Arm band placed on. hb 16:38 Cami Aguirre, BOBBY is Primary Nurse. nj1 16:43 Emiliano Gibson DO is Attending Physician. ms3 16:50 Lauri Méndez PA is PHCP. cp 17:20 Patient has correct armband on for positive identification. Placed in gown. Bed in low nj1 position. Call light in reach. Adult w/ patient. 18:10 Irrigation of laceration on left 4th digit, distal phalange irrigated with normal nj1 saline Patient tolerated well. 18:10 Wound care: located on left 4th digit, distal phalange was dressed with Kerlix, Non nj1 adherent pad.. 18:20 No provider procedures requiring assistance completed. nj1 18:20 Patient did not have IV access during this emergency room visit. 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 Exp: nj1 03/12/2024. Lot #: [id number]. } Route: IM; Site: left deltoid; 18:20 Follow up: Response: (VIS) Vaccine information sheet provided today. Questions and/or nj1 concerns addressed. VIS edition date: May 08, 2021.; No adverse reaction 18:15 Drug: Amoxicillin-Clavulanate PO 875 mg Route: PO; nj1 18:20 Follow up: Response: No adverse reaction nj1 Medication: 17:55 Vaccine Information Statement (VIS) provided today. Questions and/or concerns nj1 addressed. VIS edition date: May 08, 2021. Outcome: 18:03 Discharge ordered by . ms3 18:20 Discharged to home ambulatory, with family. nj1 18:20 Condition: stable 18:20 Discharge instructions given to patient, Instructed on discharge instructions, follow up and referral plans. medication usage, wound care, Demonstrated understanding of instructions, follow-up care, medications, wound care, Prescriptions given X 1. 18:32 Patient left the ED. nj1 Signatures: Lauri Méndez PA PA cp Baxter, Heather, RN RN Maricel Scott amEmiliano Castellon DO DO ms3 Cami Aguirre RN RN nj1
--- NOTE | 2023-01-29 18:03 | EDPHYS ---
Physician Documentation [facility] Name: Monse Comer Age: 47 yrs Sex: Female : 1975 Arrival Date: 01/29/2023 Time: 16:31 Bed Treatment Private MD: ED Physician Emiliano Gibson HPI: 01/29 17:59 This 47 yrs old Female presents to ER via Ambulatory with complaints of Hand Injury. ms3 17:59 47-year-old female with past medical history of diabetes, hypertension, neuropathy ms3 presents for fishhook in left hand that occurred 45 minutes prior to arrival. Patient states he is having 8/10 pain. Patient denies alleviating or inciting factors. Historical: - Allergies: 16:36 BuSpar; hb - Home Meds: 16:36 Lyrica Oral [Active]; Norvasc 5 mg Oral tab 1 tab once daily [Active]; hb - PMHx: 16:36 diabetes mellitus; Hypertensive disorder; neuropathy; hb - PSHx: 16:36 back surgery x 2; hb - Immunization history:: Last tetanus immunization: unknown. - Social history:: Smoking status: Patient reports the use of cigarette tobacco products, smokes one-half pack cigarettes per day. ROS: 17:59 Constitutional: Negative for fever, and chills. Neck: Negative for injury, pain, and ms3 swelling, Cardiovascular: Negative for chest pain, and palpitations. Respiratory: Negative for shortness of breath, cough, wheezing, and pleuritic chest pain, Abdomen/GI: Negative for abdominal pain, nausea, vomiting, diarrhea, and constipation. 17:59 MS/extremity: Positive for pain, Fish hook in hand. Exam: 17:59 Constitutional: This is a well developed, well nourished patient who is awake, alert, ms3 and in no acute distress. Head/Face: Normocephalic, atraumatic. Neck: Trachea midline, no cervical lymphadenopathy. Supple, full range of motion without nuchal rigidity, or vertebral point tenderness. No Meningismus. Chest/axilla: Normal chest wall appearance and motion. Nontender with no deformity. Cardiovascular: Regular rate and rhythm with a normal S1 and S2. No gallops, murmurs, or rubs. Normal PMI, no JVD. No pulse deficits. Respiratory: Lungs have equal breath sounds bilaterally, clear to auscultation and percussion. No rales, rhonchi or wheezes noted. No increased work of breathing, no retractions or nasal flaring. Abdomen/GI: Soft, non-tender, with normal bowel sounds. No distension or tympany. No guarding or rebound. No evidence of tenderness throughout. 17:59 Musculoskeletal/extremity: Fish hook in left 4th finger. Vital Signs: 16:35 BP 124 / 95; Pulse 104; Resp 18; Temp 98.5; Pulse Ox 100% on R/A; Weight 53.52 kg; hb Height 5 ft. 4 in. ; Pain 9/10; 16:35 Body Mass Index 20.25 (53.52 kg, 162.56 cm) hb 16:35 Pain Scale: Adult hb Procedures: 18:05 Foreign Body Removal: a fishhook, from the distal phalanx left fourth finger, by needle, Dressinx4s were used to dress the wound, wound cleaned and irrigated by nursing staff, The patient tolerated the removal well, digital block performed with 5 cc mixture 1% lidocaine w/o epi and 0.5% marcaine. MDM: 16:50 Patient medically screened. ms3 17:00 Differential diagnosis: open fracture, puncture wound, cellulitis. 18:00 Data reviewed: vital signs, nurses notes, and as a result, I will discharge patient. 18:00 I considered the following discharge prescriptions or medication management in the emergency department Medications were administered in the Emergency Department. See MAR. Counseling: I had a detailed discussion with the patient and/or guardian regarding: the historical points, exam findings, and any diagnostic results supporting the discharge/admit diagnosis, to return to the emergency department if symptoms worsen or persist or if there are any questions or concerns that arise at home. Response to treatment: the patient's symptoms have markedly improved after treatment. Special discussion: I discussed in detail with the patient the higher chance of wound infection based on his presenting history. 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 Exp: nj1 03/12/2024. Lot #: [id number]. } Route: IM; Site: left deltoid; 18:20 Follow up: Response: (VIS) Vaccine information sheet provided today. Questions and/or nj1 concerns addressed. VIS edition date: May 08, 2021.; No adverse reaction 18:15 Drug: Amoxicillin-Clavulanate PO 875 mg Route: PO; nj1 18:20 Follow up: Response: No adverse reaction nj1 Disposition Summary: 01/29/23 18:03 Discharge Ordered Location: Home ms3 Condition: Stable ms3 Diagnosis - Fish hook left hand ms3 Followup: ms3 - With: Private Physician - When: 2 - 3 days - Reason: Recheck today's complaints Discharge Instructions: - Puncture Wound cp - Discharge Summary Sheet ms3 - Hand or Foot Foreign Body, Adult ms3 Forms: - Medication Reconciliation Form ms3 - Thank You Letter ms3 - Antibiotic Education ms3 - Prescription Opioid Use ms3 Prescriptions: - Augmentin 875-125 mg Oral Tablet - take 1 tablet by ORAL route every 12 hours for 7 days; 14 tablet; Refills: 0, cp Product Selection Permitted Addendum: 01/31/2023 21:46 Co-signature as Attending Physician, Emiliano Gibson DO I was immediately available on-site m s3 in the Emergency Department for consultation in the care of the patient. . Signatures: Lauri Méndez PA PA cp Baxter, Heather, RN RN Emiliano Alvarez DO DO ms3 Cami Aguirre RN RN nj1 Corrections: (The following items were deleted from the chart) 01/29 18:02 17:59 47-year-old female with past medical history of diabetes, hypertension, ms3 neuropathy presents for fishhook in right hand that occurred 45 minutes prior to arrival. Patient states he is having 8/10 pain. Patient denies alleviating or inciting factors. ms3
[2023-01-29] MEDS ORDERED: AMOX/K CLAV 875 MG TAB ONE (18:18)
[2023-01-29 18:39] VITALS: BP 124/95; TEMP 98.5; O2SAT 100
== END 2023-01-29 18:32 | disposition home or self-care (01) ==
LOC: ER 16:31
DX: S61.245A Puncture wound with foreign body of left ring finger without damage to nail, initial encounter (principal); Z23 Encounter for immunization
CPT/HCPCS: 90714; J2001; 90471; 99284

== ENCOUNTER 2023-05-16 21:11 | Emergency (ER) | payer OTHER ==
--- OUTSIDE RECORDS SUMMARY | 2023-05-16 21:19 | XMS REPORT | Continuity of Care Document ---
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 [id number] [place] 00:00:00 00:00:00 [facility] 2018-12-06 2018-12-06 Outpatient [facility] [id number] [place] 00:00:00 00:00:00 [facility] 2018-12-06 2018-12-06 Outpatient [facility] [id number] [place] 00:00:00 00:00:00 [facility] 2018-12-01 2018-12-01 Outpatient [facility] [id number] [place] 07:17:28 07:17:28 Health 2018-11-24 2018-11-24 Outpatient [facility] [id number] [place] 09:47:34 09:47:34 [facility] 2018-11-24 2018-11-24 Outpatient [facility] [id number] [place] 00:00:00 00:00:00 [facility] 2018-11-22 2018-11-22 Outpatient [facility] [id number] [place] 00:00:00 00:00:00 [facility] 2018-11-21 2018-11-21 Outpatient [facility] [id number] [place] 00:00:00 00:00:00 [facility] 2018-11-13 2018-11-13 Outpatient [facility] [id number] [place] 08:56:41 08:56:41 Health 2018-11-13 2018-11-13 Outpatient [facility] [id number] [place] 00:00:00 00:00:00 [facility] 2018-11-06 2018-11-06 Outpatient [facility] [id number] [place] 00:00:00 00:00:00 [facility] 2018-10-20 2018-10-20 Outpatient [facility] [id number] [place] 08:20:41 08:20:41 [facility] 2018-10-16 2018-10-16 Outpatient [facility] [id number] [place] 11:24:41 11:24:41 [facility] 2018-09-12 2018-09-12 Outpatient [facility] [id number] [place] 09:18:36 09:18:36 [facility] 2018-09-05 2018-09-05 Outpatient [facility] [id number] [place] 00:00:00 00:00:00 [facility] 2018-09-04 2018-09-04 Outpatient [facility] [id number] [place] 00:00:00 00:00:00 [facility] 2018-08-30 2018-08-30 Outpatient [facility] [id number] [place] 16:37:11 16:37:11 [facility] 2018-08-30 2018-08-30 Outpatient [facility] [id number] [place] 15:31:56 15:31:56 [facility] 2018-08-02 2018-08-02 Outpatient [facility] [id number] [place] 00:00:00 00:00:00 [facility] 2018-08-01 2018-08-01 Outpatient [facility] [id number] [place] 14:11:01 14:11:01 [facility] 2018-07-31 2018-07-31 Outpatient [facility] [id number] [place] 13:49:01 13:49:01 [facility] 2018-07-31 2018-07-31 Outpatient [facility] [id number] [place] 11:05:47 11:05:47 [facility] 2018-07-18 2018-07-18 Outpatient [facility] [id number] [place] 00:00:00 00:00:00 [facility] 2018-07-13 2018-07-13 Outpatient [facility] [id number] [place] 00:00:00 00:00:00 [facility] 2018-07-12 2018-07-12 Outpatient [facility] [id number] [place] 10:34:47 10:34:47 [facility] 2018-07-07 2018-07-07 Outpatient [facility] [id number] [place] 00:00:00 00:00:00 [facility] 2018-07-04 2018-07-04 Outpatient [facility] [id number] [place] 08:47:36 08:47:36 [facility] 2018-06-30 2018-06-30 Outpatient [facility] [id number] [place] 00:00:00 00:00:00 [facility] 2018-06-30 2018-06-30 Outpatient [facility] [id number] [place] 00:00:00 00:00:00 [facility] 2018-06-30 2018-06-30 Outpatient [facility] [id number] [place] 00:00:00 00:00:00 [facility] 2018-06-29 2018-06-29 Outpatient [facility] [id number] [place] 00:00:00 00:00:00 [facility] 2018-06-27 2018-06-27 Outpatient [facility] [id number] [place] 00:00:00 00:00:00 [facility] 2018-06-26 2018-06-26 Outpatient [facility] [id number] [place] 00:00:00 00:00:00 [facility] 2018-06-22 2018-06-22 Outpatient [facility] [id number] [place] 00:00:00 00:00:00 [facility] 2018-06-20 2018-06-20 Outpatient [facility] [id number] [place] 00:00:00 00:00:00 [facility] 2018-06-20 2018-06-20 Outpatient [facility] [id number] [place] 00:00:00 00:00:00 [facility] 2018-06-14 2018-06-14 Outpatient [facility] [id number] [place] 09:51:58 09:51:58 [facility] 2018-06-14 2018-06-14 Outpatient [facility] [id number] [place] 09:12:21 09:12:21 [facility] 2018-06-02 2018-06-02 Outpatient [facility] [id number] [place] 00:00:00 00:00:00 [facility] 2018-05-31 2018-05-31 Outpatient [facility] [id number] [place] 10:22:37 10:22:37 [facility] 2018-05-30 2018-05-30 Outpatient [facility] [id number] [place] 00:00:00 00:00:00 [facility] 2018-05-25 2018-05-25 Outpatient [facility] [id number] [place] 08:51:23 08:51:23 [facility] 2018-05-19 2018-05-19 Outpatient [facility] [id number] [place] 00:00:00 00:00:00 [facility] 2018-05-16 2018-05-16 Outpatient [facility] [id number] [place] 00:00:00 00:00:00 Health 2018-05-11 2018-05-11 Outpatient [facility] [id number] [place] 09:47:57 09:47:57 [facility] 2017-01-16 2017-01-17 Emergency CEDRICK, [facility] 104 [id number] [place] 00:00:00 00:00:00 EDWARD [address] 2016-07-02 2016-07-02 Emergency [facility] [id number] [place] 00:00:00 00:00:[address] 2015-12-23 2015-12-23 Emergency [facility] [id number] [place] 00:00:00 00:00:[address] 2015-12-22 2015-12-22 Emergency [place] [id number] [place] 00:00:00 00:00:[address] 2015-12-18 2015-12-19 Emergency AMERICO, [facility] [id number] [place] 00:00:00 00:00:00 CAMARAN [address] Results Test Description Test Time Test Comments Results Result Comments Source OCCULT BLD,FECAL,IMMUNOASSAY DIAG 2023-03-15 12:58:12 Test Item Value Reference Range Interpretation Comme nts OCCULT BLD, FECAL (test code NEGATIVE NEGATIVE UNLESS OTHERWISE INDICATED, ALL = 16218) TESTING PERFORM ED AT CLINICAL PATHOLOGY [facility], [facility]. [address] [place] [address] CHECK OUT CASHIER: LILIA RAO M.D. CLIA NUMBER [id number] [facility] ACCREDITATION N O. [id number] NOTE:2023-03-04 06:01:48 Test Item Value Reference Range Interpretation Comments NOTE: (test code = (NOTE) IN ACCOR DANCE WITH FEDERAL 998) GUIDELINES REQU IRING ALL VERBAL REQUESTS FOR LABORATORY TEST S TO BE ACCOMPANIED BY WRITTEN AUTHORIZATION W ITHIN 30 DAYS OF THIS REQUEST , PLEASE SIGN BELOW AND RETUR N A COPY OF THIS REPORT BY FAX TO THE LABORATORY SCAN [facility] DEPARTMENT AT . PHYSICIAN'S SIG NATURE DATE UNLESS OTHERWISE INDIC ATED, ALL TESTING PERFORM ED AT CLINICAL PATHOL [place]. [address] [place], [place] [address] LABORATORY DIRE CTOR: FELY PINEDA M.D. CLIA NUMBER [id number] CAP ACCREDITATION N O. [id number] FOLLICLE STIM [id number] 03:46:48 Test Item Value Reference Range Interpretation Comments FOLLICLE STIM 42.4 IU/L SEE BELOW EXPEC OT VALUES HORMONE (test code FOR FSH F OR FEMALES >17 = 2700) YEARS F OLLICULAR 3.5-12.5 IU/L M ID-CYCLE PEAK 4.7-21.5 I U/L LUTEAL PHASE 1.7-7.7 I U/L POSTMENOPAUSAL 25.8-134.8 IU/L FOLIC [id number] 06:09:14 Test Item Value Reference Range Interpretation Comments FOLIC ACID (test >20.0 UG/L SEE BELOW INTE RPRETIVE code = 2695) RANGES DE FICIENCY . . . . . . . . . . . . . . . UG/L <4.0 PO SSIBLE DEFICIENCY. . . . . . . . . . . UG/L 4.0- 5.9 SUFFICIENT . . . . . . . . . . . . . . . UG/L >=6.0 VITAMIN D, 25 [id number] 06:08:52 Test Item Value Reference Range Interpretation Comments VITAMIN D, 25 67 NG/ML SEE BELOW EFFECTIVE 10/11/2022, [place] (test code PLEASE NOTE NE W METHODOLOGY = 4958) IS ELECTROCH EMILUMINESCENCE BINDING ASSAY. NOTE: 25-HYDROXYVITAM IN D ASSAY INCLUDES 25-HYD ROXYVITAMIN D2 AND D3. I NTERPRETIVE RANGES PED IATRIC (<17 YEARS) . . . . . . . . . . . NG/ML 20-100ADU LT: INSUFFICIENT . . . . . . . . . . . . . . NG/ML <20 SUBOP TIMAL . . . . . . . . . . . . . . . NG/ML 20-29 OPTIMAL . . . . . . . . . . . . . . . . . NG/ML 30-100 UNLESS OTHERWISE INDIC ATED, ALL TESTING PERFORM ED AT CLINICAL PATHOLOGY [facility] [address] [place] [address] LABORATORY DIRE CTOR: Donnie RIVAS ROM NUMBER [id number] [facility] [place]. [id number] COMPREHENSIVE METABOLIC [id number] 04:51:39 Test Item Value Reference Range Interpretation Comments GLUCOSE (test code = 128 MG/DL 70-99 H 2216) BUN (test code = 9 MG/DL 6-20 2207) CREATININE (test 0.77 MG/DL 0.60-1.30 code = 2214) eGFR (2020 CKD-EPI) 95 ML/MIN/1.73 >60 (test code = 93703) CALC BUN/CREAT (test 12 RATIO 6-28 code = 2235) SODIUM (test code = 141 MEQ/L 361-416 8606) POTASSIUM (test code 4.4 MEQ/L 3.5-5.4 = 2227) CHLORIDE (test code 104 MEQ/L 95-107 = 2214) CARBON DIOXIDE (test 25 MEQ/L 19-31 code = 220) CALCIUM (test code = 9.8 MG/DL 8.5-10.5 2208) PROTEIN, TOTAL (test 6.7 G/DL 6.1-8.3 code = 222) ALBUMIN (test code = 4.2 G/DL 3.5-5.2 2200) CALC GLOBULIN (test 2.5 G/DL 1.9-3.7 code = 2240) CALC A/G RATIO (test 1.7 RATIO 1.0-2.6 code = 2234) BILIRUBIN, TOTAL 0.4 MG/DL See_Comment [Automated message] (test code = 2207) The syste m which generated this result transmit to reference range : <=1.2. The refe rence range was not u sed to interpret th is result as normal/abnormal . ALKALINE PHOSPHATASE 159 U/L 40-123 H (test code = 2204) AST (test code = 18 U/L 9-40 2217) ALT (test code = 13 U/L 5-40 2218) LIPID [id number] 04:51:39 Test Item Value Reference Range Interpretation Comments CHOLESTEROL (test 197 MG/DL <200 code = 2210) TRIGLYCERIDES (test 397 MG/DL <150 H code = 2232) HDL CHOLESTEROL (test 54 MG/DL >39 code = 2220) CALC LDL CHOL (test 90 MG/DL <100 NOTE: C ALCULATED LDL code = 2237) IS BASED ON JUDI-DESHPANDE METHOD WHICHINCLUDES ADJUSTABLE TRIGLYCERIDE:VL DL CHOLESTEROL RAT IO.THIS FACTOR VARIES B Y MEASURED TRIGLY CERIDE AND NON-HDLCHOL ESTEROL CONCENTRATIONS WITH INCREASED CALCU LATED LDL SEENIN HIGH ER TRIGLYCERIDE OR LOWER NON-HDL SPECIME NS. FOR MOREINFORMATION , SEE CLIENT ANNOUNCE MENT AT [email or web address] RISK RATIO LDL/HDL 1.67 RATIO <3.22 (test code = 2238) HEMOGLOBIN [id number] 03:31:24 Test Item Value Reference Range Interpretation Comments HEMOGLOBIN A1c (test 6.2 % 4.2-5.6 H AMERIC AN DIABETES code = 43634) ASSOCIATION IDELINES FOR HGB A1C: PREDIABETES/INC REASED RISK . . . . . . . 5.7 -6.4% DIAGNOSIS OF DI ABETES . . . . . . . . . >=6 .5% WITH CONFIRMATION OR APPROPRIATE SYMPTOMS NOTE: ASSAY MAY BE AFFECTED BY HEMOGLOBINOPATH IES (SICKLE CELL ANEMIA, S- C DISEASE, OTHERS) OR NILDA FICIALLY LOWERED BY DECR EASED RED CELL SURVIVAL ( HEMOLYTIC ANEMIAS, BLOOD LOSS, ETC.). CONSIDER ALTERN ATE TESTING OR LABORATORY C ONSULTATION. CBC W/AUTO [id number] 09:04:00 Test Item Value Reference Range Interpretation Comments WHITE BLOOD CELL 9.2 x10 3/u 4.8-10.8 N (test code = WBC) RED BLOOD CELL (test 4.87 x10 6/uL 4.20-5.40 N code = RBC) HEMOGLOBIN (test code 15.5 g/dL 12.0-16.0 N = HGB) HEMATOCRIT (test code 44.6 % 34.0-47.0 N = HCT) MEAN CELL VOLUME 92 fL 80-99 N (test code = MCV) MEAN CELL HGB (test 31.8 pg 27.0-31.0 H code = MCH) MEAN CELL HGB 34.8 g/dL 33.0-37.0 N CONCENTRATION (test code = MCHC) RED CELL DISTRIBUTION 11.9 % 11.5-14.5 N WIDTH (test code = RDW) PLATELET COUNT (test 285 x10 3/uL 130-400 N code = PLT) MEAN PLATELET VOLUME 10.4 fL 9.4-12.4 N (test code = MPV) NEUTROPHIL % (test 55.4 % 37.0-80.0 N code = NT%) LYMPHOCYTE % (test 29.5 % 10.0-50.0 N code = LY%) MIXED % (test code = 15.1 % 0.0-11.0 H The Mix ed Cell MX%) percent and Mix ed Cell absolute numberinclude monocytes, eosinophils and basophils. NEUTROPHIL # (test 5.1 x10 3/uL 2.0-6.9 N code = NT#) LYMPHOCYTE # (test 2.7 x10 3/uL 0.9-4.1 N code = LY#) MIXED # (test code = 1.4 10e3/mm3 0.2-1.1 H MX#) URINALYSIS DIPSTICK [id number] 19:26:00 Test Item Value Reference Range Interpretation [...] YES NEEDED? (test code = UAMICRO) UA [id number] 19:26:00 Test Item Value Reference Range Interpretation Comments UA WBC (test code = WBCU) 0-3 /HPF 0-3 UA RBC (test code = RBCU) 0-3 /HPF 0-3 UA BACTERIA (test code = BACU) NONE SEEN /HPF NONE SEEN UA SQUAMOUS CELLS (test code = RARE /HPF NONE-FEW SQU) UA MUCUS (test code = MUCU) RARE /LPF NONE-FEW DRUGS OF ABUSE SCREEN [id number] 18:32:00 Test Item Value Reference Range Interpretation [...] code = TRICYCU) Neg NEGATIVE COMPREHENSIVE METABOLIC [id number] 18:31:00 Test Item Value Reference Range Interpretation [...] 42-141 N (test code = ALKP) HCG [id number] 18:06:00 Test Item Value Reference Range Interpretation [...] 48 hours toconfirm . PAP TEST, THINPREP, [id number] 08:51:56 Test Item Value Reference Range Interpretation Comments SOURCE: (test code = Cervical/End 800) ocervical SLIDES: (test code = 1 402) LMP: (test code = 11/15/2021 8077) SPECIMEN ADEQUACY: (NOTE) Satisfac tory for (test code = 77175) evaluati on. Endocervical cells/transform ation zone component present. INTERPRETATION: (test ASCUS/EPITH. A ------ code = 62360) ABNORMALITY; -------- SEE BELOW ------- ---- EPITHE LIAL CELL ABNORMALIT Y Atypical squamo us cells of undete rmined significance (ASC-US)------- ------- ------- ------- DELIVERY TRUCK DRIVER: Vicente (test code = 8101) CANDE Tinajero(A [facility]) IAC PATHOLOGIST James Paiz INTERPRETATION BY: (test code = 8122) LOCATION: (test code (NOTE) Specime ns processed at = [address]5556) [facility] [employer], [address] [facility] [place] [address], Phone: , CLIA: [id number] interpreted at [facility], [address] [place],Pathology Department [facility], [place] Set on [facility], [place] [address], Phone: , CLIA: [id number] CPT: (test code = (NOTE) 16892, 881 41 UNLESS 8140) OTHERWISE INDIC ATED, [...] as applicable. HPV HIGH RISK WITH GENOTYPE, [id number] 19:58:58 Test Item Value Reference Range Interpretation Comments HPV HIGH RISK INTERP POSITIVE NEGATIVE A (test code = 02031) HPV 16 (test code = NEGATIVE 39626) HPV 18 (test code = NEGATIVE 94039) HPV, HR, OTHER POSITIVE A Testing meth odology is GENOTYPES (test code real-ti me PCR utilizing = 32994) hydrolysis prob es with the Omer Diana 4800 system. The subhash t individually de tects genotypes 16 an d 18, as well as the oth er 12 high risk types (31,33,35,39,45 ,51,52,56 ,58,59,66,68). The expected result is negative. A neg ative result does not rule out the presence of HPV not included in the genotype set, a low leve l of infection or sp ecimen sampling error. [facility] has important p athology staff changes e ffective 12/01/2022. New pathology staff will provide uninter rupted, excellent patie nt care and clinical consultation. S ee URL: [email or web address] UNLESS OTHERWISE INDICATED, ALL TESTING PERFORMED AT [facility] [employer], [facility]. [address] [place] [address] CLIA : [id number], CAP : [id number] SJOGREN'S SS-A AND SS-B [id number] 06:14:16 Test Item Value Reference Range Interpretation Comments SJOGREN'S SS-A ANTIBODY (test code = 0.5 AI <1.0 33580) SJOGREN'S SS-B ANTIBODY (test code = <0.2 AI <1.0 21329) BECERRIL (Sm) [id number] 06:14:16 Test Item Value Reference Range Interpretation Comments BECERRIL (Sm) ANTIBODY (test code = <0.2 AI <1.0 56314) DNA DS ANTIBODY REFLEX [id number] 06:14:16 Test Item Value Reference Range Interpretation Comments dsDNA ANTIBODY (test <1.0 SEE BELOW NEGATI VE . . . . . . . . code = 96270) . . . . . . IU /ML <=4.9 INDETERMINATE. . . . . . . . . . . . IU/ML 5.0-9.0 POSITIVE . . . . . . . . . . . . . . IU/ML >=10.0 dsDNA ANTIBODY REFLEX (NOTE) NEGATIVE NOTE : REFLEX CRITERIA (test code = 84680) NOT MET FOR DNA DOUBLE STRANDED ANTIBO DY BY LUCITA METHOD. UNLESS OTHERWISE INDICATED, ALL TESTING PER[facility] [employer] [address] [place] [address] [facility] DIRECTOR: GIOVANNI HALEY M.D. KRAIGIA NUMBER [id number] CAP ACCREDITATION N O. [id number] 20:53:00 Test Item Value Reference Range Interpretation Comments GLUBED (test 163 mg/dL 70-105 H Intravenous adm inistration code = GLUBED) of N-acetylcy steine which resultsin blood concentrations >5 mg/dL will cause overestim ationof blood glucose results . Do not use during intraven ousinfusion of N'acetylcyst eine. Lipid 1995 panel - Serum or [id number] 09:06:00 Test Item Value Reference Range Interpretation [...] (test code = non HDL (calc) cholesterol) [facility] - [facility] or Plasma 2021-08-01 09:06:00 Test Item Value Reference Range Interpretation Comments glucose (test code 108 mg/dL 65-99 H = glucose) urea nitrogen (BUN) 12 mg/dL 7-25 (test code = urea nitrogen (BUN)) creatinine (test 0.65 mg/dL 0.50-1.10 code = creatinine) eGFR non-afr. 106 mL/min/1.73m2 See_Comment [Automat ed emirati (test code message] The = eGFR non-afr. system which emirati) generated this result transmit to reference range : > or = 60. The reference range was not used to interpret this result as normal/abnormal . eGFR 123 mL/min/1.73m2 See_Comment [Automate d emirati (test code message] The = eGFR system which emirati) generated this result transmit to reference range [...] (test code = 12 U/L 6-29 ALT) [facility] W Auto Differential panel - [id number] 09:06:00 Test Item Value Reference Range Interpretation [...] MPV) 10.3 fL 7.5-12.5 absolute neutrophils (test 35049 cells/uL [id number] H code = absolute neutrophils) absolute lymphocytes [...] 3.80-5.10 code = red blood cell count) [facility]] in Serum or [id number] 09:06:00 Test Item Value Reference Range Interpretation Comments TSH (test code = TSH) 0.93 mIU/L [facility] Center[facility]zov86-Mdywbdqhflujre D3+25-Hydroxyvitamin D2 [Mass/volume] in Serum or [id number] 09:06:00 Test Item Value Reference Range Interpretation Comments vitamin D,25-oh,total,ia (test code 105 NG/mL 30-100 H = vitamin D,25-oh,total,ia) comment (test code = comment) [facility]Hemoglobin.total in [id number] 09:06:00 Test Item Value Reference Range Interpretation Comments Hemoglobin 5.2 % of total HGB <5.7 A1c/Hemoglobin.total in Blood (test code = 4548-4) [facility] [id number] 10:03:00 Test Item Value Reference Range Interpretation Comments SURGICAL SPECIMENS (test code = SURG) RUN DATE: 09/16/20 [place] [facility] *LIVE* PAGE 1 RUN TIME: 1003 Specimen Inquiry RUN USER: INTERFACE PATIENT: ALETHEA STREET LOC: [place] U #: [id number] AGE/SX: 44/F ROOM: RE09/15/20REG DR: Sudha Acosta MD : 73 BED: DIS: STATUS: [facility] [place] TLOC: SPEC #: [id number] RECD: 09/15/20 STATUS: CHUCK RIGOBERTO #: [id number] ALEN: 09/15/20-[address]: Sudha Acosta MD ENTERED: 09/15/20 [...] COLD SNARE: - TUBULAR ADENOMA (1) CPT: 34716 x3 GROSS DESCRIPTION Clinical history: Diverticulitis Three [...] END OF REPORT DRUGS OF ABUSE SCREEN [id number] 08:52:00 Test Item Value Reference Range Interpretation [...] code = Negative NEGATIVE PHENCU) UR HCG [id number] 07:00:00 Test Item Value Reference Range Interpretation Comments UR HCG QUAL (test code = HCGQLU) NEGATIVE NEGATIVE Novel Coronavirus [id number] 14:51:00 Test Item Value Reference Range Interpretation [...] on ly authorized fort he duration of mayranne e the declaration candelaria t circumstancesex ist justifying the authorization o f the emergency use o fin vitro diagnostic test s for detection of SA RS-CoV-2 virusand/or bravo gnosis of COVID-19 infect ion under hqqnwiv930(b)(1 ) of the Act, 21 U.S.C. 360bbb-3(b) [...] resul t in this assay.Performed At: [facility] [address] [id number] alexys Escobar MD Ph:[phone] Novel Coronavirus 13:11:00 Test Item Value Reference Range Interpretation [...] was developed and itsperformance characteristics determined by [facility]. Nucleic acid amplification t ests include [...] bravo gnosis of COVID-19 infect ion under (b)(1 ) of the Act, 21 U.S.C. 360bbb-3(b) [...] resul t in this assay.Performed At: [facility] [address] [id number] alexys Escobar MD Ph:[phone] BASIC METABOLIC [id number] 19:56:00 Test Item Value Reference Range Interpretation [...] mg/dL 8.5-10.1 N = CA) CBC W/AUTO [id number] 19:39:00 Test Item Value Reference Range Interpretation [...] 0.06 10 3/uL 0.0-0.1 N COMPREHENSIVE METABOLIC [id number] 07:37:00 Test Item Value Reference Range Interpretation [...] PHOSPHATASE (test code = ALKP) CBC W/AUTO [id number] 06:29:00 Test Item Value Reference Range Interpretation [...] N - CT ABD PELVIS W WO [id number] 08:30:00Patient Name: ALETHEA STREET Unit No: [id number] EXAMS: CPT CODE: [id number] CT ABD PELVIS W WO CONT 57824 CLINICAL HISTORY: DIVERTICULOSIS TECHNIQUE: Axial images of the abdomen and pelvis were obtained from diaphragm to the pubic symphysis without and with intravenous contrast. No oral contrast isadministered. Approximately 100 mL of intravenous contrast was administered. Sagittal and coronal images were obtained. Location: A1 CT DLP dose: 751 mGy-cm. Iterative dose reduction technique was utilized. Comparison study: Comparison is made with prior study of 06/13/2020 FINDINGS: The images of the lung bases demonstrate no masses, effusions or infiltrates. [...] The portal vein is Name: ALETHEA ST[address] [facility] Phys: Carol Welch [address] : 1975 Age: 44 Sex: [place] [address] Loc: NC.6307 1 Exam Date: 06/20/2020 Status: ADM IN PH: FAX: PAGE 1 Signed Report (CONTINUED) Patient Name: ALETHEA STREET Unit No: [id number] EXAMS: CPT CODE: [id number] CT ABD PELVIS W WO CONT 33584 (Continued) patent. No evidence of ascites. Abdominal wall is intact. No significant bone lesions. IMPRESSION: 1. Interval imp rovement in the complicated sigmoid diverticulitis noted. Overall [...] Antoni Escobar M.D. CC: Self Referred; Carol Pena MD; Josiah Ervin MD Technologist: Ana Laura Pulido CTDI: 8.44 DLP: 750.8 Tr scr Dt/Tm: 06/20/2020 (829) by:[email or web address] Electronic Signature Date/Time: 06/20/2020 (829)Orig Print D/T: S: 06/20/2020 (832) Name: ALETHEA ST[address] [facility] Phys: AYCarol Son [address] : 1975 Age: 44 Sex: [place] [address] : NC.6307 1 Exam Date: 06/20/2020 Status: ADM IN PH: FAX: PAGE 2 Signed Report BASIC METABOLIC [id number] 06:07:00 Test Item Value Reference Range Interpretation [...] mg/dL 8.5-10.1 N = CA) CBC W/AUTO [id number] 05:33:00 Test Item Value Reference Range Interpretation [...] = BA#) 0.03 10 3/uL 0.0-0.1 N [id number] 13:19:00 Test Item Value Reference Range Interpretation Comments GLUBED (test 78 mg/dL 65-99 N Intravenous adm inistration of code = GLUBED) N-acetylcyste ine which resultsin blood concentrations >5 mg/dL will cause overestim ationof blood glucose results . Do not use during intraven ousinfusion of N'acetylcystein e. [id number] 08:10:00 Test Item Value Reference Range Interpretation Comments GLUBED (test 84 mg/dL 65-99 N Intravenous adm inistration of code = GLUBED) N-acetylcyste ine which resultsin blood concentrations >5 mg/dL will cause overestim ationof blood glucose results . Do not use during intraven ousinfusion of N'acetylcystein e. HGBA1C - GLYCOSYLATED [id number] 05:46:00 Test Item Value Reference Range Interpretation Comments GLYCOSYLATED HEMOGLOBIN (HA1C) (test 5.6 4.5-5.9 N code = GLYHGB) COMPREHENSIVE METABOLIC [id number] 05:01:00 Test Item Value Reference Range Interpretation [...] 45-117 N PHOSPHATASE (test code = ALKP) [id number] 05:01:00 Test Item Value Reference Range Interpretation Comments MAGNESIUM (test code = MAG) 2.2 mg/dL 1.8-2.4 N CBC W/AUTO [id number] 04:53:00 Test Item Value Reference Range Interpretation [...] 10 3/uL 0.0-0.1 N Coronavirus 2019 nCoV [id number] 17:57:00 Test Item Value Reference Range Interpretation Comments Coronavirus 2019 Negative Negative This test h ad not been nCoV Bedside (test FDA clear ed or approved; code = [id number]) This te sthas been authorized by F [...] and/o r diagnosis of CO VID-19 under Rlwbyah80 4(b)(1) of the Act, 21 U.S .C. [...] = LDLC) 95 mg/dL 0-100 N LACTIC [id number] 16:27:00 Test Item Value Reference Range Interpretation Comments LACTIC ACID (test code = LACT) 1.3 mmol/L 0.4-2.0 N PROTHROMBIN [id number] 16:24:00 Test Item Value Reference Range Interpretation [...] and/or recurren t systemicemboliz ation. THROMBOPLASTIN TIME [id number] 16:24:00 Test Item Value Reference Range Interpretation Comments THROMBOPLASTIN TIME PARTIAL 29.5 SECONDS 25.1-36.5 N (test code = PTT) BASIC METABOLIC [id number] 15:37:00 Test Item Value Reference Range Interpretation [...] DATE OF LAST MENSTRUAL PERIOD: 05/29/20LIVER FUNCTION [id number] 15:37:00 Test Item Value Reference Range Interpretation [...] = ALKP) DATE OF LAST MENSTRUAL PERIOD: 05/29/[id number] 15:37:00 Test Item Value Reference Range Interpretation Comments LIPASE (test code = LIP) 127 U/L 73-393 N DATE OF LAST MENSTRUAL PERIOD: 05/29/20HCG SERUM [id number] 15:37:00 Test Item Value Reference Range Interpretation Comments HCG SERUM QUAL (test code = HCGQL) NEGATIVE NEGATIVE DATE OF LAST MENSTRUAL PERIOD: 05/29/20BASIC METABOLIC [id number] 15:31:00 Test Item Value Reference Range Interpretation [...] DATE OF LAST MENSTRUAL PERIOD: 05/29/20LIVER FUNCTION [id number] 15:31:00 Test Item Value Reference Range Interpretation [...] 45-117 ALKP) DATE OF LAST MENSTRUAL PERIOD: 05/29/[id number] 15:31:00 Test Item Value Reference Range Interpretation Comments LIPASE (test code = LIP) U/L 73-393 DATE OF LAST MENSTRUAL PERIOD: 05/29/20HCG SERUM [id number] 15:31:00 Test Item Value Reference Range Interpretation Comments HCG SERUM QUAL (test code = HCGQL) NEGATIVE NEGATIVE DATE OF LAST MENSTRUAL PERIOD: 05/29/20UA RFLX MICR CULT IF [id number] 15:25:00 Test Item Value Reference Range Interpretation [...] /lpf Indication for culture: Suprapubic PainCBC W/AUTO [id number] 15:19:00 Test Item Value Reference Range Interpretation [...] 3/uL 0.0-0.1 N - CT ABD PELVIS [id number] 10:25:00Patient Name: ALETHEA STREET Unit No: [id number] EXAMS: CPT CODE: [id number] CT ABD PELVIS W/CONT 05078 EXAM: CT ABDOMEN AND PELVIS WITH CONTRAST [...] exposure while achieving a diagnostic quality image. FINDINGS: Thoracic: Included images of the lower chest demonstrate no abnormalities. Hepatobiliary: The liveris enlarged with the right hepatic lobe measuring [...] 4, image 56). There is a Name[facility] [address] [facility] [place] [address] : 1975 Age: 44 [place]: [place] [address] [facility] Ex[facility] Date: 06/13/2020 Status: REG CLI PH:FAX: PAGE 1 Signed Report (CONTINUED) Patient Name: ALETHEA STRE[address] Unit No: [id number] EXAMS: CPT CODE: [id number] CT ABD PELVIS W/CONT 88933 (Continued) another fluid collection which may be [...] fluid collections are noted at the inflamed loopof sigmoid colon as described above. Minimal amount [...] Sudha Acosta MD Technologist: Richelle Han CTDI: . DLP: 480 Trscr Dt/Tm: 06/13/2020 (1025) by:[email or web address] Electronic Signature Date/Time: 06/13/2020 (1025)Orig Print D/T: S: 06/13/2020 (1028) Name: JADALETHEA TRAVIS [facility] [place]: [place] [address] : 1975 Age: 44 [place]: [place] [address] Loc: [place].CTSII Exam Date: 06/13/2020 Status: REG CLI PH: FAX: PAGE 2 Signed ReportAB HEPATITIS A [id number] 20:14:00 Test Item Value Reference Range Interpretation Comments AB HEPATITIS A IGM (test code = Non-Reactive NONREACTIVE HAVMAB) AG HEPATITIS B [id number] 20:14:00 Test Item Value Reference Range Interpretation Comments AG HEPATITIS B SURFACE (test Non-Reactive NONREACTIVE code = HBSAG) AB HEPATITIS B CORE [id number] 20:14:00 Test Item Value Reference Range Interpretation Comments AB HEPATITIS B CORE IGM (test Non-Reactive NONREACTIVE code = HBCMAB) AB HEPATITIS [id number] 20:14:00 Test Item Value Reference Range Interpretation Comments AB HEPATITIS C (test code = Non-Reactive NONREACTIVE HCVAB) HIV 1 2 COMBO AG/AB [id number] 20:14:00 Test Item Value Reference Range Interpretation Comments HIV 1 2 COMBO Non-Reactive NONREACTIVE [facility] HIV Ag/Ab AG/AB SCREEN Combo (CHIV) as say is (test code = anin-vitro diag nostic [id number]) immunoassay for the simultaneousqua litative detection of hu man immunodeficienc y virus w07gvlqwfx and antibodies to human immunodef iciency virusestype 1 ( including group "O") and type 2. COMPREHENSIVE METABOLIC [id number] 19:23:00 Test Item Value Reference Range Interpretation [...] N PHOSPHATASE (test code = ALKP) PROTHROMBIN [id number] 19:12:00 Test Item Value Reference Range Interpretation [...] and/or recurren t systemicemboliz ation. THROMBOPLASTIN TIME [id number] 19:12:00 Test Item Value Reference Range Interpretation Comments THROMBOPLASTIN TIME PARTIAL 33.4 SECONDS 25.1-36.5 N (test code = PTT) CBC W/AUTO [id number] 19:00:00 Test Item Value Reference Range Interpretation [...] = BA#) 0.03 10 3/uL 0.0-0.1 N [id number] 12:11:00 Test Item Value Reference Range Interpretation Comments GLUBED (test code = GLUBED) 87 mg/dL 65-99 N [id number] 08:28:00 Test Item Value Reference Range Interpretation Comments GLUBED (test code = GLUBED) 173 mg/dL 65-99 H BASIC METABOLIC [id number] 07:21:00 Test Item Value Reference Range Interpretation [...] mg/dL 8.5-10.1 L = CA) CBC W/O [id number] 07:19:00 Test Item Value Reference Range Interpretation [...] = PLT) 241 10 3/uL 150-400 N [id number] 21:12:00 Test Item Value Reference Range Interpretation Comments GLUBED (test code = GLUBED) 111 mg/dL 65-99 H [id number] 16:51:00 Test Item Value Reference Range Interpretation Comments GLUBED (test code = GLUBED) 112 mg/dL 65-99 H [id number] 12:32:00 Test Item Value Reference Range Interpretation Comments GLUBED (test code = GLUBED) 130 mg/dL 65-99 H CBC W/O [id number] 06:36:00 Test Item Value Reference Range Interpretation [...] 182 10 3/uL 150-400 N BASIC METABOLIC [id number] 06:10:00 Test Item Value Reference Range Interpretation [...] code 8.5 mg/dL 8.5-10.1 N = CA) [id number] 05:25:00 Test Item Value Reference Range Interpretation Comments GLUBED (test code = GLUBED) 130 mg/dL 65-99 H [id number] 23:38:00 Test Item Value Reference Range Interpretation Comments GLUBED (test code = GLUBED) 125 mg/dL 65-99 H CBC W/AUTO [id number] 19:13:00 Test Item Value Reference Range Interpretation [...] = BA#) 0.05 10 3/uL 0.0-0.1 N [id number] 17:45:00 Test Item Value Reference Range Interpretation Comments GLUBED (test code = GLUBED) 112 mg/dL 65-99 H PROTHROMBIN [id number] 15:06:00 Test Item Value Reference Range Interpretation [...] and/or recurren t systemicemboliz ation. THROMBOPLASTIN TIME [id number] 15:06:00 Test Item Value Reference Range Interpretation Comments THROMBOPLASTIN TIME PARTIAL 29.8 SECONDS 25.1-36.5 N (test code = PTT) [id number] 11:28:00 Test Item Value Reference Range Interpretation Comments GLUBED (test code = GLUBED) 143 mg/dL 65-99 H LACTIC [id number] 09:32:00 Test Item Value Reference Range Interpretation Comments LACTIC ACID (test code = LACT) 0.9 mmol/L 0.4-2.0 N BASIC METABOLIC [id number] 06:08:00 Test Item Value Reference Range Interpretation [...] code = 8.0 mg/dL 8.5-10.1 L CA) [id number] 05:53:00 Test Item Value Reference Range Interpretation Comments GLUBED (test code = GLUBED) 148 mg/dL 65-99 H CBC W/O [id number] 05:26:00 Test Item Value Reference Range Interpretation [...] = PLT) 163 10 3/uL 150-400 N [id number] 23:51:00 Test Item Value Reference Range Interpretation Comments GLUBED (test code = GLUBED) 127 mg/dL 65-99 H [id number] 18:23:00 Test Item Value Reference Range Interpretation Comments GLUBED (test code = GLUBED) 166 mg/dL 65-99 H - CT ABD PELVIS W WO [id number] 15:37:00Patient Name: ALETHEA STREET Unit No: [id number] EXAMS: CPT CODE: [id number] CT ABD PELVIS W WO CONT 02591 EXAM: - CT ABD PELVIS W WO [...] Remote right rib fractures. [facility]: [facility] [facility] [facility] Phys: TAMMY Pena,Carol Walton [address] : 1975 Age: 44 Sex: [place] [address] Loc: NC.4302 1 Exam Date: 05/10/2020 Status: ADM IN PH: FAX: PAGE 1 Signed Report (CONTINUED) Patient Name: AMAIRANI ST[address] Unit No: [id number] EXAMS: CPT CODE: [id number] CT ABD PELVIS W WO CONT 42364 (Continued) IMPRESSION: 1. Redemonstration of perforated sigmoid diverticulitis with abnormal development of severe pneumoretroperitoneum. There is interval development of a few foci of intraperitoneal free air. 2. Organi zation of a few small fluid collections in the bilateral pelvis suggestive of developing abscesses, largest measuring 3.2 x 1.9 cm.. 3. Development of diffuse small bowel dilatation with no transition point, likely representing reactive ileus with obstruction remains in the differential. at 1537 Reported and signed by: Fritz Paiz MD CC:Self Referred; Carol Pena MD; Balta Bey Jr, MD Technologist: Eugenie Pena; Andrés Bradley CTDI: 8.81 DLP: 881.9 Trscr Dt/Tm: 05/10/2020 (1537) by:[email or web address] Electronic Signature Date/Time: 05/10/2020 (1537)Orig Print D/T: S: 05/10/2020 (1540) Name: [address]LE[address] [facility] Phys: Carol Welch [address] : 1975 Age: 44 Sex: [place] [address] Loc: NC.4302 1 Exam Date: 05/10/2020 Status: ADM IN PH: FAX: PAGE 2 [id number] 11:35:00 Test Item Value Reference Range Interpretation Comments GLUBED (test code = GLUBED) 180 mg/dL 65-99 H BASIC METABOLIC [id number] 08:33:00 Test Item Value Reference Range Interpretation Comments SODIUM (test code 138 mmol/L 135-145 N = NA) POTASSIUM (test 2.9 mmol/L 3.5-5.1 LL Critical Daniel ue code = K) reported toFirs t Name:FRANCI crawley Name:RIKA PAULA AND EVE Carter NCLAB.TaliG, on 05/10/20, @ [...] mg/dL 8.5-10.1 L = CA) CBC W/O [id number] 07:37:00 Test Item Value Reference Range Interpretation [...] = PLT) 174 10 3/uL 150-400 N [id number] 06:37:00 Test Item Value Reference Range Interpretation Comments GLUBED (test code = GLUBED) 158 mg/dL 65-99 H [id number] 00:18:00 Test Item Value Reference Range Interpretation Comments GLUBED (test code = GLUBED) 157 mg/dL 65-99 H [id number] 20:49:00 Test Item Value Reference Range Interpretation Comments GLUBED (test code = GLUBED) 121 mg/dL 65-99 H [id number] 18:02:00 Test Item Value Reference Range Interpretation Comments GLUBED (test code = GLUBED) 125 mg/dL 65-99 H [id number] 12:01:00 Test Item Value Reference Range Interpretation Comments GLUBED (test code = GLUBED) 146 mg/dL 65-99 H [id number] 08:06:00 Test Item Value Reference Range Interpretation Comments GLUBED (test code = GLUBED) 188 mg/dL 65-99 H [id number] 06:18:00 Test Item Value Reference Range Interpretation Comments GLUBED (test code = GLUBED) 166 mg/dL 65-99 H COMPREHENSIVE METABOLIC [id number] 06:13:00 Test Item Value Reference Range Interpretation [...] 45-117 N PHOSPHATASE (test code = ALKP) [id number] 06:13:00 Test Item Value Reference Range Interpretation Comments MAGNESIUM (test code = MAG) 1.0 mg/dL 1.8-2.4 L HGBA1C - GLYCOSYLATED [id number] 06:08:00 Test Item Value Reference Range Interpretation Comments GLYCOSYLATED HEMOGLOBIN (HA1C) (test 5.4 4.5-5.9 N code = GLYHGB) CBC W/AUTO [id number] 05:56:00 Test Item Value Reference Range Interpretation [...] = BA#) 0.04 10 3/uL 0.0-0.1 N [id number] 23:58:00 Test Item Value Reference Range Interpretation Comments GLUBED (test code = GLUBED) 249 mg/dL 65-99 H [id number] 20:11:00 Test Item Value Reference Range Interpretation Comments GLUBED (test code = GLUBED) 134 mg/dL 65-99 H [id number] 17:53:00 Test Item Value Reference Range Interpretation [...] = LDLC) 52 mg/dL 0-100 N LACTIC [id number] 13:51:00 Test Item Value Reference Range Interpretation Comments LACTIC ACID (test code = LACT) 1.9 mmol/L 0.4-2.0 N Coronavirus 2019 nCoV [id number] 13:43:00 Test Item Value Reference Range Interpretation Comments Coronavirus 2018 Negative Negative This test h ad not been nCoV Bedside (test FDA clear ed or approved; code = [id number]) This te sthas been authorized by Amadeo [...] and/o r diagnosis of CO VID-19 under Qnqrrgt90 4(b)(1) of the Act, 21 U.S .C. 360bbb-3(b)(1), unless theauthorizatio n is terminated or r evoked sooner. Is patient requiring admission or transfer? YIndication for rapid COVID-9 testing: Mod Clinical SuspicionUA RFLX MICR CULT IF [id number] 12:47:00 Test Item Value Reference Range Interpretation [...] Indication for culture: Dysuria/Frequency- CT ABD PELVIS [id number] 12:46:00Patient Name: ALETHEA STREET Unit No: [id number] EXAMS: CPT CODE: [id number] CT ABD PELVIS W/CONT 53517 EXAM: - CT ABD PELVIS W/CONT Location: [...] Diverticula are present within the descending and sigmoid colon with abnormal mural thickening of the sigmoid colon suggesting acute diverticulitis. There is large amount of free air within the sigmoid [...] there is air within Name: ALETHEA STREET [facility] [place] Phys: Scarlet Bernal [employer] [address] : 1975 Age: 44 [place]: [place] [address] Loc: [place].ERS Exam Date: 05/08/2020 Status: REG ER PH: FAX: PAGE 1 Signed Report (CONTINUED) Patient Name: ALETHEA STREET Unit No: [id number] EXAMS: CPT CODE: [id number] CT ABD PELVIS W/CONT 00266 (Continued) the sigmoid mesocolon as well as tracking into the retroperitoneum adjacent to the aorta, right posterior pararenal fascia and superiorly to the mediastinum. There is further small free fluid within the left paracolicgutter and tracking into the pelvis. No abscess is seen. FINDINGS: Pelvis Pelvic organs/bladder: Theuterus and adnexa are within normal limits. There [...] within the sigmoid mesocolon and tracking into theretroperitoneum which is atypical. There is small fluid in the left paracolic gutter and tracking into the pelvis. No organized abscess is otherwise seen. 2. Fatty infiltration of the liver. 3. Small perihepatic ascites. at 1246 Reported and signed by: Ivan Jose MD CC: Scarlet aYncey NP Technologist: Ana Laura Pulido CTDI: 8.64 DLP: 488.5 Trscr Dt/Tm: 05/08/2020 (1246) by:[email or web address] Electronic Signature Date/Time: 05/08/2020 (1246)Orig Print D/T: S: 05/08/2020 (1249) Name: ALETHE[address] ST[address]ET [facility] [place] Phys: [place] [address] : 1975 Age: 44 Sex: [place] [address] Loc: [place].[facility] Exam Date: 05/08/2020 Status: REG ER PH: FAX: PAGE 2 Signed ReportBASIC METABOLIC [id number] 11:08:00 Test Item Value Reference Range Interpretation [...] DATE OF LAST MENSTRUAL PERIOD: 05/07/20LIVER FUNCTION [id number] 11:08:00 Test Item Value Reference Range Interpretation [...] = ALKP) DATE OF LAST MENSTRUAL PERIOD: 05/07/[id number] 11:08:00 Test Item Value Reference Range Interpretation Comments LIPASE (test code = LIP) 122 U/L 73-393 N DATE OF LAST MENSTRUAL PERIOD: 05/07/20HCG SERUM [id number] 11:08:00 Test Item Value Reference Range Interpretation Comments HCG SERUM QUAL (test code = HCGQL) NEGATIVE NEGATIVE DATE OF LAST MENSTRUAL PERIOD: 05/07/20BASIC METABOLIC [id number] 10:58:00 Test Item Value Reference Range Interpretation [...] DATE OF LAST MENSTRUAL PERIOD: 05/07/20LIVER FUNCTION [id number] 10:58:00 Test Item Value Reference Range Interpretation [...] 45-117 ALKP) DATE OF LAST MENSTRUAL PERIOD: 05/07/[id number] 10:58:00 Test Item Value Reference Range Interpretation Comments LIPASE (test code = LIP) U/L 73-393 DATE OF LAST MENSTRUAL PERIOD: 05/07/20HCG SERUM [id number] 10:58:00 Test Item Value Reference Range Interpretation Comments HCG SERUM QUAL (test code = HCGQL) NEGATIVE NEGATIVE DATE OF LAST MENSTRUAL PERIOD: 05/07/20CBC W/AUTO [id number] 10:50:00 Test Item Value Reference Range Interpretation [...] BA#) 0.04 10 3/uL 0.0-0.1 N HCG [id number] 23:03:00 Test Item Value Reference Range Interpretation Comments HCG SERUM (test < 1 mIU/mL 0-3 N Gestational Age hCG code = HCG) (mIU/mL)0-1 wee ks 5-501-2 weeks 50-5002-3 weeks 100-5,0003-4 we eks 500-10,0004-5 w eeks 1,000-50,0005-6 weeks 10,000-100,0006 -8 weeks 15,000-200,0002 -3 months 10,000-100,000 WHEN BORDERLINE RESU LTS ARE ENCOUNTERED, SEEMA KELLY SAMPLESSHOULD B E REDRAWN 48 HOURS LATER. DATE OF LAST MENSTRUAL PERIOD: 09/21/18BASIC METABOLIC [id number] 22:51:00 Test Item Value Reference Range Interpretation [...] mg/dL 8.5-10.1 N = CA) CBC W/AUTO [id number] 22:26:00 Test Item Value Reference Range Interpretation [...] 3/uL 0.0-0.1 N - US TRANSVAGINAL NON [id number] 20:10:00 [facility] 1975 Sex: FPatient Name: ALETHEA STREET Unit No: [id number] EXAMS: CPT: [id number] [place] [address] Pelvic sonogram, 01/22/2019. Clinical: Pain. Comment: The [...] Oneill Jr, MD Technologist: TUAN PATEL Probe: [id number] Trscr Dt/Tm: 01/22/2019 (2009) by:[email or web address] Orig Print D/T: S: 01/22/2019 (2012) BATCH NO:N/A Name: ALE[address] ST[address]ET [facility] Emergency Dept Phys: [place] [address] [facility] : 1975 Age: 43 Sex: [place] [address] Loc: UNK Exam Date: 01/22/2019 Status: UNK PH: [phone] FAX: PAGE 1 Signed Report- US PELVIC [id number] 20:10:00[facility] 1975 Sex: FPatient Name: ALETHEA STREET Unit No: [id number] EXAMS: CPT: [id number] US PELVIC COMPLETE 11257 Pelvic sonogram, 01/22/2019. Clinical: Pain. Comment: The [...] (2012) BATCH NO: N/A Name: [address]LE[address] [facility] Emergency Dept Phys: Geraldo Hester PA-C [address] [facility] : 1975 Age: 43 Sex: [place] [address] Loc: JESSICA Exam Date: 01/22/2019 Status: JESSICA PH: [phone] FAX: PAGE 1 Signed Report- CT ABD PELVIS W/[id number] 18:31:00[facility] : 1975 Sex: FPatient Name: ALETHEA STREET Unit No: [id number] EXAMS: CPT: [id number] CT ABD PELVIS W/CONT 19787 CT ABDOMEN WITH CONTRAST: CT PELVIS WITH [...] with ACR practice guidelines and adherence to nurse office's recommendations. at 1831 Reported and signed by: Westley Hernandez MD CC: Geraldo Renae Technologist: DARREN GARCIA CTDI: 6.96 DLP: 368.58 Trscr Dt/Tm: 01/22/2019 (183) by:[email or web address] Orig Print D/T: S: 01/22/2019 (183) BATCH NO: N/A Name: ALETHEA STREET Emergency Dept Phys: Geraldo Hester PA-C [id number] [facility] : 1975 Age: 43 Sex: F [place], [place] [address] [id number] Loc: [facility] Exam Date: 01/22/2019 Status: [facility] PH: [phone] FAX: PAGE 1 Signed ReportCT, [id number] 23:06:00Reason for exam:->ABDOMINAL PAINIs the patient ?->NoWhat [...] in the abdomen or pelvis. Signed: Dominick Hernandez MDReport Verified Date/Time: 07/21/2017 23:06:24 Reading Location: [place] [id number] Reading Room U/S, ABDOMINAL, [id number] 21:33:00Abdomen limited area? Add comment if clarification [...] MDReport Verified Date/Time: 07/21/2017 21:33:04 Reading Location: [address] Reading Room COMPREHENSIVE METABOLIC [id number] 18:41:00 Test Item Value Reference Range Interpretation [...] S NOT APPLICABLE FOR DIALYSIS PATIEN TS. [id number] 18:39:00 Test Item Value Reference Range Interpretation Comments LIPASE (BEAKER) (test code = 749) 42 U/L 6-51 URINALYSIS W/ [id number] 18:29:00 Test Item Value Reference Range Interpretation [...] = 2795) CBC W/PLT COUNT & AUTO [id number] 18:21:00 Test Item Value Reference Range Interpretation [...] L 0.00-0.20 (test code = 417) SCREEN, [id number] 18:18:00 Test Item Value Reference Range Interpretation Comments TEST URINE (BEAKER) (test Negative code = 583) Notes Date/Time Note Provider Source 2022-12-31 18:12:00-00:[address] [facility] ([facility] EMERGENCY PROVIDER REPORT REPORT#:[id number] REPORT STATUS: Signed DATE:12/31/22 TIME: 1811 PATIENT: ALETHEA STREET UNIT #: [id number] ROOM: BED: AGE: 47 SEX: F PCP PHYS: Sudha Acosta MD SERVICE AUTHOR: Kelsey Ponce MD * ALL edits or amendments must be made on the [employer] document * HPI-General Illness General Initial Greet Date/Time 12/31/221804 Presentation Chief Complaint __ Hx Obtained From Patient Onset Occurred Today, Chronic Symptom Duration Since onset Location Back Quality Painful Severity: Current Pain level 6 out of 10 Associated with Reports: Dizziness, Weakness . Denies: Abdominal pain, Anorexia, Aura, Bleeding, Bruising, Chest pain, Congestion, Cough, Diaphor esis, Difficulty breathing, Difficulty swallowing, Discharge, Fever, Headach e, Inability to bear weight, Itching, Joint pain, Loss of consciousness, Loss of taste, Loss of smell, Nasal discharge, Nausea, Neck pain, Numb extremities, Off balance, Pain, Pain on walking, Rash, Shortness of breath, Speech abnor mal, Syncope, Vision change, Vomiting, Weak extremity. Associated Other Pt denies other symptoms Free Text HPI Notes Free Text HPI Notes Patient with h/o back surgery presents complaini ng of feeling dizzy and weak. States she was bringing her son here to drop him off. She is unsure if the heat is causing her to feel sick. Patient states she lives is [place] and doesn 't want to go on the road because the traffic is bad Review of Systems ROS Statements All systems rev neg except as marked. Past Medical History - Adult Stated Complaint BACK PAIN Allergies Coded Allergies: buspirone (From BUSPAR) (Severe, ANXIETY 08/26/ 0) Home Medications Reported Medications Pregabalin (Lyrica) 200 MG PO BID Amlodipine (Norvasc) 0.5 TAB PO QPM PRN HTN Multivitamin (Multiple Vitamin) 1 EACH PO DAILY [VITAMIN B-COMPLEX] 1 EACH PO DAILY [BIOTIN] 1 EACH PO DAILY Folic Acid 3 EACH PO DAILY Ergocalciferol (Vitamin D2) (Vitamin D2) 50,000 INTL.UNITS PO Q7D Past Medical History: Reports: Hypertension, (vaginal bleeding). Additional Medical History anxiety, ovarian cysts Past Surgical History: Reports: (culposcopy). Alcohol Use Alcohol use (15 or more drinks per w [place]) Drug Use Denies recreational drugs Smoking status for patients 13 years old or olde r: Former Smoker Physical Exam Vital Signs Vital Signs First Documented: Result Date Time Pulse Ox 99 12/31 1748 B/P 122/96 12/31 174 B/P Mean 104 01/01 1748 Temp 37.0 01/01 1748 Pulse 99 12/31 1748 Resp 17 01/01 1748 Last Documented: Result Date Time Pulse Ox 99 12/31 1748 B/P 122/96 12/31 174 B/P Mean 104 01/01 1748 Temp 37.0 01/01 1748 Pulse 99 12/31 1748 Resp 17 01/01 1748 Review of Vital Signs Reviewed Physical Exam General/Const General/Const Awake, Alert, Well appearing MS Head Head Normocephalic Ears/Nose/Throat Ears/Nose/Throat Airway patent, Mucous membrane s moist, Pharynx NL Resp/Chest Respiratory/Chest Breath sounds NL, Breath soun ds = bilat, No respiratory distress, No rales, No rhonchi, No wheezing Cardiovascular Cardiovascular Heart rate NL, Regular r hythm, Heart sounds NL, Cap refill not delayed, Peripheral circulation NL Abdomen/GI Abdomen/GI Soft, Non-tender, No guarding, No re bound Skin Skin Color NL, Warm, Dry, Turgor NL Neurologic Neurologic Oriented X3, Speech NL, No motor def icits, No sensory deficits Psychiatric Psychiatric Affect NL, Mood NL, Thought content NL Interpretation Diagnostics Lab Results Interpretation Results Laboratory Tests: 12/31 12/31 12/31 12/31 1803 1808 1823 1831 Chemistry POC Sodium (138 - 146 mmol/L) 139 POC Potassium (3.5 - 4.9 mmol/L) 3.6 POC Chloride (98 - 109 mmol/L) 105 POC Total CO2 (24 - 29 mmol/L) 27 POC BUN (8 - 26 mg/dL) 15 POC Creatinine (0.6 - 1.3 mg/dL) 0.7 Estimated GFR (MDRD) (>60) 107 POC Glucose (74 - 106 MG/DL) 111 H Calcium (8.8 - 10.5 mg/dL) 9.7 Total Bilirubin (0.2 - 1.6 mg/dL) 0.6 AST (11 - 38 IU/L) 69 H ALT (10 - 47 IU/L) 56 H Total Alk Phosphatase (42 - 141 IU/L) 123 Total Protein (6.4 - 8.1 g/dL) 7.6 Albumin (3.3 - 5.5 g/dL) 3.8 Toxicology Urine Opiates Screen (NEGATIVE) Neg Ur Methadone (NEGATIVE) Neg Ur Barbiturates, Qual (NEGATIVE) Neg Ur Tricyclics Screen (NEGATIVE) Neg Ur Amphetamines Screen (NEGATIVE) Neg Urine Methamphetamines (NEGATIVE) Neg U Benzodiazepines Scrn (NEGATIVE) Neg Urine Cocaine Screen (NEGATIVE) Neg Urine Cannabinoids (NEGATIVE) Pos Urines Urine Color (YELLOW) Yellow Urine Appearance (CLEAR) Clear Urine pH (4.5 - 8.5) 5.0 Ur Specific [place] (1.000 - 1.030) <=1.005 Urine Protein (NEGATIVE) NEGATIVE Urine Glucose (UA) (NEGATIVE MG/AL) NEGATIVE Urine Ketones (NEGATIVE MG/DL) NEGATIVE Urine Blood (NEGATIVE) Trace-intact Urine Nitrite (NEGATIVE) NEGATIVE Urine Bilirubin (NEGATIVE) NEGATIVE Urine Urobilinogen (<=1.0 EU/dL) 0.2 Ur Leukocyte Esterase (NEGATIVE) NEGATIVE Urine RBC (0 - 3 /HPF) 0-3 Urine WBC (0 - 3 /HPF) 0-3 Ur Squamous Epith Cells (NONE - FEW RARE /HPF) Urine Bacteria (NONE SEEN /HPF) NONE SEEN Urine Mucus (NONE - FEW /LPF) RARE POC Urine HCG (IU/L) NEGATIVE Lab Statement Laboratory studies reviewed and considered in th e medical decision-making. Point of Care Testing Pulse Oximetry Pulse Ox % 99 On: Room air Interpretation Interpreted by me Time 1747 Re-Evaluation MDM Re-Evaluation/Progress #1 Text/Dict Note Discussed results with patient. Advised to follo w up with PCP Time of Re-Eval 1907 Re-Eval Status Improved ED Course Medication(s) Ordered Medication(s) Ordered: Electrolytic, Caloric, And Richard Sig/Charlotte Start time Last Medication Dose Route Stop Time Status Admin Sodium Chloride 1,000 ML X1ED STA 12/31 1822 DC 12/31 IV 12/31 Differential Diagnosis Differential Diagnosis Abdominal pain, A bscess, COPD exacerbation, Depression, Diabetes mellitus, Fracture, Mood disorder, Urin kayla tract infection Patient Discharge Departure Vital Signs/Condition Vital Signs First Documented: Result Date Time Pulse Ox 99 12/31 1748 B/P 122/96 12/31 1748 B/P Mean 104 12/31 1748 Temp 37.0 12/31 174 Pulse 99 12/31 1748 Resp 17 01/01 1748 Last Documented: Result Date Time Pulse Ox 99 12/31 1748 B/P 122/96 12/31 1748 B/P Mean 104 12/31 1748 Temp 37.0 01/01 1748 Pulse 99 12/31 1748 Resp 17 01/01 1748 All vital signs available at the time of this en try have been reviewed. Condition Stable Clinical Impression Clinical Impression Primary Impression: Generalized weakness Disposition Decision Discharge )( Discharged to Home Yes )( Time 1908 )( Date 12/31/22 Discharge/Care Plan Counseled Regarding Diagnosis, Lab resul ts, Need for follow-up, When to return to ED Patient Instructions ED Weakness (Uncertain Caus e) Additional Instructions Patient advised to follow up with primary care d octor in 2-3 days Departure Forms WORK/SCHOOL EXCUSE VARIABLE Any Restrictions Off work/school 3 days Discharge Note I have spoken with the patie nt and/or caregivers. I have explained the patient's condition, diagnoses and carmen atment plan based on the information available to me at this time. I have answered the patient's and/ or caregiver's questions and addressed any concerns. The patient and/or careg malri have as good an understanding of the patient 's diagnosis, condition and treatment plan as can be expected at this point. The vital signs have bee n stable. The patient's condition is stable and appr opriate for discharge from the emergency department. The patient will pursue further outpatient evalu ation with the primary care physician or other designated or consulting phys rubén as outlined in the discharge instructions. The patient and/or caregivers are agreeable to this plan of care and follow-up instructions have been exp lained in detail. The patient and/or caregivers have received these instructio ns in written format and have expressed an understanding of the discharge inst ructions. The patient and/or caregivers are aware that any significant change in condition or worsening of symptoms should prompt an immediate return to [facility] or the closest emergency department or a call to 911. Electronically Signed by Kelsey Ponce MD on 01/01 at 0034 RPT #:[id number] END OF REPORT 2022-05-16 21:13:00-00:00 [facility] ([facility] EMERGENCY PROVIDER REPORT REPORT#:[id number] REPORT STATUS: Signed DATE:05/16/22 TIME: 2112 PATIENT: ALETHEA STREET UNIT #: [id number] ROOM: BED: AGE: 46 SEX: F PCP PHYS: Sudha Acosta MD SERVICE AUTHOR: Mag Can APR CONSUMER LOAN MANAGER * ALL edits or amendments must be made on the [employer]/computer document * Mag Can 05/16/222112: HPI-General Illness General Initial Greet Date/Time 05/16/222039 Presentation Chief Complaint Weakness Free Text HPI Notes Free Text HPI Notes 46-year-old female presents to the ED complainin g of weakness, shakiness, feeling cold, headache and t ingly all over x1.5 hours. Patient states EMS came to her house and said her blood sugar was over 4 00 and she became concerned about her blood sugar. Patient denies chest pain , nausea, vomiting, diarrhea, and shortness of breath. PMH: HTN Review of Systems ROS Statements All systems rev neg except as marked. Past Medical History - Adult Stated Complaint HIGH BLOOD SUGAR CONCERNS Allergies Coded Allergies: buspirone (From BUSPAR) (Severe, ANXIETY 0) Home Medications Reported Medications Pregabalin (Lyrica) 200 MG PO BID Amlodipine (Norvasc) 0.5 TAB PO QPM PRN HTN Multivitamin (Multiple Vitamin) 1 EACH PO DAILY [VITAMIN B-COMPLEX] 1 EACH PO DAILY [BIOTIN] 1 EACH PO DAILY Folic Acid 3 EACH PO DAILY Ergocalciferol (Vitamin D2) (Vitamin D2) 50,000 INTL.UNITS PO Q7D Past Medical History: Reports: Hypertension, (vaginal bleeding). Additional Medical History anxiety, ovarian cysts Past Surgical History: Reports: (culposcopy). Alcohol Use Alcohol use (15 or more drinks per w [place]) Drug Use Denies recreational drugs Smoking status for patients 13 years old or olde r: Current every day smoker Physical Exam Vital Signs Vital Signs First Documented: Result Date Time Pulse Ox 100 05/16 2038 B/P 201/102 05/16 2038 B/P Mean 135 05/16 2038 O2 Delivery Room air 05/16 2038 Temp 36.9 05/16 2038 Pulse 97 05/16 2038 Resp 16 05/16 2038 Last Documented: Result Date Time Pulse Ox 100 05/16 2038 B/P 201/102 05/16 2038 B/P Mean 135 05/16 2038 O2 Delivery Room air 05/16 2038 Temp 36.9 05/16 2038 Pulse 97 05/16 2038 Resp 16 05/16 2038 Review of Vital Signs Reviewed, BP retaken 179/9 8 Free Text PE Notes Free Text PE Notes GENERAL: Small build. No acute distress, non-tox ic appearance. HEAD: Normal with no signs of head trauma. EYES: conjunctiva normal, no discharge. ENT: Hearing grossly intact. Nose normal. Moist mucous membranes NECK: No tenderness, normal range of motion, sup ple CHEST: Clear breath sounds bilaterally. No wheez es, rales, or rhonchi. CARDIAC: Regular rate and rhythm. No murmurs not ed ABDOMEN: Normal and soft with no tenderness GENITOURINARY: Normal, no tenderness BACK: Normal range of motion, no signs of trauma , no CVA tenderness MUSCULOSKELETAL: Good range of motion of all major joints. Extremities without edema, peripheral pulses normal NEUROLOGICAL: Alert and oriented, gross movemen t normal PSYCHIATRIC: Normal Affect, judgement and mood. SKIN: Well healing sores noted on RT lower leg. Interpretation Diagnostics Lab Results Interpretation Results Laboratory Tests: 05/16 2043 Chemistry POC Glucose (70 - 105 mg/dL) 163 H Re-Evaluation MDM Free Text MDM Notes Free Text MDM Notes Pt states she did not want to come but S .O. wanted her to come for evaluation. He is going to go home to check on his son and s he does not want to stay here without him. She is deciding if she wants to stay for treatment. Orders placed. Differential Diagnosis Differential Diagnosis Acute coronary syndrome, dizziness, [place], hyperglycemia, HTN crisis Patient Discharge Departure Vital Signs/Condition Vital Signs First Documented: Result Date Time Pulse Ox 100 05/16 2038 B/P 201/102 05/16 2038 B/P Mean 135 05/16 2038 O2 Delivery Room air 05/16 2038 Temp 36.9 05/16 2038 Pulse 97 05/16 2038 Resp 16 05/16 2038 Last Documented: Result Date Time Pulse Ox 100 05/16 2038 B/P 201/102 05/16 2038 B/P Mean 135 05/16 2038 O2 Delivery Room air 05/16 2038 Temp 36.9 05/16 2038 Pulse 97 05/16 2038 Resp 16 05/16 2038 All vital signs available at the time of this en try have been reviewed. Condition Stable Clinical Impression Clinical Impression Primary Impression: Weakness Secondary Impressions: HTN (hypertension) Time of Impression 2155 Disposition Decision Other )( Time 2156 )( Date 05/16/22 Against Medical Advice Yes Elopement Note Elopement Note This patient has left the emergency department o r waiting room with no communication to myself, nursing or administrati ve staff. There was no opportunity to discuss the patient's dec ision to leave, provide medical advice or discuss alternatives to leaving. The staff jaimes s made efforts to locate the patient without success. Alejandra Carter 05/17/22 0908: Patient Discharge Departure Supervising Physician Note MidLv Saw Pt Alone I have reviewed the PA/TIE BUYER's note and plan of car e. I was available for consultation as needed at al l times during the patient's visit in the emergency department. I agree with the clinical impression , plan and disposition. at 2159 Electronically Signed by Alejandra Carter MD on at 0908 [facility] #:[id number] END OF REPORT 2020-09-15 06:49:00-00:00 [id number] [facility] [address] [facility] [id number] PATIENT NAME: ALETHEA STREET ADMIT DATE: 09/15/20 ACCOUNT NO: [id number] ROOM NO: AGE: 44 REPORT TYPE: ENDOSCOPY REPORT SEX: F ADMITTING PHYSICIAN: ATTENDING PHYSICIAN:Sudha Acosta MD Patient Name: Jad Alethea Attending MD: Sudha Acosta , Procedure Date: 09/15/2020 6:49 AM 73 Date of : 09/03 Admit Type: Outpatient Age: 44 Procedure: Colonoscopy Indications: Evaluation on imaging study of clin ically significant abnormality Providers: Franchesca Paredes RN (Todd luke), Paulo Beth, Tax Consultant (Tax Consultant), Stevie SERRATO (Anesthesiologist) Medicines: Monitored Anesthesia Care Procedure: Pre-Anesthesia Assessment: - Prior to the procedure, a History and Physica l was performed, and patient medications and allergie s were reviewed. The patient is competent. The risks a nd benefits of the procedure and the sedation opti ons and risks were discussed with the patient. All ques tions were answered and informed consent was obtained . Patient identification and proposed procedure w ere verified by the physician in the pre-procedure area. Mental Status Examination: alert and oriented. Airway Examination: normal oropharyngeal airway and ne ck mobility. Respiratory Examination: clear to auscultation. CV Examination: normal. Prophylac tic Antibiotics: The patient does not require proph ylactic antibiotics. Prior Anticoagulants: The patient has taken no previous anticoagulant or antiplatelet agents. ASA Grade Assessment: III - A patient with taye re systemic disease. After reviewing the risks and benefits, the patient was deemed in satisfactor y condition to undergo the procedure. The anesth esia plan was to use monitored anesthesia care (MAC). Imm ediately prior to administration of medications, the pat ient was re-assessed for adequacy to receive sedatives. The heart rate, respiratory rate, oxygen saturation s, blood pressure, adequacy of pulmonary ventilation, a nd response to care were monitored throughout the procedure. The physical status of the patient w as PATIENT NAME: ALETHEA STREET 70 re-assessed after the procedure. The benefits, risks, and alternatives to the pr ocedure were discussed and informed consent was obtaine d from the patient. I've assesed the patient on this d ate and reviewed the medical history, drug history, and previous anesthesia experience. After obtaining informed consent, the scope was passed under di rect vision. Throughout the procedure, the patient's blood pressure, pulse, and oxygen saturations were mo nitored continuously. The Colonoscope was introduced th rough the anus and advanced to the cecum, identified by appendiceal orifice and ileocecal valve. The colonoscopy was performed without difficulty. T he patient tolerated the procedure well. The quali ty of the bowel preparation was adequate. The ileocec al valve, appendiceal orifice, and rectum were photographed. Findings: The perianal and digital rectal exami nations were normal. A 4 mm polyp was found in the ascending colon. The polyp was sessile. The polyp was removed with a jumbo cold forceps. Resection and retrieval were comp lete. Verification of patient identification for the specimen was done. Estimated blood loss was minimal. Two sessile polyps were found in the sigmoid co glo and ascending colon. The polyps were 5 to 7 mm in s ize. These polyps were removed with a cold snare. Re section and retrieval were complete. Verification of pa tient identification for the specimen was done. Estim ated blood loss was minimal. Multiple small-mouthed diverticula were found i n the sigmoid colon. Purulent discharge was seen in association with the diverticular opening, cons istent with diverticulitis. Complications: No immediate complications. Estimated Blood Loss: Estimated blood loss: none . Impressions: - One 4 mm polyp in the ascending c olon, removed with a jumbo cold forceps. Resected and retrieved. - Two 5 to 7 mm polyps in the sigmoid colon and in the ascending colon, removed with a cold snare. Res ected and retrieved. - Moderate diverticulosis in the sigmoid colon. Purulent discharge was seen in association with the diverticular opening, indicative of diverticuli tis. Recommendation: - Patient has a contact number a vailable for emergencies. The signs and symptoms of potenti al delayed complications were discussed with the p atient. Return to normal activities tomorrow. Written d ischarge instructions were provided to the patient. - Patient has a contact number available for emergencies. The signs and symptoms of potentia l delayed complications were discussed with the p atient. Return to normal activities tomorrow. Written d ischarge instructions were provided to the patient. PATIENT NAME: ALETHEA STREET 70 - Resume previous diet. - Continue present medications. - Await pathology results. - Repeat colonoscopy in 3 years for surveillanc e. - Return to my office in 3 weeks. Sudha Acosta MD Sudha Acosta, 09/15/2020 7:20:24 AM This report has been signed electronically. Number of Addenda: 0 Note Initiated On: 09/15/2020 6:49 AM Procedure Code(s): --- Professional --- 43222, Colonoscopy, flexible; with removal of t umor(s), polyp(s), or other lesion(s) by snare technique 91558, 59, Colonoscopy, flexible; with biopsy, single or multiple Diagnosis Code(s): --- Professional --- D12.2, Benign neoplasm of ascending colon D12.5, Benign neoplasm of sigmoid colon K57.32, Diverticulitis of large intestine with out perforation or abscess without bleeding R93.3, Abnormal findings on diagnostic imaging of other parts of digestive tract CPT copyright 2018 [employer]. All rights reserved. The codes documented in this report are prelimin kayla and upon surgical coder review may be revised to meet current compliance requiremen ts. Patient Profile: Last Colonoscopy: none. The pat ient's first colonoscopy is today. Scope Withdrawal Time 0 hours 8 minutes 20 secon ds Provation {[id number]}.pdf ProVation FT PDF Electronically Signed by Sudha Acosta MD on at [address] NAME: [address] 70 2020-06-21 13:28:00-00:00 [id number] [facility] [address] [facility] [id number] PATIENT NAME: ALETHEA STREET ADMIT DATE: 06/03 03/22 ACCOUNT NO: [id number] ROOM NO: [id number] AGE: 44 REPORT TYPE: PROGRESS NOTE SEX: F ADMITTING PHYSICIAN:Josiah Ervin MD ATTENDING PHYSICIAN:Josiah Ervin MD DATE: 06/21/2020 PATIENT LOCATION: Room #[facility]. SUBJECTIVE: As the EMR is do wn, dictated note was done and unable to access the PK system at this point. PK system was accessed earlier in the morning and charts were reviewed. On exam, comfortable, no a cute distress, thin built. No chills or fever. Tolerating diet well. Toleratin g antibiotic very well. No abdominal distention or pain. No nausea or vomit ing. No diarrhea. No urinary discomfort. The patient currently on Levaquin an d Flagyl and tolerating well OBJECTIVE: GENERAL: Thin built. NECK: Supple. HEENT: Sclerae pale. LUNGS: Sounds are good air entry. HEART: Sounds normal S1 and S2. ABDOMEN: Soft. No suprapubic tenderness. No rebo und, no rigidity. EXTREMITIES: No cyanosis or clubbing. Peripheral IV okay. SPINAL: No focal tenderness. LYMPH NODES: Not palpable. CENTRAL NERVOUS SYSTEM: No acute changes. LABORATORY DATA: Reviewed. Blood culture came ba ck positive for the coag-negative staph, likely contaminated. Repeat blood culture drawn is pending. The patient's white count has been norm alized today. ASSESSMENT AND PLAN: 1. The patient with diverticular abscess, stable . The patient has been stable on current antibiotic, change it to Levaquin and Flagyl. The patient can be discharged on oral antibiotic for about 3 weeks and monitor the trend. 2. Coagulase-negative Staphylococcus bacteremia, likely contaminated. 3. Malnutrition and debilitation. Continue nutri tional support as per other mainframe consultant. Answered multiple questions. Discuss ed with the staff. Follow the discharge arrangement. Dictated By: Rivas Thompson WT: PN:FEDERICO/ALEX/VIKTORIYA Conf#: [id number]/DID#: [id number] PATIENT NAME: ALETHEA STREET [id number] Authenticated by Rivas Thompson MD On 2019 08:00:56 PM Electronically Signed by Rivas Thompson MD o n 06/26/20 at 2000 PATIENT NAME: ALETHEA STREET [id number] [id number] 13:13:00-00:00 [id number] [facility] [address] [facility] [address] PATIENT NAME: ALETHEA STREET ADMIT DATE: 06/03 03/22 ACCOUNT NO: [id number] ROOM NO: [id number] AGE: 44 REPORT TYPE: PROGRESS NOTE SEX: F ADMITTING PHYSICIAN:Josiah Ervin MD ATTENDING PHYSICIAN:Josiah Ervin MD DATE: 06/21/2020 REFERRING PHYSICIAN: Dr. Josiah Ervin and Dr. Wilma lima SUBJECTIVE: The patient is a 44-year-old female , who was admitted because of diverticulitis and diverticular abscesses. She d enies any nausea or vomiting. No heartburn. No dysphagia. No chest pain. No ab dominal pain, no diarrhea, no constipation. No melena. No hematochezia. No fev er, chills, or rigors. REVIEW OF SYSTEMS: A 14-point review of systems, denies any cardiopulmonary, genitourinary, musculoskeletal, or neurological complaints. MEDICATIONS: Reviewed. OBJECTIVE: VITAL SIGNS: Her pulse is 68 per minute, blood p ressure of 128/60, afebrile, respiratory rate of 16. SKIN: Within normal limits. HEENT: Revealed normal EOMI. Normal PERRLA. No e levated JVD. Carotids 2+. NECK: Supple. No lymphadenopathy. CHEST: Clear to auscultation. CARDIOVASCULAR: Normal S1 and S2. No S3. Regular rate and rhythm. No murmurs or rubs appreciated. ABDOMEN: Soft, nondistended with mild tenderness . No hepatosplenomegaly appreciated. No rebound. No guarding. Normoactiv e bowel sounds. EXTREMITIES: Reveal no clubbing, cyanosis, or ed reshma. NEUROLOGICAL: Grossly intact. LABORATORY DATA: Reviewed. IMPRESSION: Acute diverticulitis with diverticul ar abscesses, improving. PLAN: Would be to continue antibiotics. Advance diet. If tolerated, can discharge home on antibiotics. Follow up in 3 to 4 weeks' time for colonoscopy as outpatient. Discussed the plan with the patie nt and surgery is following. Dictated By: Sudha Acosta MD WT: PN:DELMAR.JOSE E/DICK/VIKTORIYA Conf#: [id number]/DID#: [id number] PATIENT NAME: GEOVANI STREETMaribel ROBLES [id number] Authenticated by Sudha Acosta MD On 06/22/2020 01:09:14 PM Electronically Signed by Sudha Acosta MD on at 1309 [address]IENT NAME: [address] [id number] 12:12:00-00:00 [id number] [facility] [address] [facility] [address] PATIENT NAME: ALETHEA STREET ADMIT DATE: 06/03 03/22 ACCOUNT NO: [id number] ROOM NO: [id number] AGE: 44 REPORT TYPE: PROGRESS NOTE SEX: F ADMITTING PHYSICIAN:Josiah Ervin MD ATTENDING PHYSICIAN:Josiah Ervin MD DATE: 06/21/2020 SUBJECTIVE: The patient feels better, jaimes s no pain and is ready to go home. She has had bowel movement and has been tolerating h er diet. OBJECTIVE: VITAL SIGNS: Afebrile, vital signs stable. ABDOMEN: Soft, nontender. LABORATORY DATA: White blood cell count normal. ASSESSMENT AND PLAN: Diverticulitis with an absc ess formation. Doing better. The patient to be discharged to go home with instructions to follow up with Dr. Pena in 1 week and with GI i n 2 weeks to schedule colonoscopy followed by elective resection of th e colon. Counseled to stop smoking and doing drugs. Clear ed for discharge on our standpoint. Dictated By: Arnold Lopez MD WT: PN:FEDERICO/NORA/VIKTORIYA Conf#: [id number]/DID#: [id number] Authenticated by Arnold Lopez MD On 06/22/2020 09:43:24 AM at 0943 PATIENT NAME: ALETHEA ST[address] [id number] 08:36:00-00:00 [id number] [facility] [address] [facility] [id number] PATIENT NAME: ALETHEA STREET ADMIT DATE: 06/03 03/22 ACCOUNT NO: [id number] ROOM NO: [id number] AGE: 44 REPORT TYPE: CONSULATION SEX: F ADMITTING PHYSICIAN:Josiah Ervin MD ATTENDING PHYSICIAN:Josiah Ervin MD CONSULTATION DATE: 06/20/2020 CONSULTING PHYSICIAN: Sudha Acosta MD REFERRING PHYSICIAN: Carol Pena MD REASON FOR CONSULTATION: Abdominal pain. HISTORY OF PRESENT ILLNESS: The patient is a 44- year-old female, who was referred to me by Dr. Pena in the office for colonoscopy prior to her segmental colectomy. I saw her and she was still having pa in. Ordered a CT abdomen and pelvis, which showed an abscess of 4.7 cm, refer red her to the ER. She denies any nausea or vomiting. No heartburn. No dysphag ia. No chest pain. Has mild lower abdominal pain. Does have diarrhea. No chantell don. No hematochezia. No fever, chills, or rigors. REVIEW OF SYSTEMS: A 14-point review of systems, denies any cardiopulmonary, genitourinary, musculoskeletal, or neurological complaints. ALLERGIES: BUSPIRONE. PAST MEDICAL HISTORY: Divert iculitis with perforation and diverticular abscess, hypertension, diabetes mellitus, ovarian cyst, l eft side, bilateral wrist surgery, left elbow surgery for nerve entrapment . FAMILY HISTORY: Hypertension and lung cancer. SOCIAL HISTORY: Has history of alcohol use, smok ing, marijuana use. No IV drugs at present time. Does have tattoos. CURRENT MEDICATIONS: Include Tylenol, IV fluids, fluconazole, folic acid, glucagon, morphine, Zofran, Zosyn, Lyrica. PHYSICAL EXAMINATION: VITAL SIGNS: Her pulse is 68 per minute, blood p ressure 120/73, afebrile, respiratory rate of 18. SKIN: Within normal limits. HEENT: Revealed normal EOMI. Normal PERRLA. No e levated JVD. Carotids 2+. NECK: Supple. No lymphadenopathy. CHEST: Clear to auscultation. CARDIOVASCULAR: Normal S1 and S2. No S3. Regular rate and rhythm. No murmurs or rubs appreciated. PATIENT NAME: ALETHEA STREET [id number] ABDOMEN: Soft, nondistended with mild tenderness . No hepatosplenomegaly appreciated. No rebound. No guarding. Normoactiv e bowel sounds. EXTREMITIES: Reveal no clubbing, cyanosis, or ed reshma. NEUROLOGIC: Grossly intact. LABORATORY DATA: Reviewed. IMAGING STUDIES: Reviewed. IMPRESSION: Diverticulitis with diverticular abs cess. IR unable to drain it. PLAN: Would be to continue IV antibiotics, IV fl uids, and surgery as per Dr. Pena. Dr. Pena and Dr. Ervin, thank you very much for allowing me to participate in the care of your patient. I will keep you up-to- date as to her progress. Dictated By: Sudha Acosta MD WT: CON:NC.JOSE E/DICK/NTS Conf#: [id number]/DID#: [id number] Authenticated by Sudha Acosta MD On 06/21/2020 12:22:13 PM Electronically Signed by Sudha Acosta MD on at 1222 PATIENT NAME: [address] [id number] 1921-09-[birth year] 21:01:00-00:00 [id number] [facility] [address] [facility] [address] PATIENT NAME: ALETHEA STREET ADMIT DATE: 06/03 03/22 ACCOUNT NO: [id number] ROOM NO: [id number] AGE: 44 REPORT TYPE: CONSULATION SEX: F ADMITTING PHYSICIAN:Josiah Ervin MD ATTENDING PHYSICIAN:Josiah Ervin MD CONSULTATION DATE: 06/19/2020 CONSULTING PHYSICIAN: Rivas Thompson PATIENT LOCATION: Room #6307. REASON FOR CONSULTATION: Antibiotic management. HISTORY OF PRESENT ILLNESS: This is a 44-year-old female, apparently appears to have ongoing problem with the diverticulitis and abscess. The patient was treated at home with the ora l antibiotics. The patient finished antibiotics and started having some abdominal pain as well as fe neftali. Repeat CAT scan showed abscess in the pelvic area, for which she had be en recommended to be admitted through the Emergency Room. The patient has been started on antibiotics. Further surgical input is awaited and planned to follow. PAST MEDICAL HISTORY: Significant for diverticul itis, alcohol, hypertension, and recent diabetes. PAST SURGICAL HISTORY: Reported to be ovarian cy st from the left, bilateral wrist surgery, left elbow surgery. FAMILY HISTORY: Significant for hypertension as well as lung cancer. ALLERGIES: BUSPIRONE. SOCIAL HISTORY: Significant for alcohol and smok ing. VACCINATION HISTORY: Not up-to-date for the flu and pneumonia vaccine. REVIEW OF SYSTEMS: Remained with abdomin al pain and discomfort. No headache or photophobia. No blood in the stool or urine. Poo r appetite, occasional cough. Does not have any swelling o f the leg. The patient has been having undocumented weight loss. The patient has known history of DV T, PE. No history of multidrug-resistant pathogen infection. I do not have any details of the previous admission, and her diverticular ____. R eports were reviewed from the May admission. There were some blood cultures drawn, those were negative. The patient had a secure CT, unable to drain candelaria t abscess. The patient was treated with antibiotic and was discharged on or al antibiotics. CURRENT ANTIBIOTICS: Include Zosyn, and the theodore ent has been tolerating well. PATIENT NAME: ALETHEA STREET [id number] PHYSICAL EXAMINATION: GENERAL: The patient is thin built, comfortable. On my arrival, the patient was quite sleepy, did not wake up. I then discus sed with the staff, and they came in to shook her to wake her up. The patient then has been able to provide information. VITAL SIGNS: The patient's temperature is 36.8 s amber admission, pulse is 63, respiration rate is 18, bloo d pressure is 115/73, and saturation is 98%. Weight is 46 kg and BMI is 18.7. HEENT: Head is atraumatic, normocephalic. No jau ndice. No thrush. NECK: Supple. LUNGS: Sounds are shallow breath, bilaterally eq ual. HEART: Sounds normal. ABDOMEN: Soft. Suprapubic tenderness noted. Alva l sounds sluggish. No rebound, no rigidity. EXTREMITIES: No cyanosis or clubbing. Atrophy no to. 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 Peripheral IV site looks o celso. LYMPH: No lymph nodes. SKIN: Clear, weeping is evident. LABORATORY DATA: Sodium is 141, potassium is 4, BUN is 12, creatinine is 0.8, albumin 2.7. LFTs unremarkable. Hemoglobin A1c i s 5.6. White count done today is 11.6, it was 12.9 yesterday, hemoglobin 10, p latelet count of 372,000. Our comment is these reports reviewed. COVID-19 has been negative. Lactic acid level is 1.3. test done yesterday nega tive. Lipase is 127. Urinalysis revealed wbc's 3- 5. HIV done on the previous admission was negative. Hepatitis screen also was negative. Blood cultu res drawn on the are pending. DIAGNOSTIC DATA: CT scan of the abdomen and pelv is was done on 06/13/2020. Report reviewed. I do not jaimes ve the CAT scan report from the outpatient facility available at this point, which she reports was d one yesterday. ASSESSMENT: 1. The patient with ongoing diverticular abscess and infection. The patient has been treated with various antibiotics, now a gain with the increased pain, abnormal CAT scan, obviously polymicrobi al infection suspected, improving with Zosyn and continue the same. We will follow. 2. The patient with history of hypertension. 3. History of alcohol use with fatty infiltratio n of the liver noted on CAT scan. Follow the further workup. Counseled to av oid alcohol. 4. Recent diagnosis of diabetes has been reporte d, but hemoglobin A1c is normal. 5. Abnormal CAT scan finding from 06/13/2020, re vealing bilateral hydro with abnormalities of the bladder. Consider Urology e valuation. 6. Malnutrition and cachexia. 7. Workup is negative for HIV and hepatitis on t he last admission. PLAN: 1. In this patient, given above reason and diffe rential, I would agree with broad-spectrum antibiotic with Zosyn. Continue m onitoring the levels and monitor the surgical plan and intervention. Foll ow the response to the treatment. Monitor the white count. Adjust the a ntibiotic coverage accordingly. 2. Workup so far appears to be negative for UTI, hydration. Symptomatic PATIENT NAME: ALETHEA STREET [id number] treatment for pain. 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 4. Case discussed with nursing staff at length. Dr. Ervin, I appreciate for the interesting cons ult and allowing me to participate in the patient's care. Dictated By: Rivas Thompson WT: CON:FEDERICO/ALEX/VIKTORIYA Conf#: [id number]/DID#: [id number] cc: Josiah Ervin MD Authenticated by Rivas Thompson MD On 2019 08:00:53 PM Electronically Signed by MD nicolette Sherman n 06/26/20 at 2001 PATIENT NAME: [address] [id number] 14:58:00-00:00 [facility] ([facility]) EMERGENCY PROVIDER REPORT REPORT#:[id number] REPORT STATUS: Signed DATE:06/18/20 TIME: 1457 PATIENT: ALETHEA STREET UNIT #: [id number] ROOM: [id number]: 1 AGE: 44 SEX: F PCP PHYS: Undefined Provider SERVICE AUTHOR: Reggie Coreas * ALL edits or amendments must be made on the [employer] document * HPI-Abd Pain F 40 and Over General Initial Greet Date/Time 06/18/20 1433 Presentation Chief Complaint Abdominal pain Sudden in Onset? No Free Text HPI Notes Free Text HPI Notes 44-year-old female sent in by Dr. Acosta, GI, f or further work-up and management after she were found to have divertic ular disease with abscess formation. Complains of mini mal abdominal pain and no other symptoms currently. Risk-Abd Pain F 40 and Over )( Abdominal Aortic Aneurysm Risk factors review ed Review of Systems ROS Statements All systems rev neg except as marked. Focused Review of Systems GI Reports: Abdominal pain. Past Medical History - Adult Stated Complaint DIVERTICULITIS Allergies Coded Allergies: buspirone (From BUSPAR) (Severe, HIVES/RASH 09/03 ) Home Medications Discontinued Scripts Ciprofloxacin (Cipro) 500 MG BID X 10 DAYS Ciprofloxacin (Cipro) 500 MG BID X 10 DAYS #20 TAB Prov: 05/13/20 DC: 06/18/202019 DC prior to admit Metronidazole (Flagyl) 500 MG PO Q8H Metronidazole (Flagyl) 500 MG PO Q8H #30 TAB Prov: 05/13/20 DC: 06/18/202019 DC prior to admit Tramadol (Ultram) 50 MG PO Q4H Tramadol (Ultram) 50 MG PO Q4H #20 TAB Prov: 05/13/20 DC: 06/18/202019 DC prior to admit Reported Medications Folic Acid 1 MG PO DAILY Pregabalin (Lyrica) 200 MG PO BID Fluconazole (Diflucan) 100 MG PO DAILY Levofloxacin (Levaquin) 500 MG PO DAILY Metronidazole (Flagyl) 500 MG PO TID Discontinued Reported Medications [Tri Lo Sprintee] [vitamin d2] Past Medical History: Reports: Hypertension, (vaginal bleeding). Past Surgical History: Reports: (culposcopy). Alcohol Use Alcohol use (15 or more drinks per w gila river) Drug Use Denies recreational drugs Smoking status for patients 13 years old or olde r: Former Smoker Physical Exam Vital Signs Vital Signs First Documented: Result Date Time Pulse Ox 96 06/18 1431 B/P 139/78 06/18 1431 B/P Mean 98 06/18 1431 O2 Delivery Room air 06/18 1431 Temp 36.7 06/18 1431 Pulse 98 06/18 1431 Resp 18 06/18 1431 Last Documented: Result Date Time Pulse Ox 96 06/18 1431 B/P 139/78 06/18 1431 B/P Mean 98 06/18 1431 O2 Delivery Room air 06/18 1431 Temp 36.7 06/18 1431 Pulse 98 06/18 1431 Resp 18 06/18 1431 Review of Vital Signs Reviewed Focused PE General/Const General/Const Awake, Alert, No acute di stress, Well appearing, Well developed , Well hydrated Resp/Chest Respiratory/Chest Atraumatic, Breath sounds NL, Breath sounds = bilat, No respiratory distress, No rales, No rhonchi Cardiovascular Cardiovascular Heart rate NL, Regular rhythm, H eart sounds NL, No gallop, No murmurs, No rubs Abdomen/GI Abdomen/GI Atraumatic, Soft, McBurney's non-ten nori, No guarding, No rebound, BS normoactive Tenderness/Guarding/Rebound Tender diffuse. MS Back Back Atraumatic, Inspection NL, Full range of m otion, Painless range of motion, Non-tender, No midline vertebral tend, N o paraspinal tenderness Free Text PE Notes Free Text PE Notes Basic Physical Exam Basic PE HEAD: Atraumatic/NC, EYES: PERRL, conj clear, ENT: Membranes moist, NECK: Supple, EXT: No gross abnormality, SKIN: No rashes, warm/dry, NEURO: alert oriented, NEURO: gross movement NL, PSYCH: NL t hought content Focused PE General/Const General/Const Awake, Well hydrated Resp/Chest Respiratory/Chest Atraumatic, No respiratory di stress, No rales, No wheezing Cardiovascular Cardiovascular Heart rate NL, Regular rhythm, Cap refill not delayed, Peripheral circulation NL Abdomen/GI Abdomen/GI Atraumatic, abd minimally tender to palpation diffusely with no focal tenderness in the left lower or suprapubic region MS Back Back Atraumatic, Full range of motion, No midli ne vertebral tend, No paraspinal tenderness Interpretation Diagnostics Lab Results Interpretation Considerations Reviewed prior records Results Laboratory Tests 06/18/20 1441: [Embedded Image Not Available] Laboratory Tests: 06/18 06/18 1441 1441 Chemistry Sodium (135 - 145 mmol/L) 138 Potassium (3.5 - 5.1 mmol/L) 4.1 Chloride (98 - 107 mmol/L) 105 Carbon Dioxide (21 - 32 mmol/L) 26 Anion Gap (2.0 - 16.0) 11.1 BUN (4 - 23 mg/dL) 14 Creatinine (0.6 - 1.5 mg/dL) 0.7 Glomerular Filtr Rate (>60 ml/min) >=60 max est imate BUN/Creatinine Ratio (12.0 - 20.0) 20.0 Glucose (65 - 99 mg/dL) 89 Calcium (8.5 - 10.1 mg/dL) 8.9 Total Bilirubin (0.2 - 1.2 mg/dL) 0.2 Direct Bilirubin (0.0 - 0.3 mg/dL) < 0.1 Indirect Bilirubin (0.0 - 0.8 mg/dL) 0.1 AST (15 - 37 U/L) 11 L ALT (6 - 50 U/L) 16 Total Alk Phosphatase (45 - 117 U/L) 96 Total Protein (6.4 - 8.2 g/dL) 7.9 Albumin (3.4 - 5.0 g/dL) 3.2 L Globulin (2.3 - 3.5 g/dL) 4.7 H Triglycerides (0 - 149 mg/dL) 227 H Cholesterol (0 - 200 mg/dL) 165 LDL Cholesterol Measurd (0 - 100 mg/dL) 95 HDL Cholesterol (40 - 60 mg/dL) 38 L Cholesterol/HDL Ratio (1 - 6) 4 Lipase (73 - 393 U/L) 127 Serum HCG, Qual (NEGATIVE) NEGATIVE Hematology WBC (4.5 - 11.0 10 3/uL) 12.9 H RBC (3.50 - 5.50 10 6/uL) 3.59 Hgb (12.0 - 16.0 g/dL) 10.9 L Hct (37.0 - 55.0 %) 33.5 L MCV (81 - 102 fL) 93 MCH (26.0 - 34.0 pg) 30.4 MCHC (31.0 - 37.0 g/dL) 32.5 RDW (11.6 - 14.4 %) 11.9 Plt Count (150 - 400 10 3/uL) 415 H MPV (9.0 - 12.6 fL) 10.2 Neut % (Auto) (33.0 - 76.0 %) 69.2 Lymph % (Auto) (14.0 - 56.4 %) 23.0 Menard % (Auto) (0.0 - 12.9 %) 4.0 Eos % (Auto) (0.0 - 7.0 %) 2.9 Baso % (Auto) (0 - 2.0 %) 0.5 Neut # (Auto) (1.5 - 7.0 10 3/uL) 8.94 H Lymph # (Auto) (1.50 - 4.00 10 3/uL) 2.97 Menard # (Auto) (0.20 - 0.80 10 3/uL) 0.51 Eos # (Auto) (0.0 - 0.5 10 3/uL) 0.37 Baso # (Auto) (0.0 - 0.1 10 3/uL) 0.06 Abs Immat Gran (auto) (0.000 - 0.100 x10 3/uL) 0.050 Immature Gran % (0.0 - 1.0 %) 0.4 Nucleated RBC % (0 - 0.2 %) 0.0 Urines Urine Color (YELLOW) STRAW Urine Appearance (CLEAR) CLEAR Urine pH (5.0 - 8.0) 6.0 Ur Specific [place] (1.005 - 1.025) 1.003 L Urine Protein (NEGATIVE) NEGATIVE Urine Glucose (UA) (NEGATIVE) NEGATIVE Urine Ketones (NEGATIVE) NEGATIVE Urine Blood (NEGATIVE) NEGATIVE Urine Nitrite (NEGATIVE) NEGATIVE Urine Bilirubin (NEGATIVE) NEGATIVE Urine Urobilinogen (0.1 - 0.2 EU/dL) NEGATIVE Ur Leukocyte Esterase (NEGATIVE) NEGATIVE Urine RBC (0 - 3 /hpf) 0-2 Urine WBC (0 - 3 /hpf) 3-5 H Ur Squamous Epith Cells (FEW /HPF) RARE Urine Bacteria (NEGATIVE /HPF) RARE Urine Mucus (/lpf) OCCASIONAL 06/18 1547 Chemistry Lactic Acid (0.4 - 2.0 mmol/L) 1.3 Coagulation INR (0.8 - 1.1 RATIO) 1.1 APTT (25.1 - 36.5 SECONDS) 29.5 PT Patient/Control Mix (9.4 - 12.5 SECONDS) 11. 7 Microbiology: Date/Time Procedure - Status Source Growth 06/18 1547 Blood Culture - RES BLOOD COAGULASE NEG STAPHYLOCOCCUS 06/18 1547 Blood Culture - COMP BLOOD Re-Evaluation [facility] )( Re-Evaluation/Progress #1 )( Re-Eval Status Improved ED Course Medication(s) Ordered Medication(s) Ordered: Anti-Infective Agents Sig/Charlotte Start time Last Medication Dose Route Stop Time Status Admin Vancomycin HCl 1,000 MG ONCE@1600 06/18 1600 AC Sodium Chloride 250 ML IV 06/18 2200 Piperacillin Sod/ 3.375 GM X1ED STA 06/18 1507 AC 06/18 Tazobactam Sod IV 06/18 1906 1542 Sodium Chloride 100 ML Central Nervous System Agents Sig/Charlotte Start time Last Medication Dose Route Stop Time Status Admin Acetaminophen 650 MG Q4H PRN PRN 06/18 1639 UNV PO 06/19 0438 Morphine Sulfate 2 MG Q4H PRN PRN 06/18 1639 UN V IV 06/19 0438 Electrolytic, Caloric, And Richard Sig/Charlotte Start time Last Medication Dose Route Stop Time Status Admin Sodium Chloride 1,000 ML X1ED STA 06/18 1506 DC 06/18 IV 06/18 1605 1542 Gastrointestinal Drugs Sig/Charlotte Start time Last Medication Dose Route Stop Time Status Admin Ondansetron HCl 4 MG Q4H PRN PRN 06/18 1645 UN V IV 06/19 0438 Patient Discharge Departure Vital Signs/Condition Vital Signs First Documented: Result Date Time Pulse Ox 96 06/18 1431 B/P 139/78 06/18 1431 B/P Mean 98 06/18 1431 O2 Delivery Room air 06/18 1431 Temp 36.7 06/18 1431 Pulse 98 06/18 1431 Resp 18 06/18 1431 Last Documented: Result Date Time Pulse Ox 96 06/18 1431 B/P 139/78 06/18 1431 B/P Mean 98 06/18 1431 O2 Delivery Room air 06/18 1431 Temp 36.7 06/18 1431 Pulse 98 06/18 1431 Resp 18 06/18 1431 All vital signs available at the time of this en try have been reviewed. Condition Stable Clinical Impression Clinical Impression Primary Impression: Diverticulitis of intestine with abscess Disposition Decision Admit Admit Physician Name Josiah Ervin MD Admit Physician Hospitalist Request Time 1525 Request Date 06/18/20 )( Admission Accepts Yes )( Accepted Time 1642 )( Accepted Date 06/18/20 Call Information will see patient, agrees with eval, agrees with plan Discharge/Care Plan (Auto) Prescriptions Current Visit Scripts Fluconazole (Diflucan) 100 MG PO DAILY Fluconazole (Diflucan) 100 MG PO DAILY #7 TAB Levofloxacin (Levaquin) 500 MG PO DAILY Levofloxacin (Levaquin) 500 MG PO DAILY #7 TAB Metronidazole (Flagyl) 500 MG PO Q8H Metronidazole (Flagyl) 500 MG PO Q8H #21 TAB Referrals No Primary or Family Physician (Family) at 0814 RPT #:[id number] END OF REPORT 2020-05-08 11:22:00-00:00 [facility] ([facility]) EMERGENCY PROVIDER REPORT REPORT#:[id number] REPORT STATUS: Signed DATE:05/08/20 TIME: 1121 PATIENT: ALETHEA STREET UNIT #: [id number] ROOM: [id number]: 1 AGE: 44 SEX: F PCP PHYS: No Primary or Family Ph ysician SERVICE AUTHOR: Scarlet Yancey NP * ALL edits or amendments must be made on the [employer]/computer document * HPI-Abd Pain F 40 and Over General Initial Greet Date/Time 05/08/20 1007 Presentation Chief Complaint Abdominal pain, Nausea, Vomiting mild Hx Obtained From Patient Sudden in Onset? No Onset Occurred Yesterday Symptom Duration Waxes and wanes Progression since Onset Constant Location Abdomen lower Quality Cramping Free Text HPI Notes Free Text HPI Notes 44-year-old female presents the ER with complaints of lower abdominal cramping with nausea and one episode of nonbilious, nonbl oody vomiting. Patient states she initially thought she was having a m enstrual cramp even though she has not had a menstrual cycle in the last 3 year s. She has history of ovarian cyst and states this feels similar. The pain init ially was intermittent and cramping in nature however since this mo rning the pain is more constant and is becoming more widespread throughout her abdomen. She denies an y chest pain or shortness of breath. No fevers cough chills, loss of taste or smell. No diarrhea. Review of Systems ROS Statements All systems rev neg except as marked. Focused Review of Systems Constitutional Denies: Chills, Fever. Respiratory Denies: Cough, non-productive. Cardiovascular Denies: Chest pain. GI Reports: Abdominal pain, Nausea, Vomiting. Past Medical History - Adult Stated Complaint ABD PAIN Allergies Coded Allergies: buspirone (From BUSPAR) (Severe, HIVES/RASH 09/03 ) Past Medical History: Reports: Hypertension, (vaginal bleeding). Past Surgical History: Reports: (culposcopy). Alcohol Use Alcohol use (15 or more drinks per w gila river) Drug Use Denies recreational drugs Smoking status for patients 13 years old or olde r: Current every day smoker Physical Exam Vital Signs Vital Signs First Documented: Result Date Time Pulse Ox 100 05/08 1009 B/P 153/96 05/08 1009 B/P Mean 115 05/08 1009 O2 Delivery Room air 05/08 1009 Temp 36.2 05/08 1009 Pulse 95 05/08 1009 Resp 20 05/08 1009 Last Documented: Result Date Time Pulse Ox 99 05/08 1401 B/P 138/84 05/08 1401 B/P Mean 102 05/08 1401 O2 Delivery Room air 05/08 1401 Temp 36.5 05/08 1401 Pulse 87 05/08 1401 Resp 16 05/08 1401 Review of Vital Signs Reviewed Basic Physical Exam Basic PE HEAD: Atraumatic/NC, EYES: PERRL, conj clear, ENT: Membranes moist, NECK: Supple, EXT: No gross abnormality, SKIN: No rashes, warm/dry, NEURO: alert oriented, NEURO: gross movement NL, PSYCH: NL t hought content Focused PE General/Const General/Const Awake, Alert Distress/Hydration Distress mild. Resp/Chest Respiratory/Chest Breath sounds NL, Breath soun ds = bilat, No respiratory distress, No rales, No rhonchi, No wheezing, No retractions Cardiovascular Cardiovascular Heart rate NL, Regular rhythm, H eart sounds NL, No gallop, No murmurs, No rubs, Cap refill not delayed Abdomen/GI Abdomen/GI Soft Tenderness/Guarding/Rebound Tender diffuse, Guarding voluntary. Negative: T jhony RUQ, Tender LUQ, Tender RLQ, Tender LLQ, Tender epigastric, Tender periu mbilical, Tender suprapubic, Tender flank R, Tender flank L, Cohen's sign positive, McBurney's point tender, Guarding involuntary, Rebound localized, Rebound diffuse, Rigid to palpation. MS Back Back Inspection NL, Full range of motion, Painl ess range of motion, Non- tender, No midline vertebral tend, No muscle spa sm Interpretation Diagnostics Lab Results Interpretation Results Laboratory Tests 05/08/20 1030: [Embedded Image Not Available] Laboratory Tests: 05/08 05/08 1030 1030 Chemistry Sodium (135 - 145 mmol/L) 142 Potassium (3.5 - 5.1 mmol/L) 3.4 L Chloride (98 - 107 mmol/L) 110 H Carbon Dioxide (21 - 32 mmol/L) 27 Anion Gap (2.0 - 16.0) 8.4 BUN (4 - 23 mg/dL) 12 Creatinine (0.6 - 1.5 mg/dL) 0.6 Glomerular Filtr Rate (>60 ml/min) >=60 max est imate BUN/Creatinine Ratio (12.0 - 20.0) 20.0 Glucose (65 - 99 mg/dL) 144 H Calcium (8.5 - 10.1 mg/dL) 8.7 Total Bilirubin (0.2 - 1.2 mg/dL) 0.3 Direct Bilirubin (0.0 - 0.3 mg/dL) 0.1 Indirect Bilirubin (0.0 - 0.8 mg/dL) 0.2 AST (15 - 37 U/L) 81 H ALT (6 - 50 U/L) 94 H Total Alk Phosphatase (45 - 117 U/L) 111 Total Protein (6.4 - 8.2 g/dL) 6.9 Albumin (3.4 - 5.0 g/dL) 3.6 Globulin (2.3 - 3.5 g/dL) 3.3 Triglycerides (0 - 149 mg/dL) 39 Cholesterol (0 - 200 mg/dL) 111 LDL Cholesterol Measurd (0 - 100 mg/dL) 52 HDL Cholesterol (40 - 60 mg/dL) 51 Cholesterol/HDL Ratio (1 - 6) 2 Lipase (73 - 393 U/L) 122 Serum HCG, Qual (NEGATIVE) NEGATIVE Hematology WBC (4.5 - 11.0 10 3/uL) 14.0 H RBC (3.50 - 5.50 10 6/uL) 4.32 Hgb (12.0 - 16.0 g/dL) 14.1 Hct (37.0 - 55.0 %) 41.7 MCV (81 - 102 fL) 97 MCH (26.0 - 34.0 pg) 32.6 MCHC (31.0 - 37.0 g/dL) 33.8 RDW (11.5 - 14.5 %) 11.6 Plt Count (150 - 400 10 3/uL) 231 MPV (9.0 - 12.6 fL) 9.1 Neut % (Auto) (33.0 - 76.0 %) 89.9 H Lymph % (Auto) (14.0 - 56.4 %) 4.6 L Menard % (Auto) (0.0 - 12.9 %) 4.1 Eos % (Auto) (0.0 - 7.0 %) 0.5 Baso % (Auto) (0 - 2.0 %) 0.3 Neut # (Auto) (1.5 - 7.0 10 3/uL) 12.60 H Lymph # (Auto) (1.50 - 4.00 10 3/uL) 0.65 L Menard # (Auto) (0.20 - 0.80 10 3/uL) 0.58 Eos # (Auto) (0.0 - 0.5 10 3/uL) 0.07 Baso # (Auto) (0.0 - 0.1 10 3/uL) 0.04 Abs Immat Gran (auto) (0.000 - 0.100 x10 3/uL) 0.090 Immature Gran % (0.0 - 1.0 %) 0.6 Nucleated RBC % (0 - 0.2 %) 0.0 05/08 05/08 1108 1310 Chemistry Lactic Acid (0.4 - 2.0 mmol/L) 1.9 Serology Nasal/Oral COVID-19 PCR (Negative) Negative Urines Urine Color (YELLOW) STRAW Urine Appearance (CLEAR) CLEAR Urine pH (5.0 - 8.0) 6.0 Ur Specific [place] (1.005 - 1.025) 1.025 Urine Protein (NEGATIVE) NEGATIVE Urine Glucose (UA) (NEGATIVE) NEGATIVE Urine Ketones (NEGATIVE) NEGATIVE Urine Blood (NEGATIVE) NEGATIVE Urine Nitrite (NEGATIVE) NEGATIVE Urine Bilirubin (NEGATIVE) NEGATIVE Urine Urobilinogen (0.1 - 0.2 EU/dL) NEGATIVE Ur Leukocyte Esterase (NEGATIVE) NEGATIVE Urine RBC (0 - 3 /hpf) NONE SEEN Urine WBC (0 - 3 /hpf) 0-2 Ur Squamous Epith Cells (FEW /HPF) RARE Urine Bacteria (NEGATIVE /HPF) RARE Hyaline Casts (NONE SEEN /lpf) 2-5 Urine Mucus (/lpf) OCCASIONAL Microbiology: Date/Time Procedure - Status Source Growth 05/08 1310 Blood Culture - RECD BLOOD 05/08 1300 Blood Culture - RECD BLOOD Recent Impressions: CAT SCAN - CT ABD PELVIS W/CONT 05/08 1205 Report Impression - Status: SIGNED Entered: 05/08/2020 1249 IMPRESSION: 1. Findings suggesting acute sigmoid colon diver ticulitis with abnormal mural thickening and surrounding infilt ration. There is further air within the sigmoid mesocolon and tra cking into the retroperitoneum which is atypical. There is smal l fluid in the left paracolic gutter and tracking into the pelvis. N o organized abscess is otherwise seen. 2. Fatty infiltration of the liver. 3. Small perihepatic ascites. Impression By: Matilda - Ivan Jose MD Lab Imaging Statement Laboratory radiographic studies reviewed and con sidered in the medical decision-making. Re-Evaluation MDM Free Text MDM Notes Free Text MDM Notes 44-year-old female presents the ER with above-st ated complaints, lab work reviewed, slightly elevated white count 14 and m ildly elevated liver enzymes, otherwise unremarkable. CT of the abdomen shows acute diverticulitis with perforation the air in the peritoneum. Patient w as admitted to the hospital, started on Zosyn, spoke with Dr. PENA and Dr. Kwesi harrison regarding admission and plan of care. Staffed with [facility] ED Course Medication(s) Ordered Medication(s) Ordered: Anti-Infective Agents Sig/Charlotte Start time Last Medication Dose Route Stop Time Status Admin Piperacillin Sod/ 3.375 GM Q8H 05/08 2038 AC Tazobactam Sod IV 05/09 203 Sodium Chloride 100 ML Piperacillin Sod/ 3.375 GM X1ED STA 05/08 1238 DC 05/08 Tazobactam Sod IV 05/08 1307 1324 Sodium Chloride 100 ML Antihistamine Drugs Sig/Charlotte Start time Last Medication Dose Route Stop Time Status Admin Promethazine HCl 25 MG Q4H PRN PRN 05/08 1353 A C PO 05/09 0152 Promethazine HCl 25 MG X1ED STA 05/08 1312 DC 0 05/08 Sodium Chloride 50 ML IV 05/08 1341 1323 Central Nervous System Agents Sig/Charlotte Start time Last Medication Dose Route Stop Time Status Admin Acetaminophen 650 MG Q4H PRN PRN 05/08 1353 AC PO 05/09 0152 Morphine Sulfate 4 MG Q4H PRN PRN 05/08 1353 AC IV 05/09 0152 Ketorolac 30 MG X1ED STA 05/08 1024 DC 05/08 Tromethamine IV 05/08 1025 1111 Diagnostic Agents Sig/Charlotte Start time Last Medication Dose Route Stop Time Status Admin Iopamidol 0 .STK-MED ONE 05/08 1204 DC .ROUTE Electrolytic, Caloric, And Richard Sig/Charlotte Start time Last Medication Dose Route Stop Time Status Admin Sodium Chloride 1,000 ML .[id number] 05/08 1400 AC IV 05/09 0152 Sodium Chloride 1,000 ML X1ED STA 05/08 1024 DC 05/08 IV 05/08 1025 1111 Gastrointestinal Drugs Sig/Charlotte Start time Last Medication Dose Route Stop Time Status Admin Ondansetron HCl 4 MG Q4H PRN PRN 05/08 1400 AC IV 05/09 0152 Patient Discharge Departure Vital Signs/Condition Vital Signs First Documented: Result Date Time Pulse Ox 100 / 1009 B/P 153/96 / 1009 B/P Mean 115 05/08 1009 O2 Delivery Room air 05/08 1009 Temp 36.2 08 1009 Pulse 95 08/ 1009 Resp 20 05/08 1009 Last Documented: Result Date Time Pulse Ox 99 / 1401 B/P 138/84 08/ 1401 B/P Mean 102 05/08 1401 O2 Delivery Room air 05/08 1401 Temp 36.5 / 1401 Pulse 87 08/ 1401 Resp 16 05/08 1401 All vital signs available at the time of this en try have been reviewed. Clinical Impression Clinical Impression Primary Impression: Bowel perforation Secondary Impressions: Diverticulitis Disposition Decision Admit Admit Physician Name Balta Bey Jr, MD Admit Physician Hospitalist Request Time 1356 Request Date 05/08/20 )( Admission Accepts Yes )( Accepted Time 1356 )( Accepted Date 05/08/20 Discharge/Care Plan Counseled Regarding Diagnosi s, Lab results, Imaging studies, Need for admission Referrals No Primary or Family Physician (PCP/Family) Admit Note I have spoken with the patie nt and/or caregivers. I have explained the patient's condition, diagnoses and carmen atment plan based on the information available to me at this time. I have answered the patient's and/ or caregiver's questions and addressed any concerns. The patient and/or careg marli have as good an understanding of the patient 's diagnosis, condition and treatment plan as can be expected at this point. The patient has been stabilized within the capability of the emergency department. The patient wi ll be transported for further care and management or will be moved to an observation or inpatient service. I have communicated with the staff or medical p blayneer taking over this patient's care. at 1442 RPT #:[id number] END OF REPORT 2020-05-08 11:22:00-00:00 [facility] ([facility] EMERGENCY PROVIDER REPORT REPORT#:[id number] REPORT STATUS: Signed DATE:05/08/20 TIME: 1121 PATIENT: ALETHEA STREET UNIT #: [id number] [address] AGE: 44 SEX: F PCP PHYS: No Primary or Family Ph ysician SERVICE AUTHOR: Chrissie Gordon MD * ALL edits or amendments must be made on the [employer] document * Olinda Yancey Yefri 05/08/20 1122: HPI-Abd Pain F 40 and Over Presentation Chief Complaint Abdominal pain, Nausea, Vomiting mild Hx Obtained From Patient Sudden in Onset? No Onset Occurred Yesterday Symptom Duration Waxes and wanes Progression since Onset Constant Location Abdomen lower Quality Cramping Free Text HPI Notes Free Text HPI Notes 44-year-old female presents the ER with complaints of lower abdominal cramping with nausea and one episode of nonbilious, nonbl oody vomiting. Patient states she initially thought she was having a m enstrual cramp even though she has not had a menstrual cycle in the last 3 year s. She has history of ovarian cyst and states this feels similar. The pain init ially was intermittent and cramping in nature however since this mo rning the pain is more constant and is becoming more widespread throughout her abdomen. She denies an y chest pain or shortness of breath. No fevers cough chills, loss of taste or smell. No diarrhea. Review of Systems ROS Statements All systems rev neg except as marked. Focused Review of Systems Constitutional Denies: Chills, Fever. Respiratory Denies: Cough, non-productive. Cardiovascular Denies: Chest pain. GI Reports: Abdominal pain, Nausea, Vomiting. Past Medical History - Adult Stated Complaint ABD PAIN Allergies Coded Allergies: buspirone (From BUSPAR) (Severe, HIVES/RASH 09/03 0) Past Medical History: Reports: Hypertension, (vaginal bleeding). Past Surgical History: Reports: (culposcopy). Alcohol Use Alcohol use (15 or more drinks per w [place]) Drug Use Denies recreational drugs Smoking status for patients 13 years old or olde r: Current every day smoker Physical Exam Vital Signs Vital Signs First Documented: Result Date Time Pulse Ox 100 05/08 1009 B/P 153/96 05/08 1009 B/P Mean 115 05/08 1009 O2 Delivery Room air 05/08 1009 Temp 36.2 05/08 1009 Pulse 95 05/08 1009 Resp 20 05/08 1009 Last Documented: Result Date Time Pulse Ox 99 05/08 1401 B/P 138/84 05/08 1401 B/P Mean 102 05/08 1401 O2 Delivery Room air 05/08 1401 Temp 36.5 05/08 1401 Pulse 87 08/ 1401 Resp 16 05/08 1401 Review of Vital Signs Reviewed Basic Physical Exam Basic PE HEAD: Atraumatic/NC, EYES: PERRL, conj clear, ENT: Membranes moist, NECK: Supple, EXT: No gross abnormality, SKIN: No rashes, warm/dry, NEURO: alert oriented, NEURO: gross movement NL, PSYCH: NL thought content Focused PE General/Const General/Const Awake, Alert Distress/Hydration Distress mild. Resp/Chest Respiratory/Chest Breath sounds NL, Breath soun ds = bilat, No respiratory distress, No rales, No rhonchi, No wheezing, No retractions Cardiovascular Cardiovascular Heart rate NL, Regular rhythm, H eart sounds NL, No gallop, No murmurs, No rubs, Cap refill not delayed Abdomen/GI Abdomen/GI Soft Tenderness/Guarding/Rebound Tender diffuse, Guarding voluntary. Negative: T jhony RUQ, Tender LUQ, Tender RLQ, Tender LLQ, Tender epigastric, Tender periu mbilical, Tender suprapubic, Tender flank R, Tender flank L, Cohen's sign positive, McBurney's point tender, Guarding involuntary, Rebound localized, Rebound diffuse, Rigid to palpation. MS Back Back Inspection NL, Full range of motion, Painl ess range of motion, Non- tender, No midline vertebral tend, No muscle spa sm Interpretation Diagnostics Lab Results Interpretation Results Laboratory Tests 05/08/20 1030: [Embedded Image Not Available] Laboratory Tests: 05/08 05/08 1030 1030 Chemistry Sodium (135 - 145 mmol/L) 142 Potassium (3.5 - 5.1 mmol/L) 3.4 L Chloride (98 - 107 mmol/L) 110 H Carbon Dioxide (21 - 32 mmol/L) 27 Anion Gap (2.0 - 16.0) 8.4 BUN (4 - 23 mg/dL) 12 Creatinine (0.6 - 1.5 mg/dL) 0.6 Glomerular Filtr Rate (>60 ml/min) >=60 max est imate BUN/Creatinine Ratio (12.0 - 20.0) 20.0 Glucose (65 - 99 mg/dL) 144 H Calcium (8.5 - 10.1 mg/dL) 8.7 Total Bilirubin (0.2 - 1.2 mg/dL) 0.3 Direct Bilirubin (0.0 - 0.3 mg/dL) 0.1 Indirect Bilirubin (0.0 - 0.8 mg/dL) 0.2 AST (15 - 37 U/L) 81 H ALT (6 - 50 U/L) 94 H Total Alk Phosphatase (45 - 117 U/L) 111 Total Protein (6.4 - 8.2 g/dL) 6.9 Albumin (3.4 - 5.0 g/dL) 3.6 Globulin (2.3 - 3.5 g/dL) 3.3 Triglycerides (0 - 149 mg/dL) 39 Cholesterol (0 - 200 mg/dL) 111 LDL Cholesterol Measurd (0 - 100 mg/dL) 52 HDL Cholesterol (40 - 60 mg/dL) 51 Cholesterol/HDL Ratio (1 - 6) 2 Lipase (73 - 393 U/L) 122 Serum HCG, Qual (NEGATIVE) NEGATIVE Hematology WBC (4.5 - 11.0 10 3/uL) 14.0 H RBC (3.50 - 5.50 10 6/uL) 4.32 Hgb (12.0 - 16.0 g/dL) 14.1 Hct (37.0 - 55.0 %) 41.7 MCV (81 - 102 fL) 97 MCH (26.0 - 34.0 pg) 32.6 MCHC (31.0 - 37.0 g/dL) 33.8 RDW (11.5 - 14.5 %) 11.6 Plt Count (150 - 400 10 3/uL) 231 MPV (9.0 - 12.6 fL) 9.1 Neut % (Auto) (33.0 - 76.0 %) 89.9 H Lymph % (Auto) (14.0 - 56.4 %) 4.6 L Menard % (Auto) (0.0 - 12.9 %) 4.1 Eos % (Auto) (0.0 - 7.0 %) 0.5 Baso % (Auto) (0 - 2.0 %) 0.3 Neut # (Auto) (1.5 - 7.0 10 3/uL) 12.60 H Lymph # (Auto) (1.50 - 4.00 10 3/uL) 0.65 L Menard # (Auto) (0.20 - 0.80 10 3/uL) 0.58 Eos # (Auto) (0.0 - 0.5 10 3/uL) 0.07 Baso # (Auto) (0.0 - 0.1 10 3/uL) 0.04 Abs Immat Gran (auto) (0.000 - 0.100 x10 3/uL) 0.090 Immature Gran % (0.0 - 1.0 %) 0.6 Nucleated RBC % (0 - 0.2 %) 0.0 08/06 08/06 1108 1310 Chemistry Lactic Acid (0.4 - 2.0 mmol/L) 1.9 Serology Nasal/Oral COVID-19 PCR (Negative) Negative Urines Urine Color (YELLOW) STRAW Urine Appearance (CLEAR) CLEAR Urine pH (5.0 - 8.0) 6.0 Ur Specific [place] (1.005 - 1.025) 1.025 Urine Protein (NEGATIVE) NEGATIVE Urine Glucose (UA) (NEGATIVE) NEGATIVE Urine Ketones (NEGATIVE) NEGATIVE Urine Blood (NEGATIVE) NEGATIVE Urine Nitrite (NEGATIVE) NEGATIVE Urine Bilirubin (NEGATIVE) NEGATIVE Urine Urobilinogen (0.1 - 0.2 EU/dL) NEGATIVE Ur Leukocyte Esterase (NEGATIVE) NEGATIVE Urine RBC (0 - 3 /hpf) NONE SEEN Urine WBC (0 - 3 /hpf) 0-2 Ur Squamous Epith Cells (FEW /HPF) RARE Urine Bacteria (NEGATIVE /HPF) RARE Hyaline Casts (NONE SEEN /lpf) 2-5 Urine Mucus (/lpf) OCCASIONAL Microbiology: Date/Time Procedure - Status Source Growth 05/08 1310 Blood Culture - RECD BLOOD 05/08 1300 Blood Culture - RECD BLOOD Recent Impressions: CAT SCAN - CT ABD PELVIS W/CONT 05/08 1205 Report Impression - Status: SIGNED Entered: 05/08/2020 1249 IMPRESSION: 1. Findings suggesting acute sigmoid colon diver ticulitis with abnormal mural thickening and surrounding infilt ration. There is further air within the sigmoid mesocolon and tra cking into the retroperitoneum which is atypical. There is smal l fluid in the left paracolic gutter and tracking into the pelvis. N o organized abscess is otherwise seen. 2. Fatty infiltration of the liver. 3. Small perihepatic ascites. Impression By: Matilda - Ivan Jose MD Lab Imaging Statement Laboratory radiographic studies reviewed and con sidered in the medical decision-making. Re-Evaluation MDM Free Text MDM Notes Free Text MDM Notes 44-year-old female presents the ER with above-st ated complaints, lab work reviewed, slightly elevated white count 14 and m ildly elevated liver enzymes, otherwise unremarkable. CT of the abdomen shows acute diverticulitis with perforation the air in the peritoneum. Patient w as admitted to the hospital, started on Zosyn, spoke with Dr. PENA and Dr. Kwesi harrison regarding admission and plan of care. Staffed with [facility] ED Course Medication(s) Ordered Medication(s) Ordered: Anti-Infective Agents Sig/Charlotte Start time Last Medication Dose Route Stop Time Status Admin Piperacillin Sod/ 3.375 GM Q8H 05/08 2038 DC Tazobactam Sod IV 05/09 203 Sodium Chloride 100 ML Piperacillin Sod/ 3.375 GM X1ED STA 05/08 1238 DC 05/08 Tazobactam Sod IV 05/08 1307 1324 Sodium Chloride 100 ML Antihistamine Drugs Sig/Charlotte Start time Last Medication Dose Route Stop Time Status Admin Promethazine HCl 25 MG Q4H PRN PRN 05/08 1353 A C PO 06/07 0152 Promethazine HCl 25 MG X1ED STA 05/08 1312 DC 0 05/08 Sodium Chloride 50 ML IV 05/08 1341 1323 Central Nervous System Agents Sig/Charlotte Start time Last Medication Dose Route Stop Time Status Admin Acetaminophen 650 MG Q4H PRN PRN 05/08 1353 AC 08/ PO 06/07 0152 0003 Morphine Sulfate 4 MG Q4H PRN PRN 05/08 1353 AC 05/09 IV 05/18 0152 0543 Ketorolac 30 MG X1ED STA 05/08 1024 DC 05/08 Tromethamine IV 05/08 1025 1111 Diagnostic Agents Sig/Charlotte Start time Last Medication Dose Route Stop Time Status Admin Iopamidol 0 .STK-MED ONE 05/08 1204 DC .ROUTE Electrolytic, Caloric, And Richard Sig/Charlotte Start time Last Medication Dose Route Stop Time Status Admin Sodium Chloride 1,000 ML .[id number] 05/08 1400 DC IV 05/09 0152 Sodium Chloride 1,000 ML X1ED STA 05/08 1024 D C 05/08 IV 05/08 1025 1111 Gastrointestinal Drugs Sig/Charlotte Start time Last Medication Dose Route Stop Time Status Admin Ondansetron HCl 4 MG Q4H PRN PRN 05/08 1400 AC IV 06/07 0152 Patient Discharge Departure Vital Signs/Condition Vital Signs First Documented: Result Date Time Pulse Ox 100 08/06 1009 B/P 153/96 08/06 1009 B/P Mean 115 08/06 1009 O2 Delivery Room air 08/ 1009 Temp 36.2 08/06 1009 Pulse 95 08/06 1009 Resp 20 08/06 1009 Last Documented: Result Date Time Pulse Ox 99 08/06 1401 B/P 138/84 08/06 1401 B/P Mean 102 08/06 1401 O2 Delivery Room air 08/ 1401 Temp 36.5 08/06 1401 Pulse 87 08/06 1401 Resp 16 08/06 1401 All vital signs available at the time of this en try have been reviewed. Clinical Impression Clinical Impression Primary Impression: Bowel perforation Secondary Impressions: Diverticulitis Disposition Decision Admit Admit Physician Name Balta Bey Jr, MD Admit Physician Hospitalist Request Time 1356 Request Date 05/08/20 )( Admission Accepts Yes )( Accepted Time 1356 )( Accepted Date 05/08/20 Discharge/Care Plan Counseled Regarding Diagnosi s, Lab results, Imaging studies, Need for admission Referrals No Primary or Family Physician (PCP/Family) Admit Note I have spoken with the patie nt and/or caregivers. I have explained the patient's condition, diagnoses and caremn atment plan based on the information available to me at this time. I have answered the patient's and/ or caregiver's questions and addressed any concerns. The patient and/or careg marli have as good an understanding of the patient 's diagnosis, condition and treatment plan as can be expected at this point. The patient has been stabilized within the capability of the emergency department. The patient wi ll be transported for further care and management or will be moved to an observation or inpatient service. I have communicated with the staff or medical p michael taking over this patient's care. Chrissie Gordon 05/09/20 0732: HPI-Abd Pain F 40 and Over General Initial Greet Date/Time 05/08/20 1007 Patient Discharge Departure Supervising Physician Note MidLv/Doc Saw Pt 2 I have personally interviewed and examined the p atient. All charts, labs, and imaging studies were reviewe d. I agree with this PA/turfgrass technician findings, exam and plan. at 1658 at 0733 RPT #:[id number] END OF REPORT 2020-05-08 10:36:00-00:00 [id number] [facility] [address] [facility] [id number] PATIENT NAME: ALETHEA STREET ADMIT DATE: 03/22 ACCOUNT NO: [id number] ROOM NO: [id number] AGE: 44 REPORT TYPE: eELECTROCARDIOGRAM SEX: F ADMITTING PHYSICIAN:Balta Bey Jr, MD ATTENDING PHYSICIAN:Balta Bey Jr, MD Order: [id number] Test Reason : Test Date/Time Stamp: TueMay 08 2020 10:36:46 Blood Pressure : / mmHG Vent. Rate : 089 BPM Atrial Rate : 089 BPM P-R Int : 159 ms QRS Dur : 090 ms QT Int : 367 ms P-R-T Axes : 040 058 036 degree s QTc Int : 447 ms Sinus rhythm Borderline T abnormalities, anterior leads Confirmed by GUS SHELDON MD ([id number]) on 0 4:05:32 PM Referred By: Self Referred Confirmed by:GUS ARNOLD MD Electronically Signed by Gus Sheldon MD on 0 05/08/20 at 1605 [facility] [id number] [facility] [id number] PATIENT NAME: [address]LE[address] [id number] 1930-12-20 23:15:00-00:[address] [facility] [place] [place] ([facility]) EMERGENCY PROVIDER REPORT REPORT#:[id number] REPORT STATUS: Signed DATE:09/21/19 TIME: 2314 PATIENT: ALETHEA STREET UNIT #: [id number] ROOM: BED: AGE: 43 SEX: F PCP PHYS: No Primary or Family Ph ysician SERVICE AUTHOR: Brian Lazcano MD * ALL edits or amendments must be made on the [employer] document * HPI- Female General Initial Greet Date/Time 09/21/192143 Presentation Chief Complaint Vaginal bleeding Hx Obtained From Patient )( Sudden in Onset? No Symptom Duration Lasting weeks Progression since Onset Waxes and wanes Free Text HPI Notes Free Text HPI Notes Patient is a 43-year-old female that presents to the emergency room with approximately a 16-day period. Patient states th at she has had significant dysfunctional uterine bleeding and has had both a biopsy and a colposcopy. Patient reports benign tissu e cells and known fibroids. Patient has been unable to see her health care coordinator and is currently not on any control pills Review of Systems ROS Statements All systems rev neg except as marked. Basic Review of Systems Basic ROS EYES: No redness, RESP: No SOB , CV: No chest pain, HEM: No bleeding/ bruising, PSYCH: NL thought content Past Medical History - Adult Stated Complaint VAGINAL BLEEDING/WEAKNESS Allergies Coded Allergies: buspirone (From BUSPAR) (Severe, HIVES/RASH 09/03 ) Past Medical History: Reports: Hypertension, (vaginal bleeding). Past Surgical History: Reports: (culposcopy). Physical Exam Vital Signs Vital Signs First Documented: Result Date Time Pulse Ox 99 09/21 2145 B/P 164/109 09/21 2145 B/P Mean 127 09/21 2145 O2 Delivery Room air 09/21 2145 Temp 36.9 09/21 2145 Pulse 88 09/21 2145 Resp 18 09/21 2145 Last Documented: Result Date Time Pulse Ox 99 09/21 2145 B/P 164/109 09/21 2145 B/P Mean 127 09/21 2145 O2 Delivery Room air 09/21 2145 Temp 36.9 09/21 2145 Pulse 88 09/21 2145 Resp 18 09/21 2145 Review of Vital Signs Reviewed Basic Physical Exam Basic PE GEN: Well appearing /NAD, HEAD: Atraumatic/NC, EYES: PERRL, conj clear, ENT: Membranes moist, NECK: Supple, RESP: No res p distress, CV: Reg rate rhythm, ABD: Soft/non-tender, EXT: No gr oss abnormality, NEURO: alert oriented , NEURO: gross movement NL, PSYCH: NL thought co ntent Focused PE Skin Skin Warm, Dry, Intact, Turgor NL Interpretation Diagnostics Lab Results Interpretation Results Laboratory Tests 09/21/192219: [Embedded Image Not Available] Laboratory Tests: 09/21 Chemistry Sodium (135 - 145 mmol/L) 140 Potassium (3.5 - 5.1 mmol/L) 3.6 Chloride (98 - 107 mmol/L) 107 Carbon Dioxide (21 - 32 mmol/L) 31 Anion Gap (2.0 - 16.0) 5.6 BUN (4 - 23 mg/dL) 11 Creatinine (0.6 - 1.5 mg/dL) 0.7 Glomerular Filtr Rate (60 - 115 ml/min) >=60 ma x estimate BUN/Creatinine Ratio (12.0 - 20.0) 15.7 Glucose (65 - 99 mg/dL) 113 H Calcium (8.5 - 10.1 mg/dL) 8.9 HCG, Quant (0 - 3 mIU/mL) < 1 Hematology WBC (4.5 - 11.0 10 3/uL) 7.9 RBC (3.50 - 5.50 10 6/uL) 4.34 Hgb (12.0 - 16.0 g/dL) 14.2 Hct (37.0 - 55.0 %) 41.4 MCV (81 - 102 fL) 95 MCH (26.0 - 34.0 pg) 32.7 MCHC (31.0 - 37.0 %) 34.3 RDW (11.5 - 14.5 %) 11.2 L Plt Count (150 - 400 10 3/uL) 283 MPV (9.0 - 12.6 fl) 9.3 Neut % (Auto) (33.0 - 76.0 %) 70.4 Lymph % (Auto) (14.0 - 56.4 %) 18.6 Menard % (Auto) (0.0 - 12.9 %) 6.1 Eos % (Auto) (0.0 - 7.0 %) 3.8 Baso % (Auto) (0 - 2.0 %) 0.5 Neut # (Auto) (1.5 - 7.0 10 3/uL) 5.58 Lymph # (Auto) (1.50 - 4.00 10 3/uL) 1.47 L Menard # (Auto) (0.20 - 0.80 10 3/uL) 0.48 Eos # (Auto) (0.0 - 0.5 10 3/uL) 0.30 Baso # (Auto) (0.0 - 0.1 10 3/uL) 0.04 Immature Gran % (0.0 - 1.0 %) 0.6 Nucleated RBC % (0 - 0.2 %) 0.0 Lab Statement Laboratory studies reviewed and considered in th e medical decision-making. Re-Evaluation MDM Free Text MDM Notes Free Text MDM Notes Hemoglobin stable here in the emergency room Will give a dose of progesterone until s he can follow-up with her health care coordinator Patient is blood pressure is elevated but she sa ys that she has not taken her blood pressure medicines in 2 nights and took a decongestant tonight which may have raised her blood pressure artificially. Patient will take her p.o. night medicines when she is discharged. Stable for discharge ED Course Medication(s) Ordered Medication(s) Ordered: Electrolytic, Caloric, And Richard Sig/Charlotte Start time Last Medication Dose Route Stop Time Status Admin Sodium Chloride 1,000 ML X1ED STA 09/214 DC IV 09/21 2243 Hormones And Synthetic Substit Sig/Charlotte Start time Last Medication Dose Route Stop Time Status Admin Progesterone 100 MG ONCE ONE 09/22 15 DC PO 09/22 16 Patient Discharge Departure Vital Signs/Condition Vital Signs First Documented: Result Date Time Pulse Ox 99 09/21 2145 B/P 164/109 09/21 2145 B/P Mean 127 09/21 2145 O2 Delivery Room air 09/21 2145 Temp 36.9 09/21 2145 Pulse 88 09/21 2145 Resp 18 09/21 2145 Last Documented: Result Date Time Pulse Ox 99 09/21 2145 B/P 164/109 09/21 2145 B/P Mean 127 09/21 2145 O2 Delivery Room air 09/21 2145 Temp 36.9 09/21 2145 Pulse 88 09/21 2145 Resp 09/21 All vital signs available at the time of this en try have been reviewed. Condition Critical Clinical Impression Clinical Impression Primary Impression: Dysfunctional uterine bleedi ng Secondary Impressions: Hypertension Disposition Decision Discharge )( Discharged to Home Yes )( Time 34 )( Date 09/22/19 Discharge/Care Plan Discharge Note I have spoken with the patie nt and/or caregivers. I have explained the patient's condition, diagnoses and carmen atment plan based on the information available to me at this time. I have answered the patient's and/ or caregiver's questions and addressed any concerns. The patient and/or careg marli have as good an understanding of the patient 's diagnosis, condition and treatment plan as can be expected at this point. The vital signs have bee n stable. The patient's condition is stable and appr opriate for discharge from the emergency department. The patient will pursue further outpatient evalu ation with the primary care physician or other designated or consulting phys ician as outlined in the discharge instructions. The patient and/or caregivers are agreeable to this plan of care and follow-up instructions have been exp lained in detail. The patient and/or caregivers have received these instructio ns in written format and have expressed an understanding of the discharge inst ructions. The patient and/or caregivers are aware that any significant change in condition or worsening of symptoms should prompt an immediate return to [facility] or the closest emergency department or a call to 911. Electronically Signed by Brian Lazcano MD on 09/03 10/21 at 0036 RPT #:[id number] END OF REPORT
[2023-05-16] MEDS ORDERED: TETRACAINE HCL 0.5% 4ML OPTH ONE (21:46)
[2023-05-16] MEDS ORDERED: FLUORESCEIN SODIUM 1 MG/WRAP ONE (21:46)
[2023-05-16] MEDS ORDERED: GENTAMICIN 0.3% OPTH DROP 5ML ONE (21:46)
--- NOTE | 2023-05-16 21:53 | EDPHYS ---
Physician Documentation [facility] Name: Monse Comer Age: 47 yrs Sex: Female : 1975 Arrival Date: 05/16/2023 Time: 21:11 Bed IW2 Private MD: ED Physician Felix Turcios HPI: 05/16 21:13 This 47 yrs old Female presents to ER via Unassigned with complaints of Eye sp4 Pain, Eye Problem. 21:31 Left eye pain two days, after scratch by a kitten . sp4 21:48 Patient states that 2 days ago her left eye was scratched by a stray kitten. Patient sp4 since then has developed small hemorrhage to the left lateral cornea and pain associated with some reported discharge from the eye. Patient is here for eye exam . No other complaint. . 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 - Social history:: Smoking status: Patient reports the use of cigarette tobacco products, a few. - Family history:: not pertinent. ROS: 21:48 Constitutional: Negative for fever, chills, and weight loss, Eyes: Positive for left sp4 eye injury, left eye redness, left eye pain, left eye discharge 21:48 All other systems are negative. Exam: 21:48 Constitutional: This is a well developed, well nourished patient who is awake, alert, sp4 and in no acute distress. Head/Face: Normocephalic, atraumatic. Eyes: Pupils equal round and reactive to light, extra-ocular motions intact. Lids and lashes normal. Conjunctiva and sclera are not injected. There is small left lateral subconjunctival hemorrhage. Fluorescein dye exam reveals a left conjunctival abrasions without left corneal abrasion or corneal ulcer. Visual acuity is normal, visual roman are normal, right exam of the right eye is unremarkable. ENT: Nares patent. No nasal discharge, no septal abnormalities noted. Tympanic membranes are normal and external auditory canals are clear. Oropharynx with no redness, swelling, or masses, exudates, or evidence of obstruction, uvula midline. Mucous membranes moist. Neck: Trachea midline, no thyromegaly or masses palpated, and no cervical lymphadenopathy. Supple, full range of motion without nuchal rigidity, or vertebral point tenderness. Chest/axilla: Normal chest wall appearance and motion. Nontender with no deformity. No lesions are appreciated. Cardiovascular: Regular rate and rhythm with a normal S1 and S2. No gallops, murmurs, or rubs. Normal PMI, no JVD. No pulse deficits. Respiratory: Lungs have equal breath sounds bilaterally, clear to auscultation and percussion. No rales, rhonchi or wheezes noted. No increased work of breathing, no retractions or nasal flaring. Abdomen/GI: Soft, non-tender, with normal bowel sounds. No distension or tympany. No guarding or rebound. No evidence of tenderness throughout. Back: No spinal tenderness. No costovertebral tenderness. Skin: Warm, dry with normal turgor. Normal color with no rashes, no lesions, and no evidence of cellulitis. MS/ Extremity: Pulses equal, no cyanosis. Neurovascular intact. Full, normal range of motion. Neuro: Awake and alert, GCS 15, oriented to person, place, time, and situation. Cranial nerves II-XII grossly intact. Motor strength 5/5 in all extremities. Sensory grossly intact. Psych: Awake, alert, with orientation to person, place and time. Behavior, mood, and affect are within normal limits Vital Signs: 21:48 BP 125 / 83; Pulse 86; Resp 15; Temp 97.1; Pulse Ox 98% ; Weight 52.16 kg; Height 5 ft. vc1 4 in. ; Pain 6/10; 21:48 Body Mass Index 19.74 (52.16 kg, 162.56 cm) vc1 21:48 Pain Scale: Adult vc1 MDM: 21:32 Patient medically screened. sp4 21:48 Differential Diagnosis Left eye corneal abrasion, left eye conjunctival abrasion, left sp4 a corneal ulcer, subconjunctival hemorrhage. Data reviewed: vital signs, nurses notes, old medical records. ED course: There is small conjunctival irritation and abrasion on the left side and left small subconjunctival hemorrhage. Otherwise exam is normal. No sign of purulence on exam. Patient will be given gentamicin eyedrops every 4 hours for 5 days.. 05/16 21:31 Order name: Eye Tray; Complete Time: 22:00 sp4 05/16 21:31 Order name: Fluoresene Opth strip; Complete Time: 22:00 sp4 Administered Medications: 22:00 Drug: Tetracaine Ophthalmic Drops 0.5 % 1 drops {Note: administered by Dr. Turcios.} vc1 Route: Ophthalmic; Site: both eyes; 22:03 Drug: Gentamicin Ophthalmic Drops 0.3 % 2 drops {Note: administered by Dr. Turcios.} vc1 Route: Ophthalmic; Site: left eye; Disposition Summary: 05/16/23 21:52 Discharge Ordered Location: Home sp4 Problem: new sp4 Symptoms: have improved sp4 Condition: Stable sp4 Diagnosis - Conjunctival hemorrhage, left eye sp4 - Injury of conjunctiva and corneal abrasion without foreign body, left eye sp4 - Left conjunctival abrasion, left subconjunctival hemorrhage, left eye conjunctivitissp4 Followup: sp4 - With: Mario Thomason MD - When: 2 - 3 days - Reason: Recheck today's complaints Discharge Instructions: - Discharge Summary Sheet sp4 - Bacterial Conjunctivitis, Adult, [id number] sp4 Prescriptions: - Gentamicin 0.3 % Ophthalmic Drops - instill 2 drops by OPHTHALMIC route every 4 hours for 5 days 2 drops every 4 sp4 hours bilateral eyes for 5 days; 5 milliliter; Refills: 0, Product Selection Permitted Signatures: Delfina Bass RN RN vc1 Felix Turcios MD MD sp4
--- NOTE | 2023-05-16 22:04 | ER ---
Nurse's Notes [facility] Name: Monse Comer Age: 47 yrs Sex: Female : 1975 Arrival Date: 05/16/2023 Time: 21:11 Bed IW2 Private MD: Diagnosis: Conjunctival hemorrhage, left eye;Injury of conjunctiva and corneal abrasion without foreign body, left eye;Left conjunctival abrasion, left subconjunctival hemorrhage, left eye conjunctivitis Presentation: 05/16 21:48 Chief complaint: Patient states: My cat scratched my eye. vc1 21:48 Coronavirus screen: Vaccine status: Patient reports being unvaccinated. Ebola Screen: vc1 Patient negative for fever greater than or equal to 101.5 degrees Fahrenheit, and additional compatible Ebola Virus Disease symptoms Patient denies exposure to infectious person. Patient denies travel to an Ebola-affected area in the 21 days before illness onset. No symptoms or risks identified at this time. Mechanism of Injury: scratch by cat. The patient denies any loss of vision. Initial Sepsis Screen: Does the patient meet any 2 criteria? No. Patient's initial sepsis screen is negative. Does the patient have a suspected source of infection? No. Patient's initial sepsis screen is negative. Risk Assessment: Do you want to hurt yourself or someone else? Patient reports no desire to harm self or others. Onset of symptoms was May 16, 2023. 21:48 Method Of Arrival: Ambulatory vc1 21:48 Acuity: JERRY 4 vc1 Triage Assessment: 21:58 General: Appears in no apparent distress. comfortable, Behavior is calm, cooperative, vc1 appropriate for age. Pain: Complains of pain in left eye Pain does not radiate. Pain currently is 2 out of 10 on a pain scale. at worst was 6 out of 10 on a pain scale. Quality of pain is described as burning. EENT: Sclera/Cornea w/ abrasion noted on outer aspect of conjuctiva of left eye. Neuro: No deficits noted. Cardiovascular: No deficits noted. Respiratory: No deficits noted. GI: No deficits noted. :. Derm: No deficits noted. Musculoskeletal: No deficits noted. 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 - Social history:: Smoking status: Patient reports the use of cigarette tobacco products, a few. - Family history:: not pertinent. Screenin:58 [facility] ED Fall Risk Assessment (Adult) History of falling in the last 3 months, vc1 including since admission No falls in past 3 months (0 pts) Confusion or Disorientation No (0 pts) Intoxicated or Sedated No (0 pts) Impaired Gait No (0 pts) Mobility Assist Device Used No (0 pt) Altered Elimination No (0 pt) Score/Fall Risk Level 0 - 2 = Low Risk Oriented to surroundings, Maintained a safe environment, Educated pt \T\ family on fall prevention, incl call for assistance when getting out of bed. Abuse screen: Denies threats or abuse. Nutritional screening: No deficits noted. Tuberculosis screening: No symptoms or risk factors identified. Assessment: 22:00 EENT: Eyes are tearing on inner aspect of conjuctiva of right eye and inner aspect of vc1 conjunctiva of left eye Sclera/Cornea are reddened in outer aspect of conjuctiva of left eye, iris of left eye and inner aspect of conjunctiva of left eye w/ abrasion noted on outer aspect of conjuctiva of left eye. Vital Signs: 21:48 BP 125 / 83; Pulse 86; Resp 15; Temp 97.1; Pulse Ox 98% ; Weight 52.16 kg; Height 5 ft. vc1 4 in. ; Pain 6/10; 21:48 Body Mass Index 19.74 (52.16 kg, 162.56 cm) vc1 21:48 Pain Scale: Adult vc1 ED Course: 21:12 Patient arrived in ED. ag3 21:13 Felix Turcios MD is Attending Physician. sp4 21:51 Mario Thomason MD is Referral Physician. sp4 21:56 Delfina Bass RN is Primary Nurse. vc1 21:57 Triage completed. vc1 21:58 Arm band placed on right wrist. vc1 21:59 Assist provider with eye exam of both eyes. using fluorescein stain, Performed by vc1 Felix Turcios MD Patient tolerated well. Patient did not have IV access during this emergency room visit. Administered Medications: 22:00 Drug: Tetracaine Ophthalmic Drops 0.5 % 1 drops {Note: administered by Dr. Turcios.} vc1 Route: Ophthalmic; Site: both eyes; 22:03 Drug: Gentamicin Ophthalmic Drops 0.3 % 2 drops {Note: administered by Dr. Turcios.} vc1 Route: Ophthalmic; Site: left eye; Medication: 21:59 VIS not applicable for this client. vc1 Outcome: 21:52 Discharge ordered by . [email or web address] 21:59 Discharged to home ambulatory. vc1 21:59 Condition: good 21:59 Discharge instructions given to patient, Instructed on discharge instructions, follow up and referral plans. medication usage, Demonstrated understanding of instructions, follow-up care, medications, Prescriptions given X 1. 22:03 Patient left the ED. vc1 Signatures: Yazmin Moseley Vanessa, RN RN vc1 Felix Turcios MD MD sp4
[2023-05-16 22:14] VITALS: BP 125/83; TEMP 97.1; O2SAT 98
== END 2023-05-16 22:03 | disposition home or self-care (01) ==
LOC: ER 21:11
DX: H11.32 Conjunctival hemorrhage, left eye (principal); S05.02XA Injury of conjunctiva and corneal abrasion without foreign body, left eye, initial encounter; W55.03XA Scratched by cat, initial encounter; H10.89 Other conjunctivitis; H57.12 Ocular pain, left eye; Z72.0 Tobacco use

== ENCOUNTER 2023-06-06 15:02 | Emergency (ER) | payer OTHER ==
--- OUTSIDE RECORDS SUMMARY | 2023-06-06 15:08 | XMS REPORT | Continuity of Care Document ---
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 2018-07-04 Outpatient [facility] [id number] [place] 08:47:36 08:47:36 [facility] 2018-06-30 2018-06-30 Outpatient [facility] [id number] [place] 00:00:00 00:00:00 [facility] 2018-06-30 2018-06-30 Outpatient [facility] [id number] [place] 00:00:00 00:00:00 [facility] 2018-06-30 2018-06-30 Outpatient [facility] [id number] [place] 00:00:00 00:00:00 [facility] 2018-06-29 2018-06-29 Outpatient [facility] [id number] [place] 00:00:00 00:00:00 [facility] 2018-06-27 2018-06-27 Outpatient [facility] [id number] [place] 00:00:00 00:00:00 [facility] 2018-06-26 2018-06-26 Outpatient [facility] [id number] [place] 00:00:00 00:00:00 [facility] 2018-06-22 2018-06-22 Outpatient [facility] [id number] [place] 00:00:00 00:00:00 [facility] 2018-06-20 2018-06-20 Outpatient [facility] [id number] [place] 00:00:00 00:00:00 [facility] 2018-06-20 2018-06-20 Outpatient [facility] [id number] [place] 00:00:00 00:00:00 [facility] 2018-06-14 2018-06-14 Outpatient [facility] [id number] [place] 09:51:58 09:51:58 [facility] 2018-06-14 2018-06-14 Outpatient [facility] [id number] [place] 09:12:21 09:12:21 [facility] 2018-06-02 2018-06-02 Outpatient [facility] [id number] [place] 00:00:00 00:00:00 [facility] 2018-05-31 2018-05-31 Outpatient [facility] [id number] [place] 10:22:37 10:22:37 [facility] 2018-05-30 2018-05-30 Outpatient [facility] [id number] [place] 00:00:00 00:00:00 [facility] 2018-05-25 2018-05-25 Outpatient [facility] [id number] [place] 08:51:23 08:51:23 [facility] 2018-05-19 2018-05-19 Outpatient [facility] [id number] [place] 00:00:00 00:00:00 [facility] 2018-05-16 2018-05-16 Outpatient [facility] [id number] [place] 00:00:00 00:00:00 [facility] 2018-05-11 2018-05-11 Outpatient [facility] [id number] [place] 09:47:57 09:47:57 [facility] 2017-01-16 2017-01-17 Emergency [facility], [facility] [id number] [place] [address] 00:00:00 00:00:00 [facility] 2016-07-02 2016-07-02 Emergency [facility] [id number] [place] 00:00:00 00:00:[address] 2015-12-23 2015-12-23 Emergency [facility] [id number] [place] 00:00:00 00:00:[address] 2015-12-22 2015-12-22 Emergency [place] [id number] [place] 00:00:00 00:00:[address] 2015-12-18 2015-12-19 Emergency [place], [facility] [id number] [place] 00:00:00 00:00:00 [place] [address] Results Test Description Test Time Test Comments Results Result Comments Source OCCULT BLD,FECAL,IMMUNOASSAY DIAG 2023-03-15 12:58:12 Test Item Value Reference Range Interpretation Comme nts OCCULT BLD, FECAL (test code NEGATIVE NEGATIVE UNLESS OTHERWISE INDICATED, ALL = 23996) TESTING PERFORM ED AT CLINICAL PATHOLOGY FOR[facility]LY [facility], [facility]. [address] [place] [address] REGIONAL OFFICE COORDINATOR: LILIA RAO M.D. CLIA NUMBER [id number] CAP ACCREDITATION N O. [id number] NOTE:2023-03-04 06:01:48 Test Item Value Reference Range Interpretation Comments NOTE: (test code = (NOTE) IN ACCOR DANCE WITH FEDERAL 998) GUIDELINES REQU IRING ALL VERBAL REQUESTS FOR LABORATORY TEST S TO BE ACCOMPANIED BY WRITTEN AUTHORIZATION W ITHIN 30 DAYS OF THIS REQUEST , PLEASE SIGN BELOW AND RETUR N A COPY OF THIS REPORT BY FAX TO THE LABORATORY SCAN ROSLYN DEPARTMENT AT . PHYSICIAN'S SIG NATURE DATE UNLESS OTHERWISE INDIC ATED, ALL TESTING PERFORM ED AT CLINICAL PATHOL [facility] [place]. [address] [place] [address] 1 3774 LABORATORY DIRE CTOR: FELY PINEDA M.D. CLIA NUMBER [id number] CAP ACCREDITATION N O. [id number] FOLLICLE STIM [id number] 03:46:48 Test Item Value Reference Range Interpretation Comments FOLLICLE STIM 42.4 IU/L SEE BELOW EXPEC TO VALUES HORMONE (test code FOR FSH F OR FEMALES >17 = 2700) YEARS F OLLICULAR 3.5-12.5 IU/L M ID-CYCLE PEAK 4.7-21.5 I U/L LUTEAL PHASE 1. 7-7.7 IU/L POSTMENOPAUSAL 25.8-134.8 IU/L FOLIC [id number] 06:09:14 Test Item Value Reference Range Interpretation Comments FOLIC ACID (test >20.0 UG/L SEE BELOW INTE RPRETIVE code = 2695) RANGES DE FICIENCY . . . . . . . . . . . . . . . UG/L <4.0 POS SIBLE DEFICIENCY. . . . . . . . . . . UG/L 4.0- 5.9 SUFFICIENT . . . . . . . . . . . . . . . UG/L >=6.0 VITAMIN D, 25 [id number] 06:08:52 Test Item Value Reference Range Interpretation [...] TESTING PERFORM ED AT CLINICAL PATHOLOGY LABOR [facility] [address] [facility] [place] [address] LABORATORY DIRE CTOR: Donnie RIVAS ROM NUMBER [id number] [place]. [id number] COMPREHENSIVE METABOLIC [id number] 04:51:39 Test Item Value Reference Range Interpretation Comments GLUCOSE (test code = 128 MG/DL 70-99 H 2216) BUN (test code = 9 MG/DL 03-22) CREATININE (test 0.77 MG/DL 0.60-1.30 code = 221) eGFR (2020 CKD-EPI) 95 ML/MIN/1.73 >60 (test code = 37877) CALC BUN/CREAT (test 12 RATIO 6-28 code = 2235) SODIUM (test code = 141 MEQ/L 550-570 2332) POTASSIUM (test code 4.4 MEQ/L 3.5-5.4 = 2227) CHLORIDE (test code 104 MEQ/L 95-107 = 2214) CARBON DIOXIDE (test 25 MEQ/L 19-31 code = 220) CALCIUM (test code = 9.8 MG/DL 8.5-10.5 2208) PROTEIN, TOTAL (test 6.7 G/DL 6.1-8.3 code = 2228) ALBUMIN (test code = 4.2 G/DL 3.5-5.2 2200) CALC GLOBULIN (test 2.5 G/DL 1.9-3.7 code = 2239) CALC A/G RATIO (test 1.7 RATIO 1.0-2.6 code = 2233) BILIRUBIN, TOTAL 0.4 MG/DL See_Comment [Automated message] (test code = 220) The syste m which generated this result transmit to reference range : <=1.2. The refe rence range was not u sed to interpret th is result as normal/abnormal . ALKALINE PHOSPHATASE 159 U/L 40-123 H (test code = 220) AST (test code = 18 U/L 9-40 2217) ALT (test code = 13 U/L 5-40 2218) LIPID [id number] 04:51:39 Test Item Value Reference Range Interpretation [...] MOREINFORMATION , SEE CLIENT ANNOUNCE MENT AT [email or web address] [email or web address] RATIO LDL/HDL 1.67 RATIO <3.22 (test code = 2238) HEMOGLOBIN [id number] 03:31:24 Test Item Value Reference Range Interpretation Comments HEMOGLOBIN A1c (test 6.2 % 4.2-5.6 H AMERIC AN DIABETES code = 37744) ASSOCIATION IDELINES FOR HGB A1C: PREDIABETES/INC REASED [...] TESTING OR LABORATORY C ONSULTATION. CBC W/AUTO [id number] 09:04:00 Test Item Value Reference Range Interpretation [...] 1.4 10e3/mm3 0.2-1.1 H MX#) URINALYSIS DIPSTICK [id number] 19:26:00 Test Item Value Reference Range Interpretation [...] YES NEEDED? (test code = UAMICRO) UA [id number] 19:26:00 Test Item Value Reference Range Interpretation Comments UA WBC (test code = WBCU) 0-3 /HPF 0-3 UA RBC (test code = RBCU) 0-3 /HPF 0-3 UA BACTERIA (test code = BACU) NONE SEEN /HPF NONE SEEN UA SQUAMOUS CELLS (test code = RARE /HPF NONE-FEW SQU) UA MUCUS (test code = MUCU) RARE /LPF NONE-FEW DRUGS OF ABUSE SCREEN [id number] 18:32:00 Test Item Value Reference Range Interpretation [...] code = TRICYCU) Neg NEGATIVE COMPREHENSIVE METABOLIC [id number] 18:31:00 Test Item Value Reference Range Interpretation [...] 42-141 N (test code = ALKP) HCG [id number] 18:06:00 Test Item Value Reference Range Interpretation [...] 48 hours toconfirm . PAP TEST, THINPREP, [id number] 08:51:56 Test Item Value Reference Range Interpretation Comments SOURCE: (test code = Cervical/End 800) ocervical SLIDES: (test code = 1 8011) LMP: (test code = 11/15/2021 8021) SPECIMEN ADEQUACY: (NOTE) Satisfac tory for (test code = 45274) evaluati on. Endocervical cells/transform ation zone component present. INTERPRETATION: (test ASCUS/EPITH. A ------ code = 35367) ABNORMALITY; -------- SEE BELOW ------- ---- EPITHE LIAL CELL ABNORMALIT Y Atypical squamo us cells of undete rmined significance (ASC-US)------- ------- ------- ------- VAULT MAKER: Vicente (test code = 8101) CANDE Tinajero(A [facility]) IAC PATHOLOGIST James Paiz INTERPRETATION BY: (test code = 8122) LOCATION: (test code (NOTE) Specime ns processed at = [address]) [facility] [employer], [address] [facility] [place] [address], Phone: , CLIA: [id number] interpreted at [facility] PathVIPTALON [facility], [address] [place],Pathology Department [address] [place], [place] Set on [facility], [place] [address], Phone: , CLIA: [id number] CPT: (test code = (NOTE) 39582, 881 41 UNLESS 8140) OTHERWISE INDIC ATED, [...] consolidated pr ior Pap history is avai lable as applicable. HPV HIGH RISK WITH GENOTYPE, [id number] 19:58:58 Test Item Value Reference Range Interpretation Comments HPV HIGH RISK INTERP POSITIVE NEGATIVE A (test code = 12582) HPV 16 (test code = NEGATIVE 17522) HPV 18 (test code = NEGATIVE 35255) HPV, HR, OTHER POSITIVE A Testing meth odology is GENOTYPES (test code real-ti me PCR utilizing = 79396) hydrolysis prob es with the SpiceCSMas 4800 system. The subhash t individually de tects genotypes 16 an d 18, as well as the oth er 12 high risk types (31,33,35,39,45 ,51,52,56 ,58,59,66,68). The expected result is negative. A neg ative result does not rule out the presence of HPV not included in the genotype set, a low leve l of infection or sp ecimen sampling error. [facility] has important p athology staff changes e ffective 12/01/2022. New pathology staff will provide uninter rupted, excellent patie nt care and clinical consultation. S ee URL: [email or web address]. UNLESS OTHERWISE INDICATED, ALL TESTING PERFORMED AT [facility] PATHOLOG[facility] [employer] [facility]. [address] [place] [address] CLIA : [id number], CAP : SJOGREN'S SS-A AND SS-B [id number] 06:14:16 Test Item Value Reference Range Interpretation Comments SJOGREN'S SS-A ANTIBODY (test code = 0.5 AI <1.0 61139) SJOGREN'S SS-B ANTIBODY (test code = <0.2 AI <1.0 62590) BECERRIL (Sm) [id number] 06:14:16 Test Item Value Reference Range Interpretation Comments BECERRIL (Sm) ANTIBODY (test code = <0.2 AI <1.0 63636) DNA DS ANTIBODY REFLEX [id number] 06:14:16 Test Item Value Reference Range Interpretation Comments dsDNA ANTIBODY (test <1.0 SEE BELOW NEGATI VE . . . . . . . . code = 13435) . . . . . . IU /ML <=4.9 INDETERMINATE. . . . . . . . . . . . IU/ML 5.0-9.0 POSITIVE . . . . . . . . . . . . . . IU/ML >=10.0 dsDNA ANTIBODY REFLEX (NOTE) NEGATIVE NOTE: REFLEX CRITERIA NOT (test code = 76781) MET FOR DNA DOUBLE STRANDED ANTIBO DY BY LUCITA METHOD. UNLESS OTHERWISE INDICATED, ALL TESTING PERFORMED [facility] PATHOLOGY [facility] [employer] [facility]. [address] [place] [address] VANESSA TREJO DIRECTOR: GIOVANNI HALEY M.D. CLIA NUMBER [id number] CAP ACCREDITATION N O. [id number] 20:53:00 Test Item Value Reference Range Interpretation Comments GLUBED (test 163 mg/dL 70-105 H Intravenous adm inistration code = GLUBED) of N-acetylcy steine which resultsin blood concentrations >5 mg/dL will cause overestim ationof blood glucose results . Do not use during intraven ousinfusion of N'acetylcyst eine. Lipid 1995 panel - Serum or [id number] 09:06:00 Test Item Value Reference Range Interpretation [...] (test code = non HDL (calc) cholesterol) [facility] - Serum or Plasma 2021-08-01 09:06:00 Test Item Value Reference Range Interpretation Comments glucose (test code 108 mg/dL 65-99 H = glucose) urea nitrogen (BUN) 12 mg/dL 7-25 (test code = urea nitrogen (BUN)) creatinine (test 0.65 mg/dL 0.50-1.10 code = creatinine) eGFR non-afr. 106 mL/min/1.73m2 See_Comment [Automat ed guinean (test code message] The = eGFR non-afr. system which guinean) generated this result transmit to reference range : > or = 60. The reference range was not used to interpret this result as normal/abnormal . eGFR 123 mL/min/1.73m2 See_Comment [Automate d guinean (test code message] The = eGFR system which guinean) generated this result transmit to reference range [...] (test code = 12 U/L 6-29 ALT) [facility] Auto Differential panel - [id number] 09:06:00 Test Item Value Reference Range Interpretation [...] MPV) 10.3 fL 7.5-12.5 absolute neutrophils (test 97212 cells/uL 9983-5396 H code = absolute neutrophils) absolute lymphocytes [...] 3.80-5.10 code = red blood cell count) [facility] [Units/volume] in Serum or [id number] 09:06:00 Test Item Value Reference Range Interpretation Comments TSH (test code = TSH) 0.93 mIU/L [facility] Hospital[facility]avpoflo42-Ftarjbnqchxpuk D3+25-Hydroxyvitamin D2 [Mass/volume] in Serum or [id number] 09:06:00 Test Item Value Reference Range Interpretation Comments vitamin D,25-oh,total,ia (test code 105 NG/mL 30-100 H = vitamin D,25-oh,total,ia) comment (test code = comment) [facility] A[facility]/Hemoglobin.total in [id number] 09:06:00 Test Item Value Reference Range Interpretation Comments Hemoglobin 5.2 % of total HGB <5.7 A1c/Hemoglobin.total in Blood (test code = 4548-4) [facility] [id number] 10:03:00 Test Item Value Reference Range Interpretation Comments SURGICAL SPECIMENS (test code = SURG) RUN DATE: 09/16/20 [facility] LAB *LIVE* PAGE 1 RUN TIME: 1003 Specimen Inquiry RUN USER: INTERFACE PATIENT: ALETHEA STREET LOC: ND.SRG U #: [id number] AGE/SX: 44/F ROOM: RE09/15/20[facility]: Sudha Acosta MD : 73 BED: DIS: STATUS: [facility] TLOC: SPEC #: [id number] RECD: 09/15/20-1139 STATUS: CHUCK FRANKLIN #: [id number] ALEN: 09/15/20-[address]: Sudha Acosta MD ENTERED: 09/15/20-114 SP TYPE: SURG OTHR DR: DOES_NOT KNOW [...] COLD SNARE: - TUBULAR ADENOMA (1) CPT: 45428 x3 GROSS DESCRIPTION Clinical history: Diverticulitis Three [...] END OF REPORT DRUGS OF ABUSE SCREEN [id number] 08:52:00 Test Item Value Reference Range Interpretation [...] code = Negative NEGATIVE PHENCU) UR HCG [id number] 07:00:00 Test Item Value Reference Range Interpretation Comments UR HCG QUAL (test code = HCGQLU) NEGATIVE NEGATIVE Novel Coronavirus [id number] 14:51:00 Test Item Value Reference Range Interpretation [...] miguel information.Subhash ting was performed using the Draft SARS-CoV -2 assay.This nucl eic acid amplification t est was developed and itsperformance characteristics determined by [employer] vargas. Nucleic acid amplification t ests include PCRand [...] bravo gnosis of COVID-19 infect ion under pqblecf451(b)(1 ) of the Act, 21 U.S.C. 360bbb-3(b) [...] resul t in this assay.Performed At: [facility] [address] [id number] alexys Escobar MD Ph:[phone] Novel Coronavirus [id number] 13:11:00 Test Item Value Reference Range Interpretation [...] was developed and itsperformance characteristics determined by [employer]fuldillonfermin kaye. Nucleic acid amplification t ests include [...] bravo gnosis of COVID-19 infect ion under pnlczwi426(b)(1 ) of the Act, 21 U.S.C. 360bbb-3(b) [...] t in this assay.Performed At: [facility] [address] [id number] alexys Escboar MD Ph:[phone] BASIC METABOLIC [id number] 19:56:00 Test Item Value Reference Range Interpretation [...] mg/dL 8.5-10.1 N = CA) CBC W/AUTO [id number] 19:39:00 Test Item Value Reference Range Interpretation [...] 0.06 10 3/uL 0.0-0.1 N COMPREHENSIVE METABOLIC [id number] 07:37:00 Test Item Value Reference Range Interpretation [...] PHOSPHATASE (test code = ALKP) CBC W/AUTO [id number] 06:29:00 Test Item Value Reference Range Interpretation [...] N - CT ABD PELVIS W WO [id number] 08:30:00Patient Name: ALETHEA STREET Unit No: [id number] EXAMS: CPT CODE: [id number] CT ABD PELVIS W WO CONT 50247 CLINICAL HISTORY: DIVERTICULOSIS TECHNIQUE: Axial images of [...] The portal vein is Name: ALETHEA STREET [facility] Phys: Carol Welch [address] : 1975 Age: 44 Sex: [place] [address] Loc: NC.6307 1 Exam Date: 06/20/2020 Status: ADM IN PH: FAX: PAGE 1 Signed Report (CONTINUED) Patient Name: ALETHEA STREET Unit No: [id number] EXAMS: CPT CODE: [id number] CT ABD PELVIS W WO CONT 47094 (Continued) patent. No evidence of ascites. Abdominal wall is intact. No significant bone lesions. IMPRESSION: 1. Interval impr ovement in the complicated sigmoid diverticulitis noted. Overall [...] Ana Laura Pulido CTDI: 8.44 DLP: 750.8 Trs cr Dt/Tm: 06/20/2020 (0830) by:[email or web address] Electronic Signature Date/Time: 06/20/2020 (829)Orig Print D/T: S: 06/20/2020 (0833) Name: [address]LETHEA [address] [facility] Phys: Carol Welch [address] : 1975 Age: 44 Sex: [place] [address] Loc: NC.6307 1 Exam Date: 06/20/2020 Status: ADM IN PH: FAX: PAGE 2 Signed Report BASIC METABOLIC [id number] 06:07:00 Test Item Value Reference Range Interpretation [...] mg/dL 8.5-10.1 N = CA) CBC W/AUTO [id number] 05:33:00 Test Item Value Reference Range Interpretation [...] = BA#) 0.03 10 3/uL 0.0-0.1 N [id number] 13:19:00 Test Item Value Reference Range Interpretation Comments GLUBED (test 78 mg/dL 65-99 N Intravenous adm inistration of code = GLUBED) N-acetylcyste ine which resultsin blood concentrations >5 mg/dL will cause overestim ationof blood glucose results . Do not use during intraven ousinfusion of N'acetylcystein e. [id number] 08:10:00 Test Item Value Reference Range Interpretation Comments GLUBED (test 84 mg/dL 65-99 N Intravenous adm inistration of code = GLUBED) N-acetylcyste ine which resultsin blood concentrations >5 mg/dL will cause overestim ationof blood glucose results . Do not use during intraven ousinfusion of N'acetylcystein e. HGBA1C - GLYCOSYLATED [id number] 05:46:00 Test Item Value Reference Range Interpretation Comments GLYCOSYLATED HEMOGLOBIN (HA1C) (test 5.6 4.5-5.9 N code = GLYHGB) COMPREHENSIVE METABOLIC [id number] 05:01:00 Test Item Value Reference Range Interpretation [...] 45-117 N PHOSPHATASE (test code = ALKP) [id number] 05:01:00 Test Item Value Reference Range Interpretation Comments MAGNESIUM (test code = MAG) 2.2 mg/dL 1.8-2.4 N CBC W/AUTO [id number] 04:53:00 Test Item Value Reference Range Interpretation [...] 10 3/uL 0.0-0.1 N Coronavirus 2019 nCoV [id number] 17:57:00 Test Item Value Reference Range Interpretation Comments Coronavirus 2019 Negative Negative This test h ad not been nCoV Bedside (test FDA clear ed or approved; code = [id number]) This te sthas been authorized by F [...] and/o r diagnosis of CO VID-19 under Wrdjrve50 4(b)(1) of the Act, 21 U.S .C. [...] = LDLC) 95 mg/dL 0-100 N LACTIC [id number] 16:27:00 Test Item Value Reference Range Interpretation Comments LACTIC ACID (test code = LACT) 1.3 mmol/L 0.4-2.0 N PROTHROMBIN [id number] 16:24:00 Test Item Value Reference Range Interpretation [...] and/or recurren t systemicemboliz ation. THROMBOPLASTIN TIME [id number] 16:24:00 Test Item Value Reference Range Interpretation Comments THROMBOPLASTIN TIME PARTIAL 29.5 SECONDS 25.1-36.5 N (test code = PTT) BASIC METABOLIC [id number] 15:37:00 Test Item Value Reference Range Interpretation [...] DATE OF LAST MENSTRUAL PERIOD: 05/29/20LIVER FUNCTION [id number] 15:37:00 Test Item Value Reference Range Interpretation [...] = ALKP) DATE OF LAST MENSTRUAL PERIOD: 05/29/[id number] 15:37:00 Test Item Value Reference Range Interpretation Comments LIPASE (test code = LIP) 127 U/L 73-393 N DATE OF LAST MENSTRUAL PERIOD: 05/29/20HCG SERUM [id number] 15:37:00 Test Item Value Reference Range Interpretation Comments HCG SERUM QUAL (test code = HCGQL) NEGATIVE NEGATIVE DATE OF LAST MENSTRUAL PERIOD: 05/29/20BASIC METABOLIC [id number] 15:31:00 Test Item Value Reference Range Interpretation [...] DATE OF LAST MENSTRUAL PERIOD: 05/29/20LIVER FUNCTION [id number] 15:31:00 Test Item Value Reference Range Interpretation [...] 45-117 ALKP) DATE OF LAST MENSTRUAL PERIOD: 05/29/[id number] 15:31:00 Test Item Value Reference Range Interpretation Comments LIPASE (test code = LIP) U/L 73-393 DATE OF LAST MENSTRUAL PERIOD: 05/29/20HCG SERUM [id number] 15:31:00 Test Item Value Reference Range Interpretation Comments HCG SERUM QUAL (test code = HCGQL) NEGATIVE NEGATIVE DATE OF LAST MENSTRUAL PERIOD: 05/29/20UA RFLX MICR CULT IF [id number] 15:25:00 Test Item Value Reference Range Interpretation [...] /lpf Indication for culture: Suprapubic PainCBC W/AUTO [id number] 15:19:00 Test Item Value Reference Range Interpretation [...] 3/uL 0.0-0.1 N - CT ABD PELVIS [id number] 10:25:00Patient Name: ALETHEA STREET Unit No: [id number] EXAMS: CPT CODE: [id number] CT ABD PELVIS [id number] EXAM: CT ABDOMEN AND PELVIS WITH CONTRAST [...] image 56). There is a Name: ALETHEA STREET [facility] [place] [address] : 1975 Age: 44 [place]: [place] [address] Loc: ND.CTSII Exam Date: 06/13/2020 Status: REG CLI PH: FAX: PAGE 1 Signed Report (CONTINUED) Patient Name: ALETHEA STREET Unit No: [id number] EXAMS: CPT CODE: [id number] CT ABD PELVIS W/CONT 41128 (Continued) another fluid collection which may be [...] collections are noted at the inflamed loop ofsigmoid colon as described above. Minimal amount of [...] Melody Cooper M.D. CC: Sudha Acosta MD Technologist:Richelle Han CTDI: 10.12 DLP: 480 Trscr Dt/Tm: 06/13/2020 (1025) by:[email or web address] Electronic Signature Date/Time: 06/13/2020 (1025)Orig Print D/T: S: 06/13/2020 (1028) Name: ALETHEA STREET [facility] [place]: [place] [address] : 1975 Age: 44 Sex: [place] [address] Loc: NC.CTSII Exam Date: 06/13/2020 Status: REG CLI PH: FAX: PAGE 2 Signed ReportAB HEPATITIS A [id number] 20:14:00 Test Item Value Reference Range Interpretation Comments AB HEPATITIS A IGM (test code = Non-Reactive NONREACTIVE HAVMAB) AG HEPATITIS B [id number] 20:14:00 Test Item Value Reference Range Interpretation Comments AG HEPATITIS B SURFACE (test Non-Reactive NONREACTIVE code = HBSAG) AB HEPATITIS B CORE [id number] 20:14:00 Test Item Value Reference Range Interpretation Comments AB HEPATITIS B CORE IGM (test Non-Reactive NONREACTIVE code = HBCMAB) AB HEPATITIS [id number] 20:14:00 Test Item Value Reference Range Interpretation Comments AB HEPATITIS C (test code = Non-Reactive NONREACTIVE HCVAB) HIV 1 2 COMBO AG/AB [id number] 20:14:00 Test Item Value Reference Range Interpretation Comments HIV 1 2 COMBO Non-Reactive NONREACTIVE [facility] HIV Ag/Ab AG/AB SCREEN Combo (CHIV) as say is (test code = anin-vitro diag nostic [id number]) immunoassay for the simultaneousqua litative detection of hu man immunodeficienc y virus n34abutdwa and antibodies to human immunodef iciency virusestype 1 ( including group "O") and type 2. COMPREHENSIVE METABOLIC [id number] 19:23:00 Test Item Value Reference Range Interpretation [...] N PHOSPHATASE (test code = ALKP) PROTHROMBIN [id number] 19:12:00 Test Item Value Reference Range Interpretation [...] and/or recurren t systemicemboliz ation. THROMBOPLASTIN TIME [id number] 19:12:00 Test Item Value Reference Range Interpretation Comments THROMBOPLASTIN TIME PARTIAL 33.4 SECONDS 25.1-36.5 N (test code = PTT) CBC W/AUTO [id number] 19:00:00 Test Item Value Reference Range Interpretation [...] = BA#) 0.03 10 3/uL 0.0-0.1 N [id number] 12:11:00 Test Item Value Reference Range Interpretation Comments GLUBED (test code = GLUBED) 87 mg/dL 65-99 N [id number] 08:28:00 Test Item Value Reference Range Interpretation Comments GLUBED (test code = GLUBED) 173 mg/dL 65-99 H BASIC METABOLIC [id number] 07:21:00 Test Item Value Reference Range Interpretation [...] mg/dL 8.5-10.1 L = CA) CBC W/O [id number] 07:19:00 Test Item Value Reference Range Interpretation [...] = PLT) 241 10 3/uL 150-400 N [id number] 21:12:00 Test Item Value Reference Range Interpretation Comments GLUBED (test code = GLUBED) 111 mg/dL 65-99 H [id number] 16:51:00 Test Item Value Reference Range Interpretation Comments GLUBED (test code = GLUBED) 112 mg/dL 65-99 H [id number] 12:32:00 Test Item Value Reference Range Interpretation Comments GLUBED (test code = GLUBED) 130 mg/dL 65-99 H CBC W/O [id number] 06:36:00 Test Item Value Reference Range Interpretation [...] 182 10 3/uL 150-400 N BASIC METABOLIC [id number] 06:10:00 Test Item Value Reference Range Interpretation [...] code 8.5 mg/dL 8.5-10.1 N = CA) [id number] 05:25:00 Test Item Value Reference Range Interpretation Comments GLUBED (test code = GLUBED) 130 mg/dL 65-99 H [id number] 23:38:00 Test Item Value Reference Range Interpretation Comments GLUBED (test code = GLUBED) 125 mg/dL 65-99 H CBC W/AUTO [id number] 19:13:00 Test Item Value Reference Range Interpretation [...] = BA#) 0.05 10 3/uL 0.0-0.1 N [id number] 17:45:00 Test Item Value Reference Range Interpretation Comments GLUBED (test code = GLUBED) 112 mg/dL 65-99 H PROTHROMBIN [id number] 15:06:00 Test Item Value Reference Range Interpretation [...] and/or recurren t systemicemboliz ation. THROMBOPLASTIN TIME [id number] 15:06:00 Test Item Value Reference Range Interpretation Comments THROMBOPLASTIN TIME PARTIAL 29.8 SECONDS 25.1-36.5 N (test code = PTT) [id number] 11:28:00 Test Item Value Reference Range Interpretation Comments GLUBED (test code = GLUBED) 143 mg/dL 65-99 H LACTIC [id number] 09:32:00 Test Item Value Reference Range Interpretation Comments LACTIC ACID (test code = LACT) 0.9 mmol/L 0.4-2.0 N BASIC METABOLIC [id number] 06:08:00 Test Item Value Reference Range Interpretation [...] code = 8.0 mg/dL 8.5-10.1 L CA) [id number] 05:53:00 Test Item Value Reference Range Interpretation Comments GLUBED (test code = GLUBED) 148 mg/dL 65-99 H CBC W/O [id number] 05:26:00 Test Item Value Reference Range Interpretation [...] = PLT) 163 10 3/uL 150-400 N [id number] 23:51:00 Test Item Value Reference Range Interpretation Comments GLUBED (test code = GLUBED) 127 mg/dL 65-99 H [id number] 18:23:00 Test Item Value Reference Range Interpretation Comments GLUBED (test code = GLUBED) 166 mg/dL 65-99 H - CT ABD PELVIS W WO [id number] 15:37:00Patient Name: ALETHEA STREET Unit No: [id number] EXAMS: CPT CODE: [id number] CT ABD PELVIS W WO CONT 48401 EXAM: - CT ABD PELVIS W WO [...] Wisely. COMPARISON: 05/08/2020 FINDINGS: Hepatobiliary: The liver isnormal without focal lesion. The gallbladder is normal. [...] no abnormalities. Remote right rib fractures. Name: JADALETHEAMaribel ROBLES [facility] Phys: TAMMY Pena,Carol [place] [address] : 1975 Age: 44 Sex: [place] [address] Loc: NC.4302 1 Exam Date: 05/10/2020 Status: ADM IN PH: FAX: PAGE 1 Signed Report (CONTINUED) Patient Name: ALETHEA STREET PALLAVI Unit No: [id number] EXAMS: CPT CODE: [id number] CT ABD PELVIS W WO CONT 19814 (Continued) IMPRESSION: 1. Redemonstration of perforated sigmoid [...] Fritz Paiz MD CC: Self Referred; Carol Pnea MD; Balta Bey Jr, MD Technologist: Eugenie Pena; Andrés Bradley CTDI: 8.81 DLP: 881.9 Trscr Dt/Tm: 05/10/2020 (1537) by:[email or web address] Electronic Signature Date/Time: 05/10/2020 (1537)Orig Print D/T: S: 05/10/2020 (0740) Name: ALETHEA STREET [facility] [place] Phys: TAMMY Pena,Carol Walton [address] : 1975 Age: 44 Sex: [place] [address] Loc: NC.4302 1 Exam Date: 05/10/2020 Status: ADM IN PH: FAX: PAGE 2 [id number] 11:35:00 Test Item Value Reference Range Interpretation Comments GLUBED (test code = GLUBED) 180 mg/dL 65-99 H BASIC METABOLIC [id number] 08:33:00 Test Item Value Reference Range Interpretation Comments SODIUM (test code 138 mmol/L 135-145 N = NA) POTASSIUM (test 2.9 mmol/L 3.5-5.1 LL Critical Daniel ue code = K) reported toFirs t Name:FRANCI crawley Name:RIKA Truong EAD BACK AND EVE EDby NCLAB.JG, on 05/10/20, @ 083 2. CHLORIDE [...] mg/dL 8.5-10.1 L = CA) CBC W/O [id number] 07:37:00 Test Item Value Reference Range Interpretation [...] = PLT) 174 10 3/uL 150-400 N [id number] 06:37:00 Test Item Value Reference Range Interpretation Comments GLUBED (test code = GLUBED) 158 mg/dL 65-99 H [id number] 00:18:00 Test Item Value Reference Range Interpretation Comments GLUBED (test code = GLUBED) 157 mg/dL 65-99 H [id number] 20:49:00 Test Item Value Reference Range Interpretation Comments GLUBED (test code = GLUBED) 121 mg/dL 65-99 H [id number] 18:02:00 Test Item Value Reference Range Interpretation Comments GLUBED (test code = GLUBED) 125 mg/dL 65-99 H [id number] 12:01:00 Test Item Value Reference Range Interpretation Comments GLUBED (test code = GLUBED) 146 mg/dL 65-99 H [id number] 08:06:00 Test Item Value Reference Range Interpretation Comments GLUBED (test code = GLUBED) 188 mg/dL 65-99 H [id number] 06:18:00 Test Item Value Reference Range Interpretation Comments GLUBED (test code = GLUBED) 166 mg/dL 65-99 H COMPREHENSIVE METABOLIC [id number] 06:13:00 Test Item Value Reference Range Interpretation [...] 45-117 N PHOSPHATASE (test code = ALKP) [id number] 06:13:00 Test Item Value Reference Range Interpretation Comments MAGNESIUM (test code = MAG) 1.0 mg/dL 1.8-2.4 L HGBA1C - GLYCOSYLATED [id number] 06:08:00 Test Item Value Reference Range Interpretation Comments GLYCOSYLATED HEMOGLOBIN (HA1C) (test 5.4 4.5-5.9 N code = GLYHGB) CBC W/AUTO [id number] 05:56:00 Test Item Value Reference Range Interpretation [...] = BA#) 0.04 10 3/uL 0.0-0.1 N [id number] 23:58:00 Test Item Value Reference Range Interpretation Comments GLUBED (test code = GLUBED) 249 mg/dL 65-99 H [id number] 20:11:00 Test Item Value Reference Range Interpretation Comments GLUBED (test code = GLUBED) 134 mg/dL 65-99 H [id number] 17:53:00 Test Item Value Reference Range Interpretation [...] = LDLC) 52 mg/dL 0-100 N LACTIC [id number] 13:51:00 Test Item Value Reference Range Interpretation Comments LACTIC ACID (test code = LACT) 1.9 mmol/L 0.4-2.0 N Coronavirus 2019 nCoV [id number] 13:43:00 Test Item Value Reference Range Interpretation Comments Coronavirus 2019 Negative Negative This test h ad not been nCoV Bedside (test FDA clear ed or approved; code = KAIVO97CCVUM) This te sthas been authorized by F [...] and/o r diagnosis of CO VID-19 under Jbegowm81 4(b)(1) of the Act, 21 U.S .C. 360bbb-3(b)(1), unless theauthorizatio n is terminated or r evoked sooner. Is patient requiring admission or transfer? YIndication for rapid COVID-9 testing: Mod Clinical SuspicionUA RFLX MICR CULT IF [id number] 12:47:00 Test Item Value Reference Range Interpretation [...] Indication for culture: Dysuria/Frequency- CT ABD PELVIS [id number] 12:46:00Patient Name: ALETHEA STREET Unit No: [id number] EXAMS: CPT CODE: [id number] CT ABD PELVIS W/CONT 01954 EXAM: - CT ABD PELVIS W/CONT Location: A1 INDICATION: abd pain COMPARISON: None Technique: Axial images of the abdomen, and pelvis were obtained after the administration of 95 mL Isovue 300 intra venous contrast. Coronal and sagittal reformatted images were [...] dilatation. Gallbladder: No visualized abnormality.. Spleen: No visualized abnormality.. Pancreas: No visualized abnormality.. Adrenals: No visualized abnormality..Kidneys: No visualized abnormality.. Bowel: Diverticula are present within the descending and sigmoid colon with abnormal mural thickening of the sigmoid colon suggesting acute diverticulitis. There is large amount of free air within the sigmoid mesocolon and further air dissecting into the retroperitoneum which is atypical. There is no bowel obstruction. Normal caliber appendix is seen in the rightlower quadrant. Small bowel loops are normal in caliber. The stomach and gastroesophageal junction are within normal limits Vessels: Minimal calcified plaque within the abdominal aorta. No aneurysmal dilatation.. Lymph nodes: No lymphadenopathy. Peritoneum/retroperitoneum: As mentioned above, there isair within Name: ALETHEA STREETH [facility] Phys: Scarlet Bernal HEALTH CARE FACILITIES INSPECTOR [address] : 1975 Age: 44 Sex: [place] [address] Loc: [facility] Exam Date: 05/08/2020 Status: REG ER PH: FAX: PAGE 1 Signed Report (CONTINUED) Patient Name: ALETHEA STREET Unit No: [id number] EXAMS: CPT CODE: [id number] CT ABD PELVIS W/CONT 20721 (Continued) the sigmoid m esocolon as well as tracking into the retroperitoneum [...] Date/Time: 05/08/2020 (1246)Orig Print D/T: S: 05/08/2020 (5323) Name: ALETHEA ST[address]ET [facility] [place]: [place] [address] : 1975 Age: 44 Sex: [place] [address] Loc: [place].[facility] Exam Date: 05/08/2020 Status: REG ER PH: FAX: PAGE 2 Signed ReportBASIC METABOLIC [id number] 11:08:00 Test Item Value Reference Range Interpretation [...] DATE OF LAST MENSTRUAL PERIOD: 05/07/20LIVER FUNCTION [id number] 11:08:00 Test Item Value Reference Range Interpretation [...] = ALKP) DATE OF LAST MENSTRUAL PERIOD: 05/07/[id number] 11:08:00 Test Item Value Reference Range Interpretation Comments LIPASE (test code = LIP) 122 U/L 73-393 N DATE OF LAST MENSTRUAL PERIOD: 05/07/20HCG SERUM [id number] 11:08:00 Test Item Value Reference Range Interpretation Comments HCG SERUM QUAL (test code = HCGQL) NEGATIVE NEGATIVE DATE OF LAST MENSTRUAL PERIOD: 05/07/20BASIC METABOLIC [id number] 10:58:00 Test Item Value Reference Range Interpretation [...] DATE OF LAST MENSTRUAL PERIOD: 05/07/20LIVER FUNCTION [id number] 10:58:00 Test Item Value Reference Range Interpretation [...] 45-117 ALKP) DATE OF LAST MENSTRUAL PERIOD: 05/07/[id number] 10:58:00 Test Item Value Reference Range Interpretation Comments LIPASE (test code = LIP) U/L 73-393 DATE OF LAST MENSTRUAL PERIOD: 05/07/20HCG SERUM [id number] 10:58:00 Test Item Value Reference Range Interpretation Comments HCG SERUM QUAL (test code = HCGQL) NEGATIVE NEGATIVE DATE OF LAST MENSTRUAL PERIOD: 05/07/20CBC W/AUTO [id number] 10:50:00 Test Item Value Reference Range Interpretation [...] BA#) 0.04 10 3/uL 0.0-0.1 N HCG [id number] 23:03:00 Test Item Value Reference Range Interpretation [...] DATE OF LAST MENSTRUAL PERIOD: 09/21/18BASIC METABOLIC [id number] 22:51:00 Test Item Value Reference Range Interpretation [...] mg/dL 8.5-10.1 N = CA) CBC W/AUTO [id number] 22:26:00 Test Item Value Reference Range Interpretation [...] 3/uL 0.0-0.1 N - US TRANSVAGINAL NON [id number] 20:10:00 [facility] : 1975 Sex: FPatient Name: ALETHEA STREET Unit No: [id number] EXAMS: CPT: [id number] [place] [address] Pelvic sonogram, 01/22/2019. Clinical: Pain. Comment: The [...] Artie Oneill Jr, MD Technologist: TUAN PATEL Probe:[id number] Trscr Dt/Tm: 01/22/2019 (2009) by:[email or web address] Orig Print D/T: S: 01/22/2019 (2012) BATCH NO: N/A Name: ALETHEA STREET [facility] Emergency Dept Phys: [place] [address] [address] 1975 Age: 43 [place] [address] Loc: [facility] Exam Date: 01/22/2019Status: JESSICA PH: [phone] FAX: PAGE 1 Signed Report- US PELVIC [id number] 20:10:00[facility] : 1975 Sex: FPatient Name: ALETHEA STREET Unit No: [id number] EXAMS: CPT: [id number] US PELVIC COMPLETE 10373 Pelvic sonogram, 01/22/2019. Clinical: Pain. Comment: The [...] (2012) BATCH NO: N/A Name: ALETHEA ST[address]ET [facility] Emergency Dept Phys: Geraldo Hester PA-C [address] [facility] : 1975 Age: 43 Sex: F [place] [address] Loc: [facility] Exam Date: 01/22/2019 Status: [facility] PH: [phone] FAX: PAGE 1 Signed Report- CT ABD PELVIS [id number] 18:31:00[facility] : 1975 Sex: FPatient Name: ALETHEA STREET Unit No: [id number] EXAMS: CPT: [id number] CT ABD PELVIS W/CONT [address]702 CT ABDOMEN WITH CONTRAST: CT PELVIS WITH CONTRAST: HISTORY: Abdominal pain COMPARISON: None available. CONTRAST: Isovue-300, 100mL, IV.; No gastrointestinal contrast. FINDINGS: The liver, spleen, pancreas, adrenal g lands and kidneys appear normal. The gallbladder is normal in appearance and there is no evidence ofbiliary dilatation. No lymphadenopathy, mass or fluid collection is seen. The SMV, portal vein and splenic veins are widely patent. The SMA, celiac axis and JASBIR are also widely patent. The abdominal aorta is normal in caliber. No bowel dilatation or wall thickening is present. No inflammatory processis noted in the abdomen or pelvis. The appendix is normal in appearance. No free intraperitoneal airis seen. The lung bases are clear. No hernias are noted. The urinary bladder, uterus and adnexa appear normal. The uterus is retroverted. IMPRESSION: Normal CT of the abdomen and pelvis. DLP: 368.58 mGy*cm CT radiation dose optimization is achieved for this examination by the use of a CT protocol in accordance with ACR practice guidelines and adherence to dough cutter's recommendations. at 1831 Reported and signed by: Westley Hernandze MD CC: Geraldo Renae Technologist: DARREN GARCIA CTDI: 6.96 DLP: 368.58 Trs Dt/Tm: 01/22/2019 (183) by:[email or web address] Orig Print D/T: S: 01/22/2019 (1834) BATCH NO: N/A Name: ALETHEA ST[address]ET [facility] Phys: Geraldo Hester PA-C [address] [facility] : 1975 Age: 43 Sex: [place] [address] [facility] No: [id number] Loc: JESSICA Exam Date: 01/22/2019 Status: JESSICA PH: [phone] FAX: PAGE1 Signed ReportCT, [id number] 23:06:00Reason for exam:- >ABDOMINAL PAINIs the patient ?->NoWhat is the patient's sedation requirement?->No SedationFINAL REPORT CT OF THE ABDOMEN AND [...] MDReport Verified Date/Time: 07/21/2017 23:06:24 Reading Location[facility] B1 C013W Consult Reading Room U/S, ABDOMINAL, [id number] 21:33:00Abdomen limited area? Add comment if clarification [...] MDReport Verified Date/Time: 07/21/2017 21:33:04 Reading Location: [address] Reading Room [facility] HOS[facility]ITALOMPREHENSIVE METABOLIC [id number] 18:41:00 Test Item Value Reference Range Interpretation [...] S NOT APPLICABLE FOR DIALYSIS PATIEN TS. [id number] 18:39:00 Test Item Value Reference Range Interpretation Comments LIPASE (BEAKER) (test code = 749) 42 U/L 6-51 URINALYSIS W/ [id number] 18:29:00 Test Item Value Reference Range Interpretation [...] code = 1663) SOURCE(BEAKER) (test code = 1395) CBC W/PLT COUNT & AUTO [id number] 18:21:00 Test Item Value Reference Range Interpretation [...] L 0.00-0.20 (test code = 417) SCREEN, [id number] 18:18:00 Test Item Value Reference Range Interpretation Comments TEST URINE (BEAKER) (test Negative code = 583) Notes Date/Time Note Provider Source 2022-12-31 18:12:00-00:00 [facility] ([facility] EMERGENCY PROVIDER REPORT REPORT#:[id number] REPORT STATUS: Signed DATE:12/31/22 TIME: 1811 PATIENT: ALETHEA STREET UNIT #: [id number] ROOM: BED: AGE: 47 SEX: F PCP PHYS: Sudha Acosta MD SERVICE AUTHOR: Kelsey Ponce MD * ALL edits or amendments must be made on the Comeet/Folloyu document * HPI-General Illness General Initial Greet [...] feel sick. Patient states she lives is [place] and doesn 't want to go on [...] use (15 or more drinks per w [place]) Drug Use Denies recreational drugs Smoking status for patients 13 years old or olde r: Former Smoker Physical Exam Vital Signs Vital Signs First Documented: Result Date Time Pulse Ox 99 12/31 174 B/P 122/96 01/01 1748 B/P Mean 104 01/01 1748 Temp 37.0 01/01 1748 Pulse 99 01/01 1748 Resp 17 01/01 1748 Last Documented: Result Date Time Pulse Ox 99 12/31 1748 B/P 122/96 01/01 1748 B/P Mean 104 01/01 1748 Temp 37.0 01/01 1748 Pulse 99 01/01 1748 Resp 17 01/01 1748 Review of [...] pH (4.5 - 8.5) 5.0 Ur Specific [place] (1.000 - 1.030) <=1.005 Urine Protein (NEGATIVE) [...] 99 On: Room air Interpretation Interpreted by pa Time 1748 Re-Evaluation MDM Re-Evaluation/Progress #1 Text/Dict Note Discussed results with patient. Advised to zach w up with PCP Time of Re-Eval [...] Documented: Result Date Time Pulse Ox 99 01/01 1748 B/P 122/96 01/01 1748 B/P Mean 104 01/01 1748 Temp 37.0 01/01 1748 Pulse 99 01/01 1748 Resp 17 01/01 1748 Last Documented: Result Date Time Pulse Ox 99 01/01 1748 B/P 122/96 01/01 1748 B/P Mean 104 01/01 1748 Temp 37.0 01/01 1748 Pulse 99 01/01 1748 Resp 17 01/01 1748 All vital [...] symptoms should prompt an immediate return to [facility] or the closest emergency department or a call to 911. Electronically Signed by Kelsey Ponce MD on 01/01 at 0034 RPT #:[id number] END OF REPORT 2022-05-16 21:13:00-00:00 [facility] ([facility] EMERGENCY PROVIDER REPORT REPORT#:[id number] REPORT STATUS: Signed DATE:05/16/22 TIME: 2112 PATIENT: ALETHEA STREET UNIT #: [id number] ROOM: BED: AGE: 46 SEX: F PCP PHYS: Sudha Acosta MD SERVICE AUTHOR: Mag Can RNNP * ALL edits or amendments must be made on the Comeet/computer document * Mag Can 05/16/222112: HPI-General Illness General Initial Greet Date/Time 05/16/222039 Presentation Chief Complaint Weakness Free Text HPI Notes Free Text HPI Notes 46-year-old female presents to the ED complainin g of weakness, shakiness, feeling cold, headache and tingly all ov er x1.5 hours. Patient states EMS came to [...] use (15 or more drinks per w [place]) Drug Use Denies recreational drugs Smoking status [...] 05/16 2038 Pulse 97 05/16 2038 Resp 05/16 Review of Vital Signs Reviewed, BP retaken [...] Diagnosis Differential Diagnosis Acute coronary syndrome, dizziness, AR, hyperglycemia, HTN crisis Patient Discharge Departure Vital Signs/Condition Vital Signs First Documented: Result Date Time Pulse Ox 100 05/16 2038 B/P 201/102 05/16 2038 B/P Mean 135 05/16 2038 O2 Delivery Room air 05/16 2038 Temp 36.9 05/16 2038 Pulse 97 05/16 2038 Resp 05/16 Last Documented: Result Date Time Pulse Ox [...] Saw Pt Alone I have reviewed the PA/HEALTH CARE FACILITIES INSPECTOR's note and plan of car e. I was available for consultation as needed at al l times during the patient's visit in the emergency department. I agree with the clinical impression , plan and disposition. at 2159 Electronically Signed by Alejandra Carter MD on at 0908 RPT #:[id number] END OF REPORT 2020-09-15 06:49:00-00:00 [id number] [facility] [facility] [address] [facility] [address] PATIENT NAME: ALETHEA STREET ADMIT DATE: 09/15/20 ACCOUNT NO: [id number] ROOM NO: AGE: 44 REPORT TYPE: ENDOSCOPY REPORT SEX: F ADMITTING PHYSICIAN: ATTENDING PHYSICIAN:Sudha Acosta MD Patient Name: Alethea Street Pallavi Attending MD: Sudha Acosta , Procedure Date: 09/15/2020 6:49 AM 74 Date of : 09/03 Admit Type: Outpatient Age: 44 Procedure: Colonoscopy Indications: Evaluation on imaging study of clin ically significant abnormality Providers: Franchesca Paredes RN (Todd luke), Paulo Beth, Dockworker (Dockworker), Stevie SERRATO (Anesthesiologist) Medicines: Monitored Anesthesia Care Procedure: Pre-Anesthesia Assessment: - Prior to the procedure, a History and Physica l was performed, and patient medications and allergie s were reviewed. The patient is competent. The risks a nd benefits of the procedure and the sedation opti ons and risks were discussed with the patient. All que stions were answered and informed consent was obtained . Patient identification and proposed procedure w ere verified by the physician in the pre-procedure area. Mental Status Examination: alert and oriented. Airway Examination: normal oropharyngeal airway and n michele mobility. Respiratory Examination: clear to auscultation. CV Examination: normal. Prophylac tic Antibiotics: The patient does not require proph ylactic antibiotics. Prior Anticoagulants: The patient has taken no previous anticoagulant or antiplatelet agents. ASA Grade Assessment: III - A patient with taye re systemic disease. After reviewing the risks and benefits, the patient was deemed in satisfactor y condition to undergo the procedure. The anesthe fran plan was to use monitored anesthesia care (MAC). Imm ediately prior to administration of medications, the pat ient was re-assessed for adequacy to receive sedatives. The heart rate, respiratory rate, oxygen saturation s, blood pressure, adequacy of pulmonary ventilation, an d response to care were monitored throughout the [...] photographed. Findings: The perianal and digital rectal examin ations were normal. A 4 mm polyp was found in the ascending colon. The polyp was sessile. The polyp was removed with a jumbo cold forceps. Resection and retrieval were comp lete. Verification of patient identification for the specimen was done. Estimated blood loss was minimal. Two sessile polyps were found in the sigmoid c olon and ascending colon. The polyps were 5 to 7 mm in s ize. These polyps were removed with a cold snare. Re section and retrieval were complete. Verification of pa tient identification for the specimen was done. Estim ated blood loss was minimal. Multiple small-mouthed diverticula were found i n the sigmoid colon. Purulent discharge was seen in association with the diverticular opening, con sistent with diverticulitis. Complications: No immediate complications. Estimated Blood Loss: Estimated blood loss: none . Impressions: - One 4 mm polyp in the ascending c olon, removed with a jumbo cold forceps. Resected and retrieved. - Two 5 to 7 mm polyps in the sigmoid colon an d in the ascending colon, removed with a cold snare. Res ected and retrieved. - Moderate diverticulosis in the sigmoid colon . Purulent discharge was seen in association with [...] 6:49 AM Procedure Code(s): --- Professional --- 07207, Colonoscopy, flexible; with removal of t umor(s), polyp(s), or other lesion(s) by snare technique 32860, 59, Colonoscopy, flexible; with biopsy, single or multiple Diagnosis Code(s): --- Professional --- D12.2, Benign neoplasm of ascending colon D12.5, Benign neoplasm of sigmoid colon K57.32, Diverticulitis of large intestine witho ut perforation or abscess without bleeding R93.3, Abnormal findings on diagnostic imaging of other parts of digestive tract CPT copyright 2018 [employer] [place] [employer]. All rights reserved. The codes documented in this report are prelimin kayla and upon endoscopy specialty technician review may be revised to meet current compliance requiremen ts. Patient Profile: Last Colonoscopy: none. The pat ient's first colonoscopy is today. Scope Withdrawal Time 0 hours 8 minutes 20 secon ds Provation {[id number]}.pdf ProVation FT PDF Electronically Signed by Sudha Acosta MD on at 0720 PATIENT NAME: ALETHEA STREET 70 2020-06-21 13:28:00-00:00 [id number] [facility] [address] [facility] [address] PATIENT NAME: ALETHEA STREET ADMIT DATE: 06/03 03/22 ACCOUNT NO: [id number] ROOM NO: NC.6307 AGE: 44 REPORT TYPE: PROGRESS NOTE SEX: F ADMITTING PHYSICIAN:Josiah Ervin MD ATTENDING PHYSICIAN:Josiah Ervin MD DATE: 06/21/2020 PATIENT LOCATION: Room #6307. SUBJECTIVE: As the EMR is do wn, [...] Continue nutri tional support as per other oracle iam consultant. Answered multiple questions. Discuss ed with the staff. Follow the discharge arrangement. Dictated By: Rivas Thompson WT: PN:FEDERICO/ALEX/VIKTORIYA Conf#: [id number]/DID#: [id number] PATIENT NAME: ALETHEA STREET ACCOUNT #: [id number] Authenticated by Rivas Thompson MD On 2019 08:00:56 PM Electronically Signed by Rivas Thompson MD o n 06/26/20 at 2000 PATIENT NAME: ALETHEA STREET [id number] 13:13:00-00:00 [id number] [facility] [address] [facility] [address] PATIENT NAME: ALETHEA STREET ADMIT DATE: 06/03 03/22 ACCOUNT NO: [id number] ROOM NO: [facility] AGE: 44 REPORT TYPE: PROGRESS NOTE SEX: F ADMITTING PHYSICIAN:Josiah Ervin MD ATTENDING PHYSICIAN:Josiah Ervin MD DATE: 06/21/2020 REFERRING PHYSICIAN: Dr. Josiah Ervin and Dr. Wilma lima SUBJECTIVE: The patient is a 44-year-old female, who was admitted because of diverticulitis and [...] HEENT: Revealed normal EOMI. Normal PERRLA. No elevated JVD. Carotids 2+. NECK: Supple. No lymphadenopathy. [...] following. Dictated By: Sudha Acosta MD WT: PN:FEDERICO/DICK/VIKTORIYA Conf#: [id number]/DID#: [id number] PATIENT NAME: ALETHEA STREET [id number] Authenticated by Sudha Acosta MD On 06/22/2020 01:09:14 PM Electronically Signed by Sudha Acosta MD on at 1309 PATIENT NAME: ALETHEA STREET [id number] 12:12:00-00:00 [id number] [facility] [address] [facility] [address] PATIENT NAME: ALTEHEA STREET ADMIT DATE: 06/03 03/22 ACCOUNT NO: [id number] ROOM NO: NC.6307 AGE: 44 REPORT TYPE: [...] standpoint. Dictated By: Arnold Lopez MD WT: PN:NC.JOSE E/NORA/VIKTORIYA Conf#: [id number]/DID#: [id number] Authenticated by Arnold Lopez MD On 06/22/2020 09:43:24 AM at 0943 PATIENT NAME: ALETHEA STREET [id number] 08:36:00-00:00 [id number] [facility] [address] [facility] [address] PATIENT NAME: ALETHEA STREET ADMIT DATE: 06/03 03/22 ACCOUNT NO: [id number] ROOM NO: [facility] AGE: 44 REPORT TYPE: CONSULATION SEX: F [...] or rubs appreciated. PATIENT NAME: ALETHEA STREET ACCOUNT #: [id number] ABDOMEN: Soft, nondistended with mild tenderness . [...] Dictated By: Sudha Acosta MD WT: CON:NC.JOSE E/DICK/VIKTORIYA Conf#: [id number]/DID#: [id number] Authenticated by Sudha Acosta MD On 06/21/2020 12:22:13 PM Electronically Signed by Sudha Acosta MD on at 1222 PATIENT NAME: ALETHEA STREET [id number] 21:01:00-00:00 [id number] [facility] [address] [facility] [address] PATIENT NAME: ALETHEA STREET ADMIT DATE: 06/03 03/22 ACCOUNT NO: [id number] ROOM NO: NC.6307 AGE: 44 REPORT TYPE: [...] been tolerating well. PATIENT NAME: ALETHEA STREET [id number] PHYSICAL EXAMINATION: GENERAL: The patient is thin [...] No cyanosis or clubbing. Atrophy no to. CORE RESCUER: Alert and awake. Peripheral IV site looks [...] UTI, hydration. Symptomatic PATIENT NAME: ALETHEA STREET [id number] treatment for pain. 3. 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 4. Case discussed with nursing staff at length. Dr. Ervin, I appreciate for the interesting cons ult and allowing me to participate in the patient's care. Dictated By: Rivas Thompson WT: CON:NC.JOSE E/ALEX/NTS Conf#: [id number]/DID#: [id number] cc: Josiah Ervin MD Authenticated by Rivas Thompson MD On 2019 08:00:53 PM Electronically Signed by Rivas Thompson MD o n 06/26/20 at 2001 PATIENT NAME: ALETHEA STREET [id number] 14:58:00-00:00 [facility] ([facility]) EMERGENCY PROVIDER REPORT REPORT#:[id number] REPORT STATUS: Signed DATE:06/18/20 TIME: 1458 PATIENT: ALETHEA STREET UNIT #: [id number] [facility]: [facility]BED: 1 AGE: 44 SEX: F PCP PHYS: Undefined Provider SERVICE AUTHOR: Reggie Coreas * ALL edits or amendments must be made on the Comeet/computer document * HPI-Abd Pain F 40 and [...] Complaint DIVERTICULITIS Allergies Coded Allergies: buspirone (From Zeenoh) (Severe, HIVES/RASH 09/03 ) Home Medications Discontinued [...] use (15 or more drinks per w [place]) Drug Use Denies recreational drugs Smoking status [...] Cardiovascular Cardiovascular Heart rate NL, Regular rhythm, C ap refill not delayed, Peripheral circulation NL Abdomen/GI [...] % (Auto) (14.0 - 56.4 %) 23.0 Winston % (Auto) (0.0 - 12.9 %) 4.0 Eos % (Auto) (0.0 - 7.0 %) 2.9 Baso % (Auto) (0 - 2.0 %) 0.5 Neut # (Auto) (1.5 - 7.0 10 3/uL) 8.94 H Lymph # (Auto) (1.50 - 4.00 10 3/uL) 2.97 Winston # (Auto) (0.20 - 0.80 10 3/uL) [...] pH (5.0 - 8.0) 6.0 Ur Specific [place] (1.005 - 1.025) 1.003 L Urine Protein [...] 1547 Blood Culture - COMP BLOOD Re-Evaluation MDM )( Re-Evaluation/Progress #1 )( Re-Eval Status Improved ED Course Medication(s) Ordered Medication(s) Ordered: Anti-Infective Agents Sig/Charlotte Start time Last Medication Dose Route Stop Time Status Admin Vancomycin HCl 1,000 MG ONCE@1600 06/18 1600 A C Sodium Chloride 250 ML IV 06/18 2200 [...] 4 MG Q4H PRN PRN 06/18 1645 UNV IV 06/19 0438 Patient Discharge Departure Vital [...] or Family Physician (Family) at 0814 RPT #:[id number] END OF REPORT 2020-05-08 11:22:00-00:00 [facility] ([facility]) EMERGENCY PROVIDER REPORT REPORT#:[id number] REPORT STATUS: Signed DATE:05/08/20 TIME: 1122 PATIENT: ALETHEA STREET UNIT #: [id number] ROOM: [address]: 1 AGE: 44 SEX: F PCP PHYS: No Primary or Family Ph ysician SERVICE AUTHOR: Scarlet Yancey HEALTH CARE FACILITIES INSPECTOR * ALL edits or amendments must be made on the Comeet/Folloyu document * HPI-Abd Pain F 39 and [...] and states this feels similar. The pain incaren snyder was intermittent and cramping in nature however [...] use (15 or more drinks per w [place]) Drug Use Denies recreational drugs Smoking status for patients 13 years old or olde r: Current every day smoker Physical Exam Vital Signs Vital Signs First Documented: Result Date Time Pulse Ox 100 / 1009 B/P 153/96 / 1009 B/P Mean 115 / 1009 O2 Delivery Room air / 1009 Temp 36.2 08/ 1009 Pulse 95 08/ 1009 Resp 20 / 1009 Last Documented: Result Date Time Pulse Ox 99 / 1401 B/P 138/84 / 1401 B/P Mean 102 / 1401 O2 Delivery Room air / 1401 Temp 36.5 08/ 1401 Pulse 87 08/ 1401 Resp 16 / 1401 Review of Vital Signs Reviewed Basic [...] (Auto) (14.0 - 56.4 %) 4.6 L Winston % (Auto) (0.0 - 12.9 %) 4.1 Eos % (Auto) (0.0 - 7.0 %) 0.5 Baso % (Auto) (0 - 2.0 %) 0.3 Neut # (Auto) (1.5 - 7.0 10 3/uL) 12.60 H Lymph # (Auto) (1.50 - 4.00 10 3/uL) 0.65 L Winston # (Auto) (0.20 - 0.80 10 3/uL) [...] pH (5.0 - 8.0) 6.0 Ur Specific [place] (1.005 - 1.025) 1.025 Urine Protein (NEGATIVE) [...] liver. 3. Small perihepatic ascites. Impression By: [email or web address] - Ivan Jose MD Lab Imaging Statement [...] admission and plan of care. [facility] with [facility] Course Medication(s) Ordered Medication(s) Ordered: Anti-Infective Agents Sig/Charlotte Start time Last Medication Dose Route Stop Time Status Admin Piperacillin Sod/ 3.375 GM Q8H 05/08 2038 AC Tazobactam Sod IV 05/09 2037 Sodium Chloride 100 ML Piperacillin Sod/ 3.375 [...] Time Status Admin Sodium Chloride 1,000 ML .[id number] 05/08 1400 AC IV 05/09 0152 Sodium Chloride 1,000 ML X1ED STA 05/08 1024 DC 08/ IV 05/08 1025 1111 Gastrointestinal Drugs Sig/Charlotte Start time Last Medication Dose Route Stop Time Status Admin Ondansetron HCl 4 MG Q4H PRN PRN 05/08 1400 AC IV 05/09 0152 Patient Discharge Departure Vital Signs/Condition Vital Signs First Documented: Result Date Time Pulse Ox 100 05/08 1009 B/P 153/96 05/08 1009 B/P Mean 115 / 1009 O2 Delivery Room air 05/08 1009 Temp 36.2 08/ 1009 Pulse 95 08/ 1009 Resp 20 08 1009 Last Documented: Result Date Time Pulse Ox 99 05/08 1401 B/P 138/84 08/ 1401 B/P Mean 102 08/ 1401 O2 Delivery Room air 08/ 1401 Temp 36.5 08/06 1401 Pulse 87 08/ 1401 Resp 16 08 1401 All vital signs available at the [...] blayneer taking over this patient's care. at 1658 RPT #:[id number] END OF REPORT 2020-05-08 11:22:00-00:00 [facility] ([facility]) EMERGENCY PROVIDER REPORT REPORT#:[id number] REPORT STATUS: Signed DATE:05/08/20 TIME: 1122 PATIENT: ALETHEA STREET UNIT #: [id number] [address]: [address] AGE: 44 SEX: F PCP PHYS: No Primary or Family P hysician SERVICE AUTHOR: Chrissie Gordon MD * ALL edits or amendments must be made on the Comeet/computer document * Olinda Yancey 05/08/20 1122: HPI-Abd Pain F 40 and [...] use (15 or more drinks per w [place]) Drug Use Denies recreational drugs Smoking status [...] Delivery Room air 05/08 1401 Temp 36.5 08 1401 Pulse 87 05/08 1401 Resp 16 [...] (Auto) (14.0 - 56.4 %) 4.6 L Winston % (Auto) (0.0 - 12.9 %) 4.1 Eos % (Auto) (0.0 - 7.0 %) 0.5 Baso % (Auto) (0 - 2.0 %) 0.3 Neut # (Auto) (1.5 - 7.0 10 3/uL) 12.60 H Lymph # (Auto) (1.50 - 4.00 10 3/uL) 0.65 L Winston # (Auto) (0.20 - 0.80 10 3/uL) [...] pH (5.0 - 8.0) 6.0 Ur Specific [place] (1.005 - 1.025) 1.025 Urine Protein (NEGATIVE) [...] admission and plan of care. Staffed with ED Course Medication(s) Ordered Medication(s) Ordered: Anti-Infective Agents Sig/Charlotte Start time Last Medication Dose Route Stop Time Status Admin Piperacillin Sod/ 3.375 GM Q8H 05/08 2038 DC Tazobactam Sod IV 05/09 2037 Sodium Chloride 100 ML Piperacillin Sod/ 3.375 [...] Q4H PRN PRN 05/08 1353 AC 05/09 PO 06/07 0152 0003 Morphine Sulfate 4 MG Q4H PRN PRN 05/08 1353 AC 05/09 IV 05/18 0152 0543 Ketorolac 30 MG X1ED STA 05/08 1024 DC 08 Tromethamine IV 05/08 1025 1111 Diagnostic Agents Sig/Charlotte Start time Last Medication Dose Route Stop Time Status Admin Iopamidol 0 .STK-MED ONE 05/08 1204 DC .ROUTE Electrolytic, Caloric, And Richard Sig/Charlotte Start time Last Medication Dose Route Stop Time Status Admin Sodium Chloride 1,000 ML .[id number] 05/08 1400 DC IV 05/09 0152 Sodium [...] Pulse Ox 100 05/08 1009 B/P 153/96 / 1009 B/P Mean 115 05/08 1009 O2 Delivery Room air 05/08 1009 Temp 36.2 05/08 1009 Pulse 95 / 1009 Resp 20 05/08 1009 Last Documented: Result Date Time Pulse Ox 99 05/08 1401 B/P 138/84 / 1401 B/P Mean 102 05/08 1401 O2 Delivery Room air 05/08 1401 Temp 36.5 05/08 1401 Pulse 87 08/ 1401 Resp 16 / 1401 All vital signs available at the [...] p blayneer taking over this patient's care. Chrissie Gordon 05/09/20 0732: HPI-Abd Pain F 40 and Over General Initial Greet Date/Time 05/08/20 1007 Patient Discharge Departure Supervising Physician Note MidLv/Doc Saw Pt 2 I have personally interviewed and examined the p atient. All charts, labs, and imaging studies were reviewe d. I agree with this PA/wound care center consultant findings, exam and plan. at 1658 at 0733 RPT #:[id number] END OF REPORT 2020-05-08 10:36:00-00:00 [id number] [place] [id number] PATIENT NAME: ALETHEA STREET ADMIT DATE: 03/22 ACCOUNT NO: [id number] ROOM NO: NC.4302 AGE: 44 REPORT TYPE: eELECTROCARDIOGRAM SEX: F ADMITTING PHYSICIAN:Balta Bey Jr, MD ATTENDING PHYSICIAN:Balta Bey Jr, MD Order: [id number] Test Reason : Test Date/Time Stamp: TueMay [...] anterior leads Confirmed by GUS SHELDON MD ([id number]) on 0 4:05:32 PM Referred By: Self Referred Confirmed by:GUS ARNOLD MD Electronically Signed by Gus Sheldon MD on 0 05/08/20 at [address] [address] PATIENT NAME: [address] [id number] 23:15:00-00:00 [facility] ([facility]) EMERGENCY PROVIDER REPORT REPORT#:[id number] REPORT STATUS: Signed DATE:09/21/19 TIME: 2314 PATIENT: ALETHEA STREET UNIT #: [id number] ROOM: BED: AGE: 43 SEX: F PCP PHYS: No Primary or Family Ph ysician SERVICE AUTHOR: Brian Lazcano MD * ALL edits or amendments must be made on the Comeet/computer document * HPI- Female General Initial Greet [...] Patient has been unable to see her pcu rn and is currently not on any control [...] % (Auto) (14.0 - 56.4 %) 18.6 Winston % (Auto) (0.0 - 12.9 %) 6.1 Eos % (Auto) (0.0 - 7.0 %) 3.8 Baso % (Auto) (0 - 2.0 %) 0.5 Neut # (Auto) (1.5 - 7.0 10 3/uL) 5.58 Lymph # (Auto) (1.50 - 4.00 10 3/uL) 1.47 L Winston # (Auto) (0.20 - 0.80 10 3/uL) 0.48 Eos # (Auto) (0.0 - 0.5 10 3/uL) 0.30 Baso # (Auto) (0.0 - 0.1 10 3/uL) 0.04 Immature Gran % (0.0 - 1.0 %) 0.6 Nucleated RBC % (0 - 0.2 %) 0.0 Lab Statement Laboratory studies reviewed and considered in e medical decision-making. Re-Evaluation MDM Free Text MDM Notes Free Text MDM Notes Hemoglobin stable here in the emergency room Will give a dose of progesterone until s he can follow-up with her pcu rn Patient is blood pressure is elevated but she sa ys that she has not taken her blood pressure medicines in 2 nights and took a decongestant tonight which may have raised her blood pressure artificially. Patient will take her p.o. night medicines when she is discharged. Stable for discharge ED Course Medication(s) Ordered Medication(s) Ordered: Electrolytic, Caloric, And [place] Sig/Charlotte Start time Last Medication Dose Route Stop Time Status Admin Sodium Chloride 1,000 ML X1ED STA 09/21 2144 D C IV 09/21 2243 Hormones And Synthetic Substit [...] 2145 Pulse 88 09/21 2145 Resp 09/21 Last Documented: Result Date Time Pulse Ox 99 09/21 2145 B/P 164/109 09/21 2145 B/P Mean 127 09/21 2145 O2 Delivery Room air 09/21 2145 Temp 36.9 09/21 2145 Pulse 88 09/21 2145 Resp 18 09/21 2145 All vital signs available at the time [...] symptoms should prompt an immediate return to [facility] or the closest emergency department or a call to 911. Electronically Signed by Brian Lazcano MD on 09/03 10/21 at 0036 RPT #:[id number] END OF REPORT
--- NOTE | 2023-06-06 15:18 | ER ---
Nurse's Notes [facility] Name: Monse Comer Age: 47 yrs Sex: Female : 1975 Arrival Date: 06/06/2023 Time: 15:02 Bed IW3 Private MD: Diagnosis: Dermatitis, unspecified;Rash and other nonspecific skin eruption Presentation: 06/06 15:14 Chief complaint: Patient states: Rash to body for 2 days. Coronavirus screen: Client ll1 denies travel out of the [place] in the last 14 days. At this time, the client does not indicate any symptoms associated with coronavirus-19. Ebola Screen: Patient denies travel to an Ebola-affected area in the 21 days before illness onset. Initial Sepsis Screen: Does the patient meet any 2 criteria? No. Patient's initial sepsis screen is negative. Does the patient have a suspected source of infection? Yes: Skin breakdown/wound. Risk Assessment: Do you want to hurt yourself or someone else? Patient reports no desire to harm self or others. Onset of symptoms was June 05, 2023. 15:14 Method Of Arrival: Ambulatory ll1 15:14 Acuity: JERRY 5 ll1 Triage Assessment: 15:14 General: Appears in no apparent distress. Behavior is calm, cooperative, appropriate ll1 for age. Pain: Complains of pain in right hand and left hand Quality of pain is described as aching. Neuro: No deficits noted. Derm: Reports kalina with itching to body. 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 - Social history:: Smoking status: Patient reports the use of cigarette tobacco products, denies chronic smoking, but will smoke occasionally. - Family history:: not pertinent. - Hospitalizations: : No recent hospitalization is reported. Screenin:27 [facility] ED Fall Risk Assessment (Adult) Score/Fall Risk Level 0 - 2 = Low Risk ll1 Oriented to surroundings, Maintained a safe environment, Educated pt \T\ family on fall prevention, incl call for assistance when getting out of bed, Hourly rounding (assess needs \T\ fall precautionary measures) done. Abuse screen: Denies threats or abuse. Nutritional screening: No deficits noted. Tuberculosis screening: No symptoms or risk factors identified. Assessment: 15:27 Reassessment: No changes from previously documented assessment. Patient and/or family ll1 updated on plan of care and expected duration. Pain level reassessed. Patient is alert, oriented x 3, equal unlabored respirations, skin warm/dry/pink. Vital Signs: 15:14 BP 103 / 85; Pulse 85; Resp 16; Temp 98; Pulse Ox 99% ; Weight 50.8 kg; Height 5 ft. 4 ll1 in. ; Pain 8/10; 15:14 Body Mass Index 19.22 (50.80 kg, 162.56 cm) ll1 15:14 Pain Scale: Adult ll1 ED Course: 15:04 Patient arrived in ED. rg4 15:04 Prosper Hsieh MD is Attending Physician. rn 15:15 Triage completed. ll1 15:16 Arm band placed on. ll1 15:27 Patient has correct armband on for positive identification. Bed in low position. Call ll1 light in reach. Provided Education on: n/a. 15:27 No provider procedures requiring assistance completed. Patient did not have IV access ll1 during this emergency room visit. Administered Medications: No medications were administered Medication: 16:08 VIS not applicable for this client. ll1 Outcome: 15:18 Discharge ordered by . rn 15:27 Patient left the ED. ll1 15:27 Discharged to home ambulatory. ll1 15:27 Condition: stable 15:27 Discharge instructions given to patient, family, Instructed on discharge instructions, follow up and referral plans. medication usage, Demonstrated understanding of instructions, follow-up care, medications, Prescriptions given X 3. Signatures: Prosper Hsieh MD MD rn Garcia, Rubi rg4 Toño Benavides RN RN ll1
--- NOTE | 2023-06-06 15:18 | EDPHYS ---
Physician Documentation [facility] Name: Monse Comer Age: 47 yrs Sex: Female : 1975 Arrival Date: 06/06/2023 Time: 15:02 Bed IW3 Private MD: ED Physician Prosper Hsieh HPI: 06/06 15:12 This 47 yrs old Female presents to ER via Unassigned with complaints of Rash. rn 15:12 The patient's rash thought to be caused by an unknown cause. The rash is located on the rn body diffusely. The rash can be described as erythematous. Onset: The symptoms/episode began/occurred 1 week(s) ago. Severity of symptoms: At their worst the symptoms were moderate in the emergency department the symptoms are unchanged. The patient has experienced similar episodes in the past. Patient reports diffuse rash and itching. with identical rash. Has been [place] in the [place] and they are blaming algae and possible infection. No fever. Her rash is not as bad as her 's. 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 - Social history:: Smoking status: Patient reports the use of cigarette tobacco products, denies chronic smoking, but will smoke occasionally. - Family history:: not pertinent. - Hospitalizations: : No recent hospitalization is reported. ROS: 15:12 Constitutional: Negative for fever, chills, and weight loss, Eyes: Negative for injury, rn pain, redness, and discharge, Neck: Negative for injury, pain, and swelling, Cardiovascular: Negative for chest pain, palpitations, and edema, Respiratory: Negative for shortness of breath, cough, wheezing, and pleuritic chest pain, Abdomen/GI: Negative for abdominal pain, nausea, vomiting, diarrhea, and constipation, Back: Negative for injury and pain, MS/Extremity: Negative for injury and deformity, Skin: Positive for diffuse rash and itching Neuro: Negative for headache, weakness, numbness, tingling, and seizure. Exam: 15:12 Constitutional: This is a well developed, well nourished patient who is awake, alert, rn and in no acute distress. Skin: Warm, dry, diffuse sores with excoriations. No sign of focal cellulitis. No fluctuance. No bullae Vital Signs: 15:14 BP 103 / 85; Pulse 85; Resp 16; Temp 98; Pulse Ox 99% ; Weight 50.8 kg; Height 5 ft. 4 ll1 in. ; Pain 8/10; 15:14 Body Mass Index 19.22 (50.80 kg, 162.56 cm) ll1 15:14 Pain Scale: Adult ll1 MDM: 15:12 Differential diagnosis: allergic reaction, parasite infection, Folliculitis, rn cellulitis, adverse drug reaction, amphetamine usage. Data reviewed: vital signs, nurses notes, and as a result, I will discharge patient. Counseling: I had a detailed discussion with the patient and/or guardian regarding the historical points, exam findings, and any diagnostic results supporting the discharge/admit diagnosis, the need for outpatient follow up, to return to the emergency department if symptoms worsen or persist or if there are any questions or concerns that arise at home. Special discussion: I discussed with the patient/guardian in detail that at this point there is no indication for admission to the hospital. It is understood, however, that if the symptoms persist or worsen the patient needs to return immediately for re-evaluation. 15:18 Patient medically screened. rn Administered Medications: No medications were administered Disposition Summary: 06/06/23 15:18 Discharge Ordered Location: Home rn Problem: new rn Symptoms: are unchanged rn Condition: Stable rn Diagnosis - Dermatitis, unspecified rn - Rash and other nonspecific skin eruption rn Followup: rn - With: Private Physician - When: As needed - Reason: Recheck today's complaints, Re-evaluation by your physician Discharge Instructions: - Discharge Summary Sheet rn - Contact Dermatitis rn - Rash, Adult rn Forms: - Medication Reconciliation Form rn - Thank You Letter rn - Antibiotic melt down furnace operator - Prescription Opioid Use rn - Patient Portal Instructions rn - Leadership Thank You Letter rn Prescriptions: - permethrin 5 % Topical cream - apply 1 application by TOPICAL route every 14 days for 2 doses apply second rn treatment 14 days after first treatment if live lice remain; 1 unit; Refills: 0, Product Selection Permitted - Clindamycin HCl 300 mg Oral Capsule - take 1 capsule by ORAL route every 6 hours for 10 days; 40 capsule; Refills: 0, rn Product Selection Permitted - Hydroxyzine HCl 50 mg Oral Tablet - take 1 tablet by ORAL route every 8 hours As needed; 20 tablet; Refills: 0, rn Product Selection Permitted Signatures: Prosper Hsieh MD MD rn Kennedy, BOBBY Lundberg RN ll1
[2023-06-06 15:35] VITALS: BP 103/85; TEMP 98; O2SAT 99
== END 2023-06-06 15:27 | disposition home or self-care (01) ==
LOC: ER 15:02
DX: L30.9 Dermatitis, unspecified (principal); F17.210 Nicotine dependence, cigarettes, uncomplicated; Z88.8 Allergy status to other drugs, medicaments and biological substances
CPT/HCPCS: 99283

== ENCOUNTER 2023-07-25 18:34 | Emergency (ER) | payer OTHER ==
--- OUTSIDE RECORDS SUMMARY | 2023-07-25 18:40 | XMS REPORT | Continuity of Care Document ---
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 [facility] 2019-03-05 2019-03-05 Outpatient [facility] [id number] 10:08:33 10:08:33 [facility] 2019-02-23 2019-02-23 Outpatient [facility] [id number] 09:10:53 09:10:53 [facility] 2019-02-23 2019-02-23 Outpatient [facility] [id number] 08:27:53 08:27:53 [facility] 2019-01-31 2019-01-31 Outpatient [facility] [id number] 15:35:16 15:35:16 [facility] 2019-01-31 2019-01-31 Outpatient [facility] [id number] 00:00:00 00:00:00 [facility] 2019-01-18 2019-01-18 Outpatient [facility] [id number] 11:59:28 11:59:28 [facility] 2019-01-15 2019-01-15 Outpatient [facility] [id number] [place] 00:00:00 00:00:00 [facility] 2019-01-02 2019-01-02 Outpatient [facility] [id number] [place] 00:00:00 00:00:00 [facility] 2019-01-01 2019-01-01 Outpatient [facility] [id number] [place] 00:00:00 00:00:00 [facility] 2018-12-26 2018-12-26 Outpatient [facility] [id number] [place] 10:45:23 10:45:23 Health 2018-12-26 2018-12-26 Outpatient [facility] [id number] [place] 09:00:45 09:00:45 [facility] 2018-12-18 2018-12-18 Outpatient [facility] [id number] 00:00:00 00:00:00 [facility] 2018-12-11 2018-12-11 Outpatient [facility] [id number] [place] 00:00:00 00:00:00 [facility] 2018-12-06 2018-12-06 Outpatient [facility] [id number] [place] 00:00:00 00:00:00 [facility] 2018-12-06 2018-12-06 Outpatient [facility] [id number] 00:00:00 00:00:00 [facility] 2018-12-01 2018-12-01 Outpatient [facility] [id number] [place] 07:17:28 07:17:28 [facility] 2018-11-24 2018-11-24 Outpatient [facility] [id number] [place] 09:47:34 09:47:34 [facility] 2018-11-24 2018-11-24 Outpatient [facility] [id number] [place] 00:00:00 00:00:00 [facility] 2018-11-22 2018-11-22 Outpatient [facility] [id number] [place] 00:00:00 00:00:00 [facility] 2018-11-21 2018-11-21 Outpatient [facility] [id number] [place] 00:00:00 00:00:00 [facility] 2018-11-13 2018-11-13 Outpatient [facility] [id number] [place] 08:56:41 08:56:41 [facility] 2018-11-13 2018-11-13 Outpatient [facility] [id number] [place] 00:00:00 00:00:00 [facility] 2018-11-06 2018-11-06 Outpatient [facility] [id number] [place] 00:00:00 00:00:00 [facility] 2018-10-20 2018-10-20 Outpatient [facility] [id number] [place] 08:20:41 08:20:41 Health 2018-10-16 2018-10-16 Outpatient [facility] [id number] 11:24:41 11:24:41 [facility] 2018-09-12 2018-09-12 Outpatient [facility] [id number] [place] 09:18:36 09:18:36 Health 2018-09-05 2018-09-05 Outpatient [facility] [id number] [place] 00:00:00 00:00:00 [facility] 2018-09-04 2018-09-04 Outpatient [facility] [id number] [place] 00:00:00 00:00:00 [facility] 2018-08-30 2018-08-30 Outpatient [facility] [id number] [place] 16:37:11 16:37:11 [facility] 2018-08-30 2018-08-30 Outpatient [facility] [id number] [place] 15:31:56 15:31:56 [facility] 2018-08-02 2018-08-02 Outpatient [facility] [id number] [place] 00:00:00 00:00:00 [facility] 2018-08-01 2018-08-01 Outpatient [facility] [id number] [place] 14:11:01 14:11:01 [facility] 2018-07-31 2018-07-31 Outpatient [facility] [id number] [place] 13:49:01 13:49:01 [facility] 2018-07-31 2018-07-31 Outpatient [facility] [id number] [place] 11:05:47 11:05:47 [facility] 2018-07-18 2018-07-18 Outpatient [facility] [id number] [place] 00:00:00 00:00:00 [facility] 2018-07-13 2018-07-13 Outpatient [facility] [id number] [place] 00:00:00 00:00:00 [facility] 2018-07-12 2018-07-12 Outpatient [facility] [id number] [place] 10:34:47 10:34:47 [facility] 2018-07-07 2018-07-07 Outpatient [facility] [id number] [place] 00:00:00 00:00:00 [facility] 2018-07-04 2018-07-04 Outpatient [facility] [id number] [place] 08:47:36 08:47:36 [facility] 2018-06-30 2018-06-30 Outpatient [facility] [id number] [place] 00:00:00 00:00:00 [facility] 2018-06-30 2018-06-30 Outpatient [facility] [id number] [place] 00:00:00 00:00:00 [facility] 2018-06-30 2018-06-30 Outpatient [facility] [id number] [place] 00:00:00 00:00:00 [facility] 2018-06-29 2018-06-29 Outpatient [facility] [id number] [place] 00:00:00 00:00:00 [facility] 2018-06-27 2018-06-27 Outpatient [facility] [id number] [place] 00:00:00 00:00:00 [facility] 2018-06-26 2018-06-26 Outpatient [facility] [id number] [place] 00:00:00 00:00:00 [facility] 2018-06-22 2018-06-22 Outpatient [facility] [id number] [place] 00:00:00 00:00:00 [facility] 2018-06-20 2018-06-20 Outpatient [facility] [id number] [place] 00:00:00 00:00:00 [facility] 2018-06-20 2018-06-20 Outpatient [facility] [id number] [place] 00:00:00 00:00:00 [facility] 2018-06-14 2018-06-14 Outpatient [facility] [id number] [place] 09:51:58 09:51:58 [facility] 2018-06-14 2018-06-14 Outpatient [facility] [id number] [place] 09:12:21 09:12:21 [facility] 2018-06-02 2018-06-02 Outpatient [facility] [id number] [place] 00:00:00 00:00:00 [facility] 2018-05-31 2018-05-31 Outpatient [facility] [id number] [place] 10:22:37 10:22:37 [facility] 2018-05-30 2018-05-30 Outpatient [facility] [id number] [place] 00:00:00 00:00:00 [facility] 2018-05-25 2018-05-25 Outpatient [facility] [id number] [place] 08:51:23 08:51:23 [facility] 2018-05-19 2018-05-19 Outpatient [facility] [id number] [place] 00:00:00 00:00:00 [facility] 2018-05-16 2018-05-16 Outpatient [facility] [id number] [place] 00:00:00 00:00:00 [facility] 2018-05-11 2018-05-11 Outpatient [facility] [id number] [place] 09:47:57 09:47:57 [facility] 2017-01-16 2017-01-17 Emergency PHILIP, [facility] [id number] [place] 00:00:00 00:00:00 EDWARD [address] 2016-07-02 2016-07-02 Emergency [facility] [id number] [place] 00:00:00 00:00:[address] 2015-12-23 2015-12-23 Emergency [facility] [id number] [place] 00:00:00 00:00:[address] 2015-12-22 2015-12-22 Emergency [place] [id number] [place] 00:00:00 00:00:[address] 2015-12-18 2015-12-19 Emergency DRISCOLL, [facility] [id number] [place] 00:00:00 00:00:00 ANYJESSICA [address] Results Test Description Test Time Test Comments Results Result Comments Source OCCULT BLD,FECAL,IMMUNOASSAY DIAG 2023-03-15 12:58:12 Test Item Value Reference Range Interpretation Comme nts OCCULT BLD, FECAL (test code NEGATIVE NEGATIVE UNLESS OTHERWISE INDICATED, ALL = 39398) TESTING PERFORM ED AT CLINICAL PATHOLOGY [facility], [facility]. [address] [place] [address] 10108 STATISTICAL MACHINE MECHANIC: LILIA RAO M.D. CLIA NUMBER [id number] CAP ACCREDITATION N O. [id number] NOTE:2023-03-04 06:01:48 Test Item Value Reference Range Interpretation Comments NOTE: (test code = (NOTE) IN ACCOR DANCE WITH FEDERAL 998) GUIDELINES REQU IRING ALL VERBAL REQUESTS FOR LABORATORY TEST S TO BE ACCOMPANIED BY WRITTEN AUTHORIZATION W ITHIN 30 DAYS OF THIS REQUEST , PLEASE SIGN BELOW AND RETUR N A COPY OF THIS REPORT BY FAX TO THE LABORATORY SCAN THE [facility] DEPARTMENT AT . PHYSICIAN'S SIG NATURE DATE UNLESS OTHERWISE INDIC ATED, ALL TESTING PERFORM ED AT CLINICAL PATHOL [facility], [facility]. [address] [place] [address] 3360 LABORATORY DIRE CTOR: FELY PINEDA M.D. CLIA NUMBER [id number] CAP ACCREDITATION N O. [id number] FOLLICLE STIM [id number] 03:46:48 Test Item Value Reference Range Interpretation Comments FOLLICLE STIM 42.4 IU/L SEE BELOW EXPEC TO VALUES HORMONE (test code FOR FSH F OR FEMALES >17 = 2700) YEARS F OLLICULAR 3.5-12.5 IU/L MID-CYCLE PEAK 4.7-21.5 I U/L LUTEAL PHASE 1.7-7.7 I U/L POSTMENOPAUSAL 25.8-134.8 IU/L FOLIC [id number] 06:09:14 Test Item Value Reference Range Interpretation Comments FOLIC ACID (test >20.0 UG/L SEE BELOW INTE RPRETIVE code = 8360) RANGES DE FICIENCY . . . . . . . . . . . . . . . UG/L <4.0 POS SIBLE DEFICIENCY. . . . . . . . . . . UG/L 4.0- 5.9 SUFFICIENT . . . . . . . . . . . . . . . UG/L >=6.0 VITAMIN D, 25 [id number] 06:08:52 Test Item Value Reference Range Interpretation [...] ALL TESTING PERFORM ED AT CLINICAL PATHOLOGY [facility], [facility]. [address] [place] [address] LABORATORY DIRE CTOR: Donnie RIVAS ROM NUMBER [id number] [place]. [id number] COMPREHENSIVE METABOLIC [id number] 04:51:39 Test Item Value Reference Range Interpretation Comments GLUCOSE (test code = 128 MG/DL 70-99 H 2216) BUN (test code = 9 MG/DL 03-22) CREATININE (test 0.77 MG/DL 0.60-1.30 code = 2214) eGFR (2020 CKD-EPI) 95 ML/MIN/1.73 >60 (test code = 99450) CALC BUN/CREAT (test 12 RATIO 6-28 code = 2235) SODIUM (test code = 141 MEQ/L 956-072 7874) POTASSIUM (test code 4.4 MEQ/L 3.5-5.4 = 222) CHLORIDE (test code 104 MEQ/L 95-107 = 2215) CARBON DIOXIDE (test 25 MEQ/L 19-31 code = 2206) CALCIUM (test code = 9.8 MG/DL 8.5-10.5 2208) PROTEIN, TOTAL (test 6.7 G/DL 6.1-8.3 code = 2229) ALBUMIN (test code = 4.2 G/DL 3.5-5.2 2200) CALC GLOBULIN (test 2.5 G/DL 1.9-3.7 code = 2240) CALC A/G RATIO (test 1.7 RATIO 1.0-2.6 code = 2234) BILIRUBIN, TOTAL 0.4 MG/DL See_Comment [Automated message] (test code = 2207) The syste Symform which generated this result transmit to reference range : <=1.2. The refe rence range was not u sed to interpret th is result as normal/abnormal . ALKALINE PHOSPHATASE 159 U/L 40-123 H (test code = 220) AST (test code = 18 U/L 9-40 2217) ALT (test code = 13 U/L 5-40 2218) LIPID [id number] 04:51:39 Test Item Value Reference Range Interpretation [...] , SEE CLIENT ANNOUNCE MENT AT [email or web address] RISK RATIO LDL/HDL 1.67 RATIO <3.22 (test code = 2238) HEMOGLOBIN [id number] 03:31:24 Test Item Value Reference Range Interpretation Comments HEMOGLOBIN A1c (test 6.2 % 4.2-5.6 H AMERIC AN DIABETES code = 31827) ASSOCIATION IDELINES FOR HGB A1C: PREDIABETES/INC REASED [...] TESTING OR LABORATORY C ONSULTATION. CBC W/AUTO [id number] 09:04:00 Test Item Value Reference Range Interpretation [...] 1.4 10e3/mm3 0.2-1.1 H MX#) URINALYSIS DIPSTICK [id number] 19:26:00 Test Item Value Reference Range Interpretation [...] DIPSTICK (test code message] The system = U-NOTE) which generated this result transmitted reference range : <=1.0. The reference range was not used to interpret this result as normal/abnormal . UA NITRITE DIPSTICK NEGATIVE NEGATIVE (test code = JOSE) UA LEUKOCYTE NEGATIVE NEGATIVE ESTERASE DIPSTICK (test code = LEUU) UA MICROSCOPIC YES NEEDED? (test code = UAMICRO) UA [id number] 19:26:00 Test Item Value Reference Range Interpretation Comments UA WBC (test code = WBCU) 0-3 /HPF 0-3 UA RBC (test code = RBCU) 0-3 /HPF 0-3 UA BACTERIA (test code = BACU) NONE SEEN /HPF NONE SEEN UA SQUAMOUS CELLS (test code = RARE /HPF NONE-FEW SQU) UA MUCUS (test code = MUCU) RARE /LPF NONE-FEW DRUGS OF ABUSE SCREEN [id number] 18:32:00 Test Item Value Reference Range Interpretation [...] code = TRICYCU) Neg NEGATIVE COMPREHENSIVE METABOLIC [id number] 18:31:00 Test Item Value Reference Range Interpretation [...] the recommended for rin for GFRby the Nat nal Kidney Foundati on for Adults.The GFR [...] 42-141 N (test code = ALKP) HCG [id number] 18:06:00 Test Item Value Reference Range Interpretation [...] 48 hours toconfirm . PAP TEST, THINPREP, [id number] 08:51:56 Test Item Value Reference Range Interpretation Comments SOURCE: (test code = Cervical/End 8001) ocervical SLIDES: (test code = 1 8011) LMP: (test code = 11/15/2021 8021) SPECIMEN ADEQUACY: (NOTE) Satisfac tory for (test code = 26061) evaluati on. Endocervical cells/transform ation zone component present. INTERPRETATION: (test ASCUS/EPITH. A ------ code = 42743) ABNORMALITY; -------- SEE BELOW ------- ---- EPITHE LIAL CELL ABNORMALIT Y Atypical squamo us cells of undete rmined significance (ASC-US)------- ------- ------- ------- COMMUNITY NURSE: Vicente (test code = 8101) CANDE Tinajero(A [facility]) IAC PATHOLOGIST James Paiz INTERPRETATION BY: (test code = 8122) LOCATION: (test code (NOTE) Specime ns processed at = 22980) Clinical Path [employer] [facility], [address] [place] [address], Phone: , CLIA: [id number] interpreted at [facility] [place] [facility] [place] [address] [place],Pathology Department [address], [place] [facility], [place] [address], Phone: , CLIA: [id number] CPT: (test code = (NOTE) 20900, 881 41 UNLESS 8140) OTHERWISE INDIC ATED, [...] as applicable. HPV HIGH RISK WITH GENOTYPE, [id number] 19:58:58 Test Item Value Reference Range Interpretation Comments HPV HIGH RISK INTERP POSITIVE NEGATIVE A (test code = 32780) HPV 16 (test code = NEGATIVE 88616) HPV 18 (test code = NEGATIVE 20028) HPV, HR, OTHER POSITIVE A Testing meth odology is GENOTYPES (test code real-ti me PCR utilizing = 86387) hydrolysis prob es with the AdviceIQ[employer] 4800 system. The subhash t individually de tects genotypes 16 an d 18, as well as the oth er 12 high risk types (31,33,35,39,45 ,51,52,56 ,58,59,66,68). The expected result is negative. A neg ative result does not rule out the presence of HPV not included in the genotype set, a low leve l of infection or sp ecimen sampling error. [facility] has important p athology staff changes e ffective 12/01/2022. New pathology staff will provide uninter rupted, excellent patie nt care and clinical consultation. S ee URL: [email or web address]. UNLESS OTHERWISE INDICATED, ALL TESTING PERFORMED AT [facility] PATHOLOGY [facility] [employer]. [address] [place] [address] CLIA : [id number], CAP : SJOGREN'S SS-A AND SS-B [id number] 06:14:16 Test Item Value Reference Range Interpretation Comments SJOGREN'S SS-A ANTIBODY (test code = 0.5 AI <1.0 54031) SJOGREN'S SS-B ANTIBODY (test code = <0.2 AI <1.0 47000) BECERRIL (Sm) [id number] 06:14:16 Test Item Value Reference Range Interpretation Comments BECERRIL (Sm) ANTIBODY (test code = <0.2 AI <1.0 94512) DNA DS ANTIBODY REFLEX [id number] 06:14:16 Test Item Value Reference Range Interpretation Comments dsDNA ANTIBODY (test <1.0 SEE BELOW NEGATI VE . . . . . . . . code = 77800) . . . . . . IU /ML <=4.9 INDETERMINATE. . . . . . . . . . . . IU/ML 5.0-9.0 POSITIVE . . . . . . . . . . . . . . IU/ML >=10.0 dsDNA ANTIBODY REFLEX (NOTE) NEGATIVE NOTE: REFLEX CRITERIA NOT (test code = 10908) MET FOR DNA DOUBLE STRANDED ANTIBO DY BY LUCITA METHOD. UNLESS OTHERWISE INDICATED, ALL TESTING [facility]FOR[facility]. [address] [place] [address] [facility] DIRECTOR: GIOVANNI HALEY M.D. CLIA NUMBER [id number] CAP ACCREDITATION N O. [id number] 20:53:00 Test Item Value Reference Range Interpretation Comments GLUBED (test 163 mg/dL 70-105 H Intravenous adm inistration code = GLUBED) of N-acetylcy steine which resultsin blood concentrations >5 mg/dL will cause overestim ationof blood glucose results . Do not use during intraven ousinfusion of N'acetylcyst eifred. Lipid 1996 panel - Serum or [id number] 09:06:00 Test Item Value Reference Range Interpretation [...] code = non HDL (calc) cholesterol) [facility] - Serum or Plasma 2021-08-01 09:06:00 Test Item Value Reference Range Interpretation Comments glucose (test code 108 mg/dL 65-99 H = glucose) urea nitrogen (BUN) 12 mg/dL 7-25 (test code = urea nitrogen (BUN)) creatinine (test 0.65 mg/dL 0.50-1.10 code = creatinine) eGFR non-afr. 106 mL/min/1.73m2 See_Comment [Automat ed angolan (test code message] The = eGFR non-afr. system which angolan) generated this result transmit to reference range : > or = 60. The reference range was not used to interpret this result as normal/abnormal . eGFR 123 mL/min/1.73m2 See_Comment [Automate d angolan (test code message] The = eGFR system which angolan) generated this result transmit to reference range [...] 6-29 ALT) [facility] Auto Differential panel - [id number] 09:06:00 Test Item Value Reference Range Interpretation [...] MPV) 10.3 fL 7.5-12.5 absolute neutrophils (test 71326 cells/uL 2470-9429 H code = absolute neutrophils) absolute lymphocytes [...] code = red blood cell count) [facility]Units/volume] in Serum or [id number] 09:06:00 Test Item Value Reference Range Interpretation Comments TSH (test code = TSH) 0.93 mIU/L [facility]Degkcqnr70-Qfnhxidaojilmf D3+25-Hydroxyvitamin D2 [Mass/volume] in Serum or [id number] 09:06:00 Test Item Value Reference Range Interpretation Comments vitamin D,25-oh,total,ia (test code 105 NG/mL 30-100 H = vitamin D,25-oh,total,ia) comment (test code = comment) [facility] A1[facility]/Hemoglobin.total in [id number] 09:06:00 Test Item Value Reference Range Interpretation Comments Hemoglobin 5.2 % of total HGB <5.7 A1c/Hemoglobin.total in Blood (test code = 4548-4) [id number] 10:03:00 Test Item Value Reference Range Interpretation Comments SURGICAL SPECIMENS (test code = SURG) RUN DATE: 09/16/20 [facility] *LIVE* PAGE 1 RUN TIME: 1003 Specimen Inquiry RUN USER: INTERFACE PATIENT: ALETHEA STRE[address] ACCMichele #: [id number] [facility]: [facility] U #: [id number] AGE/SX: 44/F ROOM: RE09/15/20REG DR: Sudha Acosta MD : [id number] BED: DIS: STATUS: [facility] TLOC: SPEC #: [id number] RECD: 09/15/20 STATUS: CHUCK FRANKLIN #: [id number] ALEN: 09/15/20 [facility] DR: Sudha Acosta MD ENTERED: 09/15/20 SP [...] COLD SNARE: - TUBULAR ADENOMA (1) CPT: 80133 x3 GROSS DESCRIPTION Clinical history: Diverticulitis Three [...] END OF REPORT DRUGS OF ABUSE SCREEN [id number] 08:52:00 Test Item Value Reference Range Interpretation [...] code = Negative NEGATIVE PHENCU) UR HCG [id number] 07:00:00 Test Item Value Reference Range Interpretation [...] clinical observations, p atient history, andepidemiologi miguel information.Usbhash ting was performed using the Aptima SARS-CoV -2 assay.This nucl eic acid amplification t est was developed and itsperformance characteristics determined by [facility]. Nucleic acid amplification t ests include [...] resul t in this assay.Performed At: [facility] [address] [id number] alexys Escobar MD Ph:[phone] Novel Coronavirus [id number] 13:11:00 Test Item Value Reference Range Interpretation [...] bravo gnosis of COVID-19 infect ion under nunteko213(b)(1 ) of the Act, 21 U.S.C. 360bbb-3(b) [...] resul t in this assay.Performed At: [facility] [address] [id number] alexys Escobar MD Ph:[phone] BASIC METABOLIC [id number] 19:56:00 Test Item Value Reference Range Interpretation [...] mg/dL 8.5-10.1 N = CA) CBC W/AUTO [id number] 19:39:00 Test Item Value Reference Range Interpretation [...] 0.06 10 3/uL 0.0-0.1 N COMPREHENSIVE METABOLIC [id number] 07:37:00 Test Item Value Reference Range Interpretation [...] PHOSPHATASE (test code = ALKP) CBC W/AUTO [id number] 06:29:00 Test Item Value Reference Range Interpretation [...] N - CT ABD PELVIS W WO [id number] 08:30:00Patient Name: ALETHEA STREET Unit No: [id number] EXAMS: CPT CODE: [id number] CT ABD PELVIS W WO CONT 28065 CLINICAL HISTORY: DIVERTICULOSIS TECHNIQUE: Axial images of [...] The IVC is patent. The portal vein isName: ALETHEA STREET [facility] [place] Phys: JAYESHU - Dionyatrina,Carol Walton [address] : 1975 Age: 44 [place]: [place] [address] Loc: NC.6307 1 Exam Date: 06/03 Status: ADM IN PH: FAX: PAGE 1 Signed Report (CONTINUED) Patient Name: ALETHEA STREET Unit No: [id number] EXAMS: CPT CODE: [id number] CT ABD PELVIS W WO CONT 52177 (Continued) patent. No evidence of ascites. Abdominal wall is intact. No significant bone lesions. IMPRESSION: 1. Interval improvement in the complicated sigmoid diverticulitis noted. Overall inflammatory process around the sigmoid is diminished. The intramural abscess now measures 2.5 x 2.1 cm, previously measured 4.7 x 2.9 cm. Tiny interloop/mesenteric abscess now measures 9 to 10 mm in diameter, previously measured 15 mm indiameter. 2. No new abscess or fluid collections have developed. at 0830 Reported and signed by: Antoni Escobar M.D. CC: Self Referred; Carol Aguilar MD; Josiah Ervin MD Technologist: Ana Laura Pulido CTDI: 8.44 DLP: 750.8 Trscr Dt/Tm: 06/20/2020 (829) by:[email or web address] Electronic Signature Date/Time: 06/20/2020 (829)Orig Print D/T: S: 06/20/2020 (832) Name: ALE[address]A [address] [facility] Phys: Carol Welch [address] : 1975 Age: 44 [place]: [place] [address] Loc: NC.6307 1 Exam Date: 06/20/2020 Status: ADM IN PH: FAX: PAGE 2 Signed ReportBASIC METABOLIC [id number] 06:07:00 Test Item Value Reference Range Interpretation [...] mg/dL 8.5-10.1 N = CA) CBC W/AUTO [id number] 05:33:00 Test Item Value Reference Range Interpretation [...] = BA#) 0.03 10 3/uL 0.0-0.1 N [id number] 13:19:00 Test Item Value Reference Range Interpretation Comments GLUBED (test 78 mg/dL 65-99 N Intravenous adm inistration of code = GLUBED) N-acetylcyste ine which resultsin blood concentrations >5 mg/dL will cause overestim ationof blood glucose results . Do not use during intraven ousinfusion of N'acetylcystein e. [id number] 08:10:00 Test Item Value Reference Range Interpretation Comments GLUBED (test 84 mg/dL 65-99 N Intravenous adm inistration of code = GLUBED) N-acetylcyste ine which resultsin blood concentrations >5 mg/dL will cause overestim ationof blood glucose results . Do not use during intraven ousinfusion of N'acetylcystein e. HGBA1C - GLYCOSYLATED [id number] 05:46:00 Test Item Value Reference Range Interpretation Comments GLYCOSYLATED HEMOGLOBIN (HA1C) (test 5.6 4.5-5.9 N code = GLYHGB) COMPREHENSIVE METABOLIC [id number] 05:01:00 Test Item Value Reference Range Interpretation [...] 45-117 N PHOSPHATASE (test code = ALKP) [id number] 05:01:00 Test Item Value Reference Range Interpretation Comments MAGNESIUM (test code = MAG) 2.2 mg/dL 1.8-2.4 N CBC W/AUTO [id number] 04:53:00 Test Item Value Reference Range Interpretation [...] 10 3/uL 0.0-0.1 N Coronavirus 2019 nCoV [id number] 17:57:00 Test Item Value Reference Range Interpretation Comments Coronavirus 2019 Negative Negative This test h ad not been nCoV Bedside (test FDA clear ed or approved; code = [id number]) This te sthas been authorized by Amadeo [...] and/o r diagnosis of CO VID-19 under Spdbubq33 4(b)(1) of the Act, 21 U.S .C. [...] = LDLC) 95 mg/dL 0-100 N LACTIC [id number] 16:27:00 Test Item Value Reference Range Interpretation Comments LACTIC ACID (test code = LACT) 1.3 mmol/L 0.4-2.0 N PROTHROMBIN [id number] 16:24:00 Test Item Value Reference Range Interpretation [...] and/or recurren t systemicemboliz ation. THROMBOPLASTIN TIME [id number] 16:24:00 Test Item Value Reference Range Interpretation Comments THROMBOPLASTIN TIME PARTIAL 29.5 SECONDS 25.1-36.5 N (test code = PTT) BASIC METABOLIC [id number] 15:37:00 Test Item Value Reference Range Interpretation [...] DATE OF LAST MENSTRUAL PERIOD: 05/29/20LIVER FUNCTION [id number] 15:37:00 Test Item Value Reference Range Interpretation [...] = ALKP) DATE OF LAST MENSTRUAL PERIOD: 05/29/[id number] 15:37:00 Test Item Value Reference Range Interpretation Comments LIPASE (test code = LIP) 127 U/L 73-393 N DATE OF LAST MENSTRUAL PERIOD: 05/29/20HCG SERUM [id number] 15:37:00 Test Item Value Reference Range Interpretation Comments HCG SERUM QUAL (test code = HCGQL) NEGATIVE NEGATIVE DATE OF LAST MENSTRUAL PERIOD: 05/29/20BASIC METABOLIC [id number] 15:31:00 Test Item Value Reference Range Interpretation [...] DATE OF LAST MENSTRUAL PERIOD: 05/29/20LIVER FUNCTION [id number] 15:31:00 Test Item Value Reference Range Interpretation [...] 45-117 ALKP) DATE OF LAST MENSTRUAL PERIOD: 05/29/[id number] 15:31:00 Test Item Value Reference Range Interpretation Comments LIPASE (test code = LIP) U/L 73-393 DATE OF LAST MENSTRUAL PERIOD: 05/29/20HCG SERUM [id number] 15:31:00 Test Item Value Reference Range Interpretation Comments HCG SERUM QUAL (test code = HCGQL) NEGATIVE NEGATIVE DATE OF LAST MENSTRUAL PERIOD: 05/29/20UA RFLX MICR CULT IF [id number] 15:25:00 Test Item Value Reference Range Interpretation [...] /lpf Indication for culture: Suprapubic PainCBC W/AUTO [id number] 15:19:00 Test Item Value Reference Range Interpretation [...] 3/uL 0.0-0.1 N - CT ABD PELVIS [id number] 10:25:00Patient Name: ALETHEA STREET Unit No: [id number] EXAMS: CPT CODE: [id number] CT ABD PELVIS W/CONT 48335 EXAM: CT ABDOMEN AND PELVIS WITH CONTRAST [...] 56). There is a Name: ALE[address]A [address] [facility] [place]: [place] [address] : 1975 Age: 44 [place]: [place] [address] Loc: VA.CTSII Exam Date: 06/13/2020 Status: REG CLI PH: FAX: PAGE 1 Signed Report (CONTINUED) Patient Name: ALETHEA STREET Unit No: [id number] EXAMS: CPTCODE: [id number] CT ABD PELVIS W/CONT 80431 (Continued) another fluid collection which may be [...] size criteria. Bones/Soft Tissues: No acute osseous findings.No ventral hernias. Peritoneum/Other: Pericolonic fluid collections are [...] 480 Trscr Dt/Tm: 06/13/2020 (1025) by:[email or web address] Electronic SignatureDate/Time: 06/13/2020 (1025)Orig Print D/T: S: 06/13/2020 (1028) Name: ALE[address]A [address] [facility] [place]: [place] [address] : 1975 Age: 44 Sex: F [id number] Loc: NC.CTSII Exam Date: 06/13/2020 Status: REG CLI PH: FAX: PAGE 2 Signed ReportAB HEPATITIS A [id number] 20:14:00 Test Item Value Reference Range Interpretation Comments AB HEPATITIS A IGM (test code = Non-Reactive NONREACTIVE HAVMAB) AG HEPATITIS B [id number] 20:14:00 Test Item Value Reference Range Interpretation Comments AG HEPATITIS B SURFACE (test Non-Reactive NONREACTIVE code = HBSAG) AB HEPATITIS B CORE [id number] 20:14:00 Test Item Value Reference Range Interpretation Comments AB HEPATITIS B CORE IGM (test Non-Reactive NONREACTIVE code = HBCMAB) AB HEPATITIS [id number] 20:14:00 Test Item Value Reference Range Interpretation Comments AB HEPATITIS C (test code = Non-Reactive NONREACTIVE HCVAB) HIV 1 2 COMBO AG/AB [id number] 20:14:00 Test Item Value Reference Range Interpretation Comments HIV 1 2 COMBO Non-Reactive NONREACTIVE The ADVIA Camero aur HIV Ag/Ab AG/AB SCREEN Combo (CHIV) as say is (test code = anin-vitro diag nostic [id number]) immunoassay for the simultaneousqua litative detection of hu man immunodeficienc y virus r05eaoiydk and antibodies to human immunodef iciency virusestype 1 ( including group "O") and type 2. COMPREHENSIVE METABOLIC [id number] 19:23:00 Test Item Value Reference Range Interpretation [...] N PHOSPHATASE (test code = ALKP) PROTHROMBIN [id number] 19:12:00 Test Item Value Reference Range Interpretation [...] and/or recurren t systemicemboliz ation. THROMBOPLASTIN TIME [id number] 19:12:00 Test Item Value Reference Range Interpretation Comments THROMBOPLASTIN TIME PARTIAL 33.4 SECONDS 25.1-36.5 N (test code = PTT) CBC W/AUTO [id number] 19:00:00 Test Item Value Reference Range Interpretation [...] = BA#) 0.03 10 3/uL 0.0-0.1 N [id number] 12:11:00 Test Item Value Reference Range Interpretation Comments GLUBED (test code = GLUBED) 87 mg/dL 65-99 N [id number] 08:28:00 Test Item Value Reference Range Interpretation Comments GLUBED (test code = GLUBED) 173 mg/dL 65-99 H BASIC METABOLIC [id number] 07:21:00 Test Item Value Reference Range Interpretation [...] mg/dL 8.5-10.1 L = CA) CBC W/O [id number] 07:19:00 Test Item Value Reference Range Interpretation [...] = PLT) 241 10 3/uL 150-400 N [id number] 21:12:00 Test Item Value Reference Range Interpretation Comments GLUBED (test code = GLUBED) 111 mg/dL 65-99 H [id number] 16:51:00 Test Item Value Reference Range Interpretation Comments GLUBED (test code = GLUBED) 112 mg/dL 65-99 H [id number] 12:32:00 Test Item Value Reference Range Interpretation Comments GLUBED (test code = GLUBED) 130 mg/dL 65-99 H CBC W/O [id number] 06:36:00 Test Item Value Reference Range Interpretation [...] 182 10 3/uL 150-400 N BASIC METABOLIC [id number] 06:10:00 Test Item Value Reference Range Interpretation [...] code 8.5 mg/dL 8.5-10.1 N = CA) [id number] 05:25:00 Test Item Value Reference Range Interpretation Comments GLUBED (test code = GLUBED) 130 mg/dL 65-99 H [id number] 23:38:00 Test Item Value Reference Range Interpretation Comments GLUBED (test code = GLUBED) 125 mg/dL 65-99 H CBC W/AUTO [id number] 19:13:00 Test Item Value Reference Range Interpretation [...] = BA#) 0.05 10 3/uL 0.0-0.1 N [id number] 17:45:00 Test Item Value Reference Range Interpretation Comments GLUBED (test code = GLUBED) 112 mg/dL 65-99 H PROTHROMBIN [id number] 15:06:00 Test Item Value Reference Range Interpretation [...] and/or recurren t systemicemboliz ation. THROMBOPLASTIN TIME [id number] 15:06:00 Test Item Value Reference Range Interpretation Comments THROMBOPLASTIN TIME PARTIAL 29.8 SECONDS 25.1-36.5 N (test code = PTT) [id number] 11:28:00 Test Item Value Reference Range Interpretation Comments GLUBED (test code = GLUBED) 143 mg/dL 65-99 H LACTIC [id number] 09:32:00 Test Item Value Reference Range Interpretation Comments LACTIC ACID (test code = LACT) 0.9 mmol/L 0.4-2.0 N BASIC METABOLIC [id number] 06:08:00 Test Item Value Reference Range Interpretation [...] code = 8.0 mg/dL 8.5-10.1 L CA) [id number] 05:53:00 Test Item Value Reference Range Interpretation Comments GLUBED (test code = GLUBED) 148 mg/dL 65-99 H CBC W/O [id number] 05:26:00 Test Item Value Reference Range Interpretation [...] = PLT) 163 10 3/uL 150-400 N [id number] 23:51:00 Test Item Value Reference Range Interpretation Comments GLUBED (test code = GLUBED) 127 mg/dL 65-99 H [id number] 18:23:00 Test Item Value Reference Range Interpretation Comments GLUBED (test code = GLUBED) 166 mg/dL 65-99 H - CT ABD PELVIS W WO [id number] 15:37:00Patient Name: ALETHEA STREET Unit No: [id number] EXAMS: CPT CODE: [id number] CT ABD PELVIS W WO CONT 75148 EXAM: - CT ABD PELVIS W WO [...] of perforated sigmoid diverticulitis. A large amount offree air tracks abnormally into the retroperitoneum. A few foci of intraperitoneal free air or no obscured, suggesting along the anterior inferior margin of the liver (series 4, image 29). There is development of diffuse small bowel dilatation with no transition point seen. There appears to be organization of a few small air-fluid collections in the bilateral pelvis, concerning for abscess formation,largest measuring 3.2 x 1.9 cm. The appendix is normal. Lymphatics: No enlarged lymph nodes by CT size criteria. Vascular: The aorta is normal in appearance. No evidence of aneurysm or dissection. Bones/Soft Tissues: No acute osseous findings. No ventral hernias. Peritoneum/Other: No free air. No freefluid. Thoracic: Included images of the lower chest demonstrate no abnormalities. Remote right rib fractures. Name: ALETHEA [address] [facility] Phys: Carol Welch [address] : 1975 Age: 44 [place]: [place] [address] Loc: NC.4302 1 Exam Date: 05/10/2020 Status: ADM IN PH: FAX: PAGE 1 Signed Report (CONTINUED) Patient Name: ALETHEA ST[address] Unit No: [id number] EXAMS: CPT CODE: [id number] CT ABD PELVIS W WO CONT 81302 (Continued) IMPRESSION: 1. Redemonstration of perforated sigmoid diverticulitis with abnormal development of severe pneumoretroperitoneum. There is interval development of a few foci of intraperitoneal free air. 2. Orga nization of a few small fluid collections in [...] Signature Date/Time:05/10/2020 (1537)Orig Print D/T: S: 05/10/2020 (4395) Name: [facility] [facility] Phys: Carol Welch [address] : 1975 Age: 44 [place]: [place] [address] Loc: NC.4302 1 Exam Date: 05/10/2020 Status: ADM IN PH: FAX: PAGE 2 Signed [id number] 11:35:00 Test Item Value Reference Range Interpretation Comments GLUBED (test code = GLUBED) 180 mg/dL 65-99 H BASIC METABOLIC [id number] 08:33:00 Test Item Value Reference Range Interpretation Comments SODIUM (test code 138 mmol/L 135-145 N = NA) POTASSIUM (test 2.9 mmol/L 3.5-5.1 LL Critical Daniel ue code = K) reported toFirs t Name:FRANCI Escobar ast Name:RIKA ISBELL BACK AND EVE Carter NCLAB.JG, on 05/10/20, @ 083 2. CHLORIDE [...] mg/dL 8.5-10.1 L = CA) CBC W/O [id number] 07:37:00 Test Item Value Reference Range Interpretation [...] = PLT) 174 10 3/uL 150-400 N [id number] 06:37:00 Test Item Value Reference Range Interpretation Comments GLUBED (test code = GLUBED) 158 mg/dL 65-99 H [id number] 00:18:00 Test Item Value Reference Range Interpretation Comments GLUBED (test code = GLUBED) 157 mg/dL 65-99 H [id number] 20:49:00 Test Item Value Reference Range Interpretation Comments GLUBED (test code = GLUBED) 121 mg/dL 65-99 H [id number] 18:02:00 Test Item Value Reference Range Interpretation Comments GLUBED (test code = GLUBED) 125 mg/dL 65-99 H [id number] 12:01:00 Test Item Value Reference Range Interpretation Comments GLUBED (test code = GLUBED) 146 mg/dL 65-99 H [id number] 08:06:00 Test Item Value Reference Range Interpretation Comments GLUBED (test code = GLUBED) 188 mg/dL 65-99 H [id number] 06:18:00 Test Item Value Reference Range Interpretation Comments GLUBED (test code = GLUBED) 166 mg/dL 65-99 H COMPREHENSIVE METABOLIC [id number] 06:13:00 Test Item Value Reference Range Interpretation [...] 45-117 N PHOSPHATASE (test code = ALKP) [id number] 06:13:00 Test Item Value Reference Range Interpretation Comments MAGNESIUM (test code = MAG) 1.0 mg/dL 1.8-2.4 L HGBA1C - GLYCOSYLATED [id number] 06:08:00 Test Item Value Reference Range Interpretation Comments GLYCOSYLATED HEMOGLOBIN (HA1C) (test 5.4 4.5-5.9 N code = GLYHGB) CBC W/AUTO [id number] 05:56:00 Test Item Value Reference Range Interpretation [...] = BA#) 0.04 10 3/uL 0.0-0.1 N [id number] 23:58:00 Test Item Value Reference Range Interpretation Comments GLUBED (test code = GLUBED) 249 mg/dL 65-99 H [id number] 20:11:00 Test Item Value Reference Range Interpretation Comments GLUBED (test code = GLUBED) 134 mg/dL 65-99 H [id number] 17:53:00 Test Item Value Reference Range Interpretation [...] = LDLC) 52 mg/dL 0-100 N LACTIC [id number] 13:51:00 Test Item Value Reference Range Interpretation Comments LACTIC ACID (test code = LACT) 1.9 mmol/L 0.4-2.0 N Coronavirus 2018 nCoV [id number] 13:43:00 Test Item Value Reference Range Interpretation Comments Coronavirus 2018 Negative Negative This test h ad not been nCoV Bedside (test FDA clear ed or approved; code = [id number]) This te sthas been authorized by F [...] and/o r diagnosis of CO VID-19 under Snygpys61 4(b)(1) of the Act, 21 U.S .C. 360bbb-3(b)(1), unless theauthorizatio n is terminated or r evoked sooner. Is patient requiring admission or transfer? YIndication for rapid COVID-9 testing: Mod Clinical SuspicionUA RFLX MICR CULT IF [id number] 12:47:00 Test Item Value Reference Range Interpretation [...] Indication for culture: Dysuria/Frequency- CT ABD PELVIS [id number] 12:46:00Patient Name: ALETHEA STREET Unit No: [id number] EXAMS: CPT CODE: [id number] CT ABD PELVIS W/CONT 01652 EXAM: - CT ABD PELVIS W/CONT Location: [...] there is air within Name: [facility]LE[address] [facility] Phys: Scarlet Bernal [employer] [address] : 1975 Age: 44 [place]: [place] [address] Loc: [facility] Exam Date: 05/08/2020 Status: REG PH: FAX: PAGE 1 Signed Report (CONTINUED) Patient Name: ALETHEA STREET Unit No: [id number] EXAMS: CPT CODE: [id number] CT ABD PELVIS W/CONT 26076 (Continued) the sigmoid m esocolon as well [...] 3. Small perihepatic ascites. at 1246 Reported andsigned by: Ivan Jose MD CC: Scarlet Yancey NP Technologist: Ana Laura Pulido CTDI: 8.64 DLP: 488.5Trscr Dt/Tm: 05/08/2020 (1246) by:[email or web address] Electronic Signature Date/Time: 05/08/2020 (1246)Orig Print D/T: S: 05/08/2020 (2779) Name: [address] [facility] [place]: [place] [address] : 1975 Age: 44 [place]: [place] [address] Loc: [facility] Exam Date: 05/08/2020 Status: REG ER PH: FAX: PAGE 2 Signed ReportBASIC METABOLIC [id number] 11:08:00 Test Item Value Reference Range Interpretation [...] DATE OF LAST MENSTRUAL PERIOD: 05/07/20LIVER FUNCTION [id number] 11:08:00 Test Item Value Reference Range Interpretation [...] = ALKP) DATE OF LAST MENSTRUAL PERIOD: 05/07/[id number] 11:08:00 Test Item Value Reference Range Interpretation Comments LIPASE (test code = LIP) 122 U/L 73-393 N DATE OF LAST MENSTRUAL PERIOD: 05/07/20HCG SERUM [id number] 11:08:00 Test Item Value Reference Range Interpretation Comments HCG SERUM QUAL (test code = HCGQL) NEGATIVE NEGATIVE DATE OF LAST MENSTRUAL PERIOD: 05/07/20BASIC METABOLIC [id number] 10:58:00 Test Item Value Reference Range Interpretation [...] DATE OF LAST MENSTRUAL PERIOD: 05/07/20LIVER FUNCTION [id number] 10:58:00 Test Item Value Reference Range Interpretation [...] 45-117 ALKP) DATE OF LAST MENSTRUAL PERIOD: 05/07/[id number] 10:58:00 Test Item Value Reference Range Interpretation Comments LIPASE (test code = LIP) U/L 73-393 DATE OF LAST MENSTRUAL PERIOD: 05/07/20HCG SERUM [id number] 10:58:00 Test Item Value Reference Range Interpretation Comments HCG SERUM QUAL (test code = HCGQL) NEGATIVE NEGATIVE DATE OF LAST MENSTRUAL PERIOD: 05/07/20CBC W/AUTO [id number] 10:50:00 Test Item Value Reference Range Interpretation [...] BA#) 0.04 10 3/uL 0.0-0.1 N HCG [id number] 23:03:00 Test Item Value Reference Range Interpretation Comments HCG SERUM (test < 1 mIU/mL 0-3 N Gestational Age hCG code = HCG) (mIU/mL)0-1 wee ks 5-501-2 weeks 50-5002- 3 weeks 100-5,0003-4 we eks 500-10,0004-5 w eeks 1,000-50,0005-6 weeks 10,000-100,0006 -8 weeks 15,000-200,0002 -3 months 10,000-100,000 WHEN BORDERLINE RESU LTS ARE ENCOUNTERED, SEEMA KELLY SAMPLESSHOULD B E REDRAWN 48 HOURS LATER. DATE OF LAST MENSTRUAL PERIOD: 09/21/18BASIC METABOLIC [id number] 22:51:00 Test Item Value Reference Range Interpretation [...] mg/dL 8.5-10.1 N = CA) CBC W/AUTO [id number] 22:26:00 Test Item Value Reference Range Interpretation [...] 3/uL 0.0-0.1 N - US TRANSVAGINAL NON [id number] 20:10:00 [facility] [address] : 1975 Sex: FPatient Name: ALETHEA STREET Unit No: [id number] EXAMS: CPT: [id number] [place] [address] Pelvic sonogram, 01/22/2019. Clinical: Pain. Comment: The [...] Oneill Jr, MD Technologist: TUAN PATEL Probe: [id number] Trscr Dt/Tm: 01/22/2019 (2009) by:[email or web address] Orig Print D/T: S: 01/22/2019 (2012) BATCH NO:N/A Name: ALE[address] [facility] Emergency Dept [place]: [place] [address] [facility] : 1975 Age: 43 [place]: [place] [address] Loc: [facility] Exam Date: 01/22/2019 Status: [facility] PH: [phone] FAX: PAGE 1 Signed Report- US PELVIC [id number] 20:10:00[facility] [address] : 1975 Sex: FPatient Name: ALETHEA STREET Unit No: [id number] EXAMS: CPT: [id number] US PELVIC COMPLETE 64917 Pelvic sonogram, 01/22/2019. Clinical: Pain. Comment: The [...] (2012) BATCH NO: N/A Name: ALE[address] [facility] Emergency Dept Phys: Geraldo Hester PA-C [address] [facility] : 1975 Age: 43 Sex: [place] [address] Loc: UNK Exam Date: 01/22/2019 Status: [facility] PH: [phone] FAX: PAGE 1 Signed Report- CT ABD PELVIS [id number] 18:31:00[facility] [address] [facility] : 1975 Sex: FPatient Name: ALETHEA STREET Unit No: [id number] EXAMS: CPT: [id number] CT ABD PELVIS W/CONT [address]195 CT ABDOMEN WITH CONTRAST: CT PELVIS WITH [...] with ACR practice guidelines and adherence to supervisor labor gang's recommendations. at 1831 Reported and signed by: Westley Henrandez MD CC: Geraldo Renae Technologist: DARREN GARCIA CTDI: 6.96 DLP: 368.58 Trscr Dt/Tm: 01/22/2019 (183) by:[email or web address] Orig Print D/T: S: 01/22/2019 (183) BATCH NO: N/A Name: A[address] [facility] Emergency Dept Phys: Geraldo Hester PA-C [address] [facility] : 1975 Age: 43 Sex: [place] [address] Loc: JESSICA Exam Date: 01/22/2019 Status: JESSICA PH: [phone] FAX: PAGE 1 Signed ReportCT, [id number] 23:06:00Reason for exam:->ABDOMINAL PAINIs the patient ?->NoWhat [...] MDReport Verified Date/Time: 07/21/2017 23:06:24 Reading Location: [facility] B1 C013W Consult Reading Room U/S, ABDOMINAL, [id number] 21:33:00Abdomen limited area? Add comment if clarification [...] MDReport Verified Date/Time: 07/21/2017 21:33:04 Reading Location: [address] Reading Room COMPREHENSIVE METABOLIC [id number] 18:41:00 Test Item Value Reference Range Interpretation [...] S NOT APPLICABLE FOR DIALYSIS PATIEN TS. [id number] 18:39:00 Test Item Value Reference Range Interpretation Comments LIPASE (BEAKER) (test code = 749) 42 U/L 6-51 URINALYSIS W/ [id number] 18:29:00 Test Item Value Reference Range Interpretation [...] code = 1663) SOURCE(BEAKER) (test code = 8395) CBC W/PLT COUNT & AUTO [id number] 18:21:00 Test Item Value Reference Range Interpretation [...] L 0.00-0.20 (test code = 417) SCREEN, [id number] 18:18:00 Test Item Value Reference Range Interpretation Comments TEST URINE (BEAKER) (test Negative code = 583)
[2023-07-25 20:29] LABS: Specific Gravity < 1.005 (1.005-1.030)
[2023-07-25 20:30] LABS: Absolute Lymphocytes (CBC) 2.1 K/uL (0.7-4.9); Hematocrit 45.4 % (36.0-45.0); Lymphocytes % 23.7 % (15.3-44.8); MCV 89.9 fL (80-100); MPV 7.9 fL (7.6-11.3); Platelets 293 thou/uL (152-406); RBC Red Blood Cell Count 5.05 M/uL (3.86-4.86); Specific Gravity < 1.005 (1.005-1.030); Urine Bilirubin NEGATIVE (Negative); Urine Blood Negative (Negative); Urine Clarity Clear (Clear); Urine Color Colorless (Yellow); Urine Glucose NEGATIVE (Negative); Urine Protein NEGATIVE (Negative); Urine Urobilinogen Normal (Normal)
[2023-07-25 20:41] LABS: Protime INR 1.01
[2023-07-25 20:48] LABS: ALT/SGPT 24 U/L (13-56); AST/SGOT 19 U/L (15-37); Albumin 3.8 g/dL (3.4-5.0); Alkaline Phosphatase 170 U/L (45-117); BUN Blood Urea Nitrogen 8 mg/dL (7-18); Bicarbonate 25 mEq/L (21-32); Bilirubin Total 0.3 mg/dL (0.2-1.0); Glomerular Filtration Rate 95 ml/min (=/>90); Glucose Level 103 mg/dL (74-106); Potassium 3.5 mEq/L (3.5-5.1); Protein, Total 7.9 g/dL (6.4-8.2); Sodium Level 139 mEq/L (136-145)
[2023-07-25 20:50] LABS: Bilirubin Direct < 0.1 mg/dL (0-0.2); Methadone ND (NEGATIVE)
[2023-07-25 20:51] LABS: Bilirubin Indirect, Calculated ND mg/dL (0.2-0.8)
[2023-07-25 21:10] LABS: Barbiturates NEGATIVE (NEGATIVE); Benzodiazepines NEGATIVE (NEGATIVE); Cocaine NEGATIVE (NEGATIVE); METHAMPHETAM NEGATIVE (NEGATIVE); Opiates NEGATIVE (NEGATIVE); Phencyclidine NEGATIVE (NEGATIVE); THC Cannibis POSITIVE (NEGATIVE)
[2023-07-25] MEDS ORDERED: NA CHLORIDE 0.9% 1,000 ML ONE (21:33)
--- NOTE | 2023-07-25 23:29 | ER ---
Nurse's Notes [facility] Name: Monse Comer Age: 47 yrs Sex: Female : 1975 Arrival Date: 07/25/2023 Time: 18:34 Bed 26 Private MD: Diagnosis: Acute stress reaction Presentation: 07/25 19:11 Chief complaint: Patient states: her and her boyfriend were arguing today and he called 10 911 to let them know that she was suicidal. Patient states that she is currently not suicidal. Pt states, "I am not suicidal. I have 2 beautiful children to live for.". Coronavirus screen: Vaccine status: Patient reports being unvaccinated. Client denies travel out of the [place] in the last 14 days. Ebola Screen: Patient denies travel to an Ebola-affected area in the 21 days before illness onset. No symptoms or risks identified at this time. Initial Sepsis Screen: Does the patient meet any 2 criteria? No. Patient's initial sepsis screen is negative. Does the patient have a suspected source of infection? No. Patient's initial sepsis screen is negative. Risk Assessment: Do you want to hurt yourself or someone else? Patient reports no desire to harm self or others. Onset of symptoms was July 25, 2023. 19:11 Method Of Arrival: EMS: [facility] 19:11 Acuity: JERRY 2 cm10 Triage Assessment: 19:15 General: Appears in no apparent distress. comfortable, Behavior is calm, cooperative. cm10 Historical: - Allergies: 19:15 BuSpar; cm10 - PMHx: 19:15 diabetes mellitus; Hypertensive disorder; neuropathy; cm10 - PSHx: 19:15 back surgery x 2; cm10 - Immunization history:: Adult Immunizations unknown. - Social history:: Smoking status: Patient reports the use of cigarette tobacco products, smokes one-half pack cigarettes per day. Screenin:33 [facility] ED Fall Risk Assessment (Adult) History of falling in the last 3 months, jj7 including since admission No falls in past 3 months (0 pts) Confusion or Disorientation No (0 pts) Intoxicated or Sedated No (0 pts) Impaired Gait No (0 pts) Mobility Assist Device Used No (0 pt) Altered Elimination No (0 pt) Score/Fall Risk Level 0 - 2 = Low Risk Oriented to surroundings, Maintained a safe environment. Abuse screen: Denies threats or abuse. Nutritional screening: No deficits noted. Tuberculosis screening: No symptoms or risk factors identified. Assessment: 19:33 General: Appears in no apparent distress. comfortable, Behavior is calm, cooperative, jj7 appropriate for age, crying. Pain: Denies pain. Neuro: No deficits noted. 20:30 Reassessment: Patient and/or family updated on plan of care and expected duration. Pain jj7 level reassessed. Patient is alert, oriented x 3, equal unlabored respirations, skin warm/dry/pink. 22:30 Reassessment: Patient and/or family updated on plan of care and expected duration. Pain jj7 level reassessed. Patient is alert, oriented x 3, equal unlabored respirations, skin warm/dry/pink. 22:51 Reassessment: YESENIA WITH [facility] AT BEDSIDE SPEAKING WITH PT. jj7 Psych: 19:33 [place] Suicide Severity Screening: In the past month, have you wished you were jj7 or wished you could go to sleep and not wake up? Patient responds "No." "In the past month, have you actually had any thoughts of killing yourself?" Patient responds "no." "In your lifetime, have you ever done anything, started to do anything, or prepared to do anything to end your life?" Patient responds "no.". Subjective: Patient's mood is sad, Delusions are denied, Hallucinations are denied Having thoughts of NON SI. Objective: Patient is cooperative, Speech is normal, Affect is appropriate. Interventions: Removed personal items and placed in bag. Urine collected and sent for urine drug test. Belonging list filled out. Safety Checks: Personal items have been removed. Door is open. No visitors are present at this time. Pt denies substance abuse. Vital Signs: 19:11 BP 130 / 109; Pulse 98; Resp 18 S; Temp 98.4(TE); Pulse Ox 98% on R/A; Weight 51.26 kg cm10 (R); Height 5 ft. 4 in. (R); Pain 0/10; 23:42 BP 137 / 89; Pulse 87; Resp 18; Pulse Ox 99% ; Pain 0/10; jj7 19:11 Body Mass Index 19.40 (51.26 kg, 162.56 cm) cm10 19:11 Pain Scale: Adult cm10 23:42 Pain Scale: Adult j7 ED Course: 18:37 Patient arrived in ED. mg5 18:38 Emily Bernard FNP-C [facility] kb 18:38 Prosper Hsieh MD is Attending Physician. kb 19:15 Triage completed. cm10 19:15 Arm band placed on Patient placed in waiting room. cm10 19:29 Fuentes Castro RN is Primary Nurse. jj7 19:33 Patient has correct armband on for positive identification. Bed in low position. Side jj7 rails up X2. SITTER AT BEDSIDE. Provided Education on: PROCESS OF PSYCH EVUAL. 20:31 Inserted saline lock: 22 gauge in right forearm, using aseptic technique. Blood oe collected. 20:48 Acetaminophen Sent. jj7 20:48 Basic Metabolic Panel Sent. jj7 20:48 ETOH Level Sent. jj7 20:48 Hepatic Function Sent. jj7 20:48 Urine Drug Screen Sent. jj7 21:19 contacted [facility] for screening \\T\\ 2109. kmf 21:30 Lights dimmed. Warm blanket given. jj7 23:42 No provider procedures requiring assistance completed. IV discontinued, intact, jj7 bleeding controlled, No redness/swelling at site. Pressure dressing applied. Administered Medications: 21:26 Drug: NS 0.9% IV 1000 ml IV at 1000 ml once Route: IV; Rate: 1000 ml; Site: right jj7 forearm; 22:35 Follow up: IV Status: Completed infusion jj7 Medication: 19:33 VIS not applicable for this client. jj7 Outcome: 23:28 Discharge ordered by . kb 23:42 Discharged to home ambulatory, jj7 23:42 Condition: improved 23:42 Discharge instructions given to patient, Instructed on discharge instructions, follow up and referral plans. 23:55 Patient left the ED. jj7 Signatures: Emily Bernard FNP-C FNP-[place] Michele Candelario oe Fuentes Castro RN RN jj7 Martinez, Clarissa, RN RN cm10 Sheeba Ross mg5 Nitza Mills f Corrections: (The following items were deleted from the chart) 20:50 19:33 Neuro: jj7 jj7
--- NOTE | 2023-07-25 23:29 | EDPHYS ---
Physician Documentation [facility] Name: Monse Comer Age: 47 yrs Sex: Female : 1975 Arrival Date: 07/25/2023 Time: 18:34 Bed 26 Private MD: ED Physician Prosper Hsieh HPI: 07/25 23:26 This 47 yrs old Female presents to ER via EMS with complaints of Suicidal Ideation. kb 23:26 Patient is a 47-year-old female who presents with PD after boyfriend called saying that kb patient was suicidal. Patient denies any suicidal ideations, states she is going through a rough time right now due to finances and the anniversary of her mother's but states she has 2 sons to live for and does not want to . Patient states that the statements made by the boyfriend were false. States she just wanted to get out of the house so she tried to leave and the boyfriend called the parts facilitator.. Historical: - Allergies: 19:15 BuSpar; cm10 - PMHx: 19:15 diabetes mellitus; Hypertensive disorder; neuropathy; cm10 - PSHx: 19:15 back surgery x 2; cm10 - Immunization history:: Adult Immunizations unknown. - Social history:: Smoking status: Patient reports the use of cigarette tobacco products, smokes one-half pack cigarettes per day. ROS: 23:21 Constitutional: Negative for fever, chills, and weight loss, kb 23:21 All other systems are negative, Exam: 23:21 Constitutional: This is a well developed, well nourished patient who is awake, alert, kb and in no acute distress. Head/Face: Normocephalic, atraumatic. ENT: Moist Mucous membranes Cardiovascular: Regular rate Respiratory: Respirations even and unlabored. No increased work of breathing. Talking in full sentences Abdomen/GI: Soft, non-tender. No distention MS/ Extremity: Pulses equal, no cyanosis. Neurovascular intact. Full, normal range of motion. Neuro: Awake and alert, GCS 15, oriented to person, place, time, and situation. Moves all extremities. Normal gait. 23:21 Skin: injury, abrasion(s), small abrasion noted, moderate sized abrasion noted, of the left quadriceps, 23:21 Psych: Behavior/mood is pleasant, cooperative, Affect is calm, Oriented to person, place, time, Patient has no thoughts/intents to harm self or others. Judgement / Insight is normal. Memory is normal. Vital Signs: 19:11 BP 130 / 109; Pulse 98; Resp 18 S; Temp 98.4(TE); Pulse Ox 98% on R/A; Weight 51.26 kg cm10 (R); Height 5 ft. 4 in. (R); Pain 0/10; 23:42 BP 137 / 89; Pulse 87; Resp 18; Pulse Ox 99% ; Pain 0/10; jj7 19:11 Body Mass Index 19.40 (51.26 kg, 162.56 cm) cm10 19:11 Pain Scale: Adult cm10 23:42 Pain Scale: Adult jj7 MDM: 18:43 Patient medically screened. julio 23:21 Differential diagnosis: depression, psychosis secondary to non-compliance, acute stress kb reaction. Data reviewed: vital signs, nurses notes. Consideration of Admission/Observation Escalation of care including admission/observation considered. transfer to psych facility considered. Historians other than the Patient: Law enforcement: Brunilda VIZCARRA. Counseling: I had a detailed discussion with the patient and/or guardian regarding the historical points, exam findings, and any diagnostic results supporting the discharge/admit diagnosis, lab results, the need for outpatient follow up, a family practitioner, to return to the emergency department if symptoms worsen or persist or if there are any questions or concerns that arise at home. ED course: Mora Julien, evaluated pt and recommends outpatient treatment. Pt given resources for [facility]. . 23:26 Management of patient was discussed with the following: Behavioral Health Provider: julio parada. 23:29 Management of patient was discussed with the following: Brunilda VIZCARRA and mental health julio deputy. 07/25 18:43 Order name: Acetaminophen; Complete Time: 20:52 kb 07/25 18:43 Order name: Basic Metabolic Panel; Complete Time: 20:52 kb 07/25 18:43 Order name: CBC with Diff; Complete Time: 20:49 kb 07/25 18:43 Order name: ETOH Level; Complete Time: 20:51 kb 07/25 18:43 Order name: Hepatic Function; Complete Time: 20:52 kb 07/25 18:43 Order name: PT-INR; Complete Time: 20:49 kb 07/25 18:43 Order name: Test, Urine; Complete Time: 20:32 kb 07/25 18:43 Order name: Ptt, Activated; Complete Time: 20:49 kb 07/25 18:43 Order name: Salicylate; Complete Time: 20:49 kb 07/25 18:43 Order name: Urinalysis w/ reflexes; Complete Time: 20:32 kb 07/25 18:43 Order name: Urine Drug Screen; Complete Time: 21:10 kb 07/25 18:43 Order name: EKG - Nurse/Tech; Complete Time: 20:01 kb 07/25 18:43 Order name: IV Saline Lock; Complete Time: 20:47 kb 07/25 18:43 Order name: Labs collected and sent; Complete Time: 20:47 kb 07/25 18:43 Order name: Suicide Precautions; Complete Time: 20:47 kb 07/25 18:43 Order name: Suicide Screening ([place]); Complete Time: 20:48 kb Administered Medications: 21:26 Drug: NS 0.9% IV 1000 ml IV at 1000 ml once Route: IV; Rate: 1000 ml; Site: right jj7 forearm; 22:35 Follow up: IV Status: Completed infusion jj7 Disposition Summary: 07/25/23 23:28 Discharge Ordered Notes: Location: Home kb Condition: Stable kb Diagnosis - Acute stress reaction kb Followup: kb - With: Emergency Department - When: As needed - Reason: Worsening of condition Followup: kb - With: Private Physician - When: 2 - 3 days - Reason: Recheck today's complaints, Continuance of care, Re-evaluation by your physician Discharge Instructions: - Discharge Summary Sheet kb - Suicidal Feelings: How to Help Yourself kb - Managing Depression, Adult kb Forms: - Medication Reconciliation Form kb - Thank You Letter kb - Antibiotic Education kb - Prescription Opioid Use kb - Patient Portal Instructions kb - Leadership Thank You Letter kb Signatures: Dispatcher [employer] Emily Rachel FNP-C FNP-Fuentes Hernandez, RN RN jj7 Mindy Grubbs, RN RN cm10
--- NOTE | 2023-07-26 11:55 | EKG ---
Test Date: 2023-07-25 Test Time: 19:57:26 Employee Health Rn: TACHO MEASUREMENT RESULTS: Intervals: Rate: 88 TN: 152 QRSD: 76 QT: 354 QTc: 428 [place]: P: 71 TN: 152 QRS: 55 T: 53 INTERPRETIVE STATEMENTS: Normal sinus rhythm Normal ECG Compared to ECG 01/20/2023 21:12:17 No significant changes Electronically Signed On 07-26-23 11:53:46 CDT by Sven Castro
== END 2023-07-25 23:55 | disposition home or self-care (01) ==
LOC: ER 18:34
DX: F43.0 Acute stress reaction (principal); R45.851 Suicidal ideations; Z72.0 Tobacco use
CPT/HCPCS: 85025; 80048; 36415; 81025; 85610; 80076; 85730; 81003; 80307; 80143; 80179; 82077; J7030; 93005

== ENCOUNTER 2023-09-05 10:03 | Emergency (ER) | payer OTHER, SELFPAY ==
--- OUTSIDE RECORDS SUMMARY | 2023-09-05 10:11 | XMS REPORT | Continuity of Care Document ---
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 00:00:00 00:00:00 [facility] 2018-11-21 2018-11-21 Outpatient [facility] [id number] [place] 00:00:00 00:00:00 [facility] 2018-11-13 2018-11-13 Outpatient [facility] [id number] [place] 08:56:41 08:56:41 Health 2018-11-13 2018-11-13 Outpatient [facility] [id number] [place] 00:00:00 00:00:00 [facility] 2018-11-06 2018-11-06 Outpatient [facility] [id number] [place] 00:00:00 00:00:00 [facility] 2018-10-20 2018-10-20 Outpatient [facility] [id number] [place] 08:20:41 08:20:41 [facility] 2018-10-16 2018-10-16 Outpatient [facility] [id number] [place] 11:24:41 11:24:41 [facility] 2018-09-12 2018-09-12 Outpatient [facility] [id number] [place] 09:18:36 09:18:36 [facility] 2018-09-05 2018-09-05 Outpatient [facility] [id number] [place] 00:00:00 00:00:00 [facility] 2018-09-04 2018-09-04 Outpatient [facility] [id number] [place] 00:00:00 00:00:00 [facility] 2018-08-30 2018-08-30 Outpatient [facility] [id number] [place] 16:37:11 16:37:11 [facility] 2018-08-30 2018-08-30 Outpatient [facility] [id number] [place] 15:31:56 15:31:56 [facility] 2018-08-02 2018-08-02 Outpatient [facility] [id number] [place] 00:00:00 00:00:00 [facility] 2018-08-01 2018-08-01 Outpatient [facility] [id number] [place] 14:11:01 14:11:01 [facility] 2018-07-31 2018-07-31 Outpatient [facility] [id number] [place] 13:49:01 13:49:01 [facility] 2018-07-31 2018-07-31 Outpatient [facility] [id number] [place] 11:05:47 11:05:47 [facility] 2018-07-18 2018-07-18 Outpatient [facility] [id number] [place] 00:00:00 00:00:00 [facility] 2018-07-13 2018-07-13 Outpatient [facility] [id number] [place] 00:00:00 00:00:00 [facility] 2018-07-12 2018-07-12 Outpatient [facility] [id number] [place] 10:34:47 10:34:47 [facility] 2018-07-07 2018-07-07 Outpatient [facility] [id number] [place] 00:00:00 00:00:00 [facility] 2018-07-04 2018-07-04 Outpatient [facility] [id number] [place] 08:47:36 08:47:36 [facility] 2018-06-30 2018-06-30 Outpatient [facility] [id number] [place] 00:00:00 00:00:00 [facility] 2018-06-30 2018-06-30 Outpatient [facility] [id number] [place] 00:00:00 00:00:00 [facility] 2018-06-30 2018-06-30 Outpatient [facility] [id number] [place] 00:00:00 00:00:00 [facility] 2018-06-29 2018-06-29 Outpatient [facility] [id number] [place] 00:00:00 00:00:00 [facility] 2018-06-27 2018-06-27 Outpatient [facility] [id number] [place] 00:00:00 00:00:00 [facility] 2018-06-26 2018-06-26 Outpatient [facility] [id number] [place] 00:00:00 00:00:00 [facility] 2018-06-22 2018-06-22 Outpatient [facility] [id number] [place] 00:00:00 00:00:00 [facility] 2018-06-20 2018-06-20 Outpatient [facility] [id number] [place] 00:00:00 00:00:00 [facility] 2018-06-20 2018-06-20 Outpatient [facility] [id number] [place] 00:00:00 00:00:00 [facility] 2018-06-14 2018-06-14 Outpatient [facility] [id number] [place] 09:51:58 09:51:58 [facility] 2018-06-14 2018-06-14 Outpatient [facility] [id number] [place] 09:12:21 09:12:21 [facility] 2018-06-02 2018-06-02 Outpatient [facility] [id number] [place] 00:00:00 00:00:00 [facility] 2018-05-31 2018-05-31 Outpatient [facility] [id number] [place] 10:22:37 10:22:37 [facility] 2018-05-30 2018-05-30 Outpatient [facility] [id number] [place] 00:00:00 00:00:00 [facility] 2018-05-25 2018-05-25 Outpatient [facility] [id number] [place] 08:51:23 08:51:23 [facility] 2018-05-19 2018-05-19 Outpatient [facility] [id number] [place] 00:00:00 00:00:00 [facility] 2018-05-16 2018-05-16 Outpatient [facility] [id number] [place] 00:00:00 00:00:00 [facility] 2018-05-11 2018-05-11 Outpatient [facility] [id number] [place] 09:47:57 09:47:57 [facility] 2017-01-16 2017-01-17 Emergency PHILIP, [facility] [id number] [place] [address] 00:00:00 00:00:00 EDWARD Mayer Method i 2016-07-02 2016-07-02 Emergency [place] [id number] [place] 00:00:00 00:00:[address] 2015-12-23 2015-12-23 Emergency [place] [address] [id number] [place] 00:00:00 00:00:[address] 2015-12-22 2015-12-22 Emergency [place] [address] [id number] [place] 00:00:00 00:00:[address] 2015-12-18 2015-12-19 Emergency DRISCOLL, [place] [address] [id number] [place] 00:00:00 00:00:00 CAMARAN [address] Results Test Description Test Time Test Comments Results Result Comments Source OCCULT BLD,FECAL,IMMUNOASSAY DIAG 2023-03-15 12:58:12 Test Item Value Reference Range Interpretation Comme nts OCCULT BLD, FECAL (test code NEGATIVE NEGATIVE UNLESS OTHERWISE INDICATED, ALL = 89644) TESTING PERFORM ED AT CLINICAL PATHOLOGY [facility] [address] [place] [address] DIRECTOR OF ONCOLOGY: Donnie VALDEZ NUMBER [id number] CAP ACCREDITATION N O. [id number] NOTE:2023-03-04 06:01:48 Test Item Value Reference Range Interpretation Comments NOTE: (test code = (NOTE) IN ACCOR DANCE WITH FEDERAL 998) GUIDELINES REQU IRING ALL VERBAL REQUESTS FOR LABORATORY TEST S TO BE ACCOMPANIED BY WRITTEN AUTHORIZATION W ITHIN 30 DAYS OF THIS REQUEST , PLEASE SIGN BELOW AND RETUR N A COPY OF THIS REPORT BY FAX TO THE LABORATORY [facility] DEPARTMENT AT . PHYSICIAN'S SIG NATURE DATE UNLESS OTHERWISE INDIC ATED, ALL TESTING PERFORM ED AT CLINICAL PATHOL [employer], I [place]. [address] [place] [address] 0 0182 LABORATORY DIRE CTOR: Donnie FISHERIA NUMBER [id number] CAP ACCREDITATION N O. [id number] FOLLICLE STIM [id number] 03:46:48 Test Item Value Reference Range Interpretation Comments FOLLICLE STIM 42.4 IU/L SEE BELOW EXPEC TO VALUES HORMONE (test code FOR FSH F OR FEMALES >17 = 2700) YEARS F OLLICULAR 3.5-12.5 IU/L M ID-CYCLE PEAK 4.7-21.5 I U/L LUTEAL PHASE 1.7-7.7 I U/L POSTMENOPAUSAL 25.8-134.8 IU/L FOLIC [id number] 06:09:14 Test Item Value Reference Range Interpretation [...] . . UG/L >=6.0 VITAMIN D, 25 [id number] 06:08:52 Test Item Value Reference Range Interpretation [...] ED AT CLINICAL PATHOLOGY LABOR [facility] [address] [place] [address] LABORATORY DIRE CTOR: Donnie RIVAS ROM NUMBER [id number] [place]. [id number] COMPREHENSIVE METABOLIC [id number] 04:51:39 Test Item Value Reference Range Interpretation Comments GLUCOSE (test code = 128 MG/DL 70-99 H 2216) BUN (test code = 9 MG/DL 6-20 2207) CREATININE (test 0.77 MG/DL 0.60-1.30 code = 221) eGFR (2020 CKD-EPI) 95 ML/MIN/1.73 >60 (test code = 71966) CALC BUN/CREAT (test 12 RATIO 6-28 code = 2235) SODIUM (test code = 141 MEQ/L 442-726 9049) POTASSIUM (test code 4.4 MEQ/L 3.5-5.4 = [...] RATIO (test 1.7 RATIO 1.0-2.6 code = 223) BILIRUBIN, TOTAL 0.4 MG/DL See_Comment [Automated message] (test code = 2206) The syste m which generated this result transmit to reference range : <=1.2. The refe rence range was not u sed to interpret th is result as normal/abnormal . ALKALINE PHOSPHATASE 159 U/L 40-123 H (test code = 2203) AST (test code = 18 U/L 9-40 2217) ALT (test code = 13 U/L 5-40 2218) LIPID [id number] 04:51:39 Test Item Value Reference Range Interpretation [...] MOREINFORMATION , SEE CLIENT ANNOUNCE MENT AT [email or web address] RISK RATIO LDL/HDL 1.67 RATIO <3.22 (test code = 2238) HEMOGLOBIN [id number] 03:31:24 Test Item Value Reference Range Interpretation Comments HEMOGLOBIN A1c (test 6.2 % 4.2-5.6 H AMERIC AN DIABETES code = 01610) ASSOCIATION IDELINES FOR HGB A1C: PREDIABETES/INC REASED [...] TESTING OR LABORATORY C ONSULTATION. CBC W/AUTO [id number] 09:04:00 Test Item Value Reference Range Interpretation [...] 1.4 10e3/mm3 0.2-1.1 H MX#) URINALYSIS DIPSTICK [id number] 19:26:00 Test Item Value Reference Range Interpretation [...] YES NEEDED? (test code = UAMICRO) UA [id number] 19:26:00 Test Item Value Reference Range Interpretation Comments UA WBC (test code = WBCU) 0-3 /HPF 0-3 UA RBC (test code = RBCU) 0-3 /HPF 0-3 UA BACTERIA (test code = BACU) NONE SEEN /HPF NONE SEEN UA SQUAMOUS CELLS (test code = RARE /HPF NONE-FEW SQU) UA MUCUS (test code = MUCU) RARE /LPF NONE-FEW DRUGS OF ABUSE SCREEN [id number] 18:32:00 Test Item Value Reference Range Interpretation [...] code = TRICYCU) Neg NEGATIVE COMPREHENSIVE METABOLIC [id number] 18:31:00 Test Item Value Reference Range Interpretation [...] 42-141 N (test code = ALKP) HCG [id number] 18:06:00 Test Item Value Reference Range Interpretation [...] 48 hours toconfirm . PAP TEST, THINPREP, [id number] 08:51:56 Test Item Value Reference Range Interpretation Comments SOURCE: (test code = Cervical/End 8001) ocervical SLIDES: (test code = 1 801) LMP: (test code = 11/15/2021 8021) SPECIMEN ADEQUACY: (NOTE) Satisfac tory for (test code = 20907) evaluati on. Endocervical cells/transform ation zone component present. INTERPRETATION: (test ASCUS/EPITH. A ------ code = 00769) ABNORMALITY; -------- SEE BELOW ------- ---- EPITHE LIAL CELL ABNORMALIT Y Atypical squamo us cells of undete rmined significance (ASC-US)------- ------- ------- ------- COUNCIL ON AGING DIRECTOR: Vicente (test code = 8101) CANDE Tinajero(A [facility]) [facility] PATHOLOGIST James Paiz INTERPRETATION BY: (test code = 8122) LOCATION: (test code (NOTE) Specime ns processed at = [address]) [facility] [employer], [address] [facility] [place] [address], Phone: , CLIA: [id number] interpreted at [facility] [employer] [facility], [address] [place],Pathology Department [address] [place], [place] [facility], [place] [address], Phone: , CLIA: [id number] CPT: (test code = (NOTE) 38082, 881 41 UNLESS 8140) OTHERWISE INDIC ATED, [...] as applicable. HPV HIGH RISK WITH GENOTYPE, [id number] 19:58:58 Test Item Value Reference Range Interpretation Comments HPV HIGH RISK INTERP POSITIVE NEGATIVE A (test code = 74814) HPV 16 (test code = NEGATIVE 97343) HPV 18 (test code = NEGATIVE 48465) HPV, HR, OTHER POSITIVE A Testing meth odology is GENOTYPES (test code real-ti me PCR utilizing = 56203) hydrolysis prob es with the [employer] 4800 system. The subhash t individually de tects genotypes 16 an d 18, as well as the oth er 12 high risk types (31,33,35,39,45 ,51,52,56 ,58,59,66,68). The expected result is negative. A neg ative result does not rule out the presence of HPV not included in the genotype set, a low leve l of infection or sp ecimen sampling error. [facility] has important p athology staff changes e ffective 12/01/2022. New pathology staff will provide uninter rupted, excellent patie nt care and clinical consultation. S ee URL: [email or web address]. UNLESS OTHERWISE INDICATED, ALL TESTING PERFORMED AT [facility] [employer] [facility]. [address] [place] [address] CLIA : [id number], CAP : SJOGREN'S SS-A AND SS-B [id number] 06:14:16 Test Item Value Reference Range Interpretation Comments SJOGREN'S SS-A ANTIBODY (test code = 0.5 AI <1.0 10287) SJOGREN'S SS-B ANTIBODY (test code = <0.2 AI <1.0 58076) BECERRIL (Sm) [id number] 06:14:16 Test Item Value Reference Range Interpretation Comments BECERRIL (Sm) ANTIBODY (test code = <0.2 AI <1.0 11123) DNA DS ANTIBODY REFLEX [id number] 06:14:16 Test Item Value Reference Range Interpretation Comments dsDNA ANTIBODY (test <1.0 SEE BELOW NEGATI VE . . . . . . . . code = 92540) . . . . . . IU /ML <=4.9 INDETERMINATE. . . . . . . . . . . . IU/ML 5.0-9.0 POSITIVE . . . . . . . . . . . . . . IU/ML >=10.0 dsDNA ANTIBODY REFLEX (NOTE) NEGATIVE NOTE: REFLEX CRITERIA NOT (test code = 92107) MET FOR DNA DOUBLE STRANDED ANTIBO DY BY LUCITA METHOD. UNLESS OTHERWISE INDICATED, ALL [facility] [employer] [facility]. [address] [place] [address] [facility] HOSPITALL[facility] DIRECTOR: GIOVANNI HALEY M.D. CLIA NUMBER [id number] CAP ACCREDITATION N O. [id number] 20:53:00 Test Item Value Reference Range Interpretation Comments GLUBED (test 163 mg/dL 70-105 H Intravenous adm inistration code = GLUBED) of N-acetylcy steine which resultsin blood concentrations >5 mg/dL will cause overestim ationof blood glucose results . Do not use during intraven ousinfusion of N'acetylcyst eine. Lipid 1995 panel - Serum or [id number] 09:06:00 Test Item Value Reference Range Interpretation [...] (test code = non HDL (calc) cholesterol) [facility] - Serum or Plasma 2021-08-01 09:06:00 Test Item Value Reference Range Interpretation Comments glucose (test code 108 mg/dL 65-99 H = glucose) urea nitrogen (BUN) 12 mg/dL 7-25 (test code = urea nitrogen (BUN)) creatinine (test 0.65 mg/dL 0.50-1.10 code = creatinine) eGFR non-afr. 106 mL/min/1.73m2 See_Comment [Automat ed maltese (test code message] The = eGFR non-afr. system which maltese) generated this result transmit to reference range : > or = 60. The reference range was not used to interpret this result as normal/abnormal . eGFR 123 mL/min/1.73m2 See_Comment [Automate d maltese (test code message] The = eGFR system which maltese) generated this result transmit to reference range [...] (test code = 12 U/L 6-29 ALT) [facility] Auto Differential panel - [id number] 09:06:00 Test Item Value Reference Range Interpretation [...] MPV) 10.3 fL 7.5-12.5 absolute neutrophils (test 29084 cells/uL 6790-3540 H code = absolute neutrophils) absolute lymphocytes [...] 3.80-5.10 code = red blood cell count) [facility] CenterThyrotropin [Units/volume] in Serum or [id number] 09:06:00 Test Item Value Reference Range Interpretation Comments TSH (test code = TSH) 0.93 mIU/L [facility] CenterOdphsfam17-Qhaehaqiuiginh D3+25-Hydroxyvitamin D2 [Mass/volume] in Serum or [id number] 09:06:00 Test Item Value Reference Range Interpretation Comments vitamin D,25-oh,total,ia (test code 105 NG/mL 30-100 H = vitamin D,25-oh,total,ia) comment (test code = comment) [facility] CenterHemoglobin A1c/Hemoglobin.total in [id number] 09:06:00 Test Item Value Reference Range Interpretation Comments Hemoglobin 5.2 % of total HGB <5.7 A1c/Hemoglobin.total in Blood (test code = 4548-4) [place] [facility]ishesURG[facility] [id number] 10:03:00 Test Item Value Reference Range Interpretation Comments SURGICAL SPECIMENS (test code = SURG) [facility] DATE: [facility]16[facility] PAGE 1 RUN TIME: 1003 Specimen Inquiry RUN USER: INTERFACE PATIENT: ALETHEA STREET LOC: NC.SRG U #: [id number] AGE/SX: 44/F ROOM: RE09/15/20REG DR: Sudha Acosta MD : 73 BED: DIS: STATUS: [facility] TLOC: SPEC #: [id number] RECD: 09/15/20 STATUS: CHUCK FRANKLIN #: [id number] ALEN: 09/15/20-[address] [facility] [address]: Sudha Acosta MD ENTERED: 09/15/20-1141 SP [...] COLD SNARE: - TUBULAR ADENOMA (1) CPT: 70577 x3 GROSS DESCRIPTION Clinical history: Diverticulitis Three [...] END OF REPORT DRUGS OF ABUSE SCREEN [id number] 08:52:00 Test Item Value Reference Range Interpretation [...] code = Negative NEGATIVE PHENCU) UR HCG [id number] 07:00:00 Test Item Value Reference Range Interpretation Comments UR HCG QUAL (test code = HCGQLU) NEGATIVE NEGATIVE Novel Coronavirus [id number] 14:51:00 Test Item Value Reference Range Interpretation [...] on ly authorized fort he duration of todd e the declaration candealria t circumstancesex ist justifying the authorization o f the emergency use o fin vitro diagnostic test s for detection of SA RS-CoV-2 virusand/or bravo gnosis of COVID-19 infect ion under hjyzyen250(b)(1 ) of the Act, 21 U.S.C. 360bbb-3(b) [...] resul t in this assay.Performed At: [facility] [address] [id number] alexys Escobar MD Ph:[phone] Novel Coronavirus [id number] 13:11:00 Test Item Value Reference Range Interpretation [...] on ly authorized fort he duration of todd e the declaration candelaria t circumstancesex ist justifying the authorization o f the emergency use o fin vitro diagnostic test s for detection of SA RS-CoV-2 virusand/or bravo gnosis of COVID-19 infect ion under ubyzsir859(b)(1 ) of the Act, 21 U.S.C. 360bbb-3(b) [...] resul t in this assay.Performed At: [facility] [place] [address] [place], [place] [id number] alexys Escobar MD Ph:[phone] BASIC METABOLIC [id number] 19:56:00 Test Item Value Reference Range Interpretation [...] mg/dL 8.5-10.1 N = CA) CBC W/AUTO [id number] 19:39:00 Test Item Value Reference Range Interpretation [...] 0.06 10 3/uL 0.0-0.1 N COMPREHENSIVE METABOLIC [id number] 07:37:00 Test Item Value Reference Range Interpretation [...] PHOSPHATASE (test code = ALKP) CBC W/AUTO [id number] 06:29:00 Test Item Value Reference Range Interpretation [...] N - CT ABD PELVIS W WO [id number] 08:30:00Patient Name: ALETHEA STREET Unit No: [id number] EXAMS: CPT CODE: [id number] CT ABD PELVIS W WO CONT [id number] CLINICAL HISTORY: DIVERTICULOSIS TECHNIQUE: Axial images of [...] The portal vein is Name: ALETHEA [address] [facility] Phys: Carol Welch [address] [address] [facility] : 1975 Age: 44 Sex: [place] [id number] Loc: [phone] 1 Exam Date: 06/20/2020 Status: ADM IN PH: FAX: PAGE 1 Signed Report (CONTINUED) Patient Name: ALETHEA STREET Unit No: [id number] EXAMS: CPT CODE: [id number] CT ABD PELVIS W WO CONT [id number] (Continued) patent. No evidence of ascites. Abdominal [...] D/T: S: 06/20/2020 (0833) Name: ALETHEA STRE[address] [facility] Phys: Carol Welch [address] [address] [facility] : 1975 Age: 44 Sex: [place] [id number] Loc: [phone] 1 Exam Date: 06/20/2020 Status: ADM IN PH: FAX: PAGE 2 Signed ReportBASIC METABOLIC [id number] 06:07:00 Test Item Value Reference Range Interpretation [...] mg/dL 8.5-10.1 N = CA) CBC W/AUTO [id number] 05:33:00 Test Item Value Reference Range Interpretation [...] = BA#) 0.03 10 3/uL 0.0-0.1 N [id number] 13:19:00 Test Item Value Reference Range Interpretation Comments GLUBED (test 78 mg/dL 65-99 N Intravenous adm inistration of code = GLUBED) N-acetylcyste ine which resultsin blood concentrations >5 mg/dL will cause overestim ationof blood glucose results . Do not use during intraven ousinfusion of N'acetylcystein e. [id number] 08:10:00 Test Item Value Reference Range Interpretation Comments GLUBED (test 84 mg/dL 65-99 N Intravenous adm inistration of code = GLUBED) N-acetylcyste ine which resultsin blood concentrations >5 mg/dL will cause overestim ationof blood glucose results . Do not use during intraven ousinfusion of N'acetylcystein e. HGBA1C - GLYCOSYLATED [id number] 05:46:00 Test Item Value Reference Range Interpretation Comments GLYCOSYLATED HEMOGLOBIN (HA1C) (test 5.6 4.5-5.9 N code = GLYHGB) COMPREHENSIVE METABOLIC [id number] 05:01:00 Test Item Value Reference Range Interpretation [...] 45-117 N PHOSPHATASE (test code = ALKP) [id number] 05:01:00 Test Item Value Reference Range Interpretation Comments MAGNESIUM (test code = MAG) 2.2 mg/dL 1.8-2.4 N CBC W/AUTO [id number] 04:53:00 Test Item Value Reference Range Interpretation [...] 10 3/uL 0.0-0.1 N Coronavirus 2018 nCoV [id number] 17:57:00 Test Item Value Reference Range Interpretation Comments Coronavirus 2018 Negative Negative This test h ad not been nCoV Bedside (test FDA clear ed or approved; code = [id number]) This te sthas been authorized by F [...] and/o r diagnosis of CO VID-19 under Dpxgkus82 4(b)(1) of the Act, 21 U.S .C. [...] = LDLC) 95 mg/dL 0-100 N LACTIC [id number] 16:27:00 Test Item Value Reference Range Interpretation Comments LACTIC ACID (test code = LACT) 1.3 mmol/L 0.4-2.0 N PROTHROMBIN [id number] 16:24:00 Test Item Value Reference Range Interpretation [...] and/or recurren t systemicemboliz ation. THROMBOPLASTIN TIME [id number] 16:24:00 Test Item Value Reference Range Interpretation Comments THROMBOPLASTIN TIME PARTIAL 29.5 SECONDS 25.1-36.5 N (test code = PTT) BASIC METABOLIC [id number] 15:37:00 Test Item Value Reference Range Interpretation [...] DATE OF LAST MENSTRUAL PERIOD: 05/29/20LIVER FUNCTION [id number] 15:37:00 Test Item Value Reference Range Interpretation [...] = ALKP) DATE OF LAST MENSTRUAL PERIOD: 05/29/[id number] 15:37:00 Test Item Value Reference Range Interpretation Comments LIPASE (test code = LIP) 127 U/L 73-393 N DATE OF LAST MENSTRUAL PERIOD: 05/29/20HCG SERUM [id number] 15:37:00 Test Item Value Reference Range Interpretation Comments HCG SERUM QUAL (test code = HCGQL) NEGATIVE NEGATIVE DATE OF LAST MENSTRUAL PERIOD: 05/29/20BASIC METABOLIC [id number] 15:31:00 Test Item Value Reference Range Interpretation [...] DATE OF LAST MENSTRUAL PERIOD: 05/29/20LIVER FUNCTION [id number] 15:31:00 Test Item Value Reference Range Interpretation [...] 45-117 ALKP) DATE OF LAST MENSTRUAL PERIOD: 05/29/[id number] 15:31:00 Test Item Value Reference Range Interpretation Comments LIPASE (test code = LIP) U/L 73-393 DATE OF LAST MENSTRUAL PERIOD: 05/29/20HCG SERUM [id number] 15:31:00 Test Item Value Reference Range Interpretation Comments HCG SERUM QUAL (test code = HCGQL) NEGATIVE NEGATIVE DATE OF LAST MENSTRUAL PERIOD: 05/29/20UA RFLX MICR CULT IF [id number] 15:25:00 Test Item Value Reference Range Interpretation [...] /lpf Indication for culture: Suprapubic PainCBC W/AUTO [id number] 15:19:00 Test Item Value Reference Range Interpretation [...] 3/uL 0.0-0.1 N - CT ABD PELVIS [id number] 10:25:00Patient Name: ALETHEA STREET Unit No: [id number] EXAMS: CPT CODE: [id number] CT ABD PELVIS W/CONT 20708 EXAM: CT ABDOMEN AND PELVIS WITH CONTRAST [...] of hepatic steatosis. No focal hepatic lesion isseen. No intrahepatic or extrahepatic biliary dilatation is [...] 56). There is a [facility] [place] [place] [address] : 1975 Age: 44 Sex: [place] [address] Loc: ID.[email or web address] Exam Date: 06/13/2020 Status: REG CLI PH:FAX: PAGE 1 Signed Report (CONTINUED) Patient Name: ALETHEA STREET Unit No: [id number] EXAMS: CPT CODE: [id number] CT ABD PELVIS W/CONT 62286 (Continued) another fluid collection which may be [...] collections are noted at the inflamed loop o f sigmoid colon as described above. Minimal amount [...] D/T: S: 06/13/2020 (1028) Name: ALETHEA STREET [facility] [place]: [place] [address] : 1975 Age: 44 Sex: [place] [address] Loc: ID.[email or web address] Exam Date: 06/13/2020 Status: REG CLI PH: FAX: PAGE 2 Signed ReportAB HEPATITIS A [id number] 20:14:00 Test Item Value Reference Range Interpretation Comments AB HEPATITIS A IGM (test code = Non-Reactive NONREACTIVE HAVMAB) AG HEPATITIS B [id number] 20:14:00 Test Item Value Reference Range Interpretation Comments AG HEPATITIS B SURFACE (test Non-Reactive NONREACTIVE code = HBSAG) AB HEPATITIS B CORE [id number] 20:14:00 Test Item Value Reference Range Interpretation Comments AB HEPATITIS B CORE IGM (test Non-Reactive NONREACTIVE code = HBCMAB) AB HEPATITIS [id number] 20:14:00 Test Item Value Reference Range Interpretation Comments AB HEPATITIS C (test code = Non-Reactive NONREACTIVE HCVAB) HIV 1 2 COMBO AG/AB [id number] 20:14:00 Test Item Value Reference Range Interpretation Comments HIV 1 2 COMBO Non-Reactive NONREACTIVE [facility] HIV Ag/Ab AG/AB SCREEN Combo (CHIV) as say is (test code = anin-vitro diag nostic [id number]) immunoassay for the simultaneousqua litative detection of hu man immunodeficienc y virus p05lvhyttt and antibodies to human immunodef iciency virusestype 1 ( including group "O") and type 2. COMPREHENSIVE METABOLIC [id number] 19:23:00 Test Item Value Reference Range Interpretation [...] N PHOSPHATASE (test code = ALKP) PROTHROMBIN [id number] 19:12:00 Test Item Value Reference Range Interpretation [...] and/or recurren t systemicemboliz ation. THROMBOPLASTIN TIME [id number] 19:12:00 Test Item Value Reference Range Interpretation Comments THROMBOPLASTIN TIME PARTIAL 33.4 SECONDS 25.1-36.5 N (test code = PTT) CBC W/AUTO [id number] 19:00:00 Test Item Value Reference Range Interpretation [...] = BA#) 0.03 10 3/uL 0.0-0.1 N [id number] 12:11:00 Test Item Value Reference Range Interpretation Comments GLUBED (test code = GLUBED) 87 mg/dL 65-99 N [id number] 08:28:00 Test Item Value Reference Range Interpretation Comments GLUBED (test code = GLUBED) 173 mg/dL 65-99 H BASIC METABOLIC [id number] 07:21:00 Test Item Value Reference Range Interpretation [...] mg/dL 8.5-10.1 L = CA) CBC W/O [id number] 07:19:00 Test Item Value Reference Range Interpretation [...] = PLT) 241 10 3/uL 150-400 N [id number] 21:12:00 Test Item Value Reference Range Interpretation Comments GLUBED (test code = GLUBED) 111 mg/dL 65-99 H [id number] 16:51:00 Test Item Value Reference Range Interpretation Comments GLUBED (test code = GLUBED) 112 mg/dL 65-99 H [id number] 12:32:00 Test Item Value Reference Range Interpretation Comments GLUBED (test code = GLUBED) 130 mg/dL 65-99 H CBC W/O [id number] 06:36:00 Test Item Value Reference Range Interpretation [...] 182 10 3/uL 150-400 N BASIC METABOLIC [id number] 06:10:00 Test Item Value Reference Range Interpretation [...] code 8.5 mg/dL 8.5-10.1 N = CA) [id number] 05:25:00 Test Item Value Reference Range Interpretation Comments GLUBED (test code = GLUBED) 130 mg/dL 65-99 H [id number] 23:38:00 Test Item Value Reference Range Interpretation Comments GLUBED (test code = GLUBED) 125 mg/dL 65-99 H CBC W/AUTO [id number] 19:13:00 Test Item Value Reference Range Interpretation [...] = BA#) 0.05 10 3/uL 0.0-0.1 N [id number] 17:45:00 Test Item Value Reference Range Interpretation Comments GLUBED (test code = GLUBED) 112 mg/dL 65-99 H PROTHROMBIN [id number] 15:06:00 Test Item Value Reference Range Interpretation [...] and/or recurren t systemicemboliz ation. THROMBOPLASTIN TIME [id number] 15:06:00 Test Item Value Reference Range Interpretation Comments THROMBOPLASTIN TIME PARTIAL 29.8 SECONDS 25.1-36.5 N (test code = PTT) [id number] 11:28:00 Test Item Value Reference Range Interpretation Comments GLUBED (test code = GLUBED) 143 mg/dL 65-99 H LACTIC [id number] 09:32:00 Test Item Value Reference Range Interpretation Comments LACTIC ACID (test code = LACT) 0.9 mmol/L 0.4-2.0 N BASIC METABOLIC [id number] 06:08:00 Test Item Value Reference Range Interpretation [...] code = 8.0 mg/dL 8.5-10.1 L CA) [id number] 05:53:00 Test Item Value Reference Range Interpretation Comments GLUBED (test code = GLUBED) 148 mg/dL 65-99 H CBC W/O [id number] 05:26:00 Test Item Value Reference Range Interpretation [...] = PLT) 163 10 3/uL 150-400 N [id number] 23:51:00 Test Item Value Reference Range Interpretation Comments GLUBED (test code = GLUBED) 127 mg/dL 65-99 H [id number] 18:23:00 Test Item Value Reference Range Interpretation Comments GLUBED (test code = GLUBED) 166 mg/dL 65-99 H - CT ABD PELVIS W WO [id number] 15:37:00Patient Name: ALETHEA STREET Unit No: [id number] EXAMS: CPT CODE: [id number] CT ABD PELVIS W WO CONT 39778 EXAM: - CT ABD PELVIS W WO [...] is normal. No biliary dilation. Pancreas: Normal. Spleen:Normal. Adrenals: Normal. Genitourinary: The kidneys are normal. No hydronephrosis. The bladder is i ncompletely distended, limiting evaluation. The uterus is unremarkable. No adnexal lesions are seen.Gastrointestinal: There is redemonstration of perforated sigmoid diverticulitis. A large amount of free air tracks abnormally into the retroperitoneum. A few foci of intraperitoneal free air or no obsc ured, suggesting along the anterior inferior margin of [...] abnormalities. Remote right rib fractures. Name: ALETHEA STREETH [facility] [place] Phys: JAYESHChika - Jeff,Kbmarina [place] [address] [address] [facility] : 1975 Age: 44 Sex: [place] [address] Loc: NC.4302 1 Exam Date: 05/10/2020 Status: ADM IN PH: FAX: PAGE 1 Signed Report (CONTINUED) Patient Name: ALETHEA STREET TRAVIS Unit No: [id number] EXAMS: CPT CODE: [id number] CT ABD PELVIS W WO CONT 81449 (Continued) IMPRESSION: 1. Redemonstration of perforated sigmoid [...] Fritz Paiz MD CC: Self Referred; Carol Pena MD; Balta Bey Jr, MD Technologist: Eugenie Pena; Melida BradleyDI: 8.81 DLP: 881.9 Trscr Dt/Tm: 05/10/2020 (1537) by:[email or web address] Electronic Signature Date/Time: 05/10/2020 (1537)Orig Print D/T: S: 05/10/2020 (8120) Name: ALETHEA STREET [facility] [place] Phys: TAMMY Pena,Carol [place] [address] : 1975 Age: 44 Sex: [place] [address] Loc: NC.4302 1 Exam Date: 05/10/2020 Status: ADM IN PH: FAX: PAGE 2 Signed [id number] 11:35:00 Test Item Value Reference Range Interpretation Comments GLUBED (test code = GLUBED) 180 mg/dL 65-99 H BASIC METABOLIC [id number] 08:33:00 Test Item Value Reference Range Interpretation Comments SODIUM (test code 138 mmol/L 135-145 N = NA) POTASSIUM (test 2.9 mmol/L 3.5-5.1 LL Critical Daniel ue code = K) reported toFirs t Name:FRANCI crawley Name:RIKA ISBELL BACK AND EVE Carter NCL, on 05/10/20, @ 083 2. CHLORIDE (test [...] mg/dL 8.5-10.1 L = CA) CBC W/O [id number] 07:37:00 Test Item Value Reference Range Interpretation [...] = PLT) 174 10 3/uL 150-400 N [id number] 06:37:00 Test Item Value Reference Range Interpretation Comments GLUBED (test code = GLUBED) 158 mg/dL 65-99 H [id number] 00:18:00 Test Item Value Reference Range Interpretation Comments GLUBED (test code = GLUBED) 157 mg/dL 65-99 H [id number] 20:49:00 Test Item Value Reference Range Interpretation Comments GLUBED (test code = GLUBED) 121 mg/dL 65-99 H [id number] 18:02:00 Test Item Value Reference Range Interpretation Comments GLUBED (test code = GLUBED) 125 mg/dL 65-99 H [id number] 12:01:00 Test Item Value Reference Range Interpretation Comments GLUBED (test code = GLUBED) 146 mg/dL 65-99 H [id number] 08:06:00 Test Item Value Reference Range Interpretation Comments GLUBED (test code = GLUBED) 188 mg/dL 65-99 H [id number] 06:18:00 Test Item Value Reference Range Interpretation Comments GLUBED (test code = GLUBED) 166 mg/dL 65-99 H COMPREHENSIVE METABOLIC [id number] 06:13:00 Test Item Value Reference Range Interpretation [...] 45-117 N PHOSPHATASE (test code = ALKP) [id number] 06:13:00 Test Item Value Reference Range Interpretation Comments MAGNESIUM (test code = MAG) 1.0 mg/dL 1.8-2.4 L HGBA1C - GLYCOSYLATED [id number] 06:08:00 Test Item Value Reference Range Interpretation Comments GLYCOSYLATED HEMOGLOBIN (HA1C) (test 5.4 4.5-5.9 N code = GLYHGB) CBC W/AUTO [id number] 05:56:00 Test Item Value Reference Range Interpretation [...] = BA#) 0.04 10 3/uL 0.0-0.1 N [id number] 23:58:00 Test Item Value Reference Range Interpretation Comments GLUBED (test code = GLUBED) 249 mg/dL 65-99 H [id number] 20:11:00 Test Item Value Reference Range Interpretation Comments GLUBED (test code = GLUBED) 134 mg/dL 65-99 H [id number] 17:53:00 Test Item Value Reference Range Interpretation [...] = LDLC) 52 mg/dL 0-100 N LACTIC [id number] 13:51:00 Test Item Value Reference Range Interpretation Comments LACTIC ACID (test code = LACT) 1.9 mmol/L 0.4-2.0 N Coronavirus 2019 nCoV [id number] 13:43:00 Test Item Value Reference Range Interpretation Comments Coronavirus 2019 Negative Negative This test h ad not been nCoV Bedside (test FDA clear ed or approved; code = [id number]) This te sthas been authorized by F [...] and/o r diagnosis of CO VID-19 under Vswksve59 4(b)(1) of the Act, 21 U.S .C. 360bbb-3(b)(1), unless theauthorizatio n is terminated or r evoked sooner. Is patient requiring admission or transfer? YIndication for rapid COVID-9 testing: Mod Clinical SuspicionUA RFLX MICR CULT IF [id number] 12:47:00 Test Item Value Reference Range Interpretation [...] Indication for culture: Dysuria/Frequency- CT ABD PELVIS [id number] 12:46:00Patient Name: ALETHEA STREET Unit No: [id number] EXAMS: CPT CODE: [id number] CT ABD PELVIS [id number] EXAM: - CT ABD PELVIS W/CONT Location: [...] there is air within Name: ALETHEA STREET TRAVIS [facility] Phys: Scarlet Bernal [employer] [address] : 1975 Age: 44 [place]: [place] [address] [facility] Ex[facility] Date: 05/08/2020 Status: REG ER PH: FAX: PAGE 1 Signed Report (CONTINUED) Patient Name: ALETHEA STREETXiomara No: [id number] EXAMS: CPT CODE: [id number] CT ABD PELVIS W/CONT 83768 (Continued) the sigmoid mesocolon as well as [...] Date/Time: 05/08/2020 (1246)Orig Print D/T: S: 05/08/2020 (5327) Name: JADALETHEA TRAVIS [facility] [place] Phys: [place] [address] : 1975 Age: 44 [place]: [place] [address] Loc: ID.ERS Exam Date: 05/08/2020 Status: REG ER PH: FAX: PAGE 2 Signed ReportBASIC METABOLIC [id number] 11:08:00 Test Item Value Reference Range Interpretation [...] DATE OF LAST MENSTRUAL PERIOD: 05/07/20LIVER FUNCTION [id number] 11:08:00 Test Item Value Reference Range Interpretation [...] = ALKP) DATE OF LAST MENSTRUAL PERIOD: 05/07/[id number] 11:08:00 Test Item Value Reference Range Interpretation Comments LIPASE (test code = LIP) 122 U/L 73-393 N DATE OF LAST MENSTRUAL PERIOD: 05/07/20HCG SERUM [id number] 11:08:00 Test Item Value Reference Range Interpretation Comments HCG SERUM QUAL (test code = HCGQL) NEGATIVE NEGATIVE DATE OF LAST MENSTRUAL PERIOD: 05/07/20BASIC METABOLIC [id number] 10:58:00 Test Item Value Reference Range Interpretation [...] DATE OF LAST MENSTRUAL PERIOD: 05/07/20LIVER FUNCTION [id number] 10:58:00 Test Item Value Reference Range Interpretation [...] 45-117 ALKP) DATE OF LAST MENSTRUAL PERIOD: 05/07/[id number] 10:58:00 Test Item Value Reference Range Interpretation Comments LIPASE (test code = LIP) U/L 73-393 DATE OF LAST MENSTRUAL PERIOD: 05/07/20HCG SERUM [id number] 10:58:00 Test Item Value Reference Range Interpretation Comments HCG SERUM QUAL (test code = HCGQL) NEGATIVE NEGATIVE DATE OF LAST MENSTRUAL PERIOD: 05/07/20CBC W/AUTO [id number] 10:50:00 Test Item Value Reference Range Interpretation [...] BA#) 0.04 10 3/uL 0.0-0.1 N HCG [id number] 23:03:00 Test Item Value Reference Range Interpretation [...] HOURS LATER. DATE OF LAST MENSTRUAL PERIOD: 09/21/18BASI METABOLIC [id number] 22:51:00 Test Item Value Reference Range Interpretation [...] mg/dL 8.5-10.1 N = CA) CBC W/AUTO [id number] 22:26:00 Test Item Value Reference Range Interpretation [...] 3/uL 0.0-0.1 N - US TRANSVAGINAL NON [id number] 20:10:00 [facility] : 1975 Sex: FPatient Name: ALETHEA STREET Unit No: [id number] EXAMS: CPT: [id number] [place] [address] Pelvic sonogram, 01/22/2019. Clinical: Pain. Comment: The [...] Oneill Jr, MD Technologist: TUAN PATEL Probe: [id number] Trscr Dt/Tm: 01/22/2019 (2009) by:Jose [email or web address] Orig Print D/T: S: 01/22/2019 (2012) BATCH NO: N/A Name: ALETHEA STREET [facility] Phys: [place] [address] [facility] : 1975 Age: 43 Sex: F [place] [address] Loc: [facility] Exam Date: 01/22/2019 St atus: [facility] PH: [phone] FAX: PAGE 1 Signed Report- US PELVIC COMPLETE 2019-01-22 20:10:00 [facility] : 1975 Sex: FPatient Name: ALETHEA STREET Unit No: [id number] EXAMS: CPT: [id number] US PELVIC COMPLETE [address]3280 Pelvic sonogram, 01/22/2019. Clinical: Pain. Comment: The [...] (2012) BATCH NO: N/A Name: ALETHEA STREET [facility] Phys: Geraldo Hester PA-C [address] [facility] : 1975 Age: 43 Sex: F [place] [address] Loc: UNK Exam Date: 01/22/2019 Status: [facility] PH: [phone] FAX: PAGE 1 Signed Report- CT ABD PELVIS [id number] 18:31:00[facility] : 1975 Sex: FPatient Name: ALETHEA STREET Unit No: [id number] EXAMS: CPT: [id number] CT ABD PELVIS W/CONT [address]92 CT ABDOMEN WITH CONTRAST: CT PELVIS WITH [...] with ACR practice guidelines and adherence to information systems project manager's recommendations. at 1831 Reported and signed by: Westley Hernandez MD CC:Geraldo Renae Technologist: DARREN GARCIA CTDI: 6.96 DLP: 368.58 Trscr Dt/Tm: 01/22/2019 (1831) by:[email or web address] Orig Print D/T: S: 01/22/2019 (1834) BATCH NO: N/A Name: ALETHEA STREET Emergency Dept Phys: Geraldo Hester PA-C [address] [facility] : 1975 Age: 43 Sex: [place] [address] Loc: UNK Exam Date: 01/22/2019 Status: [facility] PH: [phone] FAX: PAGE 1 Signed ReportCT, [id number] 23:06:00Reason for exam:->ABDOMINAL PAINIs the patient ?->NoWhat [...] MDReport Verified Date/Time: 07/21/2017 23:06:24 Reading Location: [facility] B1 C013W Consult Reading Room U/S, ABDOMINAL, [id number] 21:33:00Abdomen limited area? Add comment if clarification [...] MDReport Verified Date/Time: 07/21/2017 21:33:04 Reading Location: [address] Reading Room [facility] [id number] 18:41:00 Test Item Value Reference Range Interpretation [...] S NOT APPLICABLE FOR DIALYSIS PATIEN TS. [id number] 18:39:00 Test Item Value Reference Range Interpretation Comments LIPASE (BEAKER) (test code = 749) 42 U/L 6-51 URINALYSIS W/ [id number] 18:29:00 Test Item Value Reference Range Interpretation [...] code = 1663) SOURCE(BEAKER) (test code = 9273) CBC W/PLT COUNT & AUTO [id number] 18:21:00 Test Item Value Reference Range Interpretation [...] L 0.00-0.20 (test code = 417) SCREEN, [id number] 18:18:00 Test Item Value Reference Range Interpretation Comments TEST URINE (BEAKER) (test Negative code = 583) Notes Date/Time Note Provider Source 2022-12-31 18:12:00 [id number]:12:00 [facility] [place] ([place])EMERGENCY PROVIDER REPORTREPORT#:[id number] REPORT STATUS: SignedDATE:12/31/22 TIME: 1811 PATIENT: ALETHEA STREET UNIT #: [id number]#: [id number] ROOM: BED:AGE: 47 SEX: F PCP PHYS: Sudha Acosta MDSERVICE AUTHOR: Kelsey Ponce MD * ALL edits or amendments must be made on the electronic/computer document * HPI-General Illness GeneralInitial Greet Date/Time 12/31/221804 PresentationChief Complaint __Hx Obtained From PatientOnset Occurred Today, ChronicSymptom Duration Since onsetLocation BackQuality PainfulSeverity: Current Pain level 6 out of 10Associated withReports: Dizziness, Weakness. Denies: Abdominal pain, Anorexia, Aura, Bleeding,Bruising, Chest pain, Congestion, Cough , Diaphoresis, Difficulty breathing, Difficulty swallowing, Discharge, Fever, Headache, Inabilit y to bear weight, Itching, Joint pain, Loss of consciousness, Loss of taste, Loss of smell, Nasal discharge, Nausea, Neck pain, Numb extremities, Off balance, Pain, Pain on walking, Rash, Shortness of breath, Speech abnormal, Syncope, Vision change, Vomiting, Weak extremity . Associated Other Pt denies other symptoms Free Text HPI NotesFree Text HPI NotesPatient with h/ o back surgery presents complaining of feeling dizzy and weak. States she was bringing her son here to drop him off. She is unsure if the heati s causing her to feel sick. Patient states she lives is [place] and doesn't want to go on the road because the traffic is bad Review of Systems ROS StatementsAll systems rev neg except as marked. Past Medical History - AdultStated Complaint BACK PAINAllergiesCoded Allergies:buspirone (From BUSPAR) (Severe, ANXIETY 08/26/20) Home MedicationsReported MedicationsPregabalin (Lyrica) 200 MG PO BID Amlodipine (Norvasc) 0.5 TAB PO QPM PRN HTN Multivitamin (Multiple Vitamin) 1 EACH PO DAILY [VITAMIN B-COMPLEX] 1 EACH PO DAILY [BIOTIN] 1 EACH PO DAILY Folic Acid 3 EACH PO DAILY Ergocalciferol (Vitamin D2) (Vitamin D2) 50,000 INTL.UNITS PO Q7D Past Medical History:Reports: Hypertension, (vaginal bleeding). Additional Medical Historyanxiety, ovarian cystsPast Surgical History:Reports: (culposcopy). Alcohol Use Alcohol use (15 or more drinks per week)Drug Use Denies recreational drugsSmoking status for patients 13 years old or older: Former Smoker Physical Exam Vital SignsVital SignsFirst Documented: Result Date Time Pulse Ox 99 12/31 1748 B/P 122/96 12/31 1748 B/P Mean 104 01/01 1748 Temp 37.0 12/31 174 Pulse 99 12/31 1748 Resp 17 01/01 1748 Last Documented: Result Date Time Pulse Ox 99 12/31 1748 B/P 122/96 12/31 174 8 B/P Mean 104 01/01 1748 Temp 37.0 01/01 1748 Pulse 99 12/31 1748 Resp 17 01/01 1748 Review of Vital Signs Reviewed Physical ExamGeneral/Const General/Const Awake, Alert, Well appearingMS Hea d Head NormocephalicEars/Nose/Throat Ears/Nose/Throat Airway patent, Mucous membranes moist, Pharynx NLResp/Chest Respiratory/Chest Breath sounds NL, Breath sounds = bilat, No respiratory distress, No rales, No rhonchi, No wheezingCardiovascular Cardiovascular Heart rate NL, Regular rhythm, Heart sounds NL, Cap refill notdelayed, Peripheral circulation NLAbdomen/GI Abdomen/GI Soft, Non-tender, No guarding, No reboundSkin Skin Color NL, Warm, Dry, Turgor NLNeurologic Neurologic Oriented X3, Speech NL, No motor deficits, No sensory deficitsPsychiatri c Psychiatric Affect NL, Mood NL, Thought content NL Interpretation Diagnostics Lab Results InterpretationResultsLaboratory Tests: 12/31 12/31 12/31 12/31 1803 1808 1823 1831Chemistry POC Sodium (138 - 146 mmol/L) 139 POC Potassium (3.5 - 4.9 mmol/L) 3.6 POC Chloride (98 - 109 mmol/L) 105 POC Total CO2 (24 - 29 mmol/L) 27 PO C BUN (8 - 26 mg/dL) 15 POC Creatinine (0.6 - 1.3 mg/dL) 0.7 Estimated GFR (MDRD) (>60) 107 POC Glucose (74 - 106 MG/DL) 111 H Calcium (8.8 - 10.5 mg/dL) 9.7 Total Bilirubin (0.2 - 1.6 mg/dL) 0.6 AST (11 - 38 IU/L) 69 H ALT (10 - 47 IU/L) 56 H Total Alk Phosphatase (42 - 141 IU/L ) 123 Total Protein (6.4 - 8.1 g/dL) 7.6 Albumin (3.3 - 5.5 g/dL) 3.8Toxicology Urine Opiates Screen (NEGATIVE) Neg Ur Methadone (NEGATIVE) Neg Ur Barbiturates, Qual (NEGATIVE) Neg Ur Tricyclics Screen (NEGATIVE) Neg Ur Amphetamines Screen (NEGATIVE) Neg Urine Methamphetamines (NEGATIVE) Neg U Benzodiazepines Scrn (NEGATIVE) Neg Urine Cocaine Screen (NEGATIVE) Neg Urine Cannabinoids (NEGATIVE) PosUrines Urine Color (YELLOW) Yellow Urine Appearance (CLEAR) Clear Urine pH (4.5 - 8.5) 5.0 Ur Specific Robinson (1.000 - 1.030) <=1.005 Urine Protein (NEGATIVE) NEGATIVE Urine Glucose (UA) (NEGATIVE MG/AL) NEGATIVE Urine Ketones (NEGATIVE MG/DL) NEGATIVE Urine Blood (NEGATIVE) Trace-intact Urine Nitrite (NEGATIVE) NEGATIVE Urine Bilirubin (NEGATIVE) NEGATIVE Urine Urobilinogen (<=1.0 EU/dL) 0.2 Ur Leukocyte Esterase (NEGATIVE) NEGATIVE Urine RBC (0 - 3 /HPF) 0-3 Urine WBC (0 - 3 /HPF) 0-3 Ur Squamous Epith Cells (NONE - FE W RARE/HPF) Urine Bacteria (NONE SEEN /HPF) NONE SEEN Urine Mucus (NONE - FEW /LPF) RARE POC Urin e HCG (IU/L) NEGATIVE Lab StatementLaboratory studies reviewed and considered in the medical decision-making. Point of Care TestingPulse Oximetry Pulse Ox % 99 On: Room air Interpretation Interpreted by me Time 1747 Re-Evaluation MDM Re-Evaluation/Progress #1Text/Dict NoteDiscussed results with patient. Advised to follow up with PCPTime of Re-Eval 1907Re-Eval Status Improved ED CourseMedication(s) OrderedMedication(s) Ordered:Electrolytic, Caloric, And Richard Sig/Charlotte Start time Last Medication Dose Route Stop Time Status Admin Sodium Chloride 1,000 ML X1ED STA 12/31 1822 DC 12/31 IV 12/31 Differential DiagnosisDifferential Diagnosis Abdominal pain, Abscess, COPD exacerbation, Depression, Diabetes mellitus, Fracture, Mood disorder, Urinary tract infection Patient Discharge Departure Vital Signs/ConditionVital SignsFirst Documented: Result Date Time Pulse O x 99 12/318 B/P 122/96 12/31 174 B/P Mean 104 01/01 1748 Temp 37.0 01/01 1748 Pulse 99 12/31 1748 Resp 17 01/01 1748 Last Documented: Result Date Time Pulse Ox 99 01/01 1748 B/P 122/96 03/12 01 1748 B/P Mean 104 01/01 1748 Temp 37.0 01/01 1748 Pulse 99 12/31 1748 Resp 17 01/01 1748 All vital signs available at the time of this entry have been reviewed. Condition Stable Clinical ImpressionClinical ImpressionPrimary Impression: Generalized weakness Disposition DecisionDischarge )( Discharged to Home Yes )( Time 1908 )( Date 12/31/22 Discharge/Care PlanCounseled Regarding Diagnosis, Lab results, Need for follow-up, When to return to EDPatient Instructions ED Weakness (Uncertain Cause)Additional InstructionsPatient advised to follow up with primary care doctor in 2-3 daysDeparture FormsWORK/SCHOOL EXCUSE VARIABLE Any Restrictions Off work/school 3 days Discharg e NoteI have spoken with the patient and/or caregivers. I have explained the patient'scondition, diagnoses and treatment plan based on the information available to meat this time. I have answered the patient's and/or caregiver's questions and addressed any concerns . The patient and/or caregivers have as good an understanding of the patient's diagnosis, condition and treatment plan as can beexpected a t this point. The vital signs have been stable. Th e patient's condition is stable and appropriate fo r discharge from the emergency department. The patient will pursue further outpatient evaluatio n with the primary care physician or other designated or consulting physician as outlined i n the discharge instructions. The patient and/or caregivers are agreeable to this planof care and follow-up instructions have been explained in detail. The patient and/or caregivers have received these instructions in written format an d have expressed an understanding of the discharge instructions. The patient and/or caregivers are aware that any significant change in condition o r worsening of symptoms should prompt an immediate return to this or the closest emergency department or a call to 911. at 0034RPT #:[id number] OF REPORTEDEmelincoln hospital department dyggju9788-18-35D24:12:00T.[id number] a ilable for patient cggaRMMXRTVSIBHKYU9464-85-79P93:34:55 2022-05-16 21:13:00 [id number]:13:00 [facility] ([facility])EMERGENCY PROVIDER REPORTREPORT#:[id number] REPORT STATUS: SignedDATE:05/16/22 TIME: 2112 PATIENT: ALETHEA STREET UNIT #: [id number]#: [id number] ROOM: BED:AGE: 46 SEX: F PCP PHYS: Sudha Acosta MDSERVICE AUTHOR: Mag Can * ALL edits or amendments must be made on the electronic/computer document * Mag Can 05/16/222112:HPI-General Illness GeneralInitial Greet Date/Time 05/16/222039 PresentationChief Complaint Weakness Free Text HPI NotesFree Text HPI Rfchv43-[id number]-ata female presents to the ED complaining of weakness, shakiness, feeling cold, headache and tingly all over x1.5 hours. Patient states EMS came to her house and said her blood sugar was over 400 and she became concerned about her bloo d sugar. Patient denies chest pain, nausea, vomiting, diarrhea, and shortness of breath. PMH : HTN Review of Systems ROS StatementsAll systems rev neg except as marked. Past Medical History - AdultStated Complaint HIGH BLOOD SUGAR CONCERNSAllergiesCoded Allergies:buspirone (From BUSPAR) (Severe, ANXIETY 08/26/20) Home MedicationsReported MedicationsPregabalin (Lyrica) 200 MG PO BID Amlodipine (Norvasc) 0.5 TAB PO QPM PRN HTN Multivitamin (Multiple Vitamin) 1 EACH PO DAILY [VITAMIN B-COMPLEX] 1 EACH PO DAILY [BIOTIN] 1 EACH PO DAILY Folic Aci d 3 EACH PO DAILY Ergocalciferol (Vitamin D2) (Vitamin D2) 50,000 INTL.UNITS PO Q7D Past Medical History:Reports: Hypertension, (vaginal bleeding). Additional Medical Historyanxiety, ovarian cystsPast Surgical History:Reports: (culposcopy). Alcohol Use Alcohol use (15 or more drinks per week)Drug Use Denies recreational drugsSmoking status for patients 13 years old or older: Current every da y smoker Physical Exam Vital SignsVital SignsFirst Documented: Result Date Time Pulse Ox 100 [...] Review of Vital Signs Reviewed, BP retaken 179/98 Free Text PE NotesFree Text PE NotesGENERAL: Small build. No acute distress, non-toxic appearance.HEAD: Normal with no signs of head trauma.EYES: conjunctiva normal, no discharge.ENT: Hearing grossly intact. Nose normal. Moist mucous membranesNECK: No tenderness, normal range of motion, suppleCHEST: Clear breath sounds bilaterally. No wheezes, rales, or rhonchi.CARDIAC: Regular rate and rhythm. No murmurs notedABDOMEN: Normal and soft with no tendernessGENITOURINARY: Normal, no tendernessBACK: Normal range of motion, no signs of trauma, no CVA tendernessMUSCULOSKELETAL: Goo d range of motion of all major joints. Extremities without edema, peripheral pulses normal NEUROLOGICAL: Alert and oriented, gross movement normalPSYCHIATRIC: Normal Affect, judgement and mood.SKIN: Well healing sores noted on RT lower leg. Interpretation Diagnostics Lab Results InterpretationResultsLaboratory Tests: 05/16 2043 Chemistry POC Glucose (70 - 105 mg/dL) 163 H Re-Evaluation MDM Free Text MDM NotesFree Text MDM NotesPt states she did not want to come but S.O. wanted her to come for evaluation. He is going to go home to check on his son and she rivero s not want to stay here without him. She is deciding if she wants to stay for treatment. Orders placed. Differential DiagnosisDifferentia l Diagnosis Acute coronary syndrome, dizziness, WI , hyperglycemia, HTN crisis Patient Discharge Departure Vital Signs/ConditionVital SignsFirst Documented: Result Date Time Pulse Ox 100 05/16 2038 B/P 201/102 05/16 2038 B/P Mean 135 05/16 2038 O2 Delivery Room air 05/16 2038 Temp 36.9 05/16 2038 Pulse 97 05/16 2038 Resp 16 05/16 203 8 Last Documented: Result Date Time Pulse Ox 100 05/16 2038 B/P 201/102 05/16 2038 B/P Mean 135 05/16 2038 O2 Delivery Room air 05/16 2038 Temp 36.9 05/16 2038 Pulse 97 05/16 2038 Resp 16 05/03 4 8 All vital signs available at the time of this entry have been reviewed. Condition Stable Clinical ImpressionClinical ImpressionPrimary Impression: WeaknessSecondary Impressions: HTN (hypertension)Time of Impression 2155 Dispositio n DecisionOther )( Time 2156 )( Date 05/16/22 Against Medical Advice Yes Elopement Note Elopement NoteThis patient has left the emergenc y department or waiting room with no communication to myself, nursing or administrative staff. Ther e was no opportunity to discuss the patient's decision to leave, provide medical advice or discuss alternatives to leaving. The staff has made efforts to locate the patient without success. Alejandra Carter 05/17/22 0908:Patient Discharge Departure Supervising Physician Note MidLv Saw Pt AloneI have reviewed the PA/GRAIN SHIPPER's note and plan of care. I was available for consultation as needed at all times during the patient's visit in the emergency department. I agree with the clinical impression, plan and disposition. at 2159 at 0908RPT #:[id number] OF REPORTEDArbor Health department otuijr1012-45-06I23:13:00NC.[id number] v ailable for patient tcssYZYRTUYAJTKFZU9034-82-14I50:59:26 2020-09-15 06:49:00 [id number]:49:380571-[address] [address] PATIENT NAME: ALETHEA STREET ADMIT DATE: 09/15/20ACCOUNT NO: [id number] ROOM NO: AGE: 44 REPORT TYPE: ENDOSCOPY REPOR T SEX: F ADMITTING PHYSICIAN: ATTENDING PHYSICIAN:Sudha Acosta MD _ Patient Name: Sherman Streetbilly Olivo Attending MD: Sudha Acosta , Procedure Date: 09/15/2020 6:49 AM Number: [id number] Date of : 1975Admit Type: Outpatient Age: 44 _ Procedure: ColonoscopyIndications: Evaluation on imaging study of clinically significant abnormalityProviders: Franchesca Paredes RN (Nurse), Paulo Beth, Academic Affairs Coordinator (Academic Affairs Coordinator), JULIO MARKS MD (Anesthesiologist)Medicines: Monitored Anesthesi a Care _ Procedure: Pre-Anesthesia Assessment: - Prior to the procedure, a History and Physical was performed, and patient medications and allergies were reviewed. The patient is competent. The risks an d benefits of the procedure and the sedation options and risks were discussed with the patient. All questions were answered and informe d consent was obtained. Patient identification and proposed procedure were verified by the physician in the pre-procedure area. Mental Status Examination: alert and oriented. Airway Examination: normal oropharyngeal airway and nec k mobility. Respiratory Examination: clear to auscultation. CV Examination: normal. Prophylactic Antibiotics: The patient does not require prophylactic antibiotics. Prior Anticoagulants: The patient has taken no previou s anticoagulant or antiplatelet agents. ASA Grade Assessment: III - A patient with severe systemic disease. After reviewing the risks and benefits, the patient was deemed in satisfactory condition to undergo the procedure. The anesthesia plan wa s to use monitored anesthesia care (MAC). Immediately prior to administration of medications, the patient was re-assessed for adequacy to receive sedatives. The heart rate, respiratory rate, oxygen saturations, blood pressure, adequacy of pulmonary ventilation, and response to care were monitored throughout the procedure. The physical status of the patient wa s PATIENT NAME: ALETHEA STREET re-assessed after the procedure. Th e benefits, risks, and alternatives to the procedure were discussed and informed consent wa s obtained from the patient. I've assesed the patient on this date and reviewed the medical history, drug history, and previous anesthesia experience. After obtaining informed consent, th e scope was passed under direct vision. Throughou t the procedure, the patient's blood pressure, pulse, and oxygen saturations were monitored continuously. The Colonoscope was introduced through the anus and advanced to the cecum, identified by appendiceal orifice and ileocecal valve. The colonoscopy was performed without difficulty. The patient tolerated the procedure well. The quality of the bowel preparation was adequate. The ileocecal valve, appendiceal orifice, and rectum were photographed.Findings: The perianal and digital rectal examinations wer e normal. A 4 mm polyp was found in the ascending colon. The polyp was sessile. The polyp was removed with a jumbo cold forceps. Resection and retrieval were complete. Verification of patient identification for the specimen was done. Estimated blood loss was minimal. Two sessile polyps were found in the sigmoid colon and ascending colon. The polyps were 5 to 7 mm in size. These polyps were removed with a cold snare. Resection and retrieval were complete. Verification of patient identification for the specimen was done. Estimated blood loss was minimal. Multiple small-mouthed diverticula wer e found in the sigmoid colon. Purulent discharge was seen in association with the diverticular opening, consistent with diverticulitis.Complications: No immediate complications.Estimated Blood Loss: Estimated blood loss: none.Impressions: - One 4 mm polyp i n the ascending colon, removed with a jumbo cold forceps. Resected and retrieved. - Two 5 to 7 mm polyps in the sigmoid colon and in the ascendin g colon, removed with a cold snare. Resected and retrieved. - Moderate diverticulosis in the sigmoid colon. Purulent discharge was seen in association with the diverticular opening, indicative of diverticulitis.Recommendation: - Patient has a contact number available for emergencies. The signs and symptoms of potential delayed complications were discussed with the patient. Return to normal activities tomorrow. Written discharge instructions were provided to the patient. - Patient has a contact number available for emergencies. The signs and symptom s of potential delayed complications were discusse d with the patient. Return to normal activities tomorrow. Written discharge instructions were provided to the patient. PATIENT NAME: ALETHEA STREET - Resume previous diet. - Continue present medications. - Await pathology results. - Repeat colonoscopy in 3 years for surveillance. - Return to my office in 3 weeks. Sudha Acosta MD Sudha Acosta, 09/15/2020 7:20:24 AMThis report has been signed electronically.Number of Addenda: 0 Note Initiated On: 09/15/2020 6:49 AMProcedure Code(s): --- Professional --- 71475, Colonoscopy , flexible; with removal of tumor(s), polyp(s), or other lesion(s) by snare technique 16058, 59, Colonoscopy, flexible; with biopsy, single or multipleDiagnosis Code(s): --- Professional --- D12.2, Benign neoplasm of ascending colon D12.5 , Benign neoplasm of sigmoid colon K57.32, Diverticulitis of large intestine without perforation or abscess without bleeding R93.3, Abnormal findings on diagnostic imaging of other parts of digestive tract CPT copyright 2018 [employer]. All rights reserved. The codes documented in this report ar e preliminary and upon medical records coder review may be revised to meet current compliance requirements.Patient Profile: Last Colonoscopy: none. The patient's first colonoscopy is today.Scope Withdrawal Todd e 0 hours 8 minutes 20 seconds Provation {[id number]}.pdf ProVation FT PDF at 0720 PATIENT NAME: ALETHEA STREET iatmhsf3040-97-36N71:20:00NC.[id number] v ailable for patient znahRKWYKDIFVNHVQU8360-51-93F36:21:00 2020-06-21 13:28:00 [id number]:28:025118-4 078 [facility] [place] [id number] [facility] [address] PATIENT NAME: ALETHEA STREETH ADMIT DATE: 06/18/20ACCOUNT NO : [id number] ROOM NO: NC.6307 AGE: 44 REPORT TYPE: PROGRESS NOTE SEX: F ADMITTING PHYSICIAN:Josiah Ervin MD ATTENDING PHYSICIAN:Josiah Ervin MD DATE: 06/21/2020 PATIENT LOCATION: Room #6307. SUBJECTIVE: As the EMR is down, dictated note wa s done and unable to access thePK system at this point. PK system was accessed earlier in the morning andcharts were reviewed. On exam, comfortable, no acute distress, thin built. Nochills or fever. Tolerating diet well. Tolerating antibiotic very well. Noabdominal distention or pain. No nausea or vomiting. No diarrhea. No urinarydiscomfort. The patient currently on Levaquin and Flagyl and tolerating well OBJECTIVE:GENERAL: Thin built.NECK: Supple.HEENT: Sclerae pale.LUNGS: Sounds are goo d air entry.HEART: Sounds normal S1 and S2.ABDOMEN : Soft. No suprapubic tenderness. No rebound, no rigidity.EXTREMITIES: No cyanosis or clubbing. Peripheral IV okay.SPINAL: No focal tenderness.LYMPH NODES: Not palpable.CENTRAL NERVOUS SYSTEM: No acute changes. LABORATORY DATA: Reviewed. Blood culture came back positive for thecoag-negative staph, likely contaminated. Repeat blood culture drawn ispending. The patient's white count has been normalized today. ASSESSMENT AND PLAN:1. The patient with diverticular abscess, stable. The patient has been stableon current antibiotic, change it to Levaquin and Flagyl. The patient can bedischarge d on oral antibiotic for about 3 weeks and monitor the trend.2. Coagulase-negative Staphylococcus bacteremia, likely contaminated.3. Malnutrition and debilitation. Continue nutritional support a s per otherconsultant. Answered multiple questions . Discussed with the staff. Follow thedischarge arrangement. Dictated By: Rivas Thompson WT: PN:DELMAR.JOSE E/ALEX/VIKTORIYADD: 06/21/2020 13:28:04DT: 06/21/2020 15:07:06Conf#: [id number]/DID#: [id number] PATIENT NAME: ALETHEA STREET Authenticated by Rivas Thompson MD On 06/26/2020 08:00:56 PM at 2000 PATIENT NAME: [address] [id number]:07:00NC.[id number] l able for patient wfocUMTHIFMGHPLSWG9657-26-97S63:01:36 2020-06-21 13:13:00 [id number]:13:176801-9 071 [facility] [address] [facility] [address] PATIENT NAME: ALETHEA STREET ADMIT DATE: 06/18/20ACCOUNT NO: [id number] ROOM NO: NC.6307 AGE: 44 REPORT TYPE: PROGRESS NOT E SEX: F ADMITTING PHYSICIAN:Josiah Ervin MD ATTENDING PHYSICIAN:Josiah Ervin MD DATE: 06/21/2020 REFERRING PHYSICIAN: Dr. Josiah Ervin and Dr. Pena. SUBJECTIVE: The patient is a 44-year-old female, who was admitted because ofdiverticulitis and diverticular abscesses. She denies any nausea or vomiting. No heartburn. No dysphagia. No chest pain. No abdominal pain, no diarrhea, noconstipation. No melena. No hematochezia. No fever, chills, or rigors. REVIE W OF SYSTEMS: A 14-point review of systems, denies any cardiopulmonary,genitourinary, musculoskeletal, or neurological complaints. MEDICATIONS: Reviewed. OBJECTIVE:VITAL SIGNS: He r pulse is 68 per minute, blood pressure of 128/60 , afebrile,respiratory rate of 16.SKIN: Within normal limits.HEENT: Revealed normal EOMI. Cami l PERRLA. No elevated JVD. Carotids 2+.NECK: Supple. No lymphadenopathy.CHEST: Clear to auscultation.CARDIOVASCULAR: Normal S1 and S2. N o S3. Regular rate and rhythm. No murmursor rubs appreciated.ABDOMEN: Soft, nondistended with mil d tenderness. No hepatosplenomegalyappreciated. No rebound. No guarding. Normoactive bowel sounds.EXTREMITIES: Reveal no clubbing, cyanosis , or edema.NEUROLOGICAL: Grossly intact. LABORATOR Y DATA: Reviewed. IMPRESSION: Acute diverticulitis with diverticular abscesses, improving. PLAN: Would be to continue antibiotics. Advance diet. If tolerated, candischarge home on antibiotics. Follow up in 3 to 4 weeks' time for colonoscopya s outpatient. Discussed the plan with the patient and surgery is following. Dictated By: Sudha Acosta MD WT: PN:NC.HIM/HUSAY/NTSDD: 0 13:13:13DT: 06/21/2020 14:16:07Conf#: [id number]/DID#: [id number] PATIENT NAME: ALETHEA STREET Authenticated by Sudha Acosta MD On 06/22/2020 01:09:14 PM at 1309 PATIENT NAME: [address] Ihwr8110-22-21A96:16:00NC.[id number] l able for patient ifzhJNWGMQCXWWGKRY4531-43-29V30:09:36 2020-06-21 12:12:00 [id number]:12:001889-[address] [address] PATIENT NAME: ALETHEA STREET ADMIT DATE: 06/18/20ACCOUNT NO : [id number] ROOM NO: [facility]6[address] AGE: 44 REPORT TYPE: PROGRESS NOTE SEX: F ADMITTING PHYSICIAN:Josiah Ervin MD ATTENDING PHYSICIAN:Josiah Ervin MD DATE: 06/21/2020 SUBJECTIVE: The patient feels better, has no pain and is ready to go home. Shehas had bowel movement and has been tolerating her diet. OBJECTIVE:VITAL SIGNS: Afebrile, vital signs stable.ABDOMEN: Soft, nontender. LABORATORY DATA : White blood cell count normal. ASSESSMENT AND PLAN: Diverticulitis with an abscess formation. Doing better. The patient to be discharged to go home with instructions tofollow up with Dr. Wilma truong in 1 week and with GI in 2 weeks to schedulecolonoscopy followed by elective resection of the colon. Counseled to stop smokin g and doing drugs. Cleared for discharge on oursdpoint. Dictated By: Arnold Lopez MD WT : PN:NC.JOSE E/NORA/NTSDD: 06/21/2020 12:12:50DT: 06/21/2020 12:42:23Conf#: [id number]/DID#: [id number] Authenticated by Arnold Lopez MD On 06/22/2020 09:43:24 AM at 0943 PATIENT NAME: ALETHEA STREET Gzim6330-50-95D97:42:00NC.[id number] l able for patient tukdNTVHJPHUQKDWEZ6641-94-92I60:43:57 2020-06-20 08:36:00 [id number]:36:[id number] [address] [place] [address] PATIENT NAME: ALETHEA STREET ADMIT DATE: 06/18/20ACCOUNT NO : [id number] ROOM NO: NC.6307 AGE: 44 REPORT TYPE: CONSULATION SEX : F ADMITTING PHYSICIAN:Josiah Ervin MD ATTENDING PHYSICIAN:Josiah Ervin MD CONSULTATION DATE: 06/20/2020 CONSULTING PHYSICIAN: Stevie Paredes REFERRING PHYSICIAN: Carol Pena MD REASON FOR CONSULTATION: Abdominal pain. HISTORY OF PRESENT ILLNESS: The patient is a 44-year-old female, who wasreferred to me by Dr. Pena in e office for colonoscopy prior to her segmentalcolectomy. I saw her and she was still having pain. Ordered a CT abdomen andpelvis, which showed an abscess of 4.7 cm, referred her to the ER. She deniesany nausea or vomiting. No heartburn. No dysphagia. No chest pain. Has mildlower abdominal pain. Does have diarrhea. No melena. No hematochezia. Nofever, chills, or rigors. REVIEW OF SYSTEMS: A 14-point review of systems, denies any cardiopulmonary,genitourinary, musculoskeletal, or neurological complaints. ALLERGIES: BUSPIRONE . PAST MEDICAL HISTORY: Diverticulitis with perforation and diverticular abscess,hypertension, diabetes mellitus, ovarian cyst, left side, bilateral wristsurgery, left elbow surgery for nerve entrapment. FAMILY HISTORY: Hypertension and lung cancer. SOCIAL HISTORY: Has history of alcohol use, smoking, marijuana use. No IVdrugs at present time. Does have tattoos. CURRENT MEDICATIONS: Include Tylenol, IV fluids, fluconazole, folic acid,glucagon, morphine, Zofran, Zosyn, Lyrica. PHYSICAL EXAMINATION:VITAL SIGNS: Her pulse is 6 8 per minute, blood pressure 120/73, afebrile,respiratory rate of 18.SKIN: Within normal limits.HEENT: Revealed normal EOMI. Cami l PERRLA. No elevated JVD. Carotids 2+.NECK: Supple. No lymphadenopathy.CHEST: Clear to auscultation.CARDIOVASCULAR: Normal S1 and S2. N o S3. Regular rate and rhythm. No murmursor rubs appreciated. PATIENT NAME: ALETHEA STREET ABDOMEN: Soft, nondistended with mild tenderness. No hepatosplenomegalyappreciated. No rebound. No guarding. Normoactive bowel sounds.EXTREMITIES: Reveal no clubbing, cyanosis, or edema.NEUROLOGIC: Grossly intact. LABORATORY DATA: Reviewed. IMAGING STUDIES: Reviewed. IMPRESSION: Diverticulitis with diverticular abscess. IR unable to drain it. PLAN: Would be t o continue IV antibiotics, IV fluids, and surgery as per . Dr. Pena and Dr. Ervin, thank you very much for allowing me to participate inthe care of your patient. I will keep you up-to-date as to her progress. Dictated By: Sudha Acosta MD WT: CON:NC.JOSE E/DICK/NTSDD: 06/20/2020 08:36:28DT: 06/20/2020 12:07:08Conf#: [id number]/DID#: [id number] Authenticated by Sudha Acosta MD On 06/21/2020 12:22:13 PM at 1222 PATIENT NAME: ALETHEA STREET :07:00NC. [id number] for patient rduiSYFEGCNYJQHWCA3217-44-09B96:22:56 2020-06-19 21:01:00 [id number]:01:[id number] 010 [facility] [address] [facility] [address] PATIENT NAME: ALETHEA STREET ADMIT DATE: 06/18/20ACCOUNT NO : [id number] ROOM NO: NC.6307 AGE: 44 REPORT TYPE: CONSULATION SEX: F ADMITTING PHYSICIAN:Josiah Ervin MD ATTENDING PHYSICIAN:Josiah Ervin MD CONSULTATION DATE: 06/19/2020 CONSULTING PHYSICIAN: Rivas Thompson PATIENT LOCATION: Room #6307. REASON FOR CONSULTATION: Antibiotic management. HISTORY OF PRESENT ILLNESS: This is a 44-year-old female, apparently appears tohave ongoing problem with the diverticulitis and abscess. The patient wastreated at home with the oral antibiotics. Th e patient finished antibiotics andstarted having some abdominal pain as well as fever. Repeat CAT scan showedabscess in the pelvic area, for which she had been recommended to be admittedthrough the Emergency Room. The patient has been started on antibiotics. Further surgical input is awaite d and planned to follow. PAST MEDICAL HISTORY: Significant for diverticulitis, alcohol, hypertension,and recent diabetes. PAST SURGICAL HISTORY: Reported to be ovarian cyst from the left, bilateralwrist surgery, left elbow surgery . FAMILY HISTORY: Significant for hypertension as well as lung cancer. ALLERGIES: BUSPIRONE. SOCIA L HISTORY: Significant for alcohol and smoking. VACCINATION HISTORY: Not up-to-date for the flu and pneumonia vaccine. REVIEW OF SYSTEMS: Remained with abdominal pain and discomfort. No headache orphotophobia. No blood in the stool or urine. Poor appetite, occasional cough. Does not have any swelling of the leg. The patient has been having undocumentedweight loss. The patient has known history of DVT, PE. No history ofmultidrug-resistant pathogen infection. I do not have any details of theprevious admission, and her diverticular ____. [place] There were some blood cultures drawn, those were negative. The patient had a secure CT, unable to drain that abscess. The patient wastreated with antibiotic and was discharged on oral antibiotics. CURRENT ANTIBIOTICS: Include Zosyn, and the patient has been tolerating well. PATIENT NAME: ALETHEA STREET PHYSICAL EXAMINATION:GENERAL: The patient is thin built, comfortable. On my arrival, the patientwas quite sleepy, did not wake up. I then discussed with the staff, and theycame in to shook her to wake her up. The patient then has been able to provideinformation.VITAL SIGNS: The patient's temperature is 36.8 since admission, pulse is 63,respiration rate is 18, blood pressure is 115/73, and saturation is 98%. Weightis 46 kg an d BMI is 18.7.HEENT: Head is atraumatic, normocephalic. No jaundice. No thrush.NECK: Supple.LUNGS: Sounds are shallow breath, bilaterally equal.HEART: Sounds normal.ABDOMEN: Soft. Suprapubic tenderness noted. Bowel sounds sluggish. Norebound, no rigidity.EXTREMITIES: No cyanosis or clubbing. Atrophy noted.COMPENSATOR WORKER: Alert and awake. Peripheral IV site looks okay.LYMPH: No lymph nodes.SKIN: Clear, weeping is evident. LABORATORY DATA: Sodium is 141, potassium is 4, BUN is 12, creatinine is 0.8,albumin 2.7. LFTs unremarkable. Hemoglobin A1c is 5.6. White count done todayis 11.6, it was 12.9 yesterday, hemoglobin 10, platelet count of 372,000. Ourcomment is these reports reviewed. COVID-19 has been negative. Lactic acidlevel is 1.3. test done yesterday negative. Lipase i s 127. Urinalysis revealed wbc's 3-5. HIV done on the previous admission was negative. Hepatitis screen also was negative. Blood cultures drawn o n the 16th arepending. DIAGNOSTIC DATA: CT scan of the abdomen and pelvis was done on 06/13/2020. Report reviewed. I do not have the CAT scan report from the outpatient facilityavailable at this point, which she reports was done yesterday . ASSESSMENT:1. The patient with ongoing diverticular abscess and infection. The patienthas been treated with various antibiotics , now again with the increased pain,abnormal CAT scan, obviously polymicrobial infection suspected, improving withZosyn and continue the same. We will follow.2. The patient with history of hypertension.3. History of alcohol use with fatty infiltration of the liver noted on CATscan . Follow the further workup. Counseled to avoid alcohol.4. Recent diagnosis of diabetes has been reported, but hemoglobin A1c isnormal.5. Abnorma l CAT scan finding from 06/13/2020, revealing bilateral hydro withabnormalities of the bladder . Consider Urology evaluation.6. Malnutrition and cachexia.7. Workup is negative for HIV and hepatitis on the last admission. PLAN:1. In this patient, given above reason and differential, I would agree withbroad-spectrum antibiotic with Zosyn. Continue monitoring the levels andmonitor the surgical plan and intervention. Follow the response to thetreatment. Monitor the white count. Adjust the antibiotic coverageaccordingly.2. Workup so far appears to be negative for UTI, hydration. Symptomatic PATIENT NAME: ALETHEA STREET treatment for pain.3. 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 Case discussed with nursing staff at length. Dr. Ervin, I appreciate for the interesting consult and allowing me toparticipate in the patient's care. Dictated By: Rivas Thompson WT: CON:NC.JOSE E/ALEX/VIKTORIYADD: 06/19/2020 21:01:09DT: 06/20/2020 02:38:09Conf#: [id number]/DID#: [id number] cc: Josiah Ervin MD Authenticated by Rivas Thompson MD On 06/26/2020 08:00:53 PM Electronically Signed by MD nicolette Sherman n 06/26/20 at 2000 PATIENT NAME: ALETHEA STREET :38:00NC. H [id number] for patient [id number]:01:35 2020-06-18 14:58:00 [id number]:58:00 [facility] ([facility])EMERGENC Y PROVIDER REPORTREPORT#:[id number] REPORT STATUS: SignedDATE:06/18/20 TIME: 1457 PATIENT: ALETHEA STREET UNIT #: [id number]#: [id number] ROOM: [facility]6307BED: 1AGE: 44 SEX: F PCP PHYS: Undefined ProviderSERVICE AUTHOR: Reggie Coreas MD * ALL edits or amendments must be made on the electronic/computer document * HPI-Abd Pain F 40 and Over GeneralInitial Greet Date/Time 06/18/20 1433 PresentationChief Complaint Abdominal painSudden in Onset? No Free Text HPI NotesFree Text HPI [id number]-val female sent in by Dr. Acosta, GI, for further work-up and management after she were found to have diverticular diseas e with abscess formation. Complains of minimal abdominal pain and no other symptoms currently. Risk-Abd Pain F 40 and Over)( Abdominal Aortic Aneurysm Risk factors reviewed Review of Systems ROS StatementsAll systems rev neg except as marked. Focused Review of SystemsGIReports: Abdominal pain. Past Medical History - AdultStated Complaint DIVERTICULITISAllergiesCoded Allergies:buspirone (From BUSPAR) (Severe, HIVES/RASH 09/21/19) Home MedicationsDiscontinued ScriptsCiprofloxacin (Cipro) 500 MG BID X 10 DAYS Ciprofloxacin (Cipro) 500 MG BID X 10 DAYS #20 TAB Prov: 05/13/20 DC: 06/18/202019 DC prior to admitMetronidazole (Flagyl) 500 MG PO Q8H Metronidazole (Flagyl) 500 MG PO Q8H #30 TAB Prov: 05/13/20 DC: 06/18/202019 DC prior to admitTramadol (Ultram) 50 MG PO Q4H Tramadol (Ultram) 50 MG PO Q4H #20 TAB Prov: 05/13/20 DC: 06/18/202019 DC prior to admit Reported MedicationsFolic Acid 1 MG PO DAILY Pregabalin (Lyrica) 200 MG PO BID Fluconazole (Diflucan) 10 0 MG PO DAILY Levofloxacin (Levaquin) 500 MG PO DAILY Metronidazole (Flagyl) 500 MG PO TID Discontinued Reported Medications[Tri Lo Sprintee] [vitamin d2] Past Medical History:Reports: Hypertension, (vaginal bleeding). Past Surgical History:Reports: (culposcopy). Alcohol Use Alcohol use (15 or more drinks per week)Drug Use Denies recreational drugsSmoking status for patients 13 years old or older: Former Smoker Physical Exam Vital SignsVital SignsFirst Documented: Result Date Time Pulse Ox 96 06/18 1431 B/P 139/78 / 1431 B/P Mean 98 06/18 143 1 O2 Delivery Room air 06/18 1431 Temp 36.7 06/18 1431 Pulse 98 06/18 1431 Resp 18 06/18 1431 Las t Documented: Result Date Time Pulse Ox 96 06/18 1431 B/P 139/78 /16 1431 B/P Mean 98 / 143 1 O2 Delivery Room air 06/18 1431 Temp 36.7 06/18 1431 Pulse 98 06/18 1431 Resp 18 06/18 1431 Review of Vital Signs Reviewed Focused PEGeneral/Const General/Const Awake, Alert, N o acute distress, Well appearing, Well developed, Well hydratedResp/Chest Respiratory/Chest Atraumatic, Breath sounds NL, Breath sounds = bilat, No respiratory distress, No rales, No rhonchiCardiovascular Cardiovascular Heart rate NL, Regular rhythm, Heart sounds NL, No gallop, No murmurs, No rubsAbdomen/GI Abdomen/GI Atraumatic, Soft, McBurney's non-tender, No guarding, No rebound, BS normoactive Tenderness/Guarding/Rebound Tender diffuse. MS Back Back Atraumatic, Inspection NL, Full range of motion, Painless range of motion, Non-tender, No midline vertebral tend, N o paraspinal tenderness Free Text PE NotesFree Anibal t PE NotesBasic Physical ExamBasic PE HEAD: Atraumatic/NC, EYES: PERRL, conj clear, ENT: Membranes moist, NECK: Supple, EXT: No gross abnormality, SKIN: No rashes, warm/dry, NEURO: alert oriented, NEURO: gross movement NL, PSYCH: NL thought content Focused PEGeneral/Const General/Const Awake, Well hydratedResp/Chest Respiratory/Chest Atraumatic, No respiratory distress, No rales, No wheezingCardiovascular Cardiovascular Heart rate NL, Regular rhythm, Ca p refill not delayed, Peripheral circulation NLAbdomen/GI Abdomen/GI Atraumatic, abd minimally tender to palpation diffusely with no focal tenderness in the left lower or suprapubic regionMS Back Back Atraumatic, Full range of motion, No midline vertebral tend, No paraspinal tenderness Interpretation Diagnostics Lab Result s InterpretationConsiderations Reviewed prior recordsResultsLaboratory Tests 06/18/20 1441:[Embedded Image Not Available]Laboratory Tests: 06/18 06/18 1441 1441 Chemistry Sodium (135 - 145 mmol/L) 138 Potassium (3.5 - 5.1 mmol/L) 4.1 Chloride (98 - 107 mmol/L) 105 Carbo n Dioxide (21 - 32 mmol/L) 26 Anion Gap (2.0 - 16.0) 11.1 BUN (4 - 23 mg/dL) 14 Creatinine (0.6 - 1.5 mg/dL) 0.7 Glomerular Filtr Rate (>60 ml/min) >=60 max estimate BUN/Creatinine Ratio (12.0 - 20.0) 20.0 Glucose (65 - 99 mg/dL) 89 Calcium (8.5 - 10.1 mg/dL) 8.9 Total Bilirubin (0.2 - 1.2 mg/dL) 0.2 Direct Bilirubin (0.0 - 0. 3 mg/dL) < 0.1 Indirect Bilirubin (0.0 - 0.8 mg/dL ) 0.1 AST (15 - 37 U/L) 11 [...] 95 HDL Cholesterol (40 - 60 mg/dL) 3 8 L Cholesterol/HDL Ratio (1 - 6) 4 Lipase (73 - 393 U/L) 127 Serum HCG, Qual (NEGATIVE) NEGATIVE Hematology WBC (4.5 - 11.0 10 3/uL) 12.9 H RBC (3.50 - 5.50 10 6/uL) 3.59 Hgb (12.0 - 16.0 g/dL ) 10.9 L Hct (37.0 - 55.0 %) [...] % (Auto) (14.0 - 56.4 %) 23.0 Porter % (Auto ) (0.0 - 12.9 %) 4.0 Eos % (Auto) (0.0 - 7.0 %) 2.9 Baso % (Auto) (0 - 2.0 %) 0.5 Neut # (Auto) (1.5 - 7.0 10 3/uL) 8.94 H Lymph # (Auto) (1.50 - 4.00 10 3/uL) 2.97 Porter # (Auto) (0.20 - 0.80 10 3/uL) 0.51 Eos # (Auto) (0.0 - 0.5 10 3/uL) 0.37 Baso # (Auto) (0.0 - 0.1 10 3/uL) 0.06 Abs Immat Gran (auto) (0.000 - 0.100 x10 3/uL) 0.050 Immature Gran % (0.0 - 1.0 %) 0.4 Nucleated RBC % (0 - 0.2 %) 0.0 Urines Urine Color (YELLOW) STRA W Urine Appearance (CLEAR) CLEAR Urine pH (5.0 - 8.0) 6.0 Ur Specific Robinson (1.005 - 1.025) 1.003 L Urine Protein [...] Chemistry Lactic Acid (0.4 - 2.0 mmol/L) 1. 3 Coagulation INR (0.8 - 1.1 RATIO) 1.1 APTT (25. 1 - 36.5 SECONDS) 29.5 PT Patient/Control Mix (9.4 - 12.5 SECONDS) 11.7 Microbiology: Date/Time Procedure - Status Source Growth 06/18 154 Bloo d Culture - RES BLOOD COAGULASE NEG STAPHYLOCOCCUS 06/18 1547 Blood Culture - COMP BLOOD Re-Evaluation [facility] )( Re-Evaluation/Progress #1)( Re-Eval Status Improved ED CourseMedication(s) OrderedMedication(s) Ordered:Anti-Infective Agents Sig/Charlotte Start time Last Medication Dose [...] 2 MG Q4H PRN PRN 06/18 1639 UNV IV 06/19 0438 Electrolytic, Caloric, And Richard Sig/Charlotte Start time Last Medication Dose Route Stop Time Status Admin Sodium Chloride 1,000 ML X1ED STA 06/18 1506 DC 06/18 IV 06/18 1605 1542 Gastrointestinal Drugs Sig/Charlotte Start time Last Medication Dose Route Stop Time Status Admin Ondansetron HCl 4 MG Q4H PRN PRN 06/18 1645 UNV IV 06/19 0438 Patient Discharge Departure Vital Signs/ConditionVital SignsFirst Documented: Result Date Time Pulse Ox 96 06/18 1431 B/P 139/78 06/18 1431 B/P Mean 98 06/18 1431 O2 Delivery Room air 06/18 1431 Temp 36.7 06/18 1431 Pulse 98 06/18 1431 Resp 18 09/ 6 1431 Last Documented: Result Date Time Pulse Ox 96 06/18 1431 B/P 139/78 06/18 1431 B/P Mean 98 06/18 1431 O2 Delivery Room air 06/18 1431 Temp 36.7 06/18 1431 Pulse 98 06/18 1431 Resp 18 06/03 6 1431 All vital signs available at the time of this entry have been reviewed. Condition Stable Clinical ImpressionClinical ImpressionPrimary Impression: Diverticulitis of intestine with abscess Disposition DecisionAdmit Admit Physicia n Josiah Godinez MD Admit Physician Hospitalist Request Time 1525 Request Date 06/18/20 )( Admission Accepts Yes )( Accepted Time 1642 )( Accepted Date 06/18/20 Call Information will see patient, agrees with eval, agrees with plan Discharge/Care Plan(Auto) PrescriptionsCurrent Visit ScriptsFluconazole (Diflucan) 100 MG PO DAILY Fluconazole (Diflucan) 100 MG PO DAILY #7 TAB Levofloxacin (Levaquin) 500 MG PO DAILY Levofloxacin (Levaquin) 500 MG PO DAILY #7 TAB Metronidazole (Flagyl) 500 MG PO Q8H Metronidazole (Flagyl) 500 MG PO Q8H #21 TAB ReferralsNo Primary or Family Physician (Family) at 0814RPT #:[id number] OF REPORTEDEmergency department [id number]:58:00NC.[id number] v ailable for patient [id number]:14:39 2020-05-08 11:22:00 [id number]:22:00 [facility] ([facility])EMERGENC Y PROVIDER REPORTREPORT#:[id number] REPORT STATUS: SignedDATE:05/08/20 TIME: 112 PATIENT: ALETHEA STREET UNIT #: [id number]#: [id number] ROOM: ID.[id number]: 1AGE: 44 SEX: F PCP PHYS: No Primary or Family PhysicianSERVICE AUTHOR: Scarlet Yancey GRAIN SHIPPER * ALL edits or amendments must be made on the electronic/computer document * HPI-Abd Pain F 40 and Over GeneralInitial Greet Date/Time 05/08/20 1007 PresentationChief Complaint Abdominal pain, Nausea, Vomiting mildHx Obtained From PatientSudden in Onset? NoOnset Occurred YesterdaySymptom Duration Waxes and wanesProgression since Onset ConstantLocation Abdomen lowerQuality Cramping Free Text HPI NotesFree Text HPI [id number] female presents the ER with complaints of lower abdominal cramping with nausea and one episode o f nonbilious, nonbloody vomiting. Patient states she initially thought she was having a menstrual cramp even though she has not had a menstrual cycle in the last 3 years. She has history of ovarian cyst and states this feels similar. The pain initially was intermittent and cramping in nature however since this morning the pain is more constant and is becoming morewidespread throughout her abdomen. She denies any chest tania n or shortness of breath. No fevers cough chills, loss of taste or smell. No diarrhea. Review of Systems ROS StatementsAll systems rev neg except as marked. Focused Review of SystemsConstitutionalDenies: Chills, Fever. RespiratoryDenies: Cough, non-productive. CardiovascularDenies: Chest pain. GIReports: Abdominal pain, Nausea, Vomiting. Past Medical History - AdultStated Complaint ABD PAINAllergiesCoded Allergies:buspirone (From BUSPAR) (Severe, HIVES/RASH 09/21/19) Past Medical History:Reports: Hypertension, (vaginal bleeding). Past Surgical History:Reports: (culposcopy). Alcohol Use Alcohol use (15 or more drinks per week)Drug Use Denies recreational drugsSmoking status for patients 13 years old or older: Current every da y smoker Physical Exam Vital SignsVital SignsFirst Documented: Result Date Time Pulse Ox 100 / 1009 B/P 153/96 08/ 1009 B/P Mean 115 08 1009 O2 Delivery Room air 05/08 1009 Temp 36.2 / 1009 Pulse 95 05/08 1009 Resp 20 05/08 100 9 Last Documented: Result Date Time Pulse Ox 99 05/08 1401 B/P 138/84 08/ 1401 B/P Mean 102 05/08 1401 O2 Delivery Room air 05/08 1401 Temp 36.5 08 1401 Pulse 87 08/ 1401 Resp 16 05/08 1401 Review of Vital Signs Reviewed Basic Physical ExamBasic PE HEAD: Atraumatic/NC, EYES: PERRL, conj clear, ENT: Membranes moist, NECK: Supple, EXT: No gross abnormality, SKIN: No rashes, warm/dry, NEURO: alert oriented, NEURO: gross movement NL, PSYCH: NL thought content Focused PEGeneral/Const General/Const Awake, Alert Distress/Hydration Distress mild. Resp/Chest Respiratory/Chest Breath sounds NL , Breath sounds = bilat, No respiratory distress, No rales, No rhonchi, No wheezing, No retractionsCardiovascular Cardiovascular Hear t rate NL, Regular rhythm, Heart sounds NL, No gallop, No murmurs, No rubs, Cap refill not delayedAbdomen/GI Abdomen/GI Soft Tenderness/Guarding/Rebound Tender diffuse, Guarding voluntary. Negative: Tender RUQ, Tender LUQ, TenderRLQ, Tender LLQ, Tender epigastric, Tender periumbilical, Tender suprapubic, Tender flank R, Tender flank L, Cohen's sign positive, McBurney's point tender,Guarding involuntary, Rebound localized, Rebound diffuse, Rigid to palpation. MS Back Back Inspection NL, Full range of motion, Painless range of motion, Non-tender, No midline vertebral tend, No muscle spasm Interpretation Diagnostics Lab Results InterpretationResultsLaboratory Tests 05/08/20 1030:[Embedded Image Not Available]Laboratory Tests: 05/08 05/08 1030 1030 Chemistry Sodium (135 - 145 mmol/L) 142 Potassium (3.5 - 5.1 mmol/L) 3.4 L Chloride (98 - 107 mmol/L) 110 H Carbon Dioxide (21 - 32 mmol/L) 27 Anion Gap (2. 0 - 16.0) 8.4 BUN (4 - 23 mg/dL) 12 Creatinine (0. 6 - 1.5 mg/dL) 0.6 Glomerular Filtr Rate (>60 ml/min) >=60 max estimate BUN/Creatinine Ratio (12.0 - 20.0) 20.0 Glucose [...] 52 HDL Cholesterol (40 - 60 mg/dL) 5 1 Cholesterol/HDL Ratio (1 - 6) 2 Lipase (73 - 393 U/L) 122 Serum HCG, Qual (NEGATIVE) NEGATIVE Hematology WBC (4.5 - 11.0 10 3/uL) 14.0 H RBC (3.50 - 5.50 10 6/uL) 4.32 Hgb (12.0 - 16.0 g/dL ) 14.1 Hct (37.0 - 55.0 %) 41.7 MCV (81 - 102 fL) 97 MCH (26.0 - 34.0 pg) 32.6 MCHC (31.0 - 37.0 g/dL) 33.8 RDW (11.5 - 14.5 %) 11.6 Plt Count (150 - 400 10 3/uL) 231 MPV (9.0 - 12.6 fL) 9.1 Neut % (Auto) (33.0 - 76.0 %) 89.9 H Lymph % (Auto) (14.0 - 56.4 %) 4.6 L Porter % (Auto) (0.0 - 12.9 %) 4.1 Eos % (Auto) (0.0 - 7.0 %) 0.5 Baso % (Auto) (0 - 2.0 %) 0.3 Neut # (Auto) (1.5 - 7.0 10 3/uL) 12.60 H Lymph # (Auto) (1.50 - 4.00 10 3/uL) 0.65 L Porter # (Auto) (0.20 - 0.80 10 3/uL) 0.58 Eos # (Auto) (0.0 - 0.5 10 3/uL) 0.07 Baso # (Auto) (0.0 - 0.1 10 3/uL) 0.04 Abs Immat Gran (auto) (0.000 - 0.100 x10 3/uL) 0.090 Immature Gran % (0.0 - 1.0 %) 0.6 Nucleated RBC % (0 - 0. 2 %) 0.0 05/08 05/08 1108 1310 Chemistry Lactic Acid (0.4 - 2.0 mmol/L) 1.9 Serology Nasal/Oral COVID-19 PCR (Negative) Negative Urines Urine Color (YELLOW) STRAW Urine Appearance (CLEAR) CLEAR Urine pH (5.0 - 8.0) 6.0 Ur Specific Robinson (1.005 - 1.025) 1.025 Urine Protein (NEGATIVE) NEGATIVE Urine Glucose (UA) (NEGATIVE) NEGATIVE Urine Ketones (NEGATIVE) NEGATIVE Urine Blood (NEGATIVE) NEGATIVE Urine Nitrite (NEGATIVE) NEGATIVE Urine Bilirubin (NEGATIVE) NEGATIVE Urine Urobilinogen (0.1 - 0. 2 EU/dL) NEGATIVE Ur Leukocyte Esterase (NEGATIVE) NEGATIVE Urine RBC (0 - 3 /hpf) NONE SEEN Urine WBC (0 - 3 /hpf) 0-2 Ur Squamous Epith Cells (FE W /HPF) RARE Urine Bacteria (NEGATIVE /HPF) RARE Hyaline Casts (NONE SEEN /lpf) 2-5 Urine Mucus (/lpf) OCCASIONAL Microbiology: Date/Time Procedure - Status Source Growth 05/08 1310 Bloo d Culture - RECD BLOOD 05/08 1300 Blood Culture - RECD BLOOD Recent Impressions:CAT SCAN - CT ABD PELVIS W/CONT 05/08 1205 Report Impression - Status: SIGNED Entered: 05/08/2020 1249 IMPRESSION: 1. Findings suggesting acute sigmoi d colon diverticulitis withabnormal mural thickening and surrounding infiltration. There isfurther air within the sigmoid mesocolon and tracking into theretroperitoneum which is atypical. There is small fluid in the leftparacolic gutter and tracking into the pelvis. No organized abscessis otherwise seen.2. Fatty infiltration of the liver.3. Small perihepatic ascites.Impression By: Matilda - Ivan Jose MD Lab Imaging StatementLaboratory radiographic studies reviewed and considered in the medical decision-making. Re-Evaluation MDM Free Text MDM NotesFree Text MDM [id number] d female presents the ER with above-stated complaints, lab work reviewed, slightly elevated white count 14 and mildly elevated liver enzymes , otherwise unremarkable. CT of the abdomen shows acute diverticulitis with perforation the air in the peritoneum. Patient was admitted to the hospital, started on Zosyn, spoke with Dr. PENA and Dr. Bey regarding admission and plan of care. [facility] with [facility] ED CourseMedication(s) OrderedMedication(s) Ordered:Anti-Infective Agents Sig/Charlotte Start time Last Medication Dose Route Stop Time Status Admi n Piperacillin Sod/ 3.375 GM Q8H 05/088 AC Tazobactam Sod IV 05/09 2037 Sodium Chloride 10 0 ML Piperacillin Sod/ 3.375 GM X1ED STA 05/08 123 8 DC 05/08 Tazobactam Sod IV 05/08 1307 1324 Sodium Chloride 100 ML Antihistamine Drugs Sig/Charlotte Start time Last Medication Dose Route Stop Time Status Admin Promethazine HCl 25 MG Q4 H PRN PRN 05/08 1353 AC PO 05/09 0152 Promethazine HCl 25 MG X1ED STA 05/08 1312 DC 05/08 Sodium Chloride 50 ML IV 05/08 1341 1323 Central Nervou s System Agents Sig/Charlotte Start time Last Medication Dose Route Stop Time Status Admin Acetaminophen 650 MG Q4H PRN PRN 05/08 1353 AC PO 05/09 0152 Morphine Sulfate 4 MG Q4H PRN PRN 05/08 1353 AC IV 05/09 0152 Ketorolac 30 MG X1ED STA 05/08 102 4 DC 05/08 Tromethamine IV 05/08 1025 1111 Diagnostic Agents Sig/Charlotte Start time Last Medication Dose Route Stop Time Status Admin Iopamidol 0 .STK-MED ONE 05/08 1204 DC .ROUTE Electrolytic, Caloric, And Richard Sig/Charlotte Start todd e Last Medication Dose Route Stop Time Status Admi n Sodium Chloride 1,000 ML .[id number] 05/08 1400 AC IV 05/09 0152 Sodium Chloride 1,000 ML X1ED STA 05/08 1024 DC 05/08 IV 05/08 1025 1111 Gastrointestinal Drugs Sig/Charlotte Start time Last Medication Dose Route Stop Time Status Admin Ondansetron HCl 4 MG Q4H PRN PRN 05/08 1400 AC I V 05/09 0152 Patient Discharge Departure Vital Signs/ConditionVital SignsFirst Documented: Result Date Time Pulse Ox 100 08/ 1009 B/P 153/96 08/ 1009 B/P Mean 115 /06 1009 O2 Delivery Room air 05/08 1009 Temp 36.2 08/06 100 9 Pulse 95 08/06 1009 Resp 20 08/ 1009 Last Documented: Result Date Time Pulse Ox 99 / 1401 B/P 138/84 08/06 1401 B/P Mean 102 /06 1401 O2 Delivery Room air 08/ 1401 Temp 36.5 08/06 1401 Pulse 87 08/06 1401 Resp 16 08/06 1401 All vital signs available at the time of this entry have been reviewed. Clinical ImpressionClinical ImpressionPrimary Impression: Bowel perforationSecondary Impressions: Diverticulitis Disposition DecisionAdmit Admit Physician Name Balta Bey Jr, MD Admit Physician Hospitalist Request Time 1356 Request Date 05/08/20 )( Admission Accepts Yes )( Accepted Time 1356 )( Accepted Date 05/08/20 Discharge/Care PlanCounseled Regarding Diagnosis , Lab results, Imaging studies, Need for admissionReferralsNo Primary or Family Physician (PCP/Family) Admit NoteI have spoken with the patient and/or caregivers. I have explained the patient'scondition, diagnoses and treatment plan based on the information available to meat this time. I have answered the patient's and/or caregiver's questions and addressed any concerns . The patient and/or caregivers have as good an understanding of the patient's diagnosis, condition and treatment plan as can beexpected a t this point. The patient has been stabilized within the capability ofthe emergency department . The patient will be transported for further care and management or will be moved to an observatio n or inpatient service. I have communicated with the staff or medical practitioner taking over this patient's care. at 1658RPT #:[id number] OF REPORTEDEmergency department [id number]:22:[id number] v ailable for patient [id number]:58:38 2020-05-08 11:22:00 [id number]:22:00 [facility])EMERGENC Y PROVIDER REPORTREPORT#:[id number] REPORT STATUS: SignedDATE:05/08/20 TIME: 112 PATIENT: ALETHEA STREET UNIT #: [id number]#: [id number] [facility]: [facility]2BED: 1AGE: 44 SEX: F PCP PHYS: No Primary or Family PhysicianSERVICE AUTHOR: Chrissie Gordon MD * ALL edits or amendments must be made on the electronic/computer document * Olinda Yancey 05/08/20 1122:HPI-Abd Pain F 40 and Over PresentationChief Complaint Abdominal pain, Nausea, Vomiting mildHx Obtained From PatientSudden in Onset? NoOnset Occurred YesterdaySymptom Duration Waxes and wanesProgression since Onset ConstantLocation Abdomen lowerQuality Cramping Free Text HPI NotesFree Text HPI [id number] female presents the ER with complaints of lower abdominal cramping with nausea and one episode o f nonbilious, nonbloody vomiting. Patient states she initially thought she was having a menstrual cramp even though she has not had a menstrual cycle in the last 3 years. She has history of ovarian cyst and states this feels similar. The pain initially was intermittent and cramping in nature however since this morning the pain is more constant and is becoming morewidespread throughout her abdomen. She denies any chest tania n or shortness of breath. No fevers cough chills, loss of taste or smell. No diarrhea. Review of Systems ROS StatementsAll systems rev neg except as marked. Focused Review of SystemsConstitutionalDenies: Chills, Fever. RespiratoryDenies: Cough, non-productive. CardiovascularDenies: Chest pain. GIReports: Abdominal pain, Nausea, Vomiting. Past Medical History - AdultStated Complaint ABD PAINAllergiesCoded Allergies:buspirone (From [employer]) (Severe, HIVES/RASH 09/21/19) Past Medical History:Reports: Hypertension, (vaginal bleeding). Past Surgical History:Reports: (culposcopy). Alcohol Use Alcohol use (15 or more drinks per week)Drug Use Denies recreational drugsSmoking status for patients 13 years old or older: Current every da y smoker Physical Exam Vital SignsVital SignsFirst Documented: Result Date Time Pulse Ox 100 / 1009 B/P 153/96 / 1009 B/P Mean 115 05/08 1009 O2 Delivery Room air / 1009 Temp 36.2 08/ 1009 Pulse 95 08/ 1009 Resp 20 05/08 100 9 Last Documented: Result Date Time Pulse Ox 99 05/08 1401 B/P 138/84 / 1401 B/P Mean 102 05/08 1401 O2 Delivery Room air 05/08 1401 Temp 36.5 08/ 1401 Pulse 87 08 1401 Resp 16 / 1401 Review of Vital Signs Reviewed Basic Physical ExamBasic PE HEAD: Atraumatic/NC, EYES: PERRL, conj clear, ENT: Membranes moist, NECK: Supple, EXT: No gross abnormality, SKIN: No rashes, warm/dry, NEURO: alert oriented, NEURO: gross movement NL, PSYCH: NL thought content Focused PEGeneral/Const General/Const Awake, Alert Distress/Hydration Distress mild. Resp/Chest Respiratory/Chest Breath sounds NL , Breath sounds = bilat, No respiratory distress, No rales, No rhonchi, No wheezing, No retractionsCardiovascular Cardiovascular Hear t rate NL, Regular rhythm, Heart sounds NL, No gallop, No murmurs, No rubs, Cap refill not delayedAbdomen/GI Abdomen/GI Soft Tenderness/Guarding/Rebound Tender diffuse, Guarding voluntary. Negative: Tender RUQ, Tender LUQ, TenderRLQ, Tender LLQ, Tender epigastric, Tender periumbilical, Tender suprapubic, Tender flank R, Tender flank L, Cohen's sign positive, McBurney's point tender,Guarding involuntary, Rebound localized, Rebound diffuse, Rigid to palpation. MS Back Back Inspection NL, Full range of motion, Painless range of motion, Non-tender, No midline vertebral tend, No muscle spasm Interpretation Diagnostics Lab Results InterpretationResultsLaboratory Tests 05/08/20 1030:[Embedded Image Not Available]Laboratory Tests: 05/08 05/08 1030 1030 Chemistry Sodium (135 - 145 mmol/L) 142 Potassium (3.5 - 5.1 mmol/L) 3.4 L Chloride (98 - 107 mmol/L) 110 H Carbon Dioxide (21 - 32 mmol/L) 27 Anion Gap (2. 0 - 16.0) 8.4 BUN (4 - 23 mg/dL) 12 Creatinine (0. 6 - 1.5 mg/dL) 0.6 Glomerular Filtr Rate (>60 ml/min) >=60 max estimate BUN/Creatinine Ratio (12.0 - 20.0) 20.0 Glucose (65 - 99 mg/dL) 144 H Calcium (8.5 - 10.1 mg/dL) 8.7 Total Bilirubin (0.2 - 1.2 mg/dL) 0.3 Direct Bilirubin (0.0 - 0. 3 mg/dL) 0.1 Indirect Bilirubin (0.0 - 0.8 [...] 10 6/uL) 4.32 Hgb (12.0 - 16.0 g/dL ) 14.1 Hct (37.0 - 55.0 %) 41.7 MCV (81 - 102 fL) 97 MCH (26.0 - 34.0 pg) 32.6 MCHC (31.0 - 37.0 g/dL) 33.8 RDW (11.5 - 14.5 %) 11.6 Plt Count (150 - 400 10 3/uL) 231 MPV (9.0 - 12.6 fL) 9.1 Neut % (Auto) (33.0 - 76.0 %) 89.9 H Lymph % (Auto) (14.0 - 56.4 %) 4.6 L Porter % (Auto) (0.0 - 12.9 %) 4.1 Eos % (Auto) (0.0 - 7.0 %) 0.5 Baso % (Auto) (0 - 2.0 %) 0.3 Neut # (Auto) (1.5 - 7. 0 10 3/uL) 12.60 H Lymph # (Auto) (1.50 - 4.00 10 3/uL) 0.65 L Porter # (Auto) (0.20 - 0.80 10 3/uL ) 0.58 Eos # (Auto) (0.0 - 0.5 10 3/uL) 0.07 Baso # (Auto) (0.0 - 0.1 10 3/uL) 0.04 Abs Immat Gran (auto) (0.000 - 0.100 x10 3/uL) 0.090 Immature Gran % (0.0 - 1.0 %) 0.6 Nucleated RBC % (0 - 0. 2 %) 0.0 08/06 08/06 1108 1310 Chemistry Lactic Acid (0.4 - 2.0 mmol/L) 1.9 Serology Nasal/Oral COVID-19 PCR (Negative) Negative Urines Urine Color (YELLOW) STRAW Urine Appearance (CLEAR) CLEAR Urine pH (5.0 - 8.0) 6.0 Ur Specific Robinson (1.005 - 1.025) 1.025 Urine Protein (NEGATIVE) NEGATIVE Urine Glucose (UA) (NEGATIVE ) NEGATIVE Urine Ketones (NEGATIVE) NEGATIVE Urin e Blood (NEGATIVE) NEGATIVE Urine Nitrite (NEGATIVE) NEGATIVE [...] Procedure - Status Source Growth 05/08 1310 Bloo d Culture - RECD BLOOD 05/08 1300 Blood Culture - RECD BLOOD Recent Impressions:CAT SCAN - CT ABD PELVIS W/CONT 05/08 1205 Report Impression - Status: SIGNED Entered: 05/08/2020 1249 IMPRESSION: 1. Findings suggesting acute sigmoid colon diverticulitis withabnormal mural thickening and surrounding infiltration. There isfurther air within the sigmoid mesocolon and tracking into theretroperitoneum which is atypical. There is small fluid in the leftparacolic gutter and tracking into the pelvis. No organized abscessis otherwise seen.2. Fatty infiltration of the liver.3. Small perihepatic ascites.Impression By: Matilda - Ivan Jose MD Lab Imaging StatementLaboratory radiographic studies reviewed and considered in the medical decision-making. Re-Evaluation MDM Free Text MDM NotesFree Text MDM [id number] d female presents the ER with above-stated complaints, lab work reviewed, slightly elevated white count 14 and mildly elevated liver enzymes , otherwise unremarkable. CT of the abdomen shows acute diverticulitis with perforation the air in the peritoneum. Patient was admitted to the hospital, started on Zosyn, spoke with Dr. PENA and Dr. Bey regarding admission and plan of care. Staffed with [facility] ED CourseMedication(s) OrderedMedication(s) Ordered:Anti-Infective Agents Sig/Charlotte Start time Last Medication Dose Route Stop Time Status Admi n Piperacillin Sod/ 3.375 GM Q8H 05/088 DC Tazobactam Sod IV 05/09 2037 Sodium Chloride 100 ML Piperacillin Sod/ 3.375 GM X1ED STA 05/08 123 8 DC 05/08 Tazobactam Sod IV 05/08 1307 1324 Sodium Chloride 100 ML Antihistamine Drugs Sig/Charlotte Start time Last Medication Dose Route Stop Time Status Admin Promethazine HCl 25 MG Q4 H PRN PRN 08 1353 AC PO 06/07 0152 Promethazin e HCl 25 MG X1ED STA 05/08 1312 DC 05/08 Sodium Chloride 50 ML IV 05/08 1341 1323 Central Nervou s System Agents Sig/Charlotte Start time Last Medicatio n Dose Route Stop Time Status Admin Acetaminophen 650 MG Q4H PRN PRN 05/08 1353 AC 08 PO 06/07 0152 0003 Morphine Sulfate 4 MG Q4H PRN PRN 08/ 6 1353 AC 08 IV 05/18 0152 0543 Ketorolac 30 M G X1ED STA 05/08 1024 DC 05/08 Tromethamine IV 05/08 1025 1111 Diagnostic Agents Sig/Charlotte Start time Last Medication Dose Route Stop Time Status Admin Iopamidol 0 .STK-MED ONE 05/08 1204 DC .ROUTE Electrolytic, Caloric, And Richard Sig/Charlotte Start time Last Medication Dose Route Stop Time Status Admin Sodium Chloride 1,000 ML .[id number] 05/08 1400 DC IV 05/09 0152 Sodium Chloride 1,00 0 ML X1ED STA 05/08 1024 DC 08 IV 05/08 1025 1111 Gastrointestinal Drugs Sig/Charlotte Start time Last Medication Dose Route Stop Time Status Admi n Ondansetron HCl 4 MG Q4H PRN PRN 05/08 1400 AC I V 06/07 0152 Patient Discharge Departure Vital Signs/ConditionVital SignsFirst Documented: Result Date Time Pulse Ox 100 / 1009 B/P 153/96 / 1009 B/P Mean 115 / 1009 O2 Delivery Room air 05/08 1009 Temp 36.2 08/ 100 9 Pulse 95 05/08 1009 Resp 20 05/08 1009 Last Documented: Result Date Time Pulse Ox 99 05/08 1401 B/P 138/84 08/ 1401 B/P Mean 102 05/08 1401 O2 Delivery Room air 08 1401 Temp 36.5 08/ 1401 Pulse 87 08/ 1401 Resp 16 05/08 140 1 All vital signs available at the time of this entry have been reviewed. Clinical ImpressionClinical ImpressionPrimary Impression: Bowel perforationSecondary Impressions: Diverticulitis Disposition DecisionAdmit Admit Physician Name Balta Bey Jr, MD Admit Physician Hospitalist Request Time 1356 Request Date 05/08/20 )( Admission Accepts Yes )( Accepted Time 1356 )( Accepted Date 05/08/20 Discharge/Care PlanCounseled Regarding Diagnosis , Lab results, Imaging studies, Need for admissionReferralsNo Primary or Family Physician (PCP/Family) Admit NoteI have spoken with the patient and/or caregivers. I have explained the patient'scondition, diagnoses and treatment plan based on the information available to meat this time. I have answered the patient's and/or caregiver's questions and addressed any concerns . The patient and/or caregivers have as good an understanding of the patient's diagnosis, condition and treatment plan as can beexpected a t this point. The patient has been stabilized within the capability ofthe emergency department . The patient will be transported for further care and management or will be moved to an observatio n or inpatient service. I have communicated with the staff or medical practitioner taking over this patient's care. Chrissie Gordon 0 0732:HPI-Abd Pain F 40 and Over GeneralInitial Greet Date/Time 05/08/20 1007 Patient Discharge Departure Supervising Physician Note MidLv/Doc Saw Pt 2I have personally interviewed and examined the patient. All charts, labs, and imaging studies were reviewed. I agree with this PA/gang supervisor pipe lines findings, exam and plan. at 0177 at 0733RPT #:[id number] O F REPORTEDEmergency department [id number]:22:[id number] v ailable for patient [id number]:33:29 2020-05-08 10:36:00 [id number]:[id number] [address] [place] [id number] PATIENT NAME: ALETHEA STREET ADMIT DATE: 05/08/20ACCOUNT NO : [id number] ROOM NO: NC.4302 AGE: 44 REPORT TYPE: eELECTROCARDIOGRAM SEX: F ADMITTING PHYSICIAN:Madison Bey Jr, MD ATTENDING PHYSICIAN:Balta Bey Jr, MD Order:[id number] Reason : Test Date/Time Stamp:TueMay 08 2020 10:36:46Blood Pressure : / mmHGVent. Rate : 089 BPM Atrial Rate : 089 BPM P-R Int : 159 ms QRS Dur : 090 ms QT Int : 367 ms P-R-T Axes : 040 058 036 degrees QTc Int : 447 ms Sinus rhythmBorderline T abnormalities, anterior leads Confirmed by GUS SHELDON MD ([id number]) on 05/08/2020 4:05:32 PM Referred By: Self Referred Confirmed by:GUS SHELDON MD at [address] [address] PATIENT NAME: ALETHEA STREET .[id number] for patient [id number]:05:56 2019-09-21 23:15:00 [id number]:15:00 [facility] ([facility]EMERGENC Y PROVIDER REPORTREPORT#:[id number] REPORT STATUS: SignedDATE:09/21/19 TIME: 2315 PATIENT: ALETHEA STREET UNIT #: [id number]#: [id number] ROOM: BED:AGE: 43 SEX: F PCP PHYS: No Primary or Family PhysicianSERVICE AUTHOR: Brian Lazcano MD * ALL edits or amendments must be made on the electronic/computer document * HPI- Female GeneralInitial Greet Date/Time 09/21/192143 PresentationChief Complaint Vaginal bleedingHx Obtained From Patient)( Sudden in Onset? NoSymptom Duration Lasting weeksProgression sinc e Onset Waxes and wanes Free Text HPI NotesFree Text HPI NotesPatient is a 43-year-old female that presents to the emergency room with approximately a 16-day period. Patient states that she has had significant dysfunctional uterine bleeding and has had both a biopsy and a colposcopy. Patient reports benign tissue cells and known fibroids. Patient has been unableto se e her pump runner and is currently not on any control pills Review of Systems ROS StatementsAll systems rev neg except as marked. Basic Review of SystemsBasic ROS EYES: No redness, RESP: No SOB, CV: No chest pain, HEM: N o bleeding/bruising, PSYCH: NL thought content Pas t Medical History - AdultStated Complaint VAGINAL BLEEDING/WEAKNESSAllergiesCoded Allergies:buspirone (From [employer]) (Severe, HIVES/RASH 09/21/19) Past Medical History:Reports: Hypertension, (vaginal bleeding). Past Surgical History:Reports: (culposcopy). Physical Exam Vital SignsVital SignsFirst Documented: Result Date Time Pulse Ox 99 09/21 2145 B/P 164/109 09/21 2145 B/P Mean 127 09/21 2145 O2 Delivery Room air 09/21 2145 Temp 36.9 09/21 Pulse 88 09/21 2145 Resp 18 09/21 2145 Last Documented: Result Date Time Pulse Ox 99 09/21 2145 B/P 164/109 09/21 2145 B/P Mean 127 09/21 2145 O2 Delivery Room air 09/21 2145 Temp 36.9 09/21 2145 Pulse 88 09/21 2145 Resp 18 09/21 214 5 Review of Vital Signs Reviewed Basic Physical ExamBasic PE GEN: Well appearing/NAD, HEAD: Atraumatic/NC, EYES: PERRL, conj clear, ENT: Membranes moist, NECK: Supple, RESP: No resp distress, CV: Reg rate rhythm, ABD: Soft/non-tender, EXT: No gross abnormality, NEURO: alert oriented, NEURO: gross movement NL, PSYCH: NL thought content Focused PESkin Skin Warm, Dry, Intact, Turgor NL Interpretation Diagnostics Lab Results InterpretationResultsLaboratory Tests 09/21/192219:[Embedded Image Not Available]Laboratory Tests: 09/21 Chemistry Sodium (135 - 145 mmol/L) 140 Potassium (3.5 - 5.1 mmol/L) 3.6 Chloride (98 - 107 mmol/L) 107 Carbon Dioxide (21 - 32 mmol/L) 31 Anion Gap (2. 0 - 16.0) 5.6 BUN (4 - 23 mg/dL) 11 Creatinine (0.6 - 1.5 mg/dL) 0.7 Glomerular Filtr Rate (60 - 115 ml/min) >=60 max estimate BUN/Creatinine Ratio (12.0 - 20.0) 15.7 [...] (150 - 400 10 3/uL) 283 MPV (9. 0 - 12.6 fl) 9.3 Neut % (Auto) (33.0 - 76.0 %) 70. 4 Lymph % (Auto) (14.0 - 56.4 %) 18.6 Porter % (Auto ) (0.0 - 12.9 %) 6.1 Eos % (Auto) (0.0 - 7.0 %) 3. 8 Baso % (Auto) (0 - 2.0 %) 0.5 Neut # (Auto) (1.5 - 7.0 10 3/uL) 5.58 Lymph # (Auto) (1.50 - 4.00 10 3/uL) 1.47 L Porter # (Auto) (0.20 - 0.80 10 3/uL) 0.48 Eos # (Auto) (0.0 - 0.5 10 3/uL) 0.30 Baso # (Auto) (0.0 - 0.1 10 3/uL) 0.04 Immature Gran % (0.0 - 1.0 %) 0.6 Nucleated RBC % (0 - 0. 2 %) 0.0 Lab StatementLaboratory studies reviewed and considered in the medical decision-making. Re-Evaluation MDM Free Text MDM NotesFree Text MDM NotesHemoglobin stable here in the emergency roomWill give a dose of progesterone until she can follow-up with her gynecologistPatient is blood pressure is elevated but she says that she has not taken her blood pressure medicines in 2 nights and took a decongestant tonight which may have raised her blood pressure artificially.Patient will take her p.o. night medicines when she is discharged.Stable for discharge ED CourseMedication(s) OrderedMedication(s) Ordered:Electrolytic, Caloric, And Richard Sig/Charlotte Start time Last Medication Dose Route Stop Time Status Admin Sodium Chloride 1,000 ML X1ED STA 09/21 2144 DC IV 09/21 2243 Hormones And Synthetic Substit Sig/Charlotte Start time Last Medication Dose Route Stop Time Status Admin Progesterone 100 MG ONCE ONE 09/225 DC PO 09/22 0016 Patient Discharg e Departure Vital Signs/ConditionVital SignsFirst Documented: Result Date Time Pulse Ox 99 09/21 2145 B/P 164/109 09/21 2145 B/P Mean 127 09/21 2145 O2 Delivery Room air 09/21 2145 Temp 36.9 09/21 2145 Pulse 88 09/21 2145 Resp 18 09/21 214 5 Last Documented: Result Date Time Pulse Ox 99 09/21 2145 B/P 164/109 09/21 2145 B/P Mean 127 09/21 2145 O2 Delivery Room air 09/21 2145 Temp 36.9 09/21 2145 Pulse 88 09/21 2145 Resp 18 09/03 0 2144 All vital signs available at the time of this entry have been reviewed. Condition Critica l Clinical ImpressionClinical ImpressionPrimary Impression: Dysfunctional uterine bleedingSecondary Impressions: Hypertension Disposition DecisionDischarge )( Discharged to Home Yes )( Time 34 )( Date 09/22/19 Discharge/Care Plan Discharge NoteI have spoken with the patient and/or caregivers. I have explained the patient'scondition, diagnoses and treatment plan based on the information availabl e to meat this time. I have answered the patient's and/or caregiver's questions and addressed any concerns. The patient and/or caregivers have as good an understanding of the patient's diagnosis , condition and treatment plan as can beexpected a t this point. The vital signs have been stable. Th e patient's condition is stable and appropriate fo r discharge from the emergency department. The patient will pursue further outpatient evaluatio n with the primary care physician or other designated or consulting physician as outlined i n the discharge instructions. The patient and/or caregivers are agreeable to this planof care and follow-up instructions have been explained in detail. The patient and/or caregivers have received these instructions in written format an d have expressed an understanding of the discharge instructions. The patient and/or caregivers are aware that any significant change in condition o r worsening of symptoms should prompt an immediate return to this or the closest emergency department or a call to 911. at 0036RPT #:[id number] OF REPORTEDEmergen department [id number]:15:[id number] v ailable for patient [id number]:37:10
[2023-09-05 11:25] LABS: Absolute Lymphocytes (CBC) 1.7 K/uL (0.7-4.9); Hematocrit 44.9 % (36.0-45.0); Lymphocytes % 16.9 % (15.3-44.8); MCV 90.7 fL (80-100); MPV 7.9 fL (7.6-11.3); Platelets 306 thou/uL (152-406); RBC Red Blood Cell Count 4.95 M/uL (3.86-4.86)
[2023-09-05 11:28] LABS: Specific Gravity 1.014 (1.005-1.030)
[2023-09-05 11:33] LABS: Specific Gravity 1.014 (1.005-1.030); Urine Bacteria <20 /HPF (<20); Urine Bilirubin NEGATIVE (Negative); Urine Blood Negative (Negative); Urine Clarity Turbid (Clear); Urine Color Light-Yellow (Yellow); Urine Glucose NEGATIVE (Negative); Urine Mucus Slight /HPF (None Seen); Urine Protein NEGATIVE (Negative); Urine RBC <5 /HPF (None Seen); Urine Urobilinogen Normal (Normal)
[2023-09-05 11:45] LABS: Albumin 3.6 g/dL (3.4-5.0); Bilirubin Total 0.2 mg/dL (0.2-1.0); Potassium 3.6 mEq/L (3.5-5.1); Protein, Total 7.6 g/dL (6.4-8.2)
[2023-09-05 11:54] LABS: SARS-CoV-2 Antigen Rapid Res Negative (Negative)
--- NOTE | 2023-09-05 12:25 | RAD REPORT ---
EXAM DESCRIPTION: CTAbdomen Pelvis W Contrast - 09/05/2023 12:13 pm CLINICAL HISTORY: right flank pain, possible pyelo COMPARISON: Abdomen Pelvis W Contrast dated 09/13/2022 TECHNIQUE: CT of the abdomen and pelvis was performed with IV contrast. All CT scans are performed using dose optimization technique as appropriate and may include automated exposure control or mA/KV adjustment according to patient size. FINDINGS: Lower chest: Mild circumferential thickened distal esophagus. This could reflect esophagit is. Liver: No acute abnormality or suspicious lesions. Biliary: No biliary ductal dilatation. Stomach: No significant focal abnormality. Duodenum: No significant focal abnormality. Pancreas: No significant abnormality. Spleen: No significant abnormality. Adrenal: No suspicious lesions. Kidney/ureter: No hydronephrosis. No renal calculi. Mild bilateral lower pole renal scarring. No find ings that would suggest pyelonephritis. Mild ureteral fullness and urothelial enhancement. . Retroperitoneum: No retroperitoneal adenopathy. Vascular: No aneurysm. Bowel: No significant focal abnormality. Normal appendix Peritoneum: No ascites or free air. Bladder: Mild bladder wall thickening. Reproductive: No adnexal masses. Bones: No acute fracture. Remote right-sided rib fractures. Moderate disc height loss L5-S1. Other: n/a IMPRESSION: Possible cystitis with ascending urinary tract infection bilaterally but no CT evidence of pyelonephritis. No hydronephrosis or urinary tract calculi identified. .
--- NOTE | 2023-09-05 13:23 | ER ---
Nurse's Notes [facility] Name: Monse Comer Age: 47 yrs Sex: Female : 1975 Arrival Date: 09/05/2023 Time: 10:03 Bed DIS2 Private MD: Diagnosis: UTI/ Urinary tract infection, site not specified Presentation: 09/05 10:49 Chief complaint: Patient states: bladder pain and burning with urination since iw Tuesday , also has bene fatigued and has right low back pain. Coronavirus screen: At this time, the client does not indicate any symptoms associated with coronavirus-19. Ebola Screen: Patient negative for fever greater than or equal to 101.5 degrees Fahrenheit, and additional compatible Ebola Virus Disease symptoms Patient denies exposure to infectious person. Patient denies travel to an Ebola-affected area in the 21 days before illness onset. No symptoms or risks identified at this time. Initial Sepsis Screen: Does the patient meet any 2 criteria? No. Patient's initial sepsis screen is negative. Does the patient have a suspected source of infection? No. Patient's initial sepsis screen is negative. Risk Assessment: Do you want to hurt yourself or someone else? Patient reports no desire to harm self or others. 10:49 Acuity: JERRY 3 iw 10:49 Method Of Arrival: Ambulatory iw Historical: - Allergies: 10:50 BuSpar; iw - PMHx: 10:50 diabetes mellitus; Hypertensive disorder; neuropathy; iw - PSHx: 10:50 back surgery x 2; iw - Immunization history:: Adult Immunizations not up to date. - Family history:: not pertinent. - Hospitalizations: : No recent hospitalization is reported. Vital Signs: 10:50 BP 152 / 89; Pulse 88; Resp 16; Temp 97.6; Pulse Ox 100% on R/A; iw ED Course: 10:09 Patient arrived in ED. im 10:12 Prosper Hsieh MD is Attending Physician. rn 10:50 Triage completed. iw 10:50 Arm band placed on. iw 11:19 [place] Screen Profile Sent. bc6 11:19 SARS RAPID Sent. bc6 11:19 Flu Sent. bc6 11:19 CMP Sent. bc6 11:19 Lipase Sent. bc6 11:19 Test, Urine Sent. bc6 11:19 Urinalysis w/ reflexes Sent. bc6 11:19 CBC with Diff Sent. bc6 11:19 Inserted saline lock: 20 gauge in left antecubital area, using aseptic technique. Blood bc6 collected. 12:15 CT Abd/Pelvis - IV Contrast Only In Process Unspecified. EDMS Administered Medications: 15:40 Not Given (Pt left): ns 0.9% 1000 ml IV at 1000 ml once jl7 Outcome: 13:22 Discharge ordered by . rn 15:42 Patient left the ED. hb Signatures: Dispatcher [employer] EDMS Nohemy Diallo, RN RN Prosper Armenta MD MD rn Baxter, Heather, RN RN Cristiana Stringer bc6 Susanna Foley Jahala RN jl7
--- NOTE | 2023-09-05 13:23 | EDPHYS ---
Physician Documentation [facility] Name: Monse Comer Age: 47 yrs Sex: Female : 1975 Arrival Date: 09/05/2023 Time: 10:03 Bed DIS2 Private MD: ED Physician Prosper Hsieh HPI: 09/05 12:09 This 47 yrs old Female presents to ER via Ambulatory with complaints of Fatigue, rn Dizziness, Low Back Pain. 12:09 The patient presents with flank pain, urinary symptoms, dysuria, frequency, urgency. rn Onset: The symptoms/episode began/occurred 5 day(s) ago. Modifying factors: The symptoms are alleviated by nothing, the symptoms are aggravated by urinating. Associated signs and symptoms: Pertinent positives: dysuria, Pertinent negatives: fever, vaginal discharge. Severity of symptoms: At their worst the symptoms were moderate, in the emergency department the symptoms are unchanged. The patient has experienced similar episodes in the past. Patient reports dysuria and increased urinary frequency, now having right flank pain. No fever. No vomiting. Does report generalized malaise and fatigue. Has been taken some leftover antibiotics for the last few days.. Historical: - Allergies: 10:50 BuSpar; iw - PMHx: 10:50 diabetes mellitus; Hypertensive disorder; neuropathy; iw - PSHx: 10:50 back surgery x 2; iw - Immunization history:: Adult Immunizations not up to date. - Family history:: not pertinent. - Hospitalizations: : No recent hospitalization is reported. ROS: 12:09 Constitutional: Negative for fever, chills, and weight loss, Eyes: Negative for injury, rn pain, redness, and discharge, Cardiovascular: Negative for chest pain, palpitations, and edema, Respiratory: Negative for shortness of breath, cough, wheezing, and pleuritic chest pain, Abdomen/GI: Positive for suprapubic and right lower quadrant abdominal pain Back: Positive for right flank pain : Negative for injury, bleeding, discharge, and swelling, MS/Extremity: Negative for injury and deformity, Skin: Negative for injury, rash, and discoloration, Neuro: Positive for generalized weakness Exam: 12:09 Constitutional: This is a well developed, well nourished patient who is awake, alert, rn and in no acute distress. Drinking coffee. Head/Face: Normocephalic, atraumatic. ENT: Dry mucous membranes Cardiovascular: Regular rate and rhythm. No pulse deficits. Respiratory: No increased work of breathing, no retractions or nasal flaring. Abdomen/GI: Soft, mild suprapubic and right lower quadrant abdominal tenderness. No distention Back: No spinal tenderness. No costovertebral tenderness. Full range of motion. Skin: Warm, dry MS/ Extremity: Pulses equal, no cyanosis. Neurovascular intact. Full, normal range of motion. Equal circumference. Neuro: Awake and alert, GCS 15, oriented to person, place, time, and situation. Vital Signs: 10:50 BP 152 / 89; Pulse 88; Resp 16; Temp 97.6; Pulse Ox 100% on R/A; iw MDM: 10:51 Patient medically screened. rn 13:20 Differential diagnosis: appendicitis, kidney stone, nonspecific abdominal pain, ovarian rn cyst, urinary tract infection. Data reviewed: vital signs, nurses notes, lab test result(s), radiologic studies, CT scan, and as a result, I will discharge patient. Counseling: I had a detailed discussion with the patient and/or guardian regarding the historical points, exam findings, and any diagnostic results supporting the discharge/admit diagnosis, lab results, radiology results, the need for outpatient follow up, to return to the emergency department if symptoms worsen or persist or if there are any questions or concerns that arise at home. Special discussion: I discussed with the patient/guardian in detail that at this point there is no indication for admission to the hospital. It is understood, however, that if the symptoms persist or worsen the patient needs to return immediately for re-evaluation. 13:20 ED course: CT and lab works consistent with UTI/cystitis. No evidence of rn pyelonephritis. No sepsis. Stable vital signs. Will DC home with antibiotics and return precautions.. 09/05 10:50 Order name: CBC with Diff; Complete Time: 12:34 rn 09/05 10:50 Order name: Test, Urine; Complete Time: 12:34 rn 09/05 10:50 Order name: Urinalysis w/ reflexes; Complete Time: 12:34 rn 09/05 10:50 Order name: CMP; Complete Time: 12:34 rn 09/05 10:50 Order name: Lipase; Complete Time: 12:34 rn 09/05 10:50 Order name: Flu; Complete Time: 12:34 rn 09/05 10:50 Order name: SARS RAPID; Complete Time: 12:34 rn 09/05 10:50 Order name: [place] Screen Profile; Complete Time: 13:20 rn 09/05 11:43 Order name: Urine Culture EDPR 09/05 10:50 Order name: CT Abd/Pelvis - IV Contrast Only; Complete Time: 12:34 rn 09/05 10:50 Order name: IV Saline Lock; Complete Time: 11:19 rn 09/05 10:50 Order name: Labs collected and sent; Complete Time: 11:19 rn Administered Medications: 15:40 Not Given (Pt left): ns 0.9% 1000 ml IV at 1000 ml once [id number] Disposition Summary: 09/05/23 13:22 Discharge Ordered Notes: Location: Home rn Problem: new rn Symptoms: have improved rn Condition: Stable rn Diagnosis - UTI/ Urinary tract infection, site not specified rn Followup: rn - With: Private Physician - When: As needed - Reason: Recheck today's complaints, Re-evaluation by your physician Discharge Instructions: - Discharge Summary Sheet rn - Urinary Tract Infection, Adult rn Forms: - Medication Reconciliation Form rn - Thank You Letter rn - Antibiotic internal grinder tender - Prescription Opioid Use rn - Patient Portal Instructions rn - Leadership Thank You Letter rn Prescriptions: - Pyridium 200 mg Oral Tablet - take 1 tablet ORAL route every 8 hours for 3 days; 9 tablet; Refills: 0, rn Product Selection Permitted - cefpodoxime 100 mg Oral Tablet - take 2 tablets ORAL route every 12 hours for 10 days take with food; 40 tablet; rn Refills: 0, Product Selection Permitted Signatures: Dispatcher [employer] Nohemy Gomez, RN Prosper Guevara MD MD rn Leal, Jahala RN [id number]
[2023-09-05 16:32] VITALS: BP 152/89; TEMP 97.6; O2SAT 100
== END 2023-09-05 15:42 | disposition home or self-care (01) ==
LOC: ER 10:03
DX: N39.0 Urinary tract infection, site not specified (principal)
CPT/HCPCS: 36415; 74177; 80053; 81001; 81025; 83690; 85025; 86308; 87086; 87088; 87804; 87811; 99283; Q9967

== ENCOUNTER 2023-12-31 22:33 | Inpatient (IN) | payer OTHER, SELFPAY ==
[2023-12-31] MEDS ORDERED: THIAMINE 200 MG/2 ML INJ ONE (23:16)
[2023-12-31] MEDS ORDERED: FAMOTIDINE 20 MG/2 ML VIAL IV ONE (23:17)
[2023-12-31] MEDS ORDERED: MULTIVITAMINS 10 ML VIAL (INJ) IV ONE (23:17)
[2023-12-31 23:18] LABS: Arterial Blood Carboxyhemoglob 6.9 % (0-1.5); Blood O2 Saturation 72.4 % (92-98.5)
[2023-12-31] MEDS ORDERED: FOLIC ACID 5 MG/ML VIAL ONE (23:18)
[2023-12-31] MEDS ORDERED: NA CHLORIDE 0.9% 2,000 ML ONE (23:19)
[2023-12-31 23:27] LABS: Absolute Basophils 0.1 K/uL (0-0.5); Absolute Eosinophils 0.2 K/uL (0-0.5); Absolute Lymphocytes (CBC) 3.3 K/uL (0.7-4.9); Absolute Monocytes 0.5 K/uL (0.1-1.3); Absolute Neutrophil 3.6 K/uL (1.8-8.0); Basophils % 1.5 % (0-1.3); Eosinophils % 2.4 % (0-4.4); Hematocrit 43.8 % (36.0-45.0); Hemoglobin 14.8 g/dL (12.0-15.0); Lymphocytes % 43.4 % (15.3-44.8); MCH 31.8 pg (27.0-35.0); MCHC 33.9 g/dL (32.0-36.0); MCV 93.8 fL (80-100); MPV 7.9 fL (7.6-11.3); Monocytes % 6.3 % (3.3-12.3); Neutrophils % 46.4 % (41.7-73.7); Nucleated Red Blood Cells % 0.1 % (0-0); Platelets 271 thou/uL (152-406); RBC Red Blood Cell Count 4.67 M/uL (3.86-4.86); Red Cell Distribution Width 12.2 % (12.1-15.2)
[2023-12-31 23:36] LABS: Specific Gravity 1.003 (1.005-1.030)
[2023-12-31 23:37] LABS: PTT, Activated Partial Thromb 33.5 SECONDS (24.3-36.9)
[2023-12-31 23:37] LABS: Barbiturates NEGATIVE (NEGATIVE); Benzodiazepines NEGATIVE (NEGATIVE); Cocaine POSITIVE (NEGATIVE); METHAMPHETAM NEGATIVE (NEGATIVE); Methadone NEGATIVE (NEGATIVE); Opiates NEGATIVE (NEGATIVE); Phencyclidine NEGATIVE (NEGATIVE); THC Cannibis NEGATIVE (NEGATIVE)
--- NOTE | 2023-12-31 23:46 | EDPHYS ---
Physician Documentation [facility] Name: Monse Comer Age: 48 yrs Sex: Female : 1975 Arrival Date: 12/31/2023 Time: 22:33 Bed 3 Private MD: ED Physician Lauri Avery HPI: 12/30 22:43 This 48 yrs old Female presents to ER via Unassigned with complaints of bran overdose , suicide attempt. 22:43 The patient presents to the emergency department after a known overdose, that was bran intentional. Context: Method: the patient has a confirmed or suspected ingestion, many different pills. Associated signs and symptoms: Pertinent positives: apnea, depression. Severity of symptoms: At their worst the symptoms were moderate severe in the emergency department the symptoms are unchanged. suicide attempt, overdose. The patient presents with confusion, decreased mental status, decreased responsiveness. Possible causes: drug use, low blood sugar. Current symptoms: In the emergency department the patient's symptoms are unchanged from the initial presentation, despite EMS interventions. Historical: - Allergies: 22:49 BuSpar; cm10 - PMHx: 22:49 diabetes mellitus; Hypertensive disorder; neuropathy; cm10 - PSHx: 22:49 back surgery x 2; cm10 - Immunization history:: Adult Immunizations unknown. - Social history:: Smoking status: unknown. - Family history:: not pertinent. ROS: 22:43 Unable to obtain ROS due to patient's speech is incomprehensible, patient being bran uncooperative, unresponsive, Exam: 22:45 Constitutional: The patient appears in obvious distress, mildly distressed, moderately bran distressed, 22:45 Eyes: Pupils: constricted, bilaterally, 22:45 ENT: Posterior pharynx: is normal, no acute changes, Airway: normal, no evidence of obstruction, Tonsils: are normal in appearance, positive gag, 22:45 Chest/axilla: Inspection: normal, no acute changes, Palpation: is normal, no acute changes, Axilla: are normal, Breasts: are normal, Lymph nodes: lymphadenopathy is not appreciated, 22:45 Cardiovascular: Rate: tachycardic, actual rate is 105 bpm, Rhythm: regular, Pulses: Pulses are 4+ in bilateral radial, brachial, femoral, popliteal, posterior tibial and and dorsalis pedis arteries.. Heart sounds: normal, 23:47 ECG was reviewed by the Attending Physician. [facility] Vital Signs: 22:50 BP 175 / 126; Pulse 115; Resp 18; Pulse Ox 100% ; cm10 23:11 Weight 53.07 kg (M); cm10 23:35 BP 146 / 104; Pulse 117; Pulse Ox 100% on R/A; tm6 12/31 02:34 BP 108 / 70; Pulse 88; Pulse Ox 96% on R/A; tm6 04:10 Height 5 ft. 5 in. ; tm6 07:53 BP 157 / 96; Pulse 84; Resp 18; Pulse Ox 100% on R/A; ld1 08:45 BP 127 / 80; Pulse 76; Resp 18; Pulse Ox 98% on R/A; ld1 09:45 BP 127 / 88; Pulse 81; Resp 18; Pulse Ox 97% on R/A; ld1 10:45 BP 144 / 91; Pulse 84; Resp 18; Pulse Ox 98% on R/A; ld1 12:00 BP 127 / 71; Pulse 70; Resp 18; Pulse Ox 98% on R/A; ld1 MDM: 12/30 22:36 Patient medically screened. bran 22:46 Differential diagnosis: polypharmacy, over medication, hypoglycemia, closed head bran injury, intracranial hemorrhage. Differential Diagnosis altered mental status, sepsis. Differential Diagnosis: CVA, electrolyte abnormality, alcohol intoxication, hypoglycemia, intracranial bleed, overdose, pneumonia, seizure, sepsis, volume depletion. Data reviewed: vital signs, nurses notes, EMS record, lab test result(s), EKG, radiologic studies, CT scan, plain films. Consideration of Admission/Observation Patient was admitted/placed on observation. Escalation of care including admission/observation considered. I considered the following discharge prescriptions or medication management in the emergency department Medications were administered in the Emergency Department. See MAR. Test considered but Not performed: MRI: no mri brain. 12/30 22:40 Order name: Basic Metabolic Panel; Complete Time: 00:10 bran 12/30 22:40 Order name: CBC with Diff; Complete Time: 23:44 bran 12/30 22:40 Order name: LFT's; Complete Time: 00:10 [facility] 12/30 22:40 Order name: Magnesium; Complete Time: 00:10 [facility] 12/30 22:40 Order name: NT PRO-BNP; Complete Time: 00:10 [facility] 12/30 22:40 Order name: PT-INR; Complete Time: 23:44 [facility] 12/30 22:40 Order name: Troponin HS; Complete Time: 00:10 [facility] 12/30 22:40 Order name: Acetaminophen; Complete Time: 00:10 [facility] 12/30 22:40 Order name: ETOH Level; Complete Time: 00:10 [facility] 12/30 22:40 Order name: Test, Urine; Complete Time: 23:44 [facility] 12/30 22:40 Order name: Ptt, Activated; Complete Time: 23:44 [facility] 12/30 22:40 Order name: Salicylate; Complete Time: 23:44 [facility] 12/30 22:40 Order name: Urine Drug Screen; Complete Time: 23:44 [facility] 12/30 22:48 Order name: ABG; Complete Time: 23:44 [facility] 12/31 00:17 Order name: CBC with Automated Diff EDMS 12/31 00:17 Order name: CBC with Automated Diff EDMS 12/31 00:17 Order name: Comprehensive Metabolic Panel EDMS 12/31 00:17 Order name: Comprehensive Metabolic Panel EDMS 12/31 00:17 Order name: Protime (+INR) EDMS 12/31 00:17 Order name: Protime (+INR) EDMS 12/31 00:17 Order name: PTT, Activated Partial Thromb EDMS 12/31 00:17 Order name: PTT, Activated Partial Thromb EDMS 12/31 15:54 Order name: CBC with Automated Diff EDMS 12/30 22:40 Order name: XRAY Chest (1 view) 12/30 22:40 Order name: EKG; Complete Time: 22:41 [facility] 12/30 22:40 Order name: Cardiac monitoring; Complete Time: 23:13 [facility] 12/30 22:40 Order name: EKG - Nurse/Tech; Complete Time: 23:13 [facility] 12/30 22:40 Order name: IV Saline Lock; Complete Time: 23:01 [facility] 12/30 22:40 Order name: Labs collected and sent; Complete Time: 23:13 [facility] 12/30 22:40 Order name: O2 Per Protocol; Complete Time: 23:01 [facility] 12/30 22:40 Order name: O2 Sat Monitoring; Complete Time: 23:01 [facility] 12/30 22:40 Order name: Suicide Screening ([place]); Complete Time: 10:34 [facility] 12/30 22:40 Order name: Misc. Order: hob at 60 degrees; Complete Time: 23:01 bran 12/30 22:40 Order name: [place]; Complete Time: 23: bran 12/30 22:40 Order name: [place]. Order: call poison control; Complete Time: 23:08 bran 12/30 22:40 Order name: IV - Large Bore; Complete Time: 23:08 bran 12/30 22:40 Order name: Restrain Patient: upper ext; Complete Time: 23:14 bran EC:47 Rate is 86 beats/min. Rhythm is regular. QRS [place] is Normal. [place] interval is normal. QRS bran interval is normal. QT interval is normal. No Q waves. T waves are Normal. No ST changes noted. Clinical impression: NSR w/ Non-specific ST/T Changes and No evidence of ischemia. Interpreted by me. Reviewed by me. Administered Medications: 23:34 Drug: Famotidine IVP 20 mg IVP once; dilute with 10 mL 0.9% NaCl; give over 2 minutes tm6 Route: IVP; Site: left antecubital; 23:35 Drug: NS 0.9% IV 1000 ml IV at 1 bolus Per protocol; 1000 mL bolus Route: IV; Rate: 1 tm6 bolus; Site: left antecubital; 12/31 03:16 Follow up: IV Status: Completed infusion; IV Intake: 1000ml tm6 04:11 Follow up: IV Status: Completed infusion; IV Intake: 1000ml tm6 12/30 23:35 Drug: Banana Bag - (Multivitamin IV 1 amp, NS 0.9% IV 1000 ml, Thiamine IV 100 mg, tm6 foLIC Acid IVPB 1 mg) IV at 125 ml/hr once Route: IV; Rate: 125 ml/hr; Site: left antecubital; 23:35 Drug: Thiamine IV 100 mg IV at bolus once Route: IV; Rate: bolus; Site: left tm6 antecubital; Disposition Summary: 12/31/23 23:45 Hospitalization Ordered Notes: Hospitalization Status: Inpatient Admission bran Provider: Stephen Ponce cha Condition: Fair bran Problem: new bran Symptoms: have improved bran Bed/Room Type: Standard bran Location: Intensive Care Unit(01/01/24 15:12) as6 Room Assignment: 3-(01/01/24 15:12) as6 Diagnosis - Altered mental status, unspecified bran - Cocaine abuse bran - Adverse effect of unspecified drugs, medicaments and biological substances bran - Suicidal ideations bran - Suicide attempt bran - Hypokalemia bran - Alcohol abuse with intoxication bran Forms: - Medication Reconciliation Form bran - SBAR form bran - Leadership Thank You Letter bran Signatures: Dispatcher [employer] EDMS Lauri Avery MD MD cha Garcia, Cindy, RN RN Melody York Ashby RN RN as6 Mojgan Flores RN RN kb3 Mindy Grubbs, RN RN cm10 Belinda Ambriz RN RN tm6 Corrections: (The following items were deleted from the chart) 22:41 22:41 BASIC METABOLIC PANEL+C.LAB.BRZ ordered. EDMS EDMS 22:41 22:41 CBC+H.LAB.BRZ ordered. EDMS EDMS 22:41 22:41 HEPATIC FUNCTION+C.LAB.BRZ ordered. EDMS EDMS 22:41 22:41 MAGNESIUM+C.LAB.BRZ ordered. EDMS EDMS 22:41 22:41 PROBNP+C.LAB.BRZ ordered. EDMS EDMS 22:41 22:41 PROTIME (+INR)+COAG.LAB.BRZ ordered. EDMS EDMS 22:41 22:41 Troponin High Sensitivity+C.LAB.BRZ ordered. EDMS EDMS 22:41 22:41 ACETAMINOPHEN+C.LAB.BRZ ordered. EDMS EDMS 22:41 22:41 ETHANOL+C.LAB.BRZ ordered. EDMS EDMS 22:41 22:41 Test, Urine+UC.LAB.BRZ ordered. EDMS EDMS 22:41 22:41 PTT, ACTIVATED+COAG.LAB.BRZ ordered. EDMS EDMS 22:41 22:41 SALICYLATE+C.LAB.BRZ ordered. EDMS EDMS 22:41 22:41 URINE DRUG SCREEN+UC.LAB.BRZ ordered. EDMS EDMS 22:48 22:48 Head Brain Wo Cont+CT.RAD.BRZ ordered. EDMS EDMS 12/31 00:23 12/30 23:45 Intensive Care Unit bran cg 12/31 00:23 12/30 23:45 bran cg 12/31 10:34 12/30 22:40 NG Tube ordered. [facility] bp 12/31 12:50 00:23 [facility] ER HOLD cg eb 12:50 00:23 ERHOLD- cg eb 13:05 12:50 Intensive Care Unit eb kb3 13:05 12:50 3- eb kb3 15:12 13:05 [facility] ER HOLD kb3 as6 15:12 13:05 ERHOLD- kb3 as6
--- NOTE | 2023-12-31 23:46 | ER ---
Nurse's Notes [facility] Name: Monse Comer Age: 48 yrs Sex: Female : 1975 Arrival Date: 12/31/2023 Time: 22:33 Bed 3 Private MD: Diagnosis: Altered mental status, unspecified;Cocaine abuse;Adverse effect of unspecified drugs, medicaments and biological substances;Suicidal ideations;Suicide attempt;Hypokalemia;Alcohol abuse with intoxication Presentation: 12/30 22:50 Chief complaint: EMS states: Called to patient's home after PD found patient cm10 unresponsive. EMS reports that patient had been making suicidal ideation posts on Facebook and a friend called for a welfare check. Pt was found unresponsive by PD and was given Narcan 4mg IN. [facility] reports given Narcan 4mg IV due to respirations being 6. Pt was found with multiple empty pill bottles around her. Quetiapine 25mg, Fluoxetine 20mg,Ondansetron 4mg, Loratadine 10mg, Mirtazapine 7.5mg, Cetirizine 10mg, Bupropion 150mg, Folic acid 1mg, Sertraline 50mg. Pt arrived urinating self and responses to painful stimuli only. Coronavirus screen: Client denies travel out of the [place] in the last 14 days. At this time, the client does not indicate any symptoms associated with coronavirus-19. Ebola Screen: Patient denies travel to an Ebola-affected area in the 21 days before illness onset. No symptoms or risks identified at this time. Initial Sepsis Screen: Does the patient meet any 2 criteria? Altered Mental Status. HR > 90 bpm. Does the patient have a suspected source of infection? No. Patient's initial sepsis screen is negative. Risk Assessment: Do you want to hurt yourself or someone else? Unable to obtain Other: Per EMS, pt was making suicidal ideation posts on facebook. Onset of symptoms was December 31, 2023. 22:50 Method Of Arrival: EMS: [facility] cm10 22:50 Acuity: JERRY 1 cm10 22:50 Care prior to arrival: Medication(s) given: Narcan 4mg IN; Narcan 4mg IVP IV initiated. cm10 18 GA, in the left in the right forearm, Glucose check: 102. Historical: - Allergies: 22:49 BuSpar; cm10 - PMHx: 22:49 diabetes mellitus; Hypertensive disorder; neuropathy; cm10 - PSHx: 22:49 back surgery x 2; cm10 - Immunization history:: Adult Immunizations unknown. - Social history:: Smoking status: unknown. - Family history:: not pertinent. Screenin:[facility] ED Fall Risk Assessment (Adult) History of falling in the last 3 months, cm10 including since admission Yes- physiologic fall (2 pts) Confusion or Disorientation Yes (5 pts) Intoxicated or Sedated Yes (3 pts) Impaired Gait Yes (1 pt) Mobility Assist Device Used Yes (1 pt) Altered Elimination Yes (1 pt) Score/Fall Risk Level 3 or more points = High Risk Oriented to surroundings, Maintained a safe environment, Assessed \\T\\ reinforced patient's understanding of fall precautions, Hourly rounding (assess needs \\T\\ fall precautionary measures) done. Abuse screen: Denies threats or abuse. Denies injuries from another. 12/31 02:34 Nutritional screening: No deficits noted. Tuberculosis screening: No symptoms or risk tm6 factors identified. Assessment: 12/30 22:36 Reassessment: patient unresponsive, unable to complete suicide screening. tm6 22:50 General: Appears in no apparent distress. Behavior is unresponsive. Pain: Denies pain. tm6 Neuro: Level of Consciousness is unresponsive, Oriented to none. Cardiovascular: Patient's skin is warm and dry. Rhythm is regular. Respiratory: Airway is patent Respiratory effort is even, unlabored, Respiratory pattern is regular, symmetrical. GI: Abdomen is flat, non-distended. : patient incontinent at this time, soiled sheets. EENT: No signs and/or symptoms were reported regarding the EENT system. Derm: No signs and/or symptoms reported regarding the dermatologic system. Derm: Wound noted left arm Wound is multiple superficial lacerations to left arm, appears to be self-mutilation. Musculoskeletal: No signs and/or symptoms reported regarding the musculoskeletal system. 12/31 02:34 Reassessment: patient responding to touch. tm6 03:07 Reassessment: poison control updated on patient status and labs. tm6 04:41 Reassessment: patient crying, rambling, but incoherent. Unable to complete suicide tm6 screening at this time. 07:53 General: Appears in no apparent distress. Behavior is inappropriate for age, restless. ld1 Pain: Unable to use pain scale. Patient is disoriented. Neuro: Level of Consciousness is confused, Oriented to none. Cardiovascular: Patient's skin is warm and dry. Rhythm is sinus rhythm. Respiratory: Airway is patent Respiratory effort is even, unlabored. GI: Abdomen is flat, non-distended. : Sauceda in place. EENT: No signs and/or symptoms were reported regarding the EENT system. Derm: No signs and/or symptoms reported regarding the dermatologic system. Musculoskeletal: No signs and/or symptoms reported regarding the musculoskeletal system. 07:55 Reassessment: Unable to assess SI status - pt disoriented, not answering questions. ld1 10:00 Reassessment: Patient appears in no apparent distress at this time. No changes from ld1 previously documented assessment. Patient and/or family updated on plan of care and expected duration. Pain level reassessed. 12:00 Reassessment: Patient appears in no apparent distress at this time. Patient and/or ld1 family updated on plan of care and expected duration. Pain level reassessed. Patient states symptoms have not improved. Psych: 12/30 22:50 Objective: Patient has mutilated themselves by cutting to left arm. tm6 22:50 [place] Suicide Severity Screening: patient unresponsive, unable to complete at this tm6 time. Subjective: patient unresponsive, unable to complete at this time. Interventions: Patient placed in hospital gown. Searched person for dangerous items. Urine collected and sent for urine drug test. Safety Checks: Door is open. patient unresponsive, unable to complete at this time. 12/31 07:15 [place] Suicide Severity Screening: In the past month, have you wished you were ld1 or wished you could go to sleep and not wake up? Unable to assess. Unresponsive "In the past month, have you actually had any thoughts of killing yourself?" unable to assess. Unresponive "In your lifetime, have you ever done anything, started to do anything, or prepared to do anything to end your life?" Unable to assess. Unresponsive. 07:15 Commitment: Patient will be an involuntary commitment. ld1 Vital Signs: 12/30 22:50 BP 175 / 126; Pulse 115; Resp 18; Pulse Ox 100% ; cm10 23:11 Weight 53.07 kg (M); cm10 23:35 BP 146 / 104; Pulse 117; Pulse Ox 100% on R/A; tm6 12/31 02:34 BP 108 / 70; Pulse 88; Pulse Ox 96% on R/A; tm6 04:10 Height 5 ft. 5 in. ; tm6 07:53 BP 157 / 96; Pulse 84; Resp 18; Pulse Ox 100% on R/A; ld1 08:45 BP 127 / 80; Pulse 76; Resp 18; Pulse Ox 98% on R/A; ld1 09:45 BP 127 / 88; Pulse 81; Resp 18; Pulse Ox 97% on R/A; ld1 10:45 BP 144 / 91; Pulse 84; Resp 18; Pulse Ox 98% on R/A; ld1 12:00 BP 127 / 71; Pulse 70; Resp 18; Pulse Ox 98% on R/A; ld1 ED Course: 12/30 22:36 Patient arrived in ED. bran 22:36 Lauri Avery MD is Attending Physician. [facility] 22:47 Belinda Ambriz RN is Primary Nurse. tm6 22:47 Sauceda cath inserted, using sterile technique, 18 Fr., by ri, balloon inflated, to tm6 gravity drainage, returned clear yellow urine. Patient tolerated well. 22:50 Arm band placed on right wrist. tm6 22:56 Triage completed. [facility] 23:08 Poison Control contacted at this time. Case # [id number]. Per Alison at poison control, [facility] patient is at risk for Serotonin Syndrome. Monitor for AMS, Hyperthermia, Seizures, and Rigidity. Poison control recommends patient have toxicology labs drawn and be admitted to ICU. Dr. Avery made aware. 23:08 Patient has correct armband on for positive identification. Placed in gown. Bed in low tm6 position. Call light in reach. Side rails up X2. Provided Education on: plan of care. Client placed on continuous cardiac and pulse oximetry monitoring. NIBP monitoring applied. night monitor on. Pulse ox on. NIBP on. Noise minimized. Warm blanket given. 23:13 Acetaminophen Sent. tm6 23:13 ETOH Level Sent. tm6 23:13 Test, Urine Sent. tm6 23:13 Ptt, Activated Sent. tm6 23:13 Salicylate Sent. tm6 23:13 Urine Drug Screen Sent. tm6 23:13 Basic Metabolic Panel Sent. tm6 23:13 Inserted saline lock: 18 gauge in right forearm, using aseptic technique. Maintain EMS tm6 IV. Dressing intact. Good blood return noted. Site clean \\T\\ dry. Gauge \\T\\ site: 18g LAC. 23:14 Magnesium Sent. tm6 23:14 LFT's Sent. tm6 23:14 NT PRO-BNP Sent. tm6 23:14 PT-INR Sent. tm6 23:14 Troponin HS Sent. tm6 23:44 Stephen Ponce MD is Hospitalizing Provider. [facility] 23:46 XRAY Chest (1 view) In Process Unspecified. EDMS 12/31 01:10 RN/COMMERCIAL COLLECTIONS SPECIALIST escort patient out of department to CT scan with monitor worker. cm10 05:09 No provider procedures requiring assistance completed. tm6 05:12 Patient admitted, IV remains in place. tm6 15:54 all belongs sent with security (). bc6 Restraints: 12/30 23:14 Non-Violent Restraint: Order obtained. Initiated on December 31, 2023 at 23:14 Restraint cm10 Education provided to family/significant other/legally authorized bilingual sales representative. Actions/Behavior observed: Confused/disoriented, has impaired decision making, has decreased level of consciousness, unable to follow instructions, repeated attempts to remove/tamper lines/tubes/IV med devices \\T\\ wound dressing, Less restrictive alternatives attempted: decrease environmental stimuli, reoriented to location, repositioned, Alternative interventions: Ineffective. Clinical justification for use: line protection, patient safety, surgical/wound maintenance. Mental status: agitated/restless, confused, Cognition: unable to follow commands, Circulation: Within defined parameters (based on Cardiovascular assessment) Skin integrity: Within defined parameters (based on Integumentary assessment) Signs of injury related to restraint: No injuries noted. Range of Motion (ROM): performed. Hydration/Food: patient declined. Elimination/Hygiene: with urinary catheter, Restraint status: Soft wrist restraint (Right) Started. Soft wrist restraint (Left) Started. Criteria to discontinue Restraint not met. Restraint continued. 12/31 01:14 Non-Violent Restraint: Actions/Behavior observed: Confused/disoriented, has impaired cm10 decision making, unable to follow instructions, Less restrictive alternatives attempted: decrease environmental stimuli, placed near Nurse station, reoriented to location, repositioned, Alternative interventions: Ineffective. Clinical justification for use: line protection, patient safety, surgical/wound maintenance. Mental status: confused, Cognition: poor safety awareness, unable to follow commands, Circulation: Within defined parameters (based on Cardiovascular assessment) Skin integrity: Within defined parameters (based on Integumentary assessment) Signs of injury related to restraint: No injuries noted. Range of Motion (ROM): performed. Hydration/Food: patient asleep. Elimination/Hygiene: with urinary catheter, Restraint status: Soft wrist restraint (Right) Continued. Soft wrist restraint (Left) Continued. Criteria to discontinue Restraint not met. Restraint continued. 03:14 Non-Violent Restraint: Actions/Behavior observed: Confused/disoriented, has impaired cm10 decision making, unable to follow instructions, Less restrictive alternatives attempted: decrease environmental stimuli, placed near Nurse station, reoriented to location, Alternative interventions: Ineffective. Clinical justification for use: line protection, patient safety, surgical/wound maintenance. Mental status: agitated/restless, Cognition: poor safety awareness, unable to follow commands, Circulation: Within defined parameters (based on Cardiovascular assessment) Skin integrity: Within defined parameters (based on Integumentary assessment) Signs of injury related to restraint: No injuries noted. Range of Motion (ROM): performed. Hydration/Food: patient declined. Elimination/Hygiene: with urinary catheter, Restraint status: Soft wrist restraint (Right) Continued. Soft wrist restraint (Left) Continued. Criteria to discontinue Restraint not met. Restraint continued. 04:17 Non-Violent Restraint: Mental status: patient asleep, Cognition: follow commands, cm10 Circulation: Within defined parameters (based on Cardiovascular assessment) Skin integrity: Within defined parameters (based on Integumentary assessment) Signs of injury related to restraint: No injuries noted. Range of Motion (ROM): performed. Hydration/Food: PO fluids provided:tolerated, Elimination/Hygiene: with urinary catheter, Restraint status: Soft wrist restraint (Right) Discontinued. Soft wrist restraint (Left) Discontinued. Criteria to discontinue restraint met:Patient no longer exhibits self injurious behaviors. Restraint Discontinued on January 01, 2024 at 04:18 Effective alternative interventions implemented: decreased environmental stimuli, reoriented to location. Administered Medications: 12/30 23:34 Drug: Famotidine IVP 20 mg IVP once; dilute with 10 mL 0.9% NaCl; give over 2 minutes tm6 Route: IVP; Site: left antecubital; 23:35 Drug: NS 0.9% IV 1000 ml IV at 1 bolus Per protocol; 1000 mL bolus Route: IV; Rate: 1 tm6 bolus; Site: left antecubital; 12/31 03:16 Follow up: IV Status: Completed infusion; IV Intake: 1000ml tm6 04:11 Follow up: IV Status: Completed infusion; IV Intake: 1000ml tm6 12/30 23:35 Drug: Banana Bag - (Multivitamin IV 1 amp, NS 0.9% IV 1000 ml, Thiamine IV 100 mg, tm6 foLIC Acid IVPB 1 mg) IV at 125 ml/hr once Route: IV; Rate: 125 ml/hr; Site: left antecubital; 23:35 Drug: Thiamine IV 100 mg IV at bolus once Route: IV; Rate: bolus; Site: left tm6 antecubital; Medication: 12/31 02:34 VIS not applicable for this client. tm6 Intake: 03:16 IV: 1000ml; Total: 1000ml. tm6 04:11 IV: 1000ml; Total: 2000ml. tm6 Outcome: 12/30 23:45 Decision to Hospitalize by Provider. [facility] 12/31 05:11 Admitted to ER Hold. Please see [facility] for further documentation. tm6 Condition: stable Instructed on the need for admit, 15:58 Patient left the ED. ld1 Signatures: Dispatcher [employer] EDMS Lauri Avery MD MD cha Sims, Lauren, RN RN ld1 Cristiana Stringer Clarissa, RN RN cm10 Belinda Ambriz RN RN tm6 Corrections: (The following items were deleted from the chart) 12/30 22:58 22:50 Chief complaint: EMS states: Called to patient's home after PD found patient cm10 unresponsive. EMS reports that patient had been making suicidal ideation posts on FB and a friend called for a welfare check. Pt was found unresponsive by PD and was given Narcan 4mg IN. [facility] reports given Narcan 4mg IV due to respirations being 6. Pt was found with multiple empty pill bottles around her. Quetiapine 25mg, Fluoxetine 20mg,Ondansetron 4mg, Loratadine 10mg, Mirtazapine 7.5mg, Cetirizine 10mg, Bupropion 150mg, Folic acid 1mg. Pt arrived urinating self and responses to painful stimuli only [facility] 12/31 00:17 12/30 22:50 Risk Assessment: Do you want to hurt yourself or someone else? Patient cmMarjorie reports no desire to harm self or others. [facility] 12/31 00:17 12/30 22:50 Chief complaint: EMS states: Called to patient's home after PD found cm10 patient unresponsive. EMS reports that patient had been making suicidal ideation posts on FB and a friend called for a welfare check. Pt was found unresponsive by PD and was given Narcan 4mg IN. [facility] reports given Narcan 4mg IV due to respirations being 6. Pt was found with multiple empty pill bottles around her. Quetiapine 25mg, Fluoxetine 20mg,Ondansetron 4mg, Loratadine 10mg, Mirtazapine 7.5mg, Cetirizine 10mg, Bupropion 150mg, Folic acid 1mg, Sertraline 50mg. Pt arrived urinating self and responses to painful stimuli only [facility] 12/31 01:45 12/30 23:14 Non-Violent Restraint: Order obtained. Initiated on December 31, 2023 at 23:14 [facility] Restraint Education provided to family/significant other/legally authorized bilingual sales representative. Actions/Behavior observed: Confused/disoriented, has impaired decision making, has decreased level of consciousness, unable to follow instructions, repeated attempts to remove/tamper lines/tubes/IV med devices \\T\\ wound dressing, Mental status: agitated/restless, confused, Cognition: unable to follow commands, Circulation: Within defined parameters (based on Cardiovascular assessment) Skin integrity: Within defined parameters (based on Integumentary assessment) Signs of injury related to restraint: No injuries noted. Range of Motion (ROM): performed. Hydration/Food: patient declined. Elimination/Hygiene: with urinary catheter, Restraint status: Soft wrist restraint (Right) Started. Soft wrist restraint (Left) Started. Criteria to discontinue Restraint not met. Restraint continued [facility] 12/31 03:14 12/30 23:51 Abuse screen: Denies threats or abuse. Denies injuries from another. [facility] 6 12/31 04:41 04:40 Reassessment: patient unresponsive, unable to complete suicide screening
[2023-12-31 23:54] LABS: ALT/SGPT 29 U/L (13-56); AST/SGOT 22 U/L (15-37); Albumin 3.8 g/dL (3.4-5.0); Albumin/Globulin Ratio 1.1 (1.1-1.8); Alkaline Phosphatase 173 U/L (45-117); Anion Gap 11.4 mEq/L (5.0-15.0); BUN Blood Urea Nitrogen 14 mg/dL (7-18); Bicarbonate 27 mEq/L (21-32); Bilirubin Direct 0.1 mg/dL (0-0.2); Bilirubin Indirect, Calculated 0.1 mg/dL (0.2-0.8); Bilirubin Total 0.2 mg/dL (0.2-1.0); Globulin 3.6 g/dL (2.3-3.5); Glomerular Filtration Rate 96 ml/min (=/>90); Glucose Level 115 mg/dL (74-106); Magnesium 2.1 mg/dL (1.6-2.4); NT PRO-BNP 55 pg/mL (<125); Potassium 3.4 mEq/L (3.5-5.1); Protein, Total 7.4 g/dL (6.4-8.2); Sodium Level 147 mEq/L (136-145); Troponin High Sensitivity 11.1 pg/mL (<58.9)
[2024-01-01] MEDS ORDERED: ONDANSETRON 4 MG/2 ML VIAL IV PRN (00:12)
[2024-01-01] MEDS ORDERED: ALPRAZOLAM 0.5 MG TABLET PO PRN (00:12)
[2024-01-01] MEDS ORDERED: ACETAMINOPHEN 500 MG TAB PO PRN (00:12)
--- NOTE | 2024-01-01 00:16 | P.HP ---
Certification for Inpatient Patient admitted to: Inpatient With expected LOS: >2 Midnights Patient will require the following post-hospital care: None Practitioner: I am a practitioner with admitting privileges, knowledge of patient current condition, hospital course, and medical plan of care. Services: Services provided to patient in accordance with Admission requirements found in Title 42 Section 412.3 of the Code of Federal Regulations Patient History Date of Service: 01/01/24 Reason for admission: Suicide attempt History of Present Illness: Patient is a 48-year-old female who comes into the hospital difficult to arouse. According to EMS patient had made some Facebook post regarding ending her life. They found multiple bottles that were empty including Seroquel 25 mg, Prozac 20 mg, Zofran 4 mg, Claritin 10 mg, Remeron 7.5 mg, Zyrtec 10 mg, Wellbutrin 150 mg, folic acid 1 mg, Zoloft 50 mg. I am not able to communicate with the patient regarding whether she has suicidal or homicidal ideations. She is very difficult to arouse at this time. With her history that has been documented in the chart, we will go ahead and admit her to the hospital with suicide precautions. Will monitor her on telemetry for arrhythmias. If her neurologic status deteriorates she may need to be intubated for airway protection. Her blood gases do not show a significant degree of hypercapnia at this time. She is arousable but she does not really answer questions whatsoever. Will continue to monitor her, and we will admit her to the ICU or she can go upstairs to the medical surgical floor with a one-to-one sitter. Patient will be admitted for inpatient hospitalization. She will probably need to go to inpatient psych when she is medically stabilized. - Past Medical/Surgical History Past Medical History: Unable to obtain Past Surgical History: Unable to obtain - Family History Father Notes: Unable to obtain as she is unresponsive - Social History Smoking Status: Unknown if ever smoked CD- Drugs: Yes Review of Systems 10-point ROS is otherwise unremarkable Physical Examination - Vital Signs Temperature: 98 F Blood Pressure: 140/80 Pulse: 80 Respirations: 18 Pulse Ox (%): 95 - Physical Exam General: Alert, In no apparent distress, Delirious HEENT: Atraumatic, PERRLA, Mucous membr. moist/pink, EOMI, Sclerae nonicteric Neck: Supple, 2+ carotid pulse no bruit, No LAD, Without JVD or thyroid abnormality Respiratory: Clear to auscultation bilaterally, Normal air movement Cardiovascular: Regular rate/rhythm, Normal S1 S2 Gastrointestinal: Normal bowel sounds, Soft and benign, Non-distended, No t enderness Musculoskeletal: No clubbing, No swelling, No tenderness Integumentary: No rashes Neurological: Normal gait, Normal speech, Normal strength at 5/5 x4 extr, Normal tone, Sensation intact, Cranial nerves 3-12 intact, Normal affect Lymphatics: No axilla or inguinal lymphadenopathy - Studies Laboratory Data (last 24 hrs) 12/31/23 12/31/23 12/31/23 23:05 23:05 23:05 WBC 7.70 Hgb 14.8 Hct 43.8 Plt Count 271 PT 11.0 INR 1.00 APTT 33.5 Sodium 147 H Potassium 3.4 L BUN 14 Creatinine 0.76 Glucose 115 H Magnesium 2.1 Total Bilirubin 0.2 AST 22 ALT 29 Alkaline Phosphatase 173 H Assessment & Plan - Problems (Diagnosis) (1) Suicide attempt by drug overdose Current Visit: Yes Status: Acute - Plan Plan: 1. Patient has made a suicide attempt by taking polysubstances. She will be monitored on telemetry and will monitor her neurologic status closely. Repeat labs and will do a drug tox screen. Continue monitoring electrolytes and cardiac functioning. Patient will be admitted for inpatient hospitalization. Patient will need inpatient psych eval at the time of medical clearance. Currently she is not waking up and not able to interact with me whatsoever. She will be admitted to the hospital and she will need a one-to-one sitter. Preferably she would be admitted to a locked unit where she will be able to escape. As we do not have a locked unit; it may be best to have her monitored in the ICU as she is needing restraints because of aggressive behavior. Hopefully, when she is more awake and alert she will not be as aggressive. 2. GI DVT prophylaxis Discharge Plan: Home Plan to discharge in: Greater than 2 days - Advance Directives Does patient have a Living Will: No Does patient have a Durable POA for Healthcare: No - Code Status/Comfort Care Code Status Assessed: Yes Code Status: Full Code Critical Care: No Time Spent Managing PTS Care (In Minutes): 45
[2024-01-01] MEDS: NA CHLORIDE 0.9% 1,000 ML IV SCH (01:00)
[2024-01-01] MEDS ORDERED: NA CHLORIDE 0.9% 1,000 ML ONE (05:24)
[2024-01-01] MEDS ORDERED: HALOPERIDOL LACT 5 MG/ML INJ ONE (11:09)
[2024-01-01] MEDS: HALOPERIDOL LACT 5 MG/ML INJ IV PRN (11:25)
--- NOTE | 2024-01-01 12:27 | P.PN ---
Date of Service: 01/01/24 Pt seen and examined. Pt is a 48-year-old female who presents in the ER with decreased responsiveness. Pt is a poor history roller hand due to AMS. [facility] review showed that pt made a facebook post about ending her life. When EMS arrived, they found multiple bottles that were empty including Seroquel 25 mg, Prozac 20 mg, Zofran 4 mg, Claritin 10 mg, Remeron 7.5 mg, Zyrtec 10 mg, Wellbutrin 150 mg, folic acid 1 mg, Zoloft 50 mg. At bedside, pt is still somnolent. A/P: Suicide attempt by taking polysubstances: Will continue telemetry, IVF and monitor closely. Will f/u EKG. Pt will need psych eval for inpatient psych placement once medically stable. Polysubstance abuse: UDS is positive for cocaine and etoh level is 189. Pt will be advised to quit poly-substance abuse. GI ppx: protonix when able to eat. DVT ppx: SCD Discharge Plan: Home
[2024-01-01 15:51] LABS: Absolute Basophils 0.1 K/uL (0-0.5); Absolute Eosinophils 0.1 K/uL (0-0.5); Absolute Lymphocytes (CBC) 2.4 K/uL (0.7-4.9); Absolute Monocytes 0.6 K/uL (0.1-1.3); Basophils % 0.7 % (0-1.3); Eosinophils % 1.4 % (0-4.4); Hematocrit 42.6 % (36.0-45.0); Hemoglobin 14.5 g/dL (12.0-15.0); Lymphocytes % 29.4 % (15.3-44.8); MCH 31.7 pg (27.0-35.0); MCHC 34.1 g/dL (32.0-36.0); MCV 93.2 fL (80-100); MPV 7.7 fL (7.6-11.3); Monocytes % 7.2 % (3.3-12.3); Neutrophils % 61.3 % (41.7-73.7); Nucleated Red Blood Cells % 0.1 % (0-0); Platelets 271 thou/uL (152-406); RBC Red Blood Cell Count 4.57 M/uL (3.86-4.86); Red Cell Distribution Width 12.3 % (12.1-15.2)
[2024-01-01 16:00] LABS: PT Prothrombin Time 11.6 SECONDS (9.5-12.5); PTT, Activated Partial Thromb 33.5 SECONDS (24.3-36.9); Protime INR 1.06
[2024-01-01 16:08] LABS: Albumin 3.5 g/dL (3.4-5.0); Anion Gap 7.7 mEq/L (5.0-15.0); Bilirubin Total 0.6 mg/dL (0.2-1.0); Globulin 3.4 g/dL (2.3-3.5); Magnesium 1.9 mg/dL (1.6-2.4); Potassium 3.7 mEq/L (3.5-5.1); Protein, Total 6.9 g/dL (6.4-8.2)
--- NOTE | 2024-01-01 16:10 | RAD REPORT ---
EXAM DESCRIPTION: RAD - Chest Single View - 12/31/2023 11:44 pm CLINICAL HISTORY: Female, 48 years old, COUGH TECHNIQUE: 1 view COMPARISON: None. FINDINGS: Motion artifact limited assessment. SUPPORT DEVICES: Overlying leads. LUNGS/PLEURA: No consolidation, pleural effusion, or pneumothorax. HEART/MEDIASTINUM: Normal size and configuration. OTHER: No acute osseous findings. IMPRESSION: No acute cardiopulmonary findings within the exam limitation. Electronically signed by: New Ba MD 01/01/2024 12:13 AM CDT Due to temporary technical issues with the PACS/Fluency reporting system, reports are being signed by the in house radiologists without review as a courtesy to insure prompt reporting. The interpreting radiologist is fully responsible for the content of the report
--- NOTE | 2024-01-01 16:13 | RAD REPORT ---
EXAM DESCRIPTION: CT - Head Brain Wo Cont - 01/01/2024 7:03 am CLINICAL HISTORY: 48 years Female; DECLINING STATE; Bed Name: 3 TECHNIQUE: Noncontrast CT head. All CT scans at this facility use dose modulation, iterative reconstruction, and/or weight based dosi ng when appropriate to reduce radiation dose to as low as reasonably achievable. COMPARISON: None. FINDINGS: Parenchyma: No acute hemorrhage, large territorial infarction, or mass effect. Ventricles and extra-axial spaces: Appropriate for age. Visualized paranasal sinuses: Clear. Mastoid air cells: Clear. Bones: No acute focal abnormality. Additional comment: None. IMPRESSION: No acute intracranial findings. Electronically signed by: Usman Hernandez MD 01/01/2024 01:58 AM CDT Due to temporary technical issues with the PACS/Fluency reporting system, reports are being signed by the in house radiologists without review as a courtesy to insure prompt reporting. The interpreting radiologist is fully responsible for the content of the report
[2024-01-02 05:26] VITALS: BMI 18.9
[2024-01-02 06:14] LABS: Absolute Basophils 0.1 K/uL (0-0.5); Absolute Eosinophils 0.2 K/uL (0-0.5); Absolute Lymphocytes (CBC) 2.3 K/uL (0.7-4.9); Absolute Monocytes 0.6 K/uL (0.1-1.3); Absolute Neutrophil 5.6 K/uL (1.8-8.0); Basophils % 0.7 % (0-1.3); Eosinophils % 2.3 % (0-4.4); Hematocrit 42.3 % (36.0-45.0); Hemoglobin 14.3 g/dL (12.0-15.0); Lymphocytes % 26.4 % (15.3-44.8); MCH 31.5 pg (27.0-35.0); MCHC 33.9 g/dL (32.0-36.0); MPV 7.9 fL (7.6-11.3); Monocytes % 6.5 % (3.3-12.3); Neutrophils % 64.1 % (41.7-73.7); Platelets 276 thou/uL (152-406); RBC Red Blood Cell Count 4.55 M/uL (3.86-4.86); Red Cell Distribution Width 12.6 % (12.1-15.2)
[2024-01-02 06:16] LABS: PT Prothrombin Time 11.7 SECONDS (9.5-12.5); PTT, Activated Partial Thromb 32.5 SECONDS (24.3-36.9); Protime INR 1.07
[2024-01-02 06:23] LABS: Albumin 3.1 g/dL (3.4-5.0); Anion Gap 6.5 mEq/L (5.0-15.0); Bilirubin Total 0.6 mg/dL (0.2-1.0); Potassium 3.5 mEq/L (3.5-5.1); Protein, Total 6.1 g/dL (6.4-8.2)
[2024-01-02] MEDS ORDERED: POTASSIUM CL SA 10 MEQ TAB PO ONE (08:03)
[2024-01-02] MEDS ORDERED: NA CHLORIDE 0.9% 1,000 ML ONE (08:03)
[2024-01-02] MEDS: POTASSIUM CL SA 10 MEQ TAB PO ONE (08:04)
[2024-01-02] MEDS ORDERED: MORPHINE 2 MG/ML SYR ONE (10:21)
[2024-01-02] MEDS: MORPHINE 2 MG/ML SYR IV PRN (10:22)
--- NOTE | 2024-01-02 10:32 | P.PN ---
Subjective Date of Service: 01/02/24 Chief Complaint: Suicide attempt Pt is resting comfortably in bed. She was sleeping when I saw her. EKG shows QTc of 406/422 ms. No other issues overnight. Review of Systems is unable to be obtained (Pt was somnolent) Respiratory: Unremarkable Cardiovascular: Unremarkable Gastrointestinal: Unremarkable Genitourinary: Unremarkable Musculoskeletal: Unremarkable Integumentary: Unremarkable Neurological: Unremarkable Lymphatics: Unremarkable Physical Examination - Vital Signs Temperature: 97.1 F Blood Pressure: 137/82 Pulse: 66 Respirations: 97 Pulse Ox (%): 100 - Physical Exam General: Other (somnolent) HEENT: Atraumatic, Normocephalic Neck: Supple, 2+ carotid pulse no bruit Respiratory: Clear to auscultation bilaterally, Normal air movement Cardiovascular: No edema, Normal pulses, Regular rate/rhythm, Normal S1 S2 Capillary refill: <2 Seconds Gastrointestinal: Normal bowel sounds, Soft and benign, Non-distended Musculoskeletal: No clubbing, No swelling Integumentary: No rashes, No breakdown Neurological: Normal speech, Normal strength at 5/5 x4 extr, Normal tone, Sensation intact Lymphatics: No axilla or inguinal lymphadenopathy Assessment And Plan - Plan Suicide attempt by taking polysubstances: Will continue telemetry, IVF and monitor closely. EKG shows QTc 406/422 ms. Pt will need psych eval for inpatient psych placement once medically stable. Polysubstance abuse: UDS is positive for cocaine and etoh level is 189. Pt will be advised to quit poly-substance abuse. GI ppx: protonix when able to eat. DVT ppx: SCD Dispo: Pending hospital course
[2024-01-02] MEDS ORDERED: HYDROCODONE/APAP 10/325 TAB ONE (13:04)
[2024-01-02] MEDS: HYDROCODONE/APAP 10/325 TAB PO PRN (13:05)
--- NOTE | 2024-01-02 13:36 | EKG ---
Test Date: 2024-01-02 Test Time: 09:16:05 Strip Deburrer: ALVARO MEASUREMENT RESULTS: Intervals: Rate: 65 MT: 164 QRSD: 76 QT: 406 QTc: 422 [place]: P: 69 MT: 164 QRS: 50 T: 42 INTERPRETIVE STATEMENTS: Normal sinus rhythm Normal ECG Compared to ECG 12/31/2023 23:05:28 Sinus arrhythmia no longer present Electronically Signed On 01-02-24 13:35:49 CDT by Sven Castro
--- NOTE | 2024-01-02 13:43 | EKG ---
Test Date: 2023-12-31 Test Time: 23:05:28 Photographic Laboratory Technician: JONATHON MEASUREMENT RESULTS: Intervals: Rate: 86 RI: 142 QRSD: 80 QT: 360 QTc: 430 [place]: P: 76 RI: 142 QRS: 72 T: 68 INTERPRETIVE STATEMENTS: Sinus rhythm with marked sinus arrhythmia Otherwise normal ECG Compared to ECG 07/25/2023 19:57:26 No significant changes Electronically Signed On 01-02-24 13:37:23 CDT by Sven Castro
[2024-01-02 19:41] VITALS: O2SAT 98
[2024-01-02] MEDS: PREGABALIN 150 MG CAP PO SCH (20:48)
[2024-01-03 04:44] VITALS: TEMP 97.2
[2024-01-03] MEDS: AMLODIPINE 5 MG TAB PO SCH (08:41)
[2024-01-03 08:58] VITALS: BP 158/98
--- NOTE | 2024-01-03 09:19 | P.PN ---
Subjective Date of Service: 01/03/24 Chief Complaint: Suicide attempt Resting with eyes closed, responds to verbal, one-on-one sitter at bedside - Physical Exam General: Other (somnolent) HEENT: Atraumatic, Normocephalic Neck: Supple, 2+ carotid pulse no bruit Respiratory: Clear to auscultation bilaterally, Normal air movement Cardiovascular: No edema, Normal pulses, Regular rate/rhythm, Normal S1 S2 Capillary refill: <2 Seconds Gastrointestinal: Normal bowel sounds, Soft and benign, Non-distended Musculoskeletal: No clubbing, No swelling Integumentary: No rashes, No breakdown Neurological: Normal speech, Normal strength at 5/5 x4 extr, Normal tone, Sensation intact Lymphatics: No axilla or inguinal lymphadenopathy Review of Systems Per HPI Physical Examination - Vital Signs Temperature: 97.2 F Blood Pressure: 158/98 Pulse: 58 Respirations: 14 Pulse Ox (%): 97 Assessment And Plan - Plan Assessment plan Intentional overdose Suicidal ideation Polysubstance use EtOH use Psych eval, sitter at bedside, suicide precaution Suicide attempt by taking polysubstances: Will continue telemetry, IVF and monitor closely. EKG shows QTc 406/422 ms. Pt will need psych eval for inpatient psych placement once medically stable. Polysubstance abuse: UDS is positive for cocaine and etoh level is 189. Pt will be advised to quit poly-substance abuse. Educated on substance, alcohol cessation Speech eval for cognition, swallow assessment GI PPI DVT SCD Disposition psych eval Full code Discharge Plan: Psychiatry - Code Status/Comfort Care Code Status: Full Code Critical Care: No Time Spent Managing PTS Care (In Minutes): 35
[2024-01-03] MEDS: DULOXETINE 30 MG CAP PO SCH (10:06)
--- NOTE | 2024-01-03 13:44 | P.DS ---
Admission Date: 01/01/24 Discharge Date: 01/03/24 Disposition: ROUTINE DISCHARGE Discharge Condition: GOOD Reason for Admission: Suicide attempt Brief History of Present Illness: 48-year-old female who comes into the hospital difficult to arouse. According to EMS patient had made some Facebook post regarding ending her life. They found multiple bottles that were empty including Seroquel 25 mg, Prozac 20 mg, Zofran 4 mg, Claritin 10 mg, Remeron 7.5 mg, Zyrtec 10 mg, Wellbutrin 150 mg, folic acid 1 mg, Zoloft 50 mg. I am not able to communicate with the patient regarding whether she has suicidal or homicidal ideations. She is very difficult to arouse at this time. With her history that has been documented in the chart, we will go ahead and admit her to the hospital with suicide precautions. Will monitor her on telemetry for arrhythmias. If her neurologic status deteriorates she may need to be intubated for airway protection. Her blood gases do not show a significant degree of hypercapnia at this time. She is arousable but she does not really answer questions whatsoever. Will continue to monitor her, and we will admit her to the ICU or she can go upstairs to the medical surgical floor with a one-to-one sitter. Patient will be admitted for inpatient hospitalization. She will probably need to go to inpatient psych when she is medically stabilized. - Physical Exam General: Alert, In no apparent distress, HEENT: Atraumatic, PERRLA, Mucous membr. moist/pink, EOMI, Sclerae nonicteric Neck: Supple, 2+ carotid pulse no bruit, No LAD, Without JVD or thyroid abnormality Respiratory: Clear to auscultation bilaterally, Normal air movement Cardiovascular: Regular rate/rhythm, Normal S1 S2 Gastrointestinal: Normal bowel sounds, Soft and benign, Non-distended, No tenderness Musculoskeletal: No clubbing, No swelling, No tenderness Integumentary: No rashes Neurological: Normal gait, Normal speech, Normal strength at 5/5 x4 extr, Normal tone, Sensation intact, Cranial nerves 3-12 intact, Normal affect Lymphatics: No axilla or inguinal lymphadenopathy Psych flat affect Hospital Course: 48 year-old female patient presented with substance abuse, suicide attempt. Was noted to have polypharmacy. EtOH use. Suicide attempt and placed on suicide precautions. Condition improved with IV fluids. Bedrest, monitoring for suicidal ideation. Patient tolerating diet, stable for discharge to home with follow-up appointment with primary care physician. PROBLEM: Polysubstance use EtOH use Suicide attempt improved Depression Patient was evaluated by psychiatry inpatient Continue home medicines as previously prescribed GOAL: Clear understanding of disease process INSTRUCTIONS: Physician Discharge Instructions: -DC IV and DC home -Follow-up with PCP in 1 to 2 weeks -Please call Dr. Ponce at [phone] if any questions regarding hospital stay -Please call nursing station at [phone] if any nursing or medication questions -Return to the emergency room if symptoms worsen Diet: ADA, low sodium Activity: Fall precautions Vital Signs/Physical Exam: Temp Pulse Resp BP Pulse Ox 97.2 F 58 14 158/98 H 97 01/03/24 09:20 01/03/24 09:20 01/03/24 09:20 01/03/24 09:20 01/03/24 09:20 Laboratory Data at Discharge: WBC 8.70 thou/uL (4.3-10.9) 01/02/24 05:50 Hgb 14.3 g/dL (12.0-15.0) 01/02/24 05:50 Hct 42.3 % (36.0-45.0) 01/02/24 05:50 Plt Count 276 thou/uL (152-406) 01/02/24 05:50 PT 11.7 SECONDS (9.5-12.5) 01/02/24 05:50 INR 1.07 01/02/24 05:50 APTT 32.5 SECONDS (24.3-36.9) 01/02/24 05:50 Sodium 144 mEq/L (136-145) 01/02/24 05:50 Potassium 3.5 mEq/L (3.5-5.1) 01/02/24 05:50 BUN 16 mg/dL (7-18) 01/02/24 05:50 Creatinine 0.76 mg/dL (0.55-1.02) 01/02/24 05:50 Glucose 89 mg/dL (74-106) 01/02/24 05:50 Magnesium 1.9 mg/dL (1.6-2.4) 01/01/24 15:39 Total Bilirubin 0.6 mg/dL (0.2-1.0) 01/02/24 05:50 AST 21 U/L (15-37) 01/02/24 05:50 ALT 23 U/L (13-56) 01/02/24 05:50 Alkaline Phosphatase 153 U/L (45-117) H 01/02/24 05:50 Home Medications: Amlodipine [Norvasc*] 5 mg PO DAILY 01/02/24 Hydrocodone/Acetaminophen [Hydrocodone-Acetamin 10-325 mg] 10 mg PO Q6H PRN 01/02/24 Pregabalin [Lyrica] 300 mg PO BID 01/02/24 ALPRAZolam [Xanax*] 0.5 mg PO TID PRN #14 tab 01/03/24 Duloxetine HCl [Cymbalta] 30 mg PO DAILY #15 cap 01/03/24 New Medications: Duloxetine HCl [Cymbalta] 30 mg PO DAILY #15 cap ALPRAZolam [Xanax*] 0.5 mg PO TID PRN #14 tab PRN Reason: Anxiety Physician Discharge Instructions: -DC IV and DC home -Follow-up with PCP in 1 to 2 weeks -Follow-up with PSYCHIATRY in 1 to 2 weeks -Please call Dr. Ponce at [phone] if any questions regarding hospital stay -Please call nursing station at [phone] if any nursing or medication questions -Return to the emergency room if symptoms worsen Diet: Regular Activity: Fall precautions Followup: NONE,NONE [Primary Care Provider] - Time spent managing pt's care (in minutes): 55
== END 2024-01-03 10:13 | disposition home or self-care (01) | DRG 918 ==
LOC: ER 22:33 → ERHOLD 01-01 00:12 → 3RD-ICU 01-01 12:51 → 4TH 01-02 15:30
PROVIDERS: ADMIT Hospitalist; ATTEND Hospitalist
PROC: 4A033R1 Measurement of Arterial Saturation, Peripheral, Percutaneous Approach (ICD-10-PCS; principal; 2023-12-31)
PROC: 0T9B70Z Drainage of Bladder with Drainage Device, Via Natural or Artificial Opening (ICD-10-PCS; 2024-01-02)
DX: T43.592A Poisoning by other antipsychotics and neuroleptics, intentional self-harm, initial encounter (principal); R45.851 Suicidal ideations; F10.121 Alcohol abuse with intoxication delirium; T43.222A Poisoning by selective serotonin reuptake inhibitors, intentional self-harm, initial encounter; T45.0X2A Poisoning by antiallergic and antiemetic drugs, intentional self-harm, initial encounter; T43.022A Poisoning by tetracyclic antidepressants, intentional self-harm, initial encounter; T43.292A Poisoning by other antidepressants, intentional self-harm, initial encounter; T45.8X2A Poisoning by other primarily systemic and hematological agents, intentional self-harm, initial encounter; F32.A Depression, unspecified; I10 Essential (primary) hypertension; E87.6 Hypokalemia; E11.40 Type 2 diabetes mellitus with diabetic neuropathy, unspecified; F14.10 Cocaine abuse, uncomplicated; R06.81 Apnea, not elsewhere classified; Z78.1 Physical restraint status; Z88.8 Allergy status to other drugs, medicaments and biological substances; Y90.6 Blood alcohol level of 120-199 mg/100 ml
CPT/HCPCS: 36415; 36600; 51702; 70450; 71045; 80048; 80053; 80076; 80143; 80179; 80307; 81025; 82077; 82805; 82947; 83735; 83880; 84484; 85025; 85610; 85730; 93005; 96361; 96374; 96375; 99285; J1630; J2270; J3411; J7030